=== PATIENT | female | born 1985 | race African-American/Black ===

== ENCOUNTER 2017-12-14 | Emergency (ER) | payer SELFPAY ==
--- NOTE | 2017-12-14 16:11 | ER ---
Nurse's Notes [facility] Name: Martha Keller Age: 32 yrs Sex: Female : 1985 Arrival Date: 12/14/2017 Time: 14:40 Bed 11 Private MD: Diagnosis: Dental Pain Presentation: 12/14 14:52 Presenting complaint: Patient states: tooth ache, started i week ago, accompanied by tl3 headache "feels like someone is scooping teeth out"saw dentist yesterday and placed on clindamycin, has had 3 doses. Transition of care: patient was not received from another setting of care. Onset of symptoms. 14:52 Method Of Arrival: Ambulatory tl3 14:52 Acuity: CHYNA 4 tl3 15:52 Care prior to arrival: None. tw2 Triage Assessment: 14:58 General: Appears uncomfortable, obese, Behavior is calm, cooperative, anxious. Pain: tl3 Complains of pain in headache Pain currently is 10 out of 10 on a pain scale. 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 tw2 Historical: - Allergies: 14:57 No Known Allergies; tl3 - Home Meds: 14:57 clindamycin HCl 300 mg Oral cap 2 times per day [Active]; ibuprofen 800 mg Oral tab tl3 [Active]; - PMHx: 14:57 Anxiety; tl3 - Immunization history:: Adult Immunizations up to date. - Social history:: Smoking status: Patient uses tobacco products, 1 pack last two to three days. Screenin:52 Abuse screen: Denies threats or abuse. Nutritional screening: No deficits noted. tw2 Tuberculosis screening: No symptoms or risk factors identified. Fall Risk None identified. Assessment: 15:50 General: Appears in no apparent distress. obese, Behavior is calm, cooperative, tw2 appropriate for age. Pain: Complains of pain in left buccal mucosa and right buccal mucosa. Neuro: Level of Consciousness is awake, alert, obeys commands, Oriented to person, place, time, situation. Cardiovascular: Denies chest pain, shortness of breath, Capillary refill < 3 seconds Patient's skin is warm and dry. Respiratory: Airway is patent Respiratory effort is even, unlabored, Respiratory pattern is regular, symmetrical. GI: No signs and/or symptoms were reported involving the gastrointestinal system. : No signs and/or symptoms were reported regarding the genitourinary system. EENT: Reports pain "i need to have 6 teeth pulled and they started me on an antibiotic at the clinic in [place] but I had to miss work today it is really hurting me". 16:26 Reassessment: Patient appears in no apparent distress at this time. No changes from tw2 previously documented assessment. Patient and/or family updated on plan of care and expected duration. Pain level reassessed. Patient is alert, oriented x 3, equal unlabored respirations, skin warm/dry/pink. Vital Signs: 14:58 BP 143 / 84; Pulse 103; Resp 18; Temp 98; Pulse Ox 100% ; Height 5 ft. 4 in. (162.56 tl3 cm); 16:20 BP 132 / 81; Pulse 81; Resp 17; Pulse Ox 100% on R/A; tw2 ED Course: 14:40 Patient arrived in ED. rg4 14:56 Triage completed. tl3 15:47 Jorge Luis Delgado PA is PHCP. cp 15:47 Maria E Adam MD is Attending Physician. cp 15:50 Gabbie Caceres, RN is Primary Nurse. tw2 15:51 Arm band placed on. tw2 15:51 Bed in low position. Call light in reach. Pulse ox on. NIBP on. tw2 15:52 No provider procedures requiring assistance completed. tw2 16:08 Troy Nagy DDS is Referral Physician. cp 16:26 Patient did not have IV access during this emergency room visit. tw2 Administered Medications: No medications were administered Outcome: 16:10 Discharge ordered by MD. cp 16:26 Discharged to home ambulatory. tw2 16:26 Condition: stable 16:26 Discharge instructions given to patient, Instructed on discharge instructions, follow up and referral plans. no drinking with medication, no driving heavy equipment, medication usage, Demonstrated understanding of instructions, follow-up care, medications, Prescriptions given X 2. 16:27 Patient left the ED. tw2 Signatures: Jorge Luis Delgado PA PA cp Wise, Tara, RN RN tw2 Inés Oconnor rg4 Le Avelar RN RN tl3
--- NOTE | 2017-12-14 16:11 | EDPHYS ---
Physician Documentation [facility] Name: Martha Keller Age: 32 yrs Sex: Female : 1985 Arrival Date: 12/14/2017 Time: 14:40 Bed 11 Private MD: ED Physician Maria E Adam HPI: 12/14 16:04 This 32 yrs old Black Female presents to ER via Ambulatory with complaints of Toothache.cp 16:04 The patient presents with pain. The problem is located in the right upper jaw and left cp lower jaw. Onset: The symptoms/episode began/occurred gradually. Duration: The symptoms are continuous. 16:05 Associated signs and symptoms: Pertinent positives: headache, Pertinent negatives: cp anorexia, dysphagia, fever, inability to eat, vomiting. 16:05 Patient reports she was seen by dentist yesterday and prescribed clindamycin. Patient cp reports taking 3 doses and being referred to maxillary facial surgeon. 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 tw2 Historical: - Allergies: 14:57 No Known Allergies; tl3 - Home Meds: 14:57 clindamycin HCl 300 mg Oral cap 2 times per day [Active]; ibuprofen 800 mg Oral tab tl3 [Active]; - PMHx: 14:57 Anxiety; tl3 - Immunization history:: Adult Immunizations up to date. - Social history:: Smoking status: Patient uses tobacco products, 1 pack last two to three days. ROS: 16:05 Constitutional: Negative for body aches, chills, fever, poor PO intake. cp 16:05 Eyes: Negative for injury, pain, redness, and discharge. cp 16:05 ENT: Positive for dental pain, Negative for drainage from ear(s), ear pain, sore throat, difficulty swallowing, difficulty handling secretions, hoarseness. 16:05 Neck: Negative for pain with movement, pain at rest, stiffness. 16:05 Respiratory: Negative for cough, shortness of breath, wheezing. 16:05 Neuro: Positive for headache, Negative for weakness. 16:05 All other systems are negative. Exam: 16:07 Constitutional: The patient appears in no acute distress, alert, awake, non-toxic, well cp developed, well nourished. 16:07 Head/Face: Normocephalic, atraumatic. cp 16:07 Eyes: Periorbital structures: appear normal, Pupils: equal, round, and reactive to light and accomodation, Extraocular movements: intact throughout, Conjunctiva: normal, no exudate, no injection, Sclera: no appreciated abnormality, Lids and lashes: appear normal, bilaterally. 16:07 ENT: External ear(s): are unremarkable, Ear canal(s): are normal, clear, TM's: dullness, bilaterally, Nose: is normal, Mouth: Lips: moist, Oral mucosa: moist, Gums: mild swelling noted diffusely both upper and lower jaws, Tongue: is normal, abscess, is not appreciated, Posterior pharynx: Airway: no evidence of obstruction, patent, Tonsils: are normal in appearance, Uvula: midline, swelling, is not appreciated, erythema, is not appreciated, exudate, is not appreciated, Dental exam: abscess, is not appreciated, dental caries, that is severe, diffusely, fractured teeth are noted, diffusely, missing teeth, diffusely, pain, that is mild, specifically in the right upper jaw and left lower jaw, Voice: is normal. 16:07 Neck: ROM/movement: is normal, is supple, without pain, no range of motions limitations, no meningismus, no nuchal rigidity, Lymph nodes: no appreciated lymphadenopathy. 16:07 Chest/axilla: Inspection: normal, Palpation: is normal, no crepitus, no tenderness. 16:07 Cardiovascular: Rate: normal, Rhythm: regular. 16:07 Respiratory: the patient does not display signs of respiratory distress, Respirations: normal, no use of accessory muscles, no retractions, no splinting, no tachypnea, labored breathing, is not present, Breath sounds: are clear throughout, no decreased breath sounds, no stridor, no wheezing. 16:07 Abdomen/GI: Exam negative for acute changes, Inspection: abdomen appears normal. 16:07 Skin: cellulitis, is not appreciated, no rash present. 16:07 Neuro: Orientation: to person, place \T\ time. Mentation: is normal, Cerebellar function: is grossly normal, Motor: moves all fours, strength is normal, Sensation: no obvious gross deficits. Vital Signs: 14:58 BP 143 / 84; Pulse 103; Resp 18; Temp 98; Pulse Ox 100% ; Height 5 ft. 4 in. (162.56 tl3 cm); 16:20 BP 132 / 81; Pulse 81; Resp 17; Pulse Ox 100% on R/A; tw2 MDM: 15:48 Patient medically screened. cp 16:00 Differential diagnosis: dental caries, dental abscess, pericoronitis, gingivostomatitis.cp 16:09 Data reviewed: vital signs, nurses notes, and as a result, I will discharge patient. cp 16:09 Counseling: I had a detailed discussion with the patient and/or guardian regarding: the cp historical points, exam findings, and any diagnostic results supporting the discharge/admit diagnosis, the need for outpatient follow up, for definitive care, maxillary facial surgeon. Administered Medications: No medications were administered Disposition: 12/15 07:11 Co-signature as Attending Physician, Maria E Adam MD. ma2 Disposition: 18 16:10 Discharged to Home. Impression: Dental Pain. - Condition is Stable. - Discharge Instructions: Dental Pain. - Prescriptions for Peridex 0.12 % Mucous Membrane mouthwash - place 15 milliliter by MUCOUS MEMBRANE route 2 times per day after brushing teeth, swish in mouth for 30 seconds then spit out; 1 bottle. Naprosyn 500 mg Oral Tablet - take 1 tablet by ORAL route 2 times per day take with food; 20 tablet. - Medication Reconciliation Form, Thank You Letter, Antibiotic Education, Prescription Opioid Use, Work release form form. - Follow up: Troy Nagy DDS; When: call office next week for appointment; Reason: Recheck today's complaints. - Problem is an ongoing problem. - Symptoms are unchanged. Signatures: Jorge Luis Delgado PA PA Gabbie Caceres, RN RN tw2 Maria E Adam MD MD ma2 Le Avelar, RN RN tl3
== END 2017-12-14 16:27 | disposition home or self-care (01) ==
CPT/HCPCS: 99283

== ENCOUNTER 2018-09-27 06:00 | Emergency (ER) | payer SELFPAY ==
--- OUTSIDE RECORDS SUMMARY | 2018-09-27 06:02 | XMS REPORT ---
:1985 [facility] [address] [place] [address] [place] [id number] Care Team Providers Name Role Phone Unavailable Unavailable Unavailable Problems This patient has no known problems. Allergies, Adverse Reactions, Alerts This patient has no known allergies or adverse reactions. Medications This patient has no known medications.
[2018-09-27] MEDS ORDERED: ALBUTEROL 2.5 MG/3 ML NEB SOL ONE (06:39)
--- NOTE | 2018-09-27 07:38 | EDPHYS ---
Physician Documentation [facility] Name: Martha Keller Age: 33 yrs Sex: Female : 1985 Arrival Date: 09/27/2018 Time: 06:01 Bed 5 Private MD: ED Physician Deven Padgett HPI: 09/27 06:57 This 33 yrs old Black Female presents to ER via Ambulatory with complaints of Breathing snw Difficulty. 06:57 The patient has shortness of breath at rest. Onset: The symptoms/episode began/occurred snw suddenly, 2 day(s) ago, and became persistent. Duration: The symptoms are continuous, and are unchanged since they started. Associated signs and symptoms: Pertinent positives: non-productive cough, Pertinent negatives: chest pain, fever, nausea. Severity of symptoms: At their worst the symptoms were moderate. The patient has not experienced similar symptoms in the past. It is unknown whether or not the patient has recently seen a physician. 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 - Social history:: Smoking status: Patient uses tobacco products, smokes one-half pack cigarettes per day. - Ebola Screening: : Patient negative for fever greater than or equal to 101.5 degrees Fahrenheit, and additional compatible Ebola Virus Disease symptoms. ROS: 06:57 Constitutional: Negative for fever, chills, and weight loss, Eyes: Negative for injury, snw pain, redness, and discharge. 06:57 Neck: Negative for injury, pain, and swelling, Cardiovascular: Negative for chest pain, palpitations, and edema, Abdomen/GI: Negative for abdominal pain, nausea, vomiting, diarrhea, and constipation, Back: Negative for injury and pain, : Negative for injury, bleeding, discharge, and swelling, MS/Extremity: Negative for injury and deformity, Skin: Negative for injury, rash, and discoloration, Neuro: Negative for headache, weakness, numbness, tingling, and seizure, Psych: Negative for depression, anxiety, suicide ideation, homicidal ideation, and hallucinations. 06:57 ENT: Positive for sinus congestion. 06:57 Respiratory: Positive for cough, shortness of breath, at rest. wheezing. Exam: 06:34 Respiratory: the patient does not display signs of respiratory distress, Respirations: snw normal, Breath sounds: wheezing: that is mild, is heard diffusely. 06:59 Head/Face: Normocephalic, atraumatic. Eyes: Pupils equal round and reactive to light, snw extra-ocular motions intact. Lids and lashes normal. Conjunctiva and sclera are non-icteric and not injected. Cornea within normal limits. Periorbital areas with no swelling, redness, or edema. ENT: Nares patent. No nasal discharge, no septal abnormalities noted. Tympanic membranes are normal and external auditory canals are clear. Oropharynx with no redness, swelling, or masses, exudates, or evidence of obstruction, uvula midline. Mucous membranes moist. Neck: Trachea midline, no thyromegaly or masses palpated, and no cervical lymphadenopathy. Supple, full range of motion without nuchal rigidity, or vertebral point tenderness. No Meningismus. Chest/axilla: Normal chest wall appearance and motion. Nontender with no deformity. No lesions are appreciated. Cardiovascular: Regular rate and rhythm with a normal S1 and S2. No gallops, murmurs, or rubs. Normal PMI, no JVD. No pulse deficits. Abdomen/GI: Soft, non-tender, with normal bowel sounds. No distension or tympany. No guarding or rebound. No evidence of tenderness throughout. Back: No spinal tenderness. No costovertebral tenderness. Full range of motion. MS/ Extremity: Pulses equal, no cyanosis. Neurovascular intact. Full, normal range of motion. Neuro: Awake and alert, GCS 15, oriented to person, place, time, and situation. Cranial nerves II-XII grossly intact. Motor strength 5/5 in all extremities. Sensory grossly intact. Cerebellar exam normal. Normal gait. 06:59 Constitutional: The patient appears awake, obese, hirsutism 06:59 Skin: Appearance: normal except for affected area. 06:59 Neuro: very slow to answer any questions. Vital Signs: 06:13 BP 137 / 71; Pulse 80; Resp 18 S; Temp 98.9(O); Pulse Ox 99% on R/A; Weight 83.91 kg jd3 (R); Height 5 ft. 5 in. (165.10 cm) (R); Pain 0/10; 07:30 BP 122 / 74; Pulse 71; Resp 18; Pulse Ox 99% ; sv 06:13 Body Mass Index 30.79 (83.91 kg, 165.10 cm) jd3 MDM: 06:10 Patient medically screened. snw 07:38 Immunization status:. Data reviewed: vital signs, nurses notes. Data interpreted: Pulse snw oximetry: on room air is 99 %. Interpretation: acceptable. 09/27 06:23 Order name: Chest Pa And Lat (2 Views) XRAY snw Administered Medications: 06:33 Drug: Albuterol 2.5 mg Route: Inhalation; jd3 07:02 Follow up: Response: No adverse reaction jd3 07:56 Drug: predniSONE 60 mg Route: PO; sv 07:57 Follow up: Response: Medication administered at discharge. sv 07:56 Drug: ZyrTEC - Cetirizine 10 mg Route: PO; sv 07:57 Follow up: Response: Medication administered at discharge. sv 07:56 Drug: Pepcid 20 mg Route: PO; sv 07:57 Follow up: Response: Medication administered at discharge. sv 07:56 Drug: Zithromax 500 mg Route: PO; sv 07:56 Follow up: Response: Medication administered at discharge. sv Disposition: 18 07:37 Discharged to Home. Impression: Unspecified asthma with (acute) exacerbation. - Condition is Stable. - Discharge Instructions: Acute Bronchitis, Adult, Asthma, Adult, How to Use an Inhaler, Form - Asthma Action Plan, Adult. - Prescriptions for Zyrtec 10 mg Oral Tablet - take 1 tablet by ORAL route once daily As needed; 20 tablet. Prednisone 20 mg Oral Tablet - take 2 tablet by ORAL route once daily for 5 days; 10 tablet. Albuterol Sulfate 90 mcg/actuation - inhale 1-2 puff by INHALATION route every 4-6 hours; 1 Inhaler. Zithromax 500 mg Oral Tablet - take 1 tablet by ORAL route once daily for 5 days; 5 tablet. - Medication Reconciliation Form, Thank You Letter, Antibiotic Education, Prescription Opioid Use form. - Follow up: Private Physician; When: 1 - 2 days; Reason: Recheck today's complaints, Continuance of care, Re-evaluation by your physician. Follow up: Emergency Department; When: As needed; Reason: Trouble breathing, Worsening of condition. Addendum: 10/03/2018 06:55 Co-signature as Attending Physician, Deven Padgett MD I agree with the assessment and t w4 plan of care. Signatures: Dispatcher [employer] Mabel Mayers RN RN sv Therrien, Shelly, LIGHTING FIXTURES DECORATOR-C LIGHTING FIXTURES DECORATOR-Csnw Derrell Loving RN RN jd3 Wadley, Terrence, MD MD tw4 Corrections: (The following items were deleted from the chart) 09/27 07:59 07:37 09/27/2018 07:37 Discharged to Home. Impression: Unspecified asthma with (acute) sv exacerbation. Condition is Stable. Forms are Medication Reconciliation Form, Thank You Letter, Antibiotic Education, Prescription Opioid Use. Follow up: Private Physician; When: 1 - 2 days; Reason: Recheck today's complaints, Continuance of care, Re-evaluation by your physician. Follow up: Emergency Department; When: As needed; Reason: Trouble breathing, Worsening of condition. snw
--- NOTE | 2018-09-27 07:38 | ER ---
Nurse's Notes [facility] Name: Martha Keller Age: 33 yrs Sex: Female : 1985 Arrival Date: 09/27/2018 Time: 06:01 Bed 5 Private MD: Diagnosis: Unspecified asthma with (acute) exacerbation Presentation: 09/27 06:11 Presenting complaint: Patient states: "I have been having breathing difficulty since jd3 last night. I had asthma when I was a kid. I am not having any pain.". Transition of care: patient was not received from another setting of care. Onset of symptoms was September 26, 2018. Risk Assessment: Do you want to hurt yourself or someone else? Patient reports no desire to harm self or others. Initial Sepsis Screen: Does the patient meet any 2 criteria? No. Patient's initial sepsis screen is negative. Does the patient have a suspected source of infection? No. Patient's initial sepsis screen is negative. Care prior to arrival: None. 06:11 Method Of Arrival: Ambulatory j 06:11 Acuity: CHYNA 3 jd3 Triage Assessment: 06:17 Respiratory: Onset: The symptoms/episode began/occurred yesterday, the patient has mild jd3 shortness of breath. 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 - Social history:: Smoking status: Patient uses tobacco products, smokes one-half pack cigarettes per day. - Ebola Screening: : Patient negative for fever greater than or equal to 101.5 degrees Fahrenheit, and additional compatible Ebola Virus Disease symptoms. Screenin:16 Abuse screen: Denies threats or abuse. Nutritional screening: No deficits noted. jd3 Tuberculosis screening: No symptoms or risk factors identified. Fall Risk Ambulatory Aid- None/Bed Rest/Nurse Assist (0 pts). Gait- Normal/Bed Rest/Wheelchair (0 pts) Mental Status- Oriented to own ability (0 pts). Total Del Rosario Fall Scale indicates No Risk (0-24 pts). Assessment: 06:14 General: Appears in no apparent distress. uncomfortable, Behavior is calm, cooperative, jd3 appropriate for age. Pain: Denies pain. Neuro: Level of Consciousness is awake, alert, obeys commands, Oriented to person, place, time, situation. Cardiovascular: Denies chest pain, Capillary refill < 3 seconds Patient's skin is warm and dry. Respiratory: Reports shortness of breath Airway is patent Respiratory effort is even, unlabored, Respiratory pattern is regular, symmetrical, Breath sounds with rhonchi. GI: No signs and/or symptoms were reported involving the gastrointestinal system. : No signs and/or symptoms were reported regarding the genitourinary system. EENT: No signs and/or symptoms were reported regarding the EENT system. Derm: Skin is intact, Skin is dry, Skin is normal, Skin temperature is warm. Musculoskeletal: Circulation, motion, and sensation intact. Range of motion: intact in all extremities. 07:57 Reassessment: Patient appears in no apparent distress at this time. Patient and/or sv family updated on plan of care and expected duration. Pain level reassessed. Patient is alert, oriented x 3, equal unlabored respirations, skin warm/dry/pink. Vital Signs: 06:13 BP 137 / 71; Pulse 80; Resp 18 S; Temp 98.9(O); Pulse Ox 99% on R/A; Weight 83.91 kg jd3 (R); Height 5 ft. 5 in. (165.10 cm) (R); Pain 0/10; 07:30 BP 122 / 74; Pulse 71; Resp 18; Pulse Ox 99% ; sv 06:13 Body Mass Index 30.79 (83.91 kg, 165.10 cm) j ED Course: 06:01 Patient arrived in ED. am2 06:04 Derrell Loving, ALEJANDRO is Primary Nurse. jd3 06:09 Lesley Gandara FNP-C is PHCP. snw 06:10 Deven Padgett MD is Attending Physician. snw 06:12 Triage completed. jd3 06:14 Arm band placed on. jd3 06:17 Patient has correct armband on for positive identification. Bed in low position. Call j light in reach. Side rails up X 1. Adult w/ patient. 07:32 Patient moved to radiology via wheelchair. kw 07:32 Chest Pa And Lat (2 Views) XRAY In Process Unspecified. EDMS 07:32 X-ray completed. Patient tolerated procedure well. kw 07:32 Patient moved back from radiology. kw 07:57 No provider procedures requiring assistance completed. Patient did not have IV access sv during this emergency room visit. Administered Medications: 06:33 Drug: Albuterol 2.5 mg Route: Inhalation; jd3 07:02 Follow up: Response: No adverse reaction jd3 07:56 Drug: predniSONE 60 mg Route: PO; sv 07:57 Follow up: Response: Medication administered at discharge. sv 07:56 Drug: ZyrTEC - Cetirizine 10 mg Route: PO; sv 07:57 Follow up: Response: Medication administered at discharge. sv 07:56 Drug: Pepcid 20 mg Route: PO; sv 07:57 Follow up: Response: Medication administered at discharge. sv 07:56 Drug: Zithromax 500 mg Route: PO; sv 07:56 Follow up: Response: Medication administered at discharge. sv Outcome: 07:37 Discharge ordered by MD. snw 07:58 Discharged to home ambulatory. sv 07:58 Condition: stable 07:58 Discharge instructions given to patient, Instructed on discharge instructions, follow up and referral plans. medication usage, Demonstrated understanding of instructions, follow-up care, medications, Prescriptions given X 4. 07:59 Patient left the ED. sv Signatures: Dispatcher [employer] Mabel Mayers RN RN sv Therrien, Shelly, MACHINE OPERATOR HOP WORKER-C MACHINE OPERATOR HOP WORKER-Csnw Rebeca Alegria Amanda am2 Davies, Jonathon, RN RN jd3
[2018-09-27] MEDS ORDERED: FAMOTIDINE 20 MG TAB ONE (08:00)
[2018-09-27] MEDS ORDERED: predniSONE 20 MG TAB ONE (08:00)
[2018-09-27] MEDS ORDERED: AZITHROMYCIN 250 MG TAB ONE (08:00)
[2018-09-27] MEDS ORDERED: CETIRIZINE HCL 5 MG TABLET ONE (08:00)
[2018-09-27 08:19] VITALS: TEMP 98.9; O2SAT 99
[2018-09-27 08:21] VITALS: BP 122/74
--- NOTE | 2018-09-27 09:01 | RAD REPORT ---
EXAM DESCRIPTION: RAD - Chest Pa And Lat (2 Views) - 09/27/2018 7:34 am CLINICAL HISTORY: SOB Chest pain. COMPARISON: CHEST PA AND LAT 2 VIEW dated 04/23/2015; CHEST PA AND LAT 2 VIEW dated 10/10/2012 FINDINGS: The lungs are clear. The heart is normal in size. No displaced fractures. IMPRESSION: No acute or concerning finding suspected.
== END 2018-09-27 07:59 | disposition home or self-care (01) ==
LOC: ER 06:00
DX: J45.901 Unspecified asthma with (acute) exacerbation (principal); F17.210 Nicotine dependence, cigarettes, uncomplicated
CPT/HCPCS: 71046; 99284; J7512

== ENCOUNTER 2019-09-20 17:16 | Emergency (ER) | payer OTHER ==
--- OUTSIDE RECORDS SUMMARY | 2019-09-20 17:17 | XMS REPORT ---
:1985 [facility] Address [address] [place] [address] [address]. [address] [place] [id number] Care Team Providers Name Role Phone Unavailable Unavailable Unavailable Problems This patient has no known problems. Allergies, Adverse Reactions, Alerts This patient has no known allergies or adverse reactions. Medications This patient has no known medications.
--- NOTE | 2019-09-20 20:00 | ER ---
Nurse's Notes [facility] Name: Martha Kleler Age: 34 yrs Sex: Female : 1985 Arrival Date: 09/20/2019 Time: 17:20 Bed 7 Private MD: Diagnosis: Shortness of breath Presentation: 09/20 17:25 Presenting complaint: Patient states: Shortness of breath for the past 2 weeks, reports aj1 shortness of breath is worse when she lays down at night. Patient reports that she is currently 7 months . States that she was seen by her OB a week ago, but they didn't do any tests. Denies any vaginal bleeding, abdominal pain, back pain. Denies cough, congestion, fever. Transition of care: patient was not received from another setting of care. Onset of symptoms was September 20, 2019. Risk Assessment: Do you want to hurt yourself or someone else? Patient reports no desire to harm self or others. Initial Sepsis Screen: Does the patient meet any 2 criteria? No. Patient's initial sepsis screen is negative. Does the patient have a suspected source of infection? No. Patient's initial sepsis screen is negative. Care prior to arrival: None. 17:25 Method Of Arrival: Ambulatory aj1 17:25 Acuity: CHYNA 3 aj1 Triage Assessment: 17:29 General: Appears in no apparent distress. comfortable, Behavior is calm, cooperative, aj1 appropriate for age. Pain: Denies pain. Neuro: Level of Consciousness is awake, alert, obeys commands, Oriented to person, place, time, situation. Cardiovascular: Patient's skin is warm and dry. Respiratory: Reports shortness of breath Airway is patent Respiratory effort is even, unlabored, Respiratory pattern is regular, symmetrical, Onset: The symptoms/episode began/occurred 2 week ago, the patient has mild shortness of breath. 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 - Social history:: Smoking status: Patient/guardian denies using tobacco. - Ebola Screening: : Patient denies travel to an Ebola-affected area in the 21 days before illness onset. Screenin:15 Abuse screen: Denies threats or abuse. Nutritional screening: No deficits noted. jd3 Tuberculosis screening: No symptoms or risk factors identified. Fall Risk Ambulatory Aid- None/Bed Rest/Nurse Assist (0 pts). Gait- Normal/Bed Rest/Wheelchair (0 pts) Mental Status- Oriented to own ability (0 pts). Total Del Rosario Fall Scale indicates No Risk (0-24 pts). Assessment: 19:12 General: Appears in no apparent distress. comfortable, Behavior is calm, cooperative, jd3 appropriate for age. Pain: Denies pain. Neuro: Level of Consciousness is awake, alert, obeys commands, Oriented to person, place, time, situation. Cardiovascular: Denies chest pain, Capillary refill < 3 seconds Patient's skin is warm and dry. Respiratory: Reports feeling short of breath prior to arrival. Airway is patent Respiratory effort is even, unlabored, Respiratory pattern is regular, symmetrical, Breath sounds are clear bilaterally. the patient reports symptoms have resolved Denies cough. GI: No signs and/or symptoms were reported involving the gastrointestinal system. : No signs and/or symptoms were reported regarding the genitourinary system. EENT: No signs and/or symptoms were reported regarding the EENT system. Derm: Skin is intact, Skin is dry, Skin is normal, Skin temperature is warm. Musculoskeletal: Circulation, motion, and sensation intact. Range of motion: intact in all extremities. 20:17 Reassessment: Patient appears in no apparent distress at this time. Patient is alert, aa1 oriented x 3, equal unlabored respirations, skin warm/dry/pink. Discussed d/c \T\ f/u instructions with pt; denies questions or concerns at this time. Ambulatory to lobby with steady gait Patient states feeling better. Vital Signs: 17:29 BP 150 / 78; Pulse 107; Resp 20; Temp 98.1; Pulse Ox 99% on R/A; Height 5 ft. 5 in. aj1 (165.10 cm); Pain 0/10; 19:37 BP 128 / 69; Pulse 87; Resp 18 S; Temp 98.5(O); Pulse Ox 100% on R/A; jd3 20:17 BP 120 / 65; Pulse 89; Resp 18; Pulse Ox 99% on R/A; aa1 Vitals: 19:37 Heart Tones 154 HR. jd3 ED Course: 17:20 Patient arrived in ED. mr 17:28 Triage completed. aj1 17:29 Arm band placed on Patient placed in waiting room, Patient notified of wait time. aj1 19:07 Kofi Childress PA is PHCP. jr8 19:07 Jorge Luis Alex MD is Attending Physician. jr8 19:11 Derrell Loving, RN is Primary Nurse. jd3 19:15 Patient has correct armband on for positive identification. Bed in low position. Call j light in reach. Side rails up X 1. Adult w/ patient. 20:17 No provider procedures requiring assistance completed. Patient did not have IV access aa1 during this emergency room visit. Administered Medications: No medications were administered Outcome: 20:00 Discharge ordered by . jr8 20:17 Discharged to home ambulatory. aa1 20:17 Condition: good 20:17 Discharge instructions given to patient, Instructed on discharge instructions, follow up and referral plans. Demonstrated understanding of instructions, follow-up care. 20:19 Patient left the ED. aa1 Signatures: Shaneka Scott RN RN aj1 Dahlia Hall RN RN aa1 GrissomElyse mr Kofi Childress PA PA jrDerrell Roberts, RN RN j
--- NOTE | 2019-09-20 20:01 | EDPHYS ---
Physician Documentation [facility] Name: Martha Keller Age: 34 yrs Sex: Female : 1985 Arrival Date: 09/20/2019 Time: 17:20 Bed 7 Private MD: ED Physician Jorge Luis Alex HPI: 09/20 19:39 This 34 yrs old Black Female presents to ER via Ambulatory with complaints of Breathing jr8 Difficulty. 19:39 The patient has shortness of breath at rest. Onset: The symptoms/episode began/occurred jr8 gradually, 2 week(s) ago. Duration: The symptoms are intermittent. The patient's shortness of breath has no apparent modifying factors. Associated signs and symptoms: The patient has no apparent associated signs or symptoms. Severity of symptoms: At their worst the symptoms were mild in the emergency department the symptoms are unchanged. The patient has not experienced similar symptoms in the past. The patient has not recently seen a physician. Patient stated that she is about 7 months . Has been more anxious lately. Intermittent shortness of breath. Denies any other symptoms . 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 - Social history:: Smoking status: Patient/guardian denies using tobacco. - Ebola Screening: : Patient denies travel to an Ebola-affected area in the 21 days before illness onset. ROS: 19:39 Eyes: Negative for injury, pain, redness, and discharge, ENT: Negative for injury, jr8 pain, and discharge, Neck: Negative for injury, pain, and swelling, Cardiovascular: Negative for chest pain, palpitations, and edema, Abdomen/GI: Negative for abdominal pain, nausea, vomiting, diarrhea, and constipation, Back: Negative for injury and pain, MS/Extremity: Negative for injury and deformity, Skin: Negative for injury, rash, and discoloration, Neuro: Negative for headache, weakness, numbness, tingling, and seizure. 19:39 Respiratory: Positive for shortness of breath. Exam: 19:39 Eyes: Pupils equal round and reactive to light, extra-ocular motions intact. Lids and jr8 lashes normal. Conjunctiva and sclera are non-icteric and not injected. Cornea within normal limits. Periorbital areas with no swelling, redness, or edema. ENT: Nares patent. No nasal discharge, no septal abnormalities noted. Tympanic membranes are normal and external auditory canals are clear. Oropharynx with no redness, swelling, or masses, exudates, or evidence of obstruction, uvula midline. Mucous membranes moist. Neck: Trachea midline, no thyromegaly or masses palpated, and no cervical lymphadenopathy. Supple, full range of motion without nuchal rigidity, or vertebral point tenderness. No Meningismus. Cardiovascular: Regular rate and rhythm with a normal S1 and S2. No gallops, murmurs, or rubs. Normal PMI, no JVD. No pulse deficits. Respiratory: Lungs have equal breath sounds bilaterally, clear to auscultation and percussion. No rales, rhonchi or wheezes noted. No increased work of breathing, no retractions or nasal flaring. Back: No spinal tenderness. No costovertebral tenderness. Full range of motion. Skin: Warm, dry with normal turgor. Normal color with no rashes, no lesions, and no evidence of cellulitis. MS/ Extremity: Pulses equal, no cyanosis. Neurovascular intact. Full, normal range of motion. Neuro: Awake and alert, GCS 15, oriented to person, place, time, and situation. Cranial nerves II-XII grossly intact. Motor strength 5/5 in all extremities. Sensory grossly intact. Cerebellar exam normal. Normal gait. 19:39 Abdomen/GI: Inspection: gravid appearance, is noted, Bowel sounds: active, Palpation: abdomen is soft and non-tender, in all quadrants, Indicators: McBurney's point is not tender, Marino's sign is negative, Rovsing's sign is negative, Liver: tenderness, is not appreciated. Vital Signs: 17:29 BP 150 / 78; Pulse 107; Resp 20; Temp 98.1; Pulse Ox 99% on R/A; Height 5 ft. 5 in. aj1 (165.10 cm); Pain 0/10; 19:37 BP 128 / 69; Pulse 87; Resp 18 S; Temp 98.5(O); Pulse Ox 100% on R/A; jd3 20:17 BP 120 / 65; Pulse 89; Resp 18; Pulse Ox 99% on R/A; aa1 MDM: 19:08 Patient medically screened. jr8 19:57 Data reviewed: vital signs, nurses notes, and as a result, I will discharge patient. jr8 Data interpreted: Pulse oximetry: on room air is 100 %. Interpretation: normal. Counseling: I had a detailed discussion with the patient and/or guardian regarding: the historical points, exam findings, and any diagnostic results supporting the discharge/admit diagnosis, the need for outpatient follow up, an OB/Gyne specialist, to return to the emergency department if symptoms worsen or persist or if there are any questions or concerns that arise at home. ED course: FHT normal. VS stable. No acute findings on physical exam. Explained to patient that it may be slight anxiety mixed with gravid abdomen anatomically causing decreased lung volume space causing shortness of breath. Would f/u with OB. Patient currently asymptomatic. Will f/u and knows to come back if worse . 09/20 19:32 Order name: FHT's; Complete Time: 19:39 jr8 Administered Medications: No medications were administered Disposition: 09/21 07:53 Co-signature as Attending Physician, Jorge Luis Alex MD I agree with the assessment and [facility] plan of care. Disposition: 09/20/19 20:00 Discharged to Home. Impression: Shortness of breath. - Condition is Stable. - Discharge Instructions: Shortness of Breath. - Medication Reconciliation Form, Thank You Letter, Antibiotic Education, Prescription Opioid Use, Work release form form. - Follow up: Private Physician; When: 1 - 2 days; Reason: Recheck today's complaints, Continuance of care, Re-evaluation by your physician. - Problem is new. - Symptoms have improved. Signatures: Shaneka Scott RN RN aj1 Dahlia Hall RN RN [email or web address] Jorge Luis Alex MD MD cha Roszak, Josh, PA PA jr8 Corrections: (The following items were deleted from the chart) 09/20 20:19 20:00 09/20/2019 20:00 Discharged to Home. Impression: Shortness of breath. Condition aa1 is Stable. Forms are Work release form, Medication Reconciliation Form, Thank You Letter, Antibiotic Education, Prescription Opioid Use. Follow up: Private Physician; When: 1 - 2 days; Reason: Recheck today's complaints, Continuance of care, Re-evaluation by your physician. Problem is new. Symptoms have improved. jr8
[2019-09-20 20:59] VITALS: TEMP 98.5
[2019-09-20 21:00] VITALS: BP 120/65; O2SAT 99
== END 2019-09-20 20:19 | disposition home or self-care (01) ==
LOC: ER 17:16
DX: R06.02 Shortness of breath (principal)
CPT/HCPCS: 99283

== ENCOUNTER 2019-10-22 14:29 | Emergency (ER) | payer OTHER ==
--- OUTSIDE RECORDS SUMMARY | 2019-10-22 14:32 | XMS REPORT ---
:1985 [facility] Address [address] [place] [address] Dr. Phillips [address] [place] [id number] Care Team Providers Name Role Phone Unavailable Unavailable Unavailable Problems This patient has no known problems. Allergies, Adverse Reactions, Alerts This patient has no known allergies or adverse reactions. Medications This patient has no known medications.
[2019-10-22 16:45] LABS: Urine Blood NEGATIVE (NEG); Urine Glucose 2+ (NEG); Urine Protein TRACE (NEG); Urine Specific Gravity >1.030 (1.005-1.030); Urine pH 5.5 (5.0-7.0)
[2019-10-22 17:08] LABS: Absolute Lymphocytes (CBC) 1.9 K/uL (0.7-4.9); Basophils % 0.4 % (0-1.3); Lymphocytes % 19.9 % (15.3-44.8); MPV 10.3 fL (7.6-11.3); RBC Red Blood Cell Count 4.76 M/uL (3.86-4.86)
[2019-10-22 17:21] LABS: Urine Bacteria >50 /HPF (<20); Urine Culture Reflex Order NOT NEEDED; Urine Mucus 1+ /HPF (NONE SEEN); Urine RBC <5 /HPF (NONE SEEN)
[2019-10-22 17:24] LABS: BUN Blood Urea Nitrogen 6 mg/dL (7-18); Bicarbonate 24 mmol/L (21-32); Glucose Level 124 mg/dL (74-106); Potassium 3.8 mmol/L (3.5-5.1); Sodium Level 138 mmol/L (136-145)
--- NOTE | 2019-10-22 17:44 | RAD REPORT ---
EXAM DESCRIPTION: RAD - Chest Single View - 10/22/2019 5:17 pm CLINICAL HISTORY: SOB COMPARISON: Chest Pa And Lat (2 Views) dated 09/27/2018None. TECHNIQUE: AP portable chest image was obtained 10/22/2019 5:17 pm . FINDINGS: Lungs are clear. Heart and vasculature are normal. No measurable pleural effusion and no p neumothorax. No acute bony abnormality seen. No acute aortic findings suspected. IMPRESSION: No acute cardiopulmonary process.
--- NOTE | 2019-10-22 18:07 | EDPHYS ---
Physician Documentation [facility] Name: Martha Keller Age: 34 yrs Sex: Female : 1985 Arrival Date: 10/22/2019 Time: 14:35 Bed 30 Private MD: ED Physician Nixon Arita HPI: 10/22 16:36 This 34 yrs old Black Female presents to ER via Ambulatory with complaints of Breathing la1 Difficulty, 35 wks . 16:36 The patient has shortness of breath while sleeping, supine position or right lateral. la1 Onset: The symptoms/episode began/occurred 4 day(s) ago. Duration: The symptoms are intermittent. The patient's shortness of breath is aggravated by supine position, is alleviated by sitting up, standing. Associated signs and symptoms: Pertinent negatives: chest pain, non-productive cough, diaphoresis, dizziness, fever, hemoptysis, loss of consciousness, nausea, numbness in extremities, visual changes, vomiting. Severity of symptoms: At their worst the symptoms were moderate in the emergency department the symptoms have resolved. The patient has not experienced similar symptoms in the past. pt reports that when she is laying down she feels short of breath but when she sits up or walks then it is relieved. Pt is , term with previous child although he had "flat head" due to not having enough room. Pt denies SOB currently, denies chest pain, denies cough. . 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 - Social history:: Smoking status: unknown. ROS: 16:39 Constitutional: Negative for fever, chills, and weight loss, Eyes: Negative for injury, la1 pain, redness, and discharge, ENT: Negative for injury, pain, and discharge, Neck: Negative for injury, pain, and swelling, Cardiovascular: Negative for chest pain, palpitations, and edema. 16:39 Abdomen/GI: Negative for abdominal pain, nausea, vomiting, diarrhea, and constipation, Back: Negative for injury and pain, : Negative for injury, bleeding, discharge, and swelling, MS/Extremity: Negative for injury and deformity, Neuro: Negative for headache, weakness, numbness, tingling, and seizure, Endocrine: Negative for neck swelling, polydipsia, polyuria, polyphagia, and marked weight changes, Hematologic/Lymphatic: Negative for swollen nodes, abnormal bleeding, and unusual bruising. 16:39 Respiratory: Positive for SOB when supine. Exam: 16:40 Constitutional: This is a well developed, well nourished patient who is awake, alert, la1 and in no acute distress. Head/Face: Normocephalic, atraumatic. Neck: Trachea midline and no cervical lymphadenopathy. Supple, full range of motion without nuchal rigidity, or vertebral point tenderness. No Meningismus. Chest/axilla: Normal chest wall appearance and motion. Nontender with no deformity. No lesions are appreciated. Cardiovascular: Regular rate and rhythm with a normal S1 and S2. No gallops, murmurs, or rubs. Normal PMI, no JVD. No pulse deficits. Respiratory: Lungs have equal breath sounds bilaterally, clear to auscultation . 16:40 MS/ Extremity: Pulses equal, no cyanosis. Neurovascular intact. Full, normal range of motion. No swelling, tenderness in lower extremities 16:40 Abdomen/GI: Inspection: gravid appearance, is noted, Bowel sounds: normal, Palpation: abdomen is soft and non-tender. 16:40 : Gravid exam: Fundal height: consistent with gestational age, pt denies abd or pelvic pain, denies discharge or bleeding. Vital Signs: 15:03 BP 116 / 64; Pulse 109; Resp 19 S; Temp 97.8; Pulse Ox 98% on R/A; Pain 0/10; iw 17:46 BP 129 / 94; Pulse 94; Resp 18; Pulse Ox 100% ; mg2 MDM: 15:14 Patient medically screened. la1 18:04 Data reviewed: vital signs, nurses notes, lab test result(s), EKG, radiologic studies, la1 I have discussed the patient's presentation/case with the attending Emergency Department Physician; and as a result, I will discharge patient. Data interpreted: Pulse oximetry: on room air is 100 %. Interpretation: normal. Test interpretation: by ED physician or midlevel provider: ECG, plain radiologic studies. Counseling: I had a detailed discussion with the patient and/or guardian regarding: the historical points, exam findings, and any diagnostic results supporting the discharge/admit diagnosis, lab results, radiology results, the need for outpatient follow up, an OB/Gyne specialist. ED course: Pt not feeling SOB at this time, states symptoms resolved when sitting or standing. FHT WNL, no UTI identified. ED course: has apt with OB in the morning. 10/22 16:05 Order name: CBC with Diff; Complete Time: 17:36 10/22 16:05 Order name: BMP; Complete Time: 17:36 10/22 16:05 Order name: Chest Single View XRAY; Complete Time: 17:56 10/22 16:12 Order name: Urine Microscopic Only; Complete Time: 17:36 la10/22 16:30 Order name: Urine Dipstick--Ancillary (enter results); Complete Time: 17:36 bd 10/22 16:30 Order name: Urine --Ancillary (enter results); Complete Time: 17:36 bd 10/22 16:05 Order name: IV; Complete Time: 16:33 la10/22 16:05 Order name: EKG - Nurse/Tech; Complete Time: 16:33 la10/22 16:05 Order name: EKG; Complete Time: 16:06 la10/22 16:12 Order name: Urine Dipstick-Ancillary (obtain specimen); Complete Time: 16:33 10/22 16:39 Order name: Heart Tones; Complete Time: 17:45 la1 Administered Medications: No medications were administered Disposition: 10/23 08:10 Co-signature as Attending Physician, Nixon Arita MD. rn Disposition: 10/22/19 18:06 Discharged to Home. Impression: Shortness of breath - positional. - Condition is Stable. - Discharge Instructions: Shortness of Breath, Shortness of Breath, Xepi-yp-News. - Medication Reconciliation Form, Thank You Letter form. - Follow up: Private Physician; When: 1 - 2 days; Reason: Recheck today's complaints, Re-evaluation by your physician. - Problem is new. - Symptoms have improved. Signatures: Dispatcher [employer] Kendra Obregon, RN RN Nixon Ch MD MD rn Attema, Lee, AS400 ANALYST-C AS400 ANALYST-Cla1 Billy Hannon, RN RN mg2 Corrections: (The following items were deleted from the chart) 10/22 18:28 18:06 10/22/2019 18:06 Discharged to Home. Impression: Shortness of breath - mg2 positional. Condition is Stable. Forms are Medication Reconciliation Form, Thank You Letter, Antibiotic Education, Prescription Opioid Use. Follow up: Private Physician; When: 1 - 2 days; Reason: Recheck today's complaints, Re-evaluation by your physician. Problem is new. Symptoms have improved. la1
--- NOTE | 2019-10-22 18:07 | ER ---
Nurse's Notes [facility] Name: Martha Keller Age: 34 yrs Sex: Female : 1985 Arrival Date: 10/22/2019 Time: 14:35 Bed 30 Private MD: Diagnosis: Shortness of breath-positional Presentation: 10/22 15:00 Presenting complaint: Patient states: hasn't been feeling good X3-4 days, last night iw felt really faint, is gasping for air at night, moved her due date up a week, eyes hurt, after so long of breathing bad she starts feeling pain in her chest, pt denies fever , +cough. Transition of care: patient was not received from another setting of care. Onset of symptoms was October 19, 2019. Risk Assessment: Do you want to hurt yourself or someone else? Patient reports no desire to harm self or others. Initial Sepsis Screen: Does the patient meet any 2 criteria? No. Patient's initial sepsis screen is negative. Does the patient have a suspected source of infection? No. Patient's initial sepsis screen is negative. Care prior to arrival: None. 15:00 Method Of Arrival: Ambulatory iw 15:00 Acuity: CHYNA 3 iw Triage Assessment: 15:40 General: Appears in no apparent distress. comfortable, Behavior is calm, cooperative. mg2 Respiratory: the patient has mild shortness of breath. RELIGIOUS ASSISTANT: 15:03 LMP 03/2019 iw Historical: - Allergies: 15:03 No Known Allergies; iw - Home Meds: 15:40 Vitamin Oral [Active]; mg2 - PMHx: 15:03 Anxiety; Asthma; iw - PSHx: 15:03 ; iw - Ebola Screening: : Patient negative for fever greater than or equal to 101.5 degrees Fahrenheit, and additional compatible Ebola Virus Disease symptoms Patient denies exposure to infectious person Patient denies travel to an Ebola-affected area in the 21 days before illness onset No symptoms or risks identified at this time. - Social history:: Smoking status: unknown. Screenin:26 Abuse screen: Denies threats or abuse. Denies injuries from another. Nutritional mg2 screening: No deficits noted. Tuberculosis screening: No symptoms or risk factors identified. Fall Risk None identified. Assessment: 15:38 General: Appears in no apparent distress. comfortable, Behavior is calm, cooperative. mg2 Pain: Complains of pain in pelvic area Pain does not radiate. Pain currently is 2 out of 10 on a pain scale. Quality of pain is described as burning, aching, Pain began gradually, Is intermittent. Neuro: Level of Consciousness is awake, alert, obeys commands, Oriented to person, place, time, situation. Neuro: Reports almost fainting attack last night. Cardiovascular: Capillary refill < 3 seconds. Respiratory: Reports shortness of breath Airway is patent Respiratory effort is even, unlabored, Respiratory pattern is regular, symmetrical, Breath sounds are clear bilaterally. in left posterior upper lobe, right posterior upper lobe, left posterior lower lobe, right posterior middle lobe and right posterior lower lobe. GI: No signs and/or symptoms were reported involving the gastrointestinal system. : No signs and/or symptoms were reported regarding the genitourinary system. EENT: No signs and/or symptoms were reported regarding the EENT system. Derm: Skin is intact, is healthy with good turgor, Skin is pink, warm \T\ dry. normal. Musculoskeletal: Circulation, motion, and sensation intact. Capillary refill < 3 seconds. 17:00 Cardiovascular: Rhythm is regular. mg2 17:46 Reassessment: Patient appears in no apparent distress at this time. Patient and/or mg2 family updated on plan of care and expected duration. Pain level reassessed. Patient is alert, oriented x 3, equal unlabored respirations, skin warm/dry/pink. Vital Signs: 15:03 BP 116 / 64; Pulse 109; Resp 19 S; Temp 97.8; Pulse Ox 98% on R/A; Pain 0/10; iw 17:46 BP 129 / 94; Pulse 94; Resp 18; Pulse Ox 100% ; mg2 Vitals: 17:46 Heart Tones 140. mg2 ED Course: 14:35 Patient arrived in ED. mr 15:02 Triage completed. iw 15:03 Arm band placed on. iw 15:14 Rahul Bird FNP-C [facility]. la1 15:14 Nixon Arita MD is Attending Physician. la1 15:16 Billy Hannon RN is Primary Nurse. mg2 15:40 Patient has correct armband on for positive identification. mg2 16:33 No provider procedures requiring assistance completed. Inserted saline lock: 20 gauge mg2 in right antecubital area, using aseptic technique. Blood collected. 17:18 Chest Single View XRAY In Process Unspecified. EDMS 18:27 IV discontinued, intact, bleeding controlled, No redness/swelling at site. Pressure mg2 dressing applied. Administered Medications: No medications were administered Outcome: 18:06 Discharge ordered by MD. wright 18:27 Discharged to home ambulatory. mg2 18:27 Condition: stable 18:27 Discharge instructions given to patient, Instructed on discharge instructions, follow up and referral plans. Demonstrated understanding of instructions, follow-up care. 18:28 Patient left the ED. mg2 Signatures: Dispatcher [employer] EDCO Elyse Grissom Irene, RN RN iw Rahul Bird, MORTGAGE ANALYST-C MORTGAGE ANALYST-Cla1 Billy Hannon, ALEJANDRO RN mg2
[2019-10-23 01:02] VITALS: TEMP 97.8
[2019-10-23 01:03] VITALS: BP 129/94; O2SAT 100
--- NOTE | 2019-10-23 13:41 | EKG ---
Test Date: 2019-10-22 Test Time: 16:29:59 Building Equipment Inspector: СЕРГЕЙ MEASUREMENT RESULTS: Intervals: Rate: 91 [place]: 158 QRSD: 86 QT: 362 QTc: 445 [place]: P: 65 [place]: 158 QRS: 60 T: 47 INTERPRETIVE STATEMENTS: Normal sinus rhythm Normal ECG Compared to ECG 06/26/2013 11:19:18 Sinus arrhythmia no longer present Electronically Signed On 10-23-19 13:38:12 INSPECTOR HAIRSPRING TRUING by Nathaniel Serrano
== END 2019-10-22 18:28 | disposition home or self-care (01) ==
LOC: ER 14:29
DX: O26.893 Other specified pregnancy related conditions, third trimester (principal); Z3A.35 35 weeks gestation of pregnancy
CPT/HCPCS: 36415; 71045; 80048; 81003; 81015; 81025; 85025; 93005; 99284

== ENCOUNTER 2019-11-12 23:25 | Emergency (ER) | payer OTHER ==
--- OUTSIDE RECORDS SUMMARY | 2019-11-12 23:27 | XMS REPORT ---
:1985 [facility] Address [address] [place] [address] [place] [address] Care Team Providers Name Role Phone Unavailable Unavailable Unavailable Problems This patient has no known problems. Allergies, Adverse Reactions, Alerts This patient has no known allergies or adverse reactions. Medications This patient has no known medications.
--- OUTSIDE RECORDS SUMMARY | 2019-11-12 23:29 | XMS REPORT | Summary of Care ---
:1985 Author Organization [facility] - Health Address [address] [place] [id number] Care Team Providers Name Role Phone Karlee Naik Primary Care Provider Reason for Visit Reason Comments Care Encounter Details Date Type Department Care Team Description 11/07/2019 Routine [facility] High-risk in third trimester (Primary Dx); Visit MENDEL Grossman Thrombocytopenia during ; [address] Previous delivery affecting , antepartum; [place], [place] S Obesity affecting in third trimester; [id number] [place]sh[place] A Multiparity; [phone] [place], [place] Group B streptococcal carriage complicating [address] Allergies Active Allergy Reactions Severity Noted Date Comments Cefazolin Hives High 06/27/2017 Sulfa (Sulfonamide Antibiotics) Hives 04/09/2012 documented as of this encounter (statuses as of 11/07/2019) Medications Medication Sig Dispensed Refills Start Date End Date Status PNV 67-iron Take 1 capsule by 30 capsule 11 07/28/2019 Active ps-folate no.1-dha mouth daily. (VITAFOL ULTRA) 29 mg iron- 1 mg-200 mg CapIndications: High-risk in second trimester nystatin 100,000 Apply to area(s) 2 15 g 0 10/16/2019 Active unit/gram (two) times daily. ointmentIndications: Vaginal itching PROAIR HFA 90 Inhale 2 Puffs 8.5 g 1 10/16/2019 Active mcg/actuation every 6 (six) hours inhalerIndications: as needed for History of asthma Wheezing or Shortness of Breath. documented as of this encounter (statuses as of 11/07/2019) Active Problems Problem Noted Date Abnormal glucose in , antepartum 10/30/2019 Glucosuria 10/30/2019 Group B streptococcal carriage complicating 10/27/2019 Elevated blood pressure affecting in third trimester, antepartum Pain of round ligament during 09/26/2019 Acute left-sided low back pain with left-sided sciatica 06/23/2019 Carpal tunnel syndrome during 06/23/2019 Thrombocytopenia during 06/09/2019 Overview: Plt 131 at 12w High-risk in third trimester 06/06/2019 Multiparity 06/06/2019 Obesity affecting in third trimester 06/06/2019 Previous delivery affecting , antepartum 06/06/2019 Adult BMI 40.0-44.9 kg/sq m 06/06/2019 complicated by tobacco use in third trimester 06/06/2019 Overview: Reports cessation at 28w History of bipolar disorder 06/06/2019 History of asthma 06/26/2017 Anxiety 06/26/2017 Hirsutism 08/25/2014 Estimated Date of Delivery Comments Yes 11/20/2019 Based on Ultrasound documented as of this encounter (statuses as of 11/07/2019) Resolved Problems Problem Noted Date Resolved Date Well woman exam 01/23/2019 06/06/2019 Contraceptive management 01/23/2019 06/06/2019 Research study patient 06/27/2017 01/23/2019 39 weeks gestation of 06/25/2017 07/19/2017 Group beta Strep positive 06/25/2017 07/19/2017 Morbid obesity with body mass index of 40.0-49.9 06/25/2017 01/23/2019 Tobacco use in , second trimester 04/26/2017 04/26/2017 Tobacco use in , third trimester 04/26/2017 01/23/2019 Obesity (BMI 30-39.9) 04/09/2017 06/06/2019 PCOS (polycystic ovarian syndrome) 08/25/2014 06/26/2017 General counseling and advice for contraceptive management 08/25/20142016 Overview: ICD10 Diagnosis Term Dot Net Architect Utility Elevated blood pressure reading without diagnosis of 08/25/2014 06/26/2017 hypertension Asthma 08/25/2014 06/26/2017 Overview: ICD10 Diagnosis Term Dot Net Architect Utility Pain pelvic 08/25/2014 06/26/2017 Acanthosis 08/25/2014 06/26/2017 History of abnormal Pap smear 08/25/2014 08/22/2016 History of depression 08/25/2014 06/26/2017 History of anxiety 08/25/2014 09/26/2019 History of seizures 08/25/2014 06/26/2017 Tobacco use disorder 01/11/2014 08/22/2016 Absence of menstruation 04/02/2013 08/25/2014 Obesity 04/02/2013 06/26/2017 Overview: ICD10 Diagnosis Term Dot Net Architect Utility Psychosis 01/03/2008 06/26/2017 Overview: ICD10 Diagnosis Term Dot Net Architect Utility documented as of this encounter (statuses as of 11/07/2019) Immunizations Name Administration Dates Next Due Influenza Virus Vaccine Quad .5 mL IM 6+ MO 07/28/2019 MMR 06/29/2017 TDAP (ADACEL) VACCINE 09/09/2019 Td 07/31/2016 Tdap 06/07/2017 documented as of this encounter Social History Tobacco Use Types Packs/Day Years Used Date Current Some Day Smoker Cigarettes 0.1 Started: 04/09/2002 Smokeless Tobacco: Never Used Alcohol Use Drinks/Week oz/Week Comments No Estimated Date of Delivery Comments Yes 11/20/2019 Based on Ultrasound Sex Assigned at Date Recorded Not on file Job Start Date Occupation Industry Not on file Not on file Not on file Travel History Travel Start Travel End No recent travel history available. documented as of this encounter Last Filed Vital Signs Vital Sign Reading Time Taken Comments Blood Pressure 130/72 11/07/2019 1:11 PM ERGONOMIST Pulse 89 11/07/2019 1:11 PM ERGONOMIST Temperature 36.8 C (98.2 F) 11/07/2019 1:11 PM ERGONOMIST Respiratory Rate 16 11/07/2019 1:11 PM ERGONOMIST Oxygen Saturation - - Inhaled Oxygen Concentration - - Weight 121.7 kg (268 lb 6 oz) 11/07/2019 1:11 PM ERGONOMIST Height 162.6 cm (5' 4") 11/07/2019 1:11 PM ERGONOMIST Body Mass Index 46.07 11/07/2019 1:11 PM ERGONOMIST documented in this encounter Progress Notes Karlee Naik, HOSE COUPLING JOINER - 11/07/2019 1:00 PM CST Chief complaint: Chief Complaint Patient presents with Care HPI Sarah Cee is a 34 year old female is a @ 38w1d here for visit. Patient's last menstrual period was 04/14/2019 (exact date). Estimated Date of Delivery: 11/20/19 Today she denies any complaints or concerns. She is taking PNV. She reports good FM. She denies any ctx/cramping, VB, LOF, GARZON , visual disturbance, vaginal discharge or dysuria. She denies any foreign travel. She also denies any physical, sexual or emotional abuse. Histories OB History Para Term AB Living 2 1 1 0 0 1 SAB TAB Ectopic Multiple Live Births 0 0 0 0 1 # Outcome Date GA Lbr [place]/2nd Weight Sex Delivery Anes PTL Lv 2 Current 1 Term 06/27/17 39w3d 7 lb 5.1 oz (3.32 kg) M SEC EPI [place] Comments: Maternal Age: 30; :1; Parity:1 Mother's Blood Type:B pos Baby's Blood Type:not applicable Maternal Serological Test:normal Maternal Group B Strep Screening:positive; Adequate Treatment:yes Complications:yes - smoking during pregn Past Medical History: Diagnosis Date Anxiety 2009 was on meds, stoped 04/06/2017 Asthma as a child Bipolar disorder 2009 Depression 2007 Maternal tobacco use in first trimester 06/06/2019 PCOS (polycystic ovarian syndrome) 2011 Thrombocytopenia during 06/09/2019 Family History Problem Relation Age of Onset Coronary Heart Disease Father Hypertension Father Diabetes Paternal Grandmother Arthritis Paternal Grandmother Asthma Mother Other - see comments Mother copd, cirrhosis Psychiatry Mother Cancer Mother Depression Sister Psychiatry Sister bipolar Diabetes Paternal Aunt defects NoFHx Breast Cancer NoFHx Colon Cancer NoFHx Ovarian Cancer NoFHx Uterine Cancer NoFHx Genetic NoFHx Heart NoFHx High cholesterol NoFHx Mental retardation NoFHx Neurological NoFHx Osteoporosis NoFHx Family Status Relation Name Status Fa Alive PGMo Alive Mo Alive Throat Cancer Sis (Not Specified) PAunt (Not Specified) NoFHx (Not Specified) Past Surgical History: Procedure Laterality Date SECTION N/A 06/27/2017 Surgeon: Bryan Gallardo MD; Location: Labor and Delivery [facility] [place] Social History Socioeconomic History Marital status: Single Spouse name: Not on file Number of children: Not on file Years of education: Not on file Highest education level: Not on file Occupational History Not on file Social Needs Financial resource strain: Not on file Food insecurity: Worry: Not on file Inability: Not on file Transportation needs: Medical: Not on file Non-medical: Not on file Tobacco Use Smoking status: Current Some Day Smoker Packs/day: 0.10 Types: Cigarettes Start date: 04/09/2002 Smokeless tobacco: Never Used Substance and Sexual Activity Alcohol use: No Drug use: No Sexual activity: Yes Partners: Male control/protection: None Comment: Last intercourse: 06/02/2019 Lifestyle Physical activity: Days per week: Not on file Minutes per session: Not on file Stress: Not on file Relationships Social connections: Talks on phone: Not on file Gets together: Not on file Attends evangelical service: Not on file Active member of club or organization: Not on file Attends meetings of clubs or organizations: Not on file Relationship status: Not on file Intimate partner violence: Fear of current or ex partner: Not on file Emotionally abused: Not on file Physically abused: Not on file Forced sexual activity: Not on file Other Topics Concern Not on file Social History Narrative Denies domestic violence or abuse Latter Day: religious Patient feels safe at home. Patient living with dad, but states she will seek a jail Social History Substance and Sexual Activity Sexual Activity Yes Partners: Male control/protection: None Comment: Last intercourse: 06/02/2019 Labs No new labs, I have reviewed the patient's labs. and Routine Visit on 10/30/2019 Component Date Value POCT U PROT 10/30/2019 trace POCT U GLU 10/30/2019 3+ POCT GLU 10/30/2019 193* Routine Visit on 10/23/2019 Component Date Value WBC 10/23/2019 8.51 RBC 10/23/2019 4.65 HGB 10/23/2019 12.0 HCT 10/23/2019 38.5 MCV 10/23/2019 82.8 MCH 10/23/2019 25.8* MCHC 10/23/2019 31.2* RDW-SD 10/23/2019 39.4 RDW-CV 10/23/2019 13.2 PLT 10/23/2019 114* MPV 10/23/2019 12.5 NRBC/100 WBC 10/23/2019 0.0 NRBC x10^3 10/23/2019 <0.01 GRAN MAT (NEUT) % 10/23/2019 71.0 IMM GRAN % 10/23/2019 0.80 LYMPH % 10/23/2019 16.8 MONO % 10/23/2019 9.4 EOS % 10/23/2019 1.8 BASO % 10/23/2019 0.2 GRAN MAT x10^3(ANC) 10/23/2019 6.04 IMM GRAN x10^3 10/23/2019 0.07* LYMPH x10^3 10/23/2019 1.43 MONO x10^3 10/23/2019 0.80 EOS x10^3 10/23/2019 0.15 BASO x10^3 10/23/2019 <0.03 C. trachomatis Nucleic A* 10/23/2019 Negative N. gonorrhoeae Nucleic A* 10/23/2019 Negative Group B Streptococcus by* 10/23/2019 Positive* POCT PH U 10/23/2019 . POCT U LEUK EST 10/23/2019 . POCT U NIT 10/23/2019 . POCT U PROT 10/23/2019 Trace POCT U GLU 10/23/2019 2+ POCT U KETONE 10/23/2019 . POCT U BLD 10/23/2019 . Routine Visit on 10/16/2019 Component Date Value POCT PH U 10/16/2019 . POCT U LEUK EST 10/16/2019 . POCT U NIT 10/16/2019 . POCT U PROT 10/16/2019 trace POCT U GLU 10/16/2019 2+ POCT U KETONE 10/16/2019 . POCT U BLD 10/16/2019 . PLT 10/16/2019 105* AST(SGOT) 10/16/2019 19 ALTv 10/16/2019 14 LDH 10/16/2019 336 T. PROT U 10/16/2019 6 CREAT U 10/16/2019 158.9 Protein/Creatinine Ratio* 10/16/2019 0.0 Radiology No new radiology. Allergies Sarah is allergic to ancef [cefazolin] and sulfa (sulfonamide antibiotics). Medications Sarah has a current medication list which includes the following prescription( s): nystatin, proairhfa, and pnv 67-iron ps-folate no.1-dha. Review of Systems Constitutional: Negative for appetite change, fatigue and fever. Eyes: Negative for visual disturbance. Respiratory: Negative. Cardiovascular: Negative for palpitations and leg swelling. Gastrointestinal: Negative for abdominal pain, constipation, diarrhea, nausea and vomiting. Genitourinary: Negative. Negative for dysuria, vaginal bleeding, vaginal discharge and pelvic pain. Musculoskeletal: Negative. Skin: Negative for rash. Neurological: Negative for dizziness, light-headedness and headaches. Psychiatric/Behavioral: Negative. BP 130/72 (BP Location: Right arm, Patient Position: Sitting, BP CUFF SIZE: Adult Large) | Pulse 89 | Temp 36.8 C (98.2 F) (Oral) | Resp 16 | Ht 5' 4 " (1.626 m) | Wt 268 lb 6 oz (121.7 kg) | LMP 04/14/2019 (Exact Date) | BMI 46.07 kg/m Pregravid BMI: 40.7 Physical Exam Vitals reviewed. Constitutional: She is oriented to person, place, and time. She appears well- developed and well-nourished. See flowsheet Cardiovascular: No peripheral edema present. Pulmonary/Chest: Normal inspiratory effort. Abdominal: Abdomen is soft. Neuro/Psychiatric: She has a normal mood and affect. She is oriented to person, place, and time. Skin: Skin normal. Assessment/Plan 1. High-risk in third trimester 38w1d Labor precautions, FKC and PIH warnings reviewed. - POCT URINALYSIS W/O SPECIFIC GRAVITY 2. Thrombocytopenia during Results for SARAH CEE ( ) as of 11/07/2019 13:37 Ref. Range 09/06/2017 14:39 06/06/2019 14:36 08/15/2019 15:29 10/16/2019 13:30 10/23 13:29 PLT x10^3 Latest Ref Range: 166 - 358 10*3/L 170 131 (L) 141 (L) 105 (L) 114 ( L) No bleeding episodes Will repeat on L&D next week prior to c/s 3. Previous delivery affecting , antepartum ERCS scheduled for 11/14/19 Instructions reviewed 4. Obesity affecting in third trimester The patient is asked to make an attempt to improve diet and exercise patterns to aid in medical management of this problem. 5. Multiparity Plans depo PP 6. Group B streptococcal carriage complicating Intrapartum antibiotic prophylaxis Return to clinic in 4 weeks for PP visit. Reviewed patient instructions and provided printed copy. at 38w1d This visit did not involve counseling and coordination that comprised more than 50% of the visit time. documented in this encounter Plan of Treatment Date Type Specialty Care Team Description 11/14/2019 Hospital Encounter Obstetrics 11/14/2019 Surgery Surgery Faculty, Ob SECTION [address] [place] [id number] Health Maintenance Due Date Last Done Comments PAP SMEAR 08/09/2020 08/09/2017, 08/18/2014, 09/07/2011, Additional history exists DTaP,Tdap,and Td Vaccines (3 - 09/09/2029 09/09/2019, 06/07/2017, Td) 07/31/2016 INFLUENZA VACCINE Completed 07/28/2019 PNEUMOCOCCAL 0-64 YEARS COMBINED Discontinued SERIES documented as of this encounter Procedures Procedure Name Priority Date/Time Associated Comments Diagnosis POCT URINALYSIS W/O Routine 11/07/2019 1:35 PM High-risk Results for this SPECIFIC GRAVITY ERGONOMIST in third trimester procedure are in the results section. documented in this encounter Results POCT URINALYSIS W/O SPECIFIC GRAVITY (11/07/2019 1:35 PM ERGONOMIST) POCT PH U . 5 - 8 mg/dl POCT U LEUK EST . Negative - Negative POCT U NIT . Negative - Negative POCT U PROT trace Negative - Negative POCT U GLU 3+ Negative - Negative POCT U KETONE . Negative - Negative POCT U BLD . Negative - Negative Specimen Urine - URINE, CLEAN CATCH documented in this encounter Visit Diagnoses Diagnosis High-risk in third trimester - Primary Thrombocytopenia during Previous delivery affecting , antepartum Previous delivery, antepartum condition or complication Obesity affecting in third trimester Multiparity Group B streptococcal carriage complicating documented in this encounter Insurance Payer Benefit Plan / Subscriber ID Effective Phone Address Type Group Dates [employer] xxxxxxxxx 2019-Pres [address] [place] [id number] [place] [address] documented as of this encounter Advance Directives Name Relationship Healthcare Agent Relationship Communication Mike Olivera Other Primary healthcare agent
--- OUTSIDE RECORDS SUMMARY | 2019-11-12 23:29 | XMS REPORT | Summary of Care ---
:1985 Author Organization [facility] - [facility] Address [address] [place] [address] Care Team Providers Name Role Phone Karlee Naik STORE HOST Primary Care Provider Reason for Visit Reason Comments Assessment Encounter Details Date Type Department Care Team Description 11/12/2019 Telephone [facility]- IdamayKarlee Lambert, [facility] Assessment [address] [place] [address] [facility] [phone] [place] [address] Allergies Active Allergy Reactions Severity Noted Date Comments Cefazolin Hives High 06/27/2017 Sulfa (Sulfonamide Antibiotics) Hives 04/09/2012 documented as of this encounter (statuses as of 11/12/2019) Medications Medication Sig Dispensed Refills Start Date [...] as of this encounter (statuses as of 11/12/2019) Active Problems Problem Noted Date Abnormal glucose [...] as of this encounter (statuses as of 11/12/2019) Resolved Problems Problem Noted Date Resolved Date [...] contraceptive management 08/25/20142016 Overview: ICD10 Diagnosis Term Pest Control Worker Utility Elevated blood pressure reading without diagnosis of 08/25/2014 06/26/2017 hypertension Asthma 08/25/2014 06/26/2017 Overview: ICD10 Diagnosis Term Pest Control Worker Utility Pain pelvic 08/25/2014 06/26/2017 Acanthosis 08/25/2014 06/26/2017 History of abnormal Pap smear 08/25/2014 08/22/2016 History of depression 08/25/2014 06/26/2017 History of anxiety 08/25/2014 09/26/2019 History of seizures 08/25/2014 06/26/2017 Tobacco use disorder 01/11/2014 08/22/2016 Absence of menstruation 04/02/2013 08/25/2014 Obesity 04/02/2013 06/26/2017 Overview: ICD10 Diagnosis Term Pest Control Worker Utility Psychosis 01/03/2008 06/26/2017 Overview: ICD10 Diagnosis Term Pest Control Worker Utility documented as of this encounter (statuses as of 11/12/2019) Immunizations Name Administration Dates Next Due Influenza [...] of this encounter Last Filed Vital Signs Not on filedocumented in this encounter Plan of Treatment Date Type Specialty Care Team Description 11/14/2019 Hospital Encounter Obstetrics 11/14/2019 Surgery Surgery Faculty, Ob [address] [place] [address] Health Maintenance Due Date Last Done Comments PAP SMEAR 08/09/2020 08/09/2017, 08/18/2014, 09/07/2011, Additional history exists DTaP,Tdap,and Td Vaccines (3 - 09/09/2029 09/09/2019, 06/07/2017, Td) 07/31/2016 INFLUENZA VACCINE Completed 07/28/2019 PNEUMOCOCCAL 0-64 YEARS COMBINED Discontinued SERIES documented as of this encounter Results Not on filedocumented in this encounter Insurance Payer Benefit Plan / Subscriber ID Effective Phone Address Type Group Dates [employer] xxxxxxxxx 2019- [address] [place] [id number] [place] [address] documented as of this encounter Advance Directives Name Relationship Healthcare Agent Relationship Communication Mike Olivera Other Primary healthcare agent
[2019-11-13] MEDS ORDERED: LIDOCAINE 1% W/EPI 1:100,000 MDV 20 ML VIAL ONE (00:07)
[2019-11-13] MEDS ORDERED: ACETAMINOPHEN 500 MG TAB ONE (00:07)
--- NOTE | 2019-11-13 00:36 | ER ---
Nurse's Notes [facility] Name: Martha Keller Age: 34 yrs Sex: Female : 1985 Arrival Date: 11/12/2019 Time: 23:26 Bed 19 Private MD: Diagnosis: Dental Abscess Presentation: 11/12 23:35 Presenting complaint: Patient states: R upper dental abscess since yesterday. States aa1 she is currently 9 mos and was seen by her OB and was told to f/u with a dentist but has not been able to do so yet. Transition of care: patient was not received from another setting of care. Onset of symptoms was October 11, 2019. Risk Assessment: Do you want to hurt yourself or someone else? Patient reports no desire to harm self or others. Initial Sepsis Screen: Does the patient meet any 2 criteria? HR > 90 bpm. Does the patient have a suspected source of infection? Yes: Skin breakdown/wound. Care prior to arrival: None. 23:35 Method Of Arrival: Ambulatory aa1 23:35 Acuity: CHYNA 4 aa1 Triage Assessment: 23:37 General: Appears in no apparent distress. comfortable, Behavior is calm, cooperative, aa1 appropriate for age. Pain: Complains of pain in mouth. 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 - Coronavirus screen:: The patient has NOT traveled to [place] in the past 14 days. Proceed with normal triage process as indicated. - Social history:: Smoking status: Patient denies any tobacco usage or history of. - Ebola Screening: : No symptoms or risks identified at this time. Screenin:43 Abuse screen: Denies threats or abuse. Denies injuries from another. Nutritional wh screening: No deficits noted. Tuberculosis screening: No symptoms or risk factors identified. Fall Risk None identified. Assessment: 23:44 General: Appears in no apparent distress. Behavior is calm, cooperative, appropriate wh for age. Pain: Complains of pain in dental pain. Neuro: Level of Consciousness is awake, alert, obeys commands, Oriented to person, place, time, situation, Appropriate for age. Cardiovascular: Capillary refill < 3 seconds. Respiratory: Airway is patent Respiratory effort is even, unlabored, Respiratory pattern is regular, symmetrical. GI: Abdomen is round non-distended. : No signs and/or symptoms were reported regarding the genitourinary system. EENT: EENT: Poor dentition noted. Derm: Skin is intact, is healthy with good turgor, Skin is pink, warm \T\ dry. normal. Musculoskeletal: Circulation, motion, and sensation intact. Vital Signs: 23:37 BP 153 / 82; Pulse 90; Resp 18; Temp 97.4; Pulse Ox 100% on R/A; Weight 117.93 kg (R); aa1 Height 5 ft. 4 in. (162.56 cm); Pain 07/10; 11/13 00:46 BP 95 / 64; Pulse 82; Resp 18; Pulse Ox 98% on R/A; wh 11/12 23:37 Body Mass Index 44.63 (117.93 kg, 162.56 cm) aa1 ED Course: 11/12 23:26 Patient arrived in ED. ds1 23:31 Jorge Luis Delgado PA is PHCP. cp 23:31 Nixon Arita MD is Attending Physician. cp 23:32 Patient placed in an exam room, on a stretcher. aa1 23:33 Gwendolyn Arnett is Primary Nurse. wh 23:37 Triage completed. aa1 23:43 Arm band placed on right wrist. wh 23:44 Patient has correct armband on for positive identification. Bed in low position. Call light in reach. Side rails up X 1. Pulse ox on. NIBP on. 11/13 00:34 Troy Nagy DDS is Referral Physician. cp 00:44 No provider procedures requiring assistance completed. Patient did not have IV access wh during this emergency room visit. Administered Medications: 00:07 Drug: Clindamycin 300 mg Route: PO; wh 00:47 Follow up: Response: No adverse reaction wh 00:24 Not Given (Provider changed order): Tylenol 1000 mg PO once wh 00:24 Drug: Lidocaine-Epinephrine -1%: (1:100,000) 5 ml {Note: Administered by Provider.} wh Volume: 20 ml; Route: Infiltration; 00:24 Drug: Tylenol 500 mg Route: PO; 00:47 Follow up: Response: No adverse reaction Outcome: 00:35 Discharge ordered by . jess 00:46 Discharged to home ambulatory. 00:46 Condition: stable 00:46 Discharge instructions given to patient, Instructed on discharge instructions, follow up and referral plans. medication usage, POC Demonstrated understanding of instructions, follow-up care, medications, POC Prescriptions given X 1. 00:47 Patient left the ED. Signatures: Dahlia Hall RN RN aa1 Elvia Castaneda ds1 Jorge Luis Delgado PA PA cp [place], Winsy
--- NOTE | 2019-11-13 00:36 | EDPHYS ---
Physician Documentation [facility] Name: Martha Keller Age: 34 yrs Sex: Female : 1985 Arrival Date: 11/12/2019 Time: 23:26 Bed 19 Private MD: ED Physician Nixon Arita HPI: 11/12 23:55 This 34 yrs old Black Female presents to ER via Ambulatory with complaints of Dental cp Abscess. 23:55 The patient presents with pain. cp 23:55 The problem is located in the right upper jaw. Onset: The symptoms/episode cp began/occurred today. Duration: The symptoms are continuous, and are steadily getting worse. Associated signs and symptoms: Pertinent negatives: dysphagia, fever, inability to eat. Severity of symptoms: in the emergency department the symptoms are unchanged, despite home interventions. 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 - Coronavirus screen:: The patient has NOT traveled to [place] in the past 14 days. Proceed with normal triage process as indicated. - Social history:: Smoking status: Patient denies any tobacco usage or history of. - Ebola Screening: : No symptoms or risks identified at this time. ROS: 11/13 00:00 Constitutional: Negative for body aches, chills, fever. cp 00:00 Eyes: Negative for injury, pain, redness, and discharge. cp 00:00 ENT: Positive for dental pain, Negative for drainage from ear(s), ear pain, sore throat, difficulty swallowing, difficulty handling secretions. 00:00 Respiratory: Negative for cough. 00:00 Abdomen/GI: Negative for abdominal pain, nausea, vomiting, and diarrhea. 00:00 Skin: Negative for rash. 00:00 Neuro: Negative for altered mental status, headache. 00:00 All other systems are negative. Exam: 00:15 Constitutional: The patient appears in no acute distress, alert, awake, non-toxic, well cp developed, well nourished. 00:15 Head/Face: Normocephalic, atraumatic. cp 00:15 Eyes: Periorbital structures: appear normal, Conjunctiva: normal, no exudate, no injection, Lids and lashes: appear normal, bilaterally. 00:15 ENT: External ear(s): are unremarkable, Ear canal(s): are normal, clear, TM's: bulging, is not appreciated, bilaterally, dullness, bilaterally, erythema, is not appreciated, bilaterally, Nose: is normal, Mouth: Lips: moist, Oral mucosa: pink and intact, moist, Gums: noted to have an abscess, reddened, swollen, on the right upper outer gumline, Tongue: is normal, Posterior pharynx: Airway: no evidence of obstruction, patent, Tonsils: are normal in appearance, Dental exam: dental caries, that is moderate, diffusely, missing teeth, diffusely, pain, that is moderate, specifically in the upper right first molar (#3), Voice: is normal. 00:15 Neck: ROM/movement: Meningeal signs: are not present, nuchal rigidity, is not appreciated, Lymph nodes: no appreciated lymphadenopathy. 00:15 Chest/axilla: Inspection: normal. 00:15 Cardiovascular: Rate: normal. 00:15 Respiratory: the patient does not display signs of respiratory distress, Respirations: normal. 00:15 Abdomen/GI: Inspection: gravid appearance, is noted. Vital Signs: 11/12 23:37 BP 153 / 82; Pulse 90; Resp 18; Temp 97.4; Pulse Ox 100% on R/A; Weight 117.93 kg (R); aa1 Height 5 ft. 4 in. (162.56 cm); Pain 10/10; 11/13 00:46 BP 95 / 64; Pulse 82; Resp 18; Pulse Ox 98% on R/A; wh 11/12 23:37 Body Mass Index 44.63 (117.93 kg, 162.56 cm) aa1 Procedures: 00:35 I \T\ D: Incision and drainage was performed for an abscess of the right upper outer cp gumline Anesthetized with 3 ml's 1% Lidocaine w/ Epi. Drained small amount purulent fluid. the patient tolerated the procedure well, used 18 gauge needle attached to 10 cc syringe and abscess aspirated. MDM: 11/12 23:34 Patient medically screened. cp 11/13 00:00 Differential diagnosis: dental caries, dental abscess, pericoronitis, gingivostomatitis. 00:35 Data reviewed: vital signs, nurses notes, and as a result, I will discharge patient. 00:35 Counseling: I had a detailed discussion with the patient and/or guardian regarding: the cp historical points, exam findings, and any diagnostic results supporting the discharge/admit diagnosis, the need for outpatient follow up, for definitive care, maxillary/facial surgeon, to return to the emergency department if symptoms worsen or persist or if there are any questions or concerns that arise at home. Response to treatment: the patient's symptoms have markedly improved after treatment, and as a result, I will discharge patient. 11/12 23:57 Order name: FHT's; Complete Time: 00:07 Administered Medications: 00:07 Drug: Clindamycin 300 mg Route: PO; 00:47 Follow up: Response: No adverse reaction 00:24 Not Given (Provider changed order): Tylenol 1000 mg PO once 00:24 Drug: Lidocaine-Epinephrine -1%: (1:100,000) 5 ml {Note: Administered by Provider.} Volume: 20 ml; Route: Infiltration; 00:24 Drug: Tylenol 500 mg Route: PO; 00:47 Follow up: Response: No adverse reaction Disposition: 03:13 Co-signature as Attending Physician, Nixon Arita MD. rn Disposition: 11/13/19 00:35 Discharged to Home. Impression: Dental Abscess. - Condition is Stable. - Discharge Instructions: Dental Abscess. - Prescriptions for Clindamycin HCl 300 mg Oral Capsule - take 1 capsule by ORAL route every 6 hours for 10 days; 40 capsule. - Medication Reconciliation Form, Thank You Letter, Antibiotic Education, Prescription Opioid Use form. - Follow up: Troy Nagy DDS; When: 7 - 10 days; Reason: Recheck today's complaints. - Problem is new. - Symptoms have improved. Signatures: Dahlia Hall RN RN aa1 Nixon Arita MD MD rn Page, Corey, PA PA Gwendolyn Arnett Corrections: (The following items were deleted from the chart) 00:47 00:35 11/13/2019 00:35 Discharged to Home. Impression: Dental Abscess. Condition is Stable. Forms are Medication Reconciliation Form, Thank You Letter, Antibiotic Education, Prescription Opioid Use. Follow up: Troy Nagy; When: 7 - 10 days; Reason: Recheck today's complaints. Problem is new. Symptoms have improved. cp
[2019-11-14 04:48] VITALS: TEMP 97.4
[2019-11-14 04:50] VITALS: BP 95/64; O2SAT 98
== END 2019-11-13 00:47 | disposition home or self-care (01) ==
LOC: ER 23:25
PROC: 0C95XZZ Drainage of Upper Gingiva, External Approach (ICD-10-PCS; principal; 2019-11-13)
DX: O26.891 Other specified pregnancy related conditions, first trimester (principal); K04.7 Periapical abscess without sinus
CPT/HCPCS: 99283

== ENCOUNTER 2020-12-10 02:47 | Emergency (ER) | payer OTHER, SELFPAY ==
--- OUTSIDE RECORDS SUMMARY | 2020-12-10 02:49 | XMS REPORT | Continuity of Care Document ---
:1985 Author Organization [facility] t Address [address] [place] [address] Care Team Providers Name Role Phone Suzan ALLEN Attending Clinician Unavailable Wilma MENENDEZP, B Attending Clinician Doctor Unassigned, Name Attending Clinician Unavailable Gumaro COUNTER CLERK, N Attending Clinician Problems This patient has no known problems. Allergies, Adverse Reactions, Alerts This patient has no known allergies or adverse reactions. Medications This patient has no known medications. Procedures This patient has no known procedures. Encounters Start End Encounter Admission Attending Care Care Encounter Source Date/Time Date/Time Type Type Clinicians Facility Department ID 2020-10-24 2020-10-24 Letter Ashley Mares [id number] 00:00:00 00:00:00 (Out) LOGAN [id number] [facility] [id number] 2020-10-17 2020-10-17 Emergency ABELINO Dillon [id number] 20:54:00 22:46:00 Van Cho [id number] [place] [id number] [place] [id number] 2020-10-17 2020-10-17 Orders Doctor SHELDON [id number] 00:00:00 00:00:00 Only UnassLOGAN cerda [id number] [place] [id number] 2019-12-25 2019-12-25 Telephone Gumaro [facility] [id number] 00:00:00 00:00:00 Karlee Armendariz FINISH MENDER [id number] [facility] [id number] MATERNAL [id number] & CHILD 107 [facility] 2019-12-24 2019-12-24 Office [facility] [id number] 15:19:55 16:31:14 Visit Karlee Armendariz FINISH MENDER [id number] [facility] [id number] MATERNAL [id number] & CHILD 107 [facility] 2019-12-24 2019-12-24 Orders Doctor SHELDON [id number] 00:00:00 00:00:00 Only Unassigned, LOGAN [id number] [place] [facility] [id number] [id number] Results This patient has no known results.
--- NOTE | 2020-12-10 03:55 | EDPHYS ---
Physician Documentation [facility] Name: Martha Keller Age: 35 yrs Sex: Female : 1985 Arrival Date: 12/10/2020 Time: 02:49 Bed 4 Private MD: ED Physician Maria E Adam HPI: 12/10 03:50 This 35 yrs old Black Female presents to ER via Ambulatory with complaints of Clogged ma2 Ears. 03:50 Onset: The symptoms/episode began/occurred gradually, 2 month(s) ago. Associated signs ma2 and symptoms: Pertinent negatives: lightheadedness, rhinorrhea, shortness of breath, sore throat, tinnitus. Severity of symptoms: At their worst the symptoms were mild in the emergency department the symptoms are unchanged. The patient has not experienced similar symptoms in the past. 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 - Social history:: Smoking status: Patient reports the use of cigarette tobacco products, smokes one-half pack cigarettes per day, Patient/guardian denies using alcohol, street drugs. - Family history:: not pertinent. ROS: 03:50 Constitutional: Negative for fever, chills, and weight loss. ma2 03:50 All other systems are negative. Exam: 03:50 Constitutional: This is a well developed, well nourished patient who is awake, alert, ma2 and in no acute distress. Head/Face: Normocephalic, atraumatic. Eyes: Pupils equal round and reactive to light, extra-ocular motions intact. Lids and lashes normal. Conjunctiva and sclera are non-icteric and not injected. Cornea within normal limits. Periorbital areas with no swelling, redness, or edema. ENT: Nares patent. No nasal discharge, no septal abnormalities noted. Tympanic membranes are normal and external auditory canals are clear. Oropharynx with no redness, swelling, or masses, exudates, or evidence of obstruction, uvula midline. Mucous membranes moist. Neck: Trachea midline, no thyromegaly or masses palpated, and no cervical lymphadenopathy. Supple, full range of motion without nuchal rigidity, or vertebral point tenderness. No Meningismus. Vital Signs: 03:07 BP 139 / 101; Pulse 83; Resp 18; Temp 98.5(O); Pulse Ox 100% on R/A; Weight 81.65 kg; em Height 5 ft. 4 in. (162.56 cm); Pain 0/10; 04:01 BP 141 / 78; Pulse 80; Resp 16; Pulse Ox 98% ; rr5 03:07 Body Mass Index 30.90 (81.65 kg, 162.56 cm) em MDM: 03:50 Differential diagnosis: otitis media, serotympanum, external and middle ear exam are ma2 wnl, i explained need to see ent for inner ear exam. patient insist on antibiotics. Data reviewed: vital signs, nurses notes. Counseling: I had a detailed discussion with the patient and/or guardian regarding: the historical points, exam findings, and any diagnostic results supporting the discharge/admit diagnosis, the presence of at least one elevated blood pressure reading (>120/80) during this emergency department visit, the need for outpatient follow up. Response to treatment: the patient's symptoms have markedly improved after treatment. 03:50 Response to treatment: There is no appreciated change of the patient's symptoms at this ma2 time. 03:54 Patient medically screened. ma2 Administered Medications: No medications were administered Disposition: 12/10/20 03:54 Discharged to Home. Impression: Tinnitus, unspecified ear - bilateral. - Condition is Stable. - Discharge Instructions: Tinnitus. - Prescriptions for Augmentin 875- 125 mg Oral Tablet - take 1 tablet by ORAL route every 12 hours for 10 days; 20 tablet. - Medication Reconciliation Form, Thank You Letter, Antibiotic Education, Prescription Opioid Use form. - Follow up: Mabel Sorto MD; When: Tomorrow; Reason: Continuance of care. Signatures: Darin Barrera, RN RN em Maria E Adam MD MD ma2 Yury Rodriguez RN RN rr5 Corrections: (The following items were deleted from the chart) 04:14 03:54 12/10/2020 03:54 Discharged to Home. Impression: Tinnitus, unspecified ear - rr5 bilateral. Condition is Stable. Prescriptions for Augmentin 875-125 mg Oral Tablet - take 1 tablet by ORAL route every 12 hours for 10 days; 20 tablet. and Forms are Medication Reconciliation Form, Thank You Letter, Antibiotic Education, Prescription Opioid Use. Follow up: Mabel Sorto; When: Tomorrow; Reason: Continuance of care. ma2
--- NOTE | 2020-12-10 03:55 | ER ---
Nurse's Notes [facility] Name: Martha Keller Age: 35 yrs Sex: Female : 1985 Arrival Date: 12/10/2020 Time: 02:49 Bed 4 Private MD: Diagnosis: Tinnitus, unspecified ear-bilateral Presentation: 12/10 03:07 Chief complaint: Patient states: feels like something is in both ears for 1 month, em denies fever or pain, also has been having hard time hearing. Coronavirus screen: Client denies travel out of the [place] in the last 14 days. Ebola Screen: Patient negative for fever greater than or equal to 101.5 degrees Fahrenheit, and additional compatible Ebola Virus Disease symptoms Patient denies exposure to infectious person. Patient denies travel to an Ebola-affected area in the 21 days before illness onset. No symptoms or risks identified at this time. Initial Sepsis Screen: Does the patient meet any 2 criteria? No. Patient's initial sepsis screen is negative. Does the patient have a suspected source of infection? No. Patient's initial sepsis screen is negative. Risk Assessment: Do you want to hurt yourself or someone else? Patient reports no desire to harm self or others. Onset of symptoms was December 10, 2020. 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 - Social history:: Smoking status: Patient reports the use of cigarette tobacco products, smokes one-half pack cigarettes per day, Patient/guardian denies using alcohol, street drugs. - Family history:: not pertinent. Screenin:18 Abuse screen: Denies threats or abuse. Nutritional screening: No deficits noted. em Tuberculosis screening: No symptoms or risk factors identified. Fall Risk None identified. Assessment: 03:30 General: Appears in no apparent distress. comfortable, Behavior is calm, cooperative, rr5 appropriate for age. Pain: Denies pain. Neuro: Level of Consciousness is awake, alert, obeys commands, Oriented to person, place, time. Cardiovascular: Capillary refill < 3 seconds Patient's skin is warm and dry. Respiratory: Airway is patent Respiratory effort is even, unlabored, Respiratory pattern is regular, symmetrical. GI: No signs and/or symptoms were reported involving the gastrointestinal system. : No signs and/or symptoms were reported regarding the genitourinary system. EENT: Reports clogged ears. Derm: Skin is intact, is healthy with good turgor, Skin temperature is warm. Musculoskeletal: Capillary refill < 3 seconds. 04:08 Reassessment: Patient appears in no apparent distress at this time. Patient is alert, rr5 oriented x 3, equal unlabored respirations, skin warm/dry/pink. discharge instruction given and explained without complaints made. Vital Signs: 03:07 BP 139 / 101; Pulse 83; Resp 18; Temp 98.5(O); Pulse Ox 100% on R/A; Weight 81.65 kg; em Height 5 ft. 4 in. (162.56 cm); Pain 0/10; 04:01 BP 141 / 78; Pulse 80; Resp 16; Pulse Ox 98% ; rr5 03:07 Body Mass Index 30.90 (81.65 kg, 162.56 cm) em ED Course: 02:49 Patient arrived in ED. ag3 03:03 Maria E Adam MD is Attending Physician. ma2 03:08 Triage completed. em 03:09 Arm band placed on. em 03:18 Yury Rodriguez RN is Primary Nurse. rr5 03:19 Patient has correct armband on for positive identification. Bed in low position. Call em light in reach. Side rails up X2. 03:53 Mabel Sorto MD is Referral Physician. ma2 04:01 No provider procedures requiring assistance completed. Patient did not have IV access rr5 during this emergency room visit. Administered Medications: No medications were administered Outcome: 03:54 Discharge ordered by . ma2 04:09 Discharged to home ambulatory. rr5 04:09 Condition: stable 04:09 Discharge instructions given to patient, Instructed on discharge instructions, follow up and referral plans. medication usage, Demonstrated understanding of instructions, follow-up care, medications, Prescriptions given X 1. 04:14 Patient left the ED. rr5 Signatures: Darin Barrera RN RN Maria E Adam MD MD ma2 Amaris German ag3 Yury Rodriguez, RN RN rr5
[2020-12-10 04:24] VITALS: BP 141/78; TEMP 98.5; O2SAT 98
== END 2020-12-10 04:14 | disposition home or self-care (01) ==
LOC: ER 02:47
DX: H93.13 Tinnitus, bilateral (principal); J45.909 Unspecified asthma, uncomplicated; F41.9 Anxiety disorder, unspecified; F17.210 Nicotine dependence, cigarettes, uncomplicated
CPT/HCPCS: 99282

== ENCOUNTER 2021-02-09 02:31 | Emergency (ER) | payer OTHER ==
--- OUTSIDE RECORDS SUMMARY | 2021-02-09 02:34 | XMS REPORT | Continuity of Care Document ---
:1985 Author Organization [facility] t Address [address] [place] [address] Care Team Providers Name Role Phone Sunday Caban DO Attending Clinician Suzan ALLEN Attending Clinician Unavailable Wilma OGLESBY B Attending Clinician Doctor Unassigned, Name Attending Clinician Unavailable Gumaro OGLESBY, N Attending Clinician Problems This patient has no known problems. Allergies, Adverse Reactions, Alerts This patient has no known allergies or adverse reactions. Medications This patient has no known medications. Procedures This patient has no known procedures. Encounters Start End Encounter Admission Attending Care Care Encounter Source Date/Time Date/Time Type Type Clinicians Facility Department ID 2020-12-21 2020-12-21 Patient Arsh SCBEAK [id number] 00:00:00 00:00:00 Outreach [facility] [id number] [facility] [id number] [place] [id number] 2020-10-24 2020-10-24 Letter Ashley Mares [id number] 00:00:00 00:00:00 (Out) LOGAN [id number] [facility] [id number] 2020-10-17 2020-10-17 Emergency Wilma SCBEKA [id number] 20:54:00 22:46:00 [place] [id number] [place] [id number] [place] [id number] 2020-10-17 2020-10-17 Orders Doctor PITO [id number] 00:00:00 00:00:00 Only Unassigned, LOGAN [id number] [place] [facility] [id number] 2019-12-25 2019-12-25 Telephone [facility] [id number] 00:00:00 00:00:00 Karlee Armendariz PUTAWAY DRIVER [id number] [facility] [id number] MATERNAL [id number] & CHILD 107 [facility] 2019-12-24 2019-12-24 Office [facility] [id number] 15:19:55 16:31:14 Visit Karlee Armendariz PUTAWAY DRIVER [id number] [facility] [id number] MATERNAL [id number] & CHILD 107 [facility] 2019-12-24 2019-12-24 Orders Doctor PITO [id number] 00:00:00 00:00:00 Only Unassigned, LOGAN [id number] [facility] [id number] [id number] Results This patient has no known results.
[2021-02-09 02:53] LABS: Urine Blood 3+ (Negative); Urine Glucose Negative (Negative); Urine Protein Trace (Negative); Urine Specific Gravity 1.025 (1.005-1.030)
[2021-02-09] MEDS ORDERED: KETOROLAC 30 MG/ML INJ ONE (03:13)
[2021-02-09 04:07] LABS: Urine Bacteria <20 /HPF (<20); Urine RBC NONE SEEN /HPF (NONE SEEN)
[2021-02-09 04:08] LABS: Urine Specific Gravity/Preg 1.025 (1.005-1.030)
--- NOTE | 2021-02-09 04:59 | EDPHYS ---
Physician Documentation [facility] Name: Martha Keller Age: 35 yrs Sex: Female : 1985 Arrival Date: 02/09/2021 Time: 02:32 Bed 6 Private MD: ED Physician Devne Padgett HPI: 02/09 05:21 This 35 yrs old Black Female presents to ER via Ambulatory with complaints of Leg Pain. tw4 05:21 The patient presents with pain. The complaints affect the left hamstring, posterior tw4 aspect of left knee and left calf. Context: The problem was sustained at home. Onset: The symptoms/episode began/occurred 3 week(s) ago. Modifying factors: The symptoms are alleviated by nothing. the symptoms are aggravated by nothing. Severity of symptoms: At their worst the symptoms were moderate, in the emergency department the symptoms are unchanged. The patient has not experienced similar symptoms in the past. 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 - Social history:: Smoking status: Patient reports the use of cigarette tobacco products, 7 sticks /day. ROS: 05:21 Constitutional: Negative for fever, chills, and weight loss, Eyes: Negative for injury, tw4 pain, redness, and discharge, Cardiovascular: Negative for chest pain, palpitations, and edema, Respiratory: Negative for shortness of breath, cough, wheezing, and pleuritic chest pain, Abdomen/GI: Negative for abdominal pain, nausea, vomiting, diarrhea, and constipation, Back: Negative for injury and pain, Skin: Negative for injury, rash, and discoloration, Neuro: Negative for headache, weakness, numbness, tingling, and seizure. 05:21 MS/extremity: Positive for pain. Exam: 05:21 Constitutional: This is a well developed, well nourished patient who is awake, alert, tw4 and in no acute distress. Head/Face: Normocephalic, atraumatic. Chest/axilla: Normal chest wall appearance and motion. Nontender with no deformity. No lesions are appreciated. Cardiovascular: Regular rate and rhythm with a normal S1 and S2. No gallops, murmurs, or rubs. Normal PMI, no JVD. No pulse deficits. Respiratory: Lungs have equal breath sounds bilaterally, clear to auscultation and percussion. No rales, rhonchi or wheezes noted. No increased work of breathing, no retractions or nasal flaring. Abdomen/GI: Soft, non-tender, with normal bowel sounds. No distension or tympany. No guarding or rebound. No evidence of tenderness throughout. Back: No spinal tenderness. No costovertebral tenderness. Full range of motion. Neuro: Awake and alert, GCS 15, oriented to person, place, time, and situation. Cranial nerves II-XII grossly intact. Motor strength 5/5 in all extremities. Sensory grossly intact. Cerebellar exam normal. Normal gait. 05:21 Musculoskeletal/extremity: Extremities: noted in the left leg: ROM: Vital Signs: 02:30 BP 134 / 86; Pulse 86; Resp 19; Temp 97.3; Pulse Ox 99% ; Weight 99.79 kg; Height 5 ft. rr5 4 in. (162.56 cm); Pain 0/10; 03:30 BP 131 / 89; Pulse 86; Resp 17; Pulse Ox 99% ; rr5 04:40 BP 126 / 80; Pulse 80; Resp 17; Pulse Ox 98% ; rr5 02:30 Body Mass Index 37.76 (99.79 kg, 162.56 cm) rr5 MDM: 02:48 Patient medically screened. tw4 05:25 Differential diagnosis: dislocation, open fracture. Data reviewed: vital signs, nurses tw4 notes. Data interpreted: Pulse oximetry: Interpretation: normal. Counseling: I had a detailed discussion with the patient and/or guardian regarding: the historical points, exam findings, and any diagnostic results supporting the discharge/admit diagnosis. Special discussion: I discussed with the patient/guardian in detail that at this point there is no indication for admission to the hospital. It is understood, however, that if the symptoms persist or worsen the patient needs to return immediately for re-evaluation. 02/09 02:53 Order name: Urine Dipstick-Ancillary; Complete Time: 04:56 EDMS 02/09 04:56 Interpretation: Normal except: UPROT Trace; UBLD 3+. tw4 02/09 02:53 Order name: Urine --Ancillary (enter results); Complete Time: 04:56 tt3 02/09 02:42 Order name: Extremity Venous Uni Ltd US tw4 02/09 02:59 Order name: Urine Microscopic Only rr5 02/09 02:59 Order name: Urine Microscopic Only; Complete Time: 04:56 EDMS 02/09 04:56 Interpretation: Normal except: SQEPI 5-10. tw4 02/09 02:44 Order name: Urine Dipstick-Ancillary (obtain specimen); Complete Time: 02:59 tw4 02/09 02:44 Order name: Urine Test (obtain specimen); Complete Time: 03:00 tw4 Administered Medications: 02:59 Drug: TORadol (ketorolac) 60 mg Route: IM; Site: left gluteus; rr5 Disposition: 02/09/21 04:58 Discharged to Home. Impression: Pain in left leg. - Condition is Stable. - Discharge Instructions: Musculoskeletal Pain, Pain Without a Known Cause. - Prescriptions for Ibuprofen 800 mg Oral Tablet - take 1 tablet by ORAL route every 12 hours As needed take with food; 20 tablet. orphenadrine citrate 100 mg Oral Tablet Sustained Release - take 1 tablet by ORAL route 2 times per day As needed; 20 tablet. - Medication Reconciliation Form, Thank You Letter, Antibiotic Education, Prescription Opioid Use, Work release form form. - Follow up: Private Physician; When: Upon discharge from the Emergency Department; Reason: Recheck today's complaints, Continuance of care, Re-evaluation by your physician. - Problem is new. - Symptoms have improved. Signatures: Dispatcher [employer] Loreto oBwens RN RN Deven Yee MD MD tw4 Yury Rodriguez RN RN rr5 Corrections: (The following items were deleted from the chart) 02:41 02:35 Social history: Smoking status: unknown christo rr5 05:05 04:58 02/09/2021 04:58 Discharged to Home. Impression: Pain in left leg. Condition is ea Stable. Forms are Medication Reconciliation Form, Thank You Letter, Antibiotic Education, Prescription Opioid Use. Follow up: Private Physician; When: Upon discharge from the Emergency Department; Reason: Recheck today's complaints, Continuance of care, Re-evaluation by your physician. Problem is new. Symptoms have improved. tw4
--- NOTE | 2021-02-09 04:59 | ER ---
Nurse's Notes [facility] Name: Martha Keller Age: 35 yrs Sex: Female : 1985 Arrival Date: 02/09/2021 Time: 02:32 Bed 6 Private MD: Diagnosis: Pain in left leg Presentation: 02/09 02:30 Chief complaint: Patient states: I am having shortness of breath left leg pain on and rr5 off for 2-3 weeks now. 02:30 Coronavirus screen: Client denies travel out of the [place] in the last 14 days. At this rr5 time, the client does not indicate any symptoms associated with coronavirus-19. Initial Sepsis Screen: Does the patient meet any 2 criteria? No. Patient's initial sepsis screen is negative. Does the patient have a suspected source of infection? No. Patient's initial sepsis screen is negative. Risk Assessment: Do you want to hurt yourself or someone else? Patient reports no desire to harm self or others. Onset of symptoms was February 09, 2021. 02:30 Method Of Arrival: Ambulatory rr5 02:30 Acuity: CHYNA 3 rr5 02:34 Ebola Screen: No symptoms or risks identified at this time. ea ELEVATED GUARD: 02:40 LMP 02/09/2021 rr5 Historical: - Allergies: 02:35 sulfamethoxazole; ea 02:35 trimethoprim; ea - Home Meds: 02:35 Vitamin Oral [Active]; ea 02:35 Metformin Oral [Active]; rr5 - PMHx: 02:35 Anxiety; Asthma; ea 02:35 Diabetes - NIDDM; rr5 - PSHx: 02:35 ; ea - Immunization history:: Adult Immunizations unknown. - Social history:: Smoking status: Patient reports the use of cigarette tobacco products, 7 sticks /day. Screenin:34 Abuse screen: Denies threats or abuse. Nutritional screening: No deficits noted. ea Tuberculosis screening: No symptoms or risk factors identified. Fall Risk None identified. Assessment: 02:41 General: Appears in no apparent distress. comfortable, Behavior is calm, cooperative, rr5 appropriate for age. Pain: Complains of pain in left leg Pain currently is 0 out of 10 on a pain scale. Quality of pain is described as aching, Pain began gradually, Is intermittent. Neuro: Level of Consciousness is awake, alert, obeys commands, Oriented to person, place, time. Cardiovascular: Capillary refill < 3 seconds Patient's skin is warm and dry. Respiratory: Reports shortness of breath Airway is patent Respiratory effort is even, unlabored, Respiratory pattern is regular, symmetrical. GI: No signs and/or symptoms were reported involving the gastrointestinal system. : No signs and/or symptoms were reported regarding the genitourinary system. EENT: No signs and/or symptoms were reported regarding the EENT system. Derm: Skin is intact, is healthy with good turgor, Skin temperature is warm. Musculoskeletal: Capillary refill < 3 seconds, Reports pain in left leg. 02:44 Reassessment: patient reported she is bleeding on and off for a month now ED Provider rr5 aware. 03:30 Reassessment: Patient appears in no apparent distress at this time. Patient is alert, rr5 oriented x 3, equal unlabored respirations, skin warm/dry/pink. awaiting for ultrasound procedure. 04:40 Reassessment: Patient appears in no apparent distress at this time. Patient is alert, rr5 oriented x 3, equal unlabored respirations, skin warm/dry/pink. came back from ultrasound. 05:00 Reassessment: Patient and/or family updated on plan of care and expected duration. Pain ea level reassessed. Patient is alert, oriented x 3, equal unlabored respirations, skin warm/dry/pink. Discharge instruction given to patient verbalized the understanding of instruction. Pt left ED ambulatory tolerating well. Vital Signs: 02:30 BP 134 / 86; Pulse 86; Resp 19; Temp 97.3; Pulse Ox 99% ; Weight 99.79 kg; Height 5 ft. rr5 4 in. (162.56 cm); Pain 0/10; 03:30 BP 131 / 89; Pulse 86; Resp 17; Pulse Ox 99% ; rr5 04:40 BP 126 / 80; Pulse 80; Resp 17; Pulse Ox 98% ; rr5 02:30 Body Mass Index 37.76 (99.79 kg, 162.56 cm) rr5 ED Course: 02:32 Patient arrived in ED. am4 02:34 Loreto Luna, RN is Primary Nurse. ea 02:34 Patient has correct armband on for positive identification. Bed in low position. Call ea light in reach. Side rails up X 1. 02:36 Arm band placed on right wrist. Patient placed in an exam room, on a stretcher, on ea pulse oximetry. 02:40 Triage completed. rr5 02:42 Deven Padgett MD is Attending Physician. tw4 04:43 Extremity Venous Uni Ltd US In Process Unspecified. EDMS 04:52 No provider procedures requiring assistance completed. Patient did not have IV access rr5 during this emergency room visit. Administered Medications: 02:59 Drug: TORadol (ketorolac) 60 mg Route: IM; Site: left gluteus; rr5 Outcome: 04:58 Discharge ordered by . tw4 05:01 Discharged to home ambulatory, with family. ea 05:01 Condition: stable 05:01 Discharge instructions given to patient, Instructed on discharge instructions, follow up and referral plans. medication usage, Demonstrated understanding of instructions, follow-up care, medications, Prescriptions given X 1. 05:05 Patient left the ED. ea Signatures: Dispatcher [employer] EDLoreto Whitaker RN RN Deven Yee MD MD tw4 Yury Rodriguez RN RN rr5 Idalia Moss 4 Corrections: (The following items were deleted from the chart) 02:41 02:35 Social history: Smoking status: unknown christo rr5
[2021-02-09 05:16] VITALS: BP 126/80; O2SAT 98
--- NOTE | 2021-02-09 08:37 | RAD REPORT ---
EXAM DESCRIPTION: US - Extremity Venous Uni Ltd - 02/09/2021 4:44 am CLINICAL HISTORY: PAIN Leg swelling and edema. COMPARISON: EXT VENOUS UNI LTD dated 06/13/2013 FINDINGS: Left lower extremity venous system was interrogated with Doppler technique. Normal flow, c ompressibility and augmentation was noted. There is no DVT present. IMPRESSION: No evidence of left lower extremity deep venous thrombosis.
== END 2021-02-09 05:05 | disposition home or self-care (01) ==
LOC: ER 02:31
DX: M79.605 Pain in left leg (principal); E11.9 Type 2 diabetes mellitus without complications; F17.210 Nicotine dependence, cigarettes, uncomplicated; Z88.2 Allergy status to sulfonamides; Z88.8 Allergy status to other drugs, medicaments and biological substances
CPT/HCPCS: 81003; 81015; 81025; 93971; 96372; 99284

== ENCOUNTER 2021-05-07 07:39 | Emergency (ER) | payer OTHER ==
--- OUTSIDE RECORDS SUMMARY | 2021-05-07 07:41 | XMS REPORT | Continuity of Care Document ---
:1985 Author Organization [facility] t Address [address] [place] [address] Care Team Providers Name Role Phone Sunday [...] Facility Department ID 2020-12-21 2020-12-21 Patient Arsh PRBEKA [id number] 00:00:00 00:00:00 Outreach [facility] [id number] [facility] [id number] [place] [id number] [id number] 2020-10-24 2020-10-24 Letter Ashley Mares [id number] 00:00:00 00:00:00 (Out) [facility] [id number] [facility] [id number] 2020-10-17 2020-10-17 Emergency Wilma PRBEKA [id number] 20:54:00 22:46:00 Van Cho [id number] [place] [id number] [place] [id number] 2020-10-17 2020-10-17 Orders Doctor PITO [id number] 00:00:00 00:00:00 Only Unassigned, LOGAN [id number] [place] [facility] [id number] 2019-12-25 2019-12-25 Telephone [facility] [id number] 00:00:00 00:00:00 Karlee Armendariz [employer] [id number] [facility] [id number] [facility] [id number] & CHILD [facility] 2019-12-24 2019-12-24 Office [facility] [id number] 15:19:55 16:31:14 Visit Karlee Armendariz [employer]IVER [id number] [facility] [id number] MATERNAL [phone] & CHILD [facility] 2019-12-24 2019-12-24 Orders Doctor PITO [id number] 00:00:00 00:00:00 Only Unassigned, LOGAN [id number] [place] [facility] [id number] Results This patient has no known results.
--- NOTE | 2021-05-07 08:08 | EDPHYS ---
Physician Documentation [facility] Name: Martha Keller Age: 36 yrs Sex: Female : 1985 Arrival Date: 05/07/2021 Time: 07:39 Bed Waiting Private MD: None, None ED Physician Jorge Luis Alex HPI: 05/07 10:09 This 36 yrs old Black Female presents to ER via Ambulatory with complaints of Leg Pain. kb 10:09 The patient presents with pain, that is acute, tenderness. The complaints affect the kb left gluteus mark and left lower back. Context: The problem was sustained at an unknown site, resulted from an unknown cause, the patient can fully bear weight, the patient is able to ambulate, without difficulty. Onset: The symptoms/episode began/occurred 1 month(s) ago. Modifying factors: The symptoms are alleviated by nothing. the symptoms are aggravated by nothing. Associated signs and symptoms: The patient has no apparent associated signs or symptoms. Treatment prior to arrival includes: over the counter medications, NSAIDS. Severity of symptoms: At their worst the symptoms were moderate, in the emergency department the symptoms are unchanged. The patient has not experienced similar symptoms in the past. The patient has been recently seen at the [facility] Emergency Department, last month, for similar complaints X-rays were performed, was given a prescription for pain medications. Pt reports pain to middle of left buttock that radiates down back of left leg. 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 - Social history:: Smoking status: unknown. ROS: 09:53 Constitutional: Negative for fever, chills, and weight loss. kb 09:53 Back: Positive for pain at rest, radiated pain, of the left low back. 09:53 All other systems are negative. Exam: 09:53 Constitutional: This is a well developed, well nourished patient who is awake, alert, kb and in no acute distress. Head/Face: Normocephalic, atraumatic. ENT: Moist Mucous membranes Respiratory: Respirations even and unlabored. No increased work of breathing, no retractions or nasal flaring. Skin: Warm, dry with normal turgor. Normal color. MS/ Extremity: Pulses equal, no cyanosis. Neurovascular intact. Full, normal range of motion. Neuro: Awake and alert, GCS 15, oriented to person, place, time, and situation. Moves all extremities. Normal gait. Psych: Awake, alert, with orientation to person, place and time. Behavior, mood, and affect are within normal limits. 09:53 Back: pain, that is moderate, of the left low back and left gluteus mark, ROM is normal, normal spinal alignment noted. Vital Signs: 08:00 BP 144 / 91; Pulse 64; Resp 16; Temp 97.4; Pulse Ox 99% on R/A; iw MDM: 08:07 Patient medically screened. kb 08:09 Data reviewed: vital signs, nurses notes. Data interpreted: Pulse oximetry: on room air kb is 99 %. Interpretation: normal. Counseling: I had a detailed discussion with the patient and/or guardian regarding: the historical points, exam findings, and any diagnostic results supporting the discharge/admit diagnosis, the need for outpatient follow up, a family practitioner, to return to the emergency department if symptoms worsen or persist or if there are any questions or concerns that arise at home. Administered Medications: 08:10 Drug: predniSONE 40 mg Route: PO; iw 11:02 Follow up: Response: No adverse reaction iw Disposition: 18:05 Co-signature as Attending Physician, Jorge Luis Alex MD I agree with the assessment and sam plan of care. Disposition Summary: 05/07/21 08:07 Discharge Ordered Location: Home kb Condition: Stable kb Diagnosis - Sciatica, left side kb Followup: kb - With: Emergency Department - When: As needed - Reason: Worsening of condition Followup: kb - With: Private Physician - When: 2 - 3 days - Reason: Recheck today's complaints, Continuance of care, Re-evaluation by your physician Discharge Instructions: - Discharge Summary Sheet kb - Sciatica, [id number] kb Forms: - Medication Reconciliation Form kb - Thank You Letter kb - Antibiotic Education kb - Prescription Opioid Use kb Prescriptions: - Prednisone 20 mg Oral Tablet - take 1 tablet by ORAL route once daily for 5 days; 5 tablet; Refills: 0, kb Product Selection Permitted - Cyclobenzaprine 10 mg Oral Tablet - take 1 tablet by ORAL route every 8 hours As needed; 21 tablet; Refills: 0, kb Product Selection Permitted Signatures: Cleopatra Aguirre, MICHELLEC DISABILITY SPECIALIST-Jorge Luis Ballard MD MD cha Williams, Irene, RN RN iw
--- NOTE | 2021-05-07 08:08 | ER ---
Nurse's Notes [facility] Name: Martha Keller Age: 36 yrs Sex: Female : 1985 Arrival Date: 05/07/2021 Time: 07:39 Bed Waiting Private MD: None, None Diagnosis: Sciatica, left side Presentation: 05/07 08:00 Chief complaint: Patient states: is having pain from left lower back down leg , had iw xrays about a month ago and it never went away , can't turn on side. Coronavirus screen: At this time, the client does not indicate any symptoms associated with coronavirus-19. Ebola Screen: Patient negative for fever greater than or equal to 101.5 degrees Fahrenheit, and additional compatible Ebola Virus Disease symptoms Patient denies exposure to infectious person. Patient denies travel to an Ebola-affected area in the 21 days before illness onset. No symptoms or risks identified at this time. Initial Sepsis Screen: Does the patient meet any 2 criteria? No. Patient's initial sepsis screen is negative. Does the patient have a suspected source of infection? No. Patient's initial sepsis screen is negative. Risk Assessment: Do you want to hurt yourself or someone else? Patient reports no desire to harm self or others. Onset of symptoms was March 2021. 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 - Social history:: Smoking status: unknown. Screenin:06 Abuse screen: Denies threats or abuse. Denies injuries from another. Nutritional iw screening: No deficits noted. Tuberculosis screening: No symptoms or risk factors identified. Fall Risk None identified. Assessment: 08:05 General: Appears in no apparent distress. Behavior is calm, cooperative. Pain: iw Complains of pain in left lower back and left gluteus mark Pain radiates to left leg. Neuro: Level of Consciousness is awake, alert, obeys commands, Oriented to person, place, time, situation, Moves all extremities. Cardiovascular: Patient's skin is warm and dry. Respiratory: Respiratory effort is even, unlabored, Respiratory pattern is regular, symmetrical. GI: No signs and/or symptoms were reported involving the gastrointestinal system. Derm: Skin is intact, is healthy with good turgor. Musculoskeletal: Range of motion: intact in all extremities. Vital Signs: 08:00 BP 144 / 91; Pulse 64; Resp 16; Temp 97.4; Pulse Ox 99% on R/A; iw ED Course: 07:39 Patient arrived in ED. ds1 07:39 None, None is Private Physician. ds1 08:02 Triage completed. iw 08:04 Arm band placed on. iw 08:06 No provider procedures requiring assistance completed. Patient did not have IV access iw during this emergency room visit. 08:07 Cleopatra Aguirre FNP-C is PHCP. kb 08:07 Jorge Luis Alex MD is Attending Physician. kb 08:07 Kendra Naik, ALEJANDRO is Primary Nurse. iw 08:15 Patient has correct armband on for positive identification. iw Administered Medications: 08:10 Drug: predniSONE 40 mg Route: PO; iw 11:02 Follow up: Response: No adverse reaction iw Outcome: 08:07 Discharge ordered by . kb 08:13 Discharged to home ambulatory. iw 08:13 Condition: good 08:13 Discharge instructions given to patient, Instructed on discharge instructions, follow up and referral plans. medication usage, Demonstrated understanding of instructions, follow-up care, medications, Prescriptions given X 2. 08:13 Patient left the ED. iw Signatures: Cleopatra Aguirre FNP-C FIRE ALARM DISPATCHER-Ckb Elvia Castaneda ds1 Kendra Naik, RN RN iw Corrections: (The following items were deleted from the chart) 08:05 08:00 Pulse 64bpm; Resp 16bpm; Pulse Ox 99% RA; Temp 97.4F; iw iw 08:07 08:00 Acuity: CHYNA 3 iw iw
[2021-05-07 08:19] VITALS: BP 144/91; TEMP 97.4; O2SAT 99
[2021-05-07] MEDS ORDERED: predniSONE 20 MG TAB ONE (08:31)
== END 2021-05-07 08:13 | disposition home or self-care (01) ==
LOC: ER 07:39
DX: M54.32 Sciatica, left side (principal); Z88.2 Allergy status to sulfonamides; Z88.8 Allergy status to other drugs, medicaments and biological substances
CPT/HCPCS: 99283; J7512

== ENCOUNTER 2022-04-04 17:06 | Emergency (ER) | payer OTHER ==
--- NOTE | 2022-04-04 17:49 | RAD REPORT ---
EXAM DESCRIPTION: RAD - Chest Pa And Lat (2 Views) - 04/04/2022 5:41 pm CLINICAL HISTORY: COUGH Chest pain. COMPARISON: Chest Single View dated 10/22/2019; Chest Pa And Lat (2 Views) dated 09/27/2018; CHEST PA AND LAT 2 VIEW dated 04/23/2015; CHEST PA AND LAT 2 VIEW dated 10/10/2012 FINDINGS: The lungs are clear. The heart is normal in size. No displaced fractures. IMPRESSION: No acute or concerning finding suspected.
--- NOTE | 2022-04-04 17:49 | RAD REPORT ---
EXAM DESCRIPTION: RAD - Humerus Left - 04/04/2022 5:41 pm CLINICAL HISTORY: PAIN COMPARISON: Chest Pa And Lat (2 Views) dated 04/04/2022 FINDINGS: No bone or joint abnormality detected.
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
[2022-04-04 21:52] VITALS: TEMP 98; O2SAT 100
[2022-04-04 21:54] VITALS: BP 157/88
== END 2022-04-04 21:07 | disposition home or self-care (01) ==
LOC: ER 17:06
DX: M79.602 Pain in left arm (principal); R05.9 Cough, unspecified; E11.9 Type 2 diabetes mellitus without complications; Z20.822 Contact with and (suspected) exposure to COVID-19; Z88.2 Allergy status to sulfonamides
CPT/HCPCS: 87804 ×2; 71046; 73060; U0003

== ENCOUNTER 2022-11-26 19:20 | Emergency (ER) | payer OTHER ==
--- OUTSIDE RECORDS SUMMARY | 2022-11-26 19:27 | XMS REPORT | Continuity of Care Document ---
:1985 Author Organization [facility] t Address [address] [place] [address] Support Name Relationship Address Phone Mike Solomon Other unknown Aura Palafox Mother [address] [place] [address] AURA PALAFOX [address] [place] [address] PATIENT, NO ONE ELSE PER Unavailable Unavailable Unavail able SOLOMONMIKE Significant [address] [place] [address] Link Solomon, Mike Significant Other [address] [phone] [place] [address] L Aura Palafox Mother [address] [place] [address] one else per patient, No Unavailable Unavailable Unavail able Care Team Providers Name Role Phone KARLEE BOSCH Primary Care Physician Unavailable MEHRDAD Attending Clinician Unavailable ANNETTE MUNOZ Attending Clinician Unavailable Annette Shannon Attending Clinician Doctor Unassigned, [place] Attending Clinician Unavailable CINDY HERRING Attending Clinician Unavailable Cindy Herring DO Attending Clinician Cintia Licea MD Attending Clinician CINTIA LICEA Attending Clinician Unavailable Scotty Caban DO Attending Clinician Ashley Mares RN Attending Clinician Unavailable Van Vargas Attending Clinician KARLEE BOSCH Attending Clinician Unavailable Karlee Young Attending Clinician Carey DISH CARRIER, Roshunda R Attending Clinician MERRITT CAREY Attending Clinician Unavailable Visit, [employer] [facility] Attending Clinician Unavailable Mary Hood MD, Gracia Attending Clinician [phone] MEHRDAD Admitting Clinician Unavailable CINTIA LICEA Admitting Clinician Unavailable Mary Hood MD, Gracia Admitting Clinician [phone] Payers Payer Name Policy Type Policy Number Effective Date Expiration Date Rafita ragsdael [facility] [place] [id number] 2019 00:00:00 [facility] [id number] 2020 00:00:00 Problems Condition Condition Condition Status Onset Resolution Last Treating Co mments Source Name Details Category Date Date Treatment Clinician Date Abnormal Abnormal Disease Active 2020- Unive rs glucose in glucose in 1-30 it y [place] , , [place] ante[place] antepartum 00 Me dical Branch Glucosuria Glucosuria Disease Active 2020-0 U nivers 1-30 ity of 00:00: [place] 00 Medical Branch Group B Group B Disease Active 2020-0 Univers streptococ streptococ 1-27 it y of lis lis 00:00: [place] carriage carriage 00 Medica l complicati complicati Br anch ng ng Elevated Elevated Disease Active 2020- Unive rs blood blood 1-16 ity of pressure pressure 00:00: [place] affecting affecting 00 Medi lis Bran ch in third in third trimester, trimester, antepartum antepartum Pain of Pain of Disease Active 2018-10 Univers round round 2-27 ity of ligament ligament 00:00: [place] during during 00 Medical Bran ch Acute Acute Disease Active 2019- Univers left-sided left-sided 06-23 it y of low back low back 00:00: [place] pain with pain with 00 Medi lis left-sided left-sided Br anch sciatica sciatica Carpal Carpal Disease Active 2019- Univers tunnel tunnel 06-23 ity of syndrome syndrome 00:00: [place] during during 00 Medical Bran ch Thrombocyt Thrombocyt Disease Active 2019- Overview : Univers openia openia 06-09 Plt 131 ity of during during 00:00: at 12w [place] 00 Medi lis Branch High-risk High-risk Disease Active 2019- Uni vers 06-06 ity of in third in third 00:00: [place] trimester trimester 00 [facility] Multiparit Multiparit Disease Active 2018- U nivers y y 06-06 ity of 00:00: [place] [facility] Obesity Obesity Disease Active Univers affecting affecting 06-06 [place] in third in third 00 Medica l trimester trimester Bran ch S/P S/P Disease Active Univers 06-06 ity of section section 00:00: [place] [facility] Adult BMI Adult BMI Disease Active Uni vers 40.0-44.9 40.0-44.9 06-06 ity of kg/sq m kg/sq m 00:00: [place] [facility] Disease Active Overview: Univers complicate complicate 06-06 Reports i ty of d by d by 00:00: cessation [place] tobacco tobacco 00 at 28w Medical use in use in Branch third third trimester trimester History of History of Disease Active U nivers bipolar bipolar 06-06 ity of disorder disorder 00:00: [place] [facility] Well woman Well woman Disease Active U nivers exam exam 4-25 ity of 00:00: [address] Contracept Contracept Disease Active 2018- U nivers redd redd 4-25 ity of management management [place] [facility] History of History of Disease Active U nivers asthma asthma 06-26 ity of 00:00: [place] [facility] Anxiety Anxiety Disease Active Univers 9 ity of 00:00: [place] [facility] 39 weeks 39 weeks Disease Active Unive rs gestation gestation 06-25 ity of of of 00:00: [place] 00 [facility] Obesity Obesity Disease Active Univers (BMI (BMI 7-10 ity of 30-39.9) 30-39.9) 00:00: [place] [facility] Hirsutism Hirsutism Disease Active 2013-10 Uni vers 1-25 ity of 00:00: [place] [facility] History of History of Disease Active 2013-10 U nivers anxiety anxiety 1-25 ity of 00:00: [place] [facility] Allergies, Adverse Reactions, Alerts Allergy Allergy Status Severity Reaction(s) Onset Inactive Treating Comm ents Source Name Type Date Date Clinician Cefazoli Propensi Active Hives Univer s n ty to 9-27 ity of adverse 00:00: [place] reaction 00 Medical s Branch CEFAZOLI DRUG Active High Hives Univers N INGREDI 9-27 ity of 00:00: [place] 00 Medical Branch Sulfa Propensi Active Hives Univers (Sulfona ty to 7-10 ity of mide adverse 00:00: [place] Antibiot reaction 00 Medica l ics) s to Branch drug SULFA Drug Active Hives Univers (SULFONA Class 7-10 ity of MIDE 00:00: [place] ANTIBIOT 00 Medical ICS) Branch Social History Social Habit Start Date Stop Date Quantity Comments Source ASSERTION 2019-02-27 University of 00:00:00 [facility] History of tobacco 2002-04-09 Cigarette Smoker University of use 00:00:00 [facility] Exposure to Not sure [facility] SARS-CoV-2 (event) [facility] Alcohol intake 2021-10-25 2021-10-25 Current University 00:00:00 00:00:00 non-drinker of [facility] alcohol Branch (finding) Tobacco use and 2017-08-09 2017-08-09 Never used Universit y of exposure 00:00:00 00:00:00 [facility] Cigarettes smoked 2017-08-09 2017-08-09 Univers ity of current (pack per 00:00:00 00:00:00 [place] ) - Reported Branch Sex [birth year] At [birth year] Universit y of 00:00:00 00:00:00 [facility] Smoking Status Start Date Stop Date Source Current some day smoker 2017-08-09 00:00:00 [facility] Medications Ordered Filled Start Stop Current Ordering Indication Dosage Frequency Signature Comments Components Source Medication Medication Date Date Medication? Clinician (SIG) Name Name ondansetron 2021- No 4mg 4 mg, [facility] ers (ZOFRAN-ODT 10-26 Oral, ity of ) 02:00: 01:08 ONCE, 1 [place] disintegrat 00 :00 dose, On [facility] ing tablet [facility] Branch 4 mg 10/25/21 at 2000, Routine dicyclomine Yes [id number] 10mg Take 1 Univers 10 mg 1-25 capsule by ity of capsule 00:00: mouth 4 [place] 00 (four) Medical times Branch daily. ondansetron Yes [id number] 4mg Take 1 Univers 4 mg 1-25 tablet by ity of disintegrat 00:00: mouth [place] ing tablet 00 every 8 Medica l (eight) Branch hours as needed for Nausea and Vomiting (N/V). dexamethaso 2020-10 10mg 10 mg, Uni vers ne - 11-04 Oral, ity of (DECADRON 14:30: 13:34 ONCE, 1 [place] PHOSPHATE) 00 :00 dose, On Medic al injection Marcela Branch 10 mg 08/04/21 at 0930, Routine chlorphenir 2020-10 Yes [id number] 4mg Take 1 Univers amine 4 mg 1-04 tablet by ity of tablet 00:00: mouth [place] 00 every 6 Medical (six) Branch hours as needed for Allergies or Runny nose. ondansetron 2020-10 Yes [id number] 4mg Take 1 Univers 4 mg 1-04 tablet by ity of disintegrat 00:00: mouth [place] ing tablet 00 every 8 Medica l (eight) Branch hours as needed for Nausea and Vomiting (N/V). naproxen 2020-10 Yes [id number] 550mg Take 1 Un silvia sodium 1-04 tablet by ity of (ANAPROX 00:00: mouth 2 [place] DS) 550 mg 00 (two) Medical tablet times Branch daily with meals. chlorphenir 2020-10 Yes [id number] 4mg Take 1 Univers amine 4 mg 1-04 tablet by ity of tablet 00:00: mouth [place] 00 every 6 Medical (six) Branch hours as needed for Allergies or Runny nose. ondansetron 2020-10 Yes [id number] 4mg Take 1 Univers 4 mg 1-04 tablet by ity of disintegrat 00:00: mouth [place] ing tablet 00 every 8 Medica l (eight) Branch hours as needed for Nausea and Vomiting (N/V). naproxen 2020-10 Yes [id number] 550mg Take 1 Un silvia sodium 1-04 tablet by ity of (ANAPROX 00:00: mouth 2 [place] DS) 550 mg 00 (two) Medical tablet times Branch daily with meals. chlorphenir 2020-10 Yes [id number] 4mg Take 1 Univers amine 4 mg 1-04 tablet by ity of tablet 00:00: mouth [place] 00 every 6 Medical (six) Branch hours as needed for Allergies or Runny nose. ondansetron 2020-10 Yes [id number] 4mg Take 1 Univers 4 mg 1-04 tablet by ity of disintegrat 00:00: mouth [place] ing tablet 00 every 8 Medica l (eight) Branch hours as needed for Nausea and Vomiting (N/V). naproxen 2020-10 Yes [id number] 550mg Take 1 Un silvia sodium 1-04 tablet by ity of (ANAPROX 00:00: mouth 2 [place] DS) 550 mg 00 (two) Medical tablet times Branch daily with meals. ibuprofen 2020-10 Yes [id number] 600mg Take 1 U nivers 600 mg 0-26 tablet by ity of tablet 00:00: mouth [place] 00 every 6 Medical (six) Branch hours as needed for Pain (scale 4-6). methocarbam 2020-10 Yes [id number] 500mg Take 1 Univers oL 500 mg 0-26 tablet by ity o f tablet 00:00: mouth 4 [place] 00 (four) Medical times Branch daily. ibuprofen 2020-10 Yes [id number] 600mg Take 1 U nivers 600 mg 0-26 tablet by ity of tablet 00:00: mouth [place] 00 every 6 Medical (six) Branch hours as needed for Pain (scale 4-6). methocarbam 2020-10 Yes [id number] 500mg Take 1 Univers oL 500 mg 0-26 tablet by ity o f tablet 00:00: mouth 4 [place] 00 (four) Medical times Branch daily. ibuprofen 2020-10 Yes [id number] 600mg Take 1 U nivers 600 mg 0-26 tablet by ity of tablet 00:00: mouth [place] 00 every 6 Medical (six) Branch hours as needed for Pain (scale 4-6). methocarbam 2020-10 Yes [id number] 500mg Take 1 Univers oL 500 mg 0-26 tablet by ity o f tablet 00:00: mouth 4 [place] 00 (four) Medical times Branch daily. ibuprofen 2020-10 Yes [id number] 600mg Take 1 U nivers 600 mg 0-26 tablet by ity of tablet 00:00: mouth [place] 00 every 6 Medical (six) Branch hours as needed for Pain (scale 4-6). methocarbam 2020-10 Yes [id number] 500mg Take 1 Univers oL 500 mg 0-26 tablet by ity o f tablet 00:00: mouth 4 [place] 00 (four) Medical times Branch daily. ibuprofen 2020- No 800mg 800 mg, Uni vers (IBU) -18 -18 Oral, ity of tablet 800 05:00: 03:57 ONCE, 1 Jorge L as mg 00 :00 dose, [place] [facility] 10/17/20 at Branch 2300, RUBEN guaiFENesin Yes [id number] 100mg Take 5 mL Univers 100 mg/5 mL 1-17 by mouth ity of solution 00:00: every 4 [place] 00 (four) Medical hours as Branch needed for Cough. albuterol Yes [id number] 2{puff} Inhale 2 Univers 90 1-17 Puffs ity of mcg/actuati 00:00: every 4 [place] L as on inhaler 00 (four) Medical hours as Branch needed for Wheezing or Shortness of Breath. guaiFENesin Yes [id number] 100mg Take 5 mL Univers 100 mg/5 mL 1-17 by mouth ity of solution 00:00: every 4 [place] 00 (four) Medical hours as Branch needed for Cough. albuterol Yes [id number] 2{puff} Inhale 2 Univers 90 1-17 Puffs ity of mcg/actuati 00:00: every 4 [place] L as on inhaler 00 (four) Medical hours as Branch needed for Wheezing or Shortness of Breath. guaiFENesin Yes [id number] 100mg Take 5 mL Univers 100 mg/5 mL 1-17 by mouth ity of solution 00:00: every 4 [place] 00 (four) Medical hours as Branch needed for Cough. albuterol Yes [id number] 2{puff} Inhale 2 Univers 90 1-17 Puffs ity of mcg/actuati 00:00: every 4 [place] L as on inhaler 00 (four) Medical hours as Branch needed for Wheezing or Shortness of Breath. guaiFENesin Yes [id number] 100mg Take 5 mL Univers 100 mg/5 mL 1-17 by mouth ity of solution 00:00: every 4 [place] 00 (four) Medical hours as Branch needed for Cough. albuterol Yes [id number] 2{puff} Inhale 2 Univers 90 1-17 Puffs ity of mcg/actuati 00:00: every 4 [place] L as on inhaler 00 (four) Medical hours as Branch needed for Wheezing or Shortness of Breath. guaiFENesin Yes [id number] 100mg Take 5 mL Univers 100 mg/5 mL 1-17 by mouth ity of solution 00:00: every 4 [place] [address] (four) Medical hours as Branch needed for Cough. albuterol Yes [id number] 2{puff} Inhale 2 Univers 90 1-17 Puffs ity of mcg/actuati 00:00: every 4 [place] L as on inhaler 00 (four) Medical hours as Branch needed for Wheezing or Shortness of Breath. guaiFENesin Yes [id number] 100mg Take 5 mL Univers 100 mg/5 mL 1-17 by mouth ity of solution 00:00: every 4 [place] [address] (four) Medical hours as Branch needed for Cough. albuterol Yes [id number] 2{puff} Inhale 2 Univers 90 1-17 Puffs ity of mcg/actuati 00:00: every 4 [place] L as on inhaler 00 (four) Medical hours as Branch needed for Wheezing or Shortness of Breath. guaiFENesin Yes [id number] 100mg Take 5 mL Univers 100 mg/5 mL 1-17 by mouth ity of solution 00:00: every 4 [place] [address] (four) Medical hours as Branch needed for Cough. albuterol Yes [id number] 2{puff} Inhale 2 Univers 90 1-17 Puffs ity of mcg/actuati 00:00: every 4 [place] L as on inhaler 00 (four) Medical hours as Branch needed for Wheezing or Shortness of Breath. etonogestre 2019- No 68mg Unive rs l 12-23- ity of (NEXPLANON) 22:30: 21:20 [place] implant 68 00 :00 Medical mg Branch etonogestre 2019- No 68mg 68 mg, Uni vers l 12-23 Subdermal, ity of (NEXPLANON) 22:30: 21:20 ONCE NOW, [place] implant 68 00 :00 1 dose, Medica l mg Wed [place] 12/24/19 at 1730, Routine
Use approved by: DENTAL TECHNICIAN INSTRUCTOR etonogestre 2019- No 68mg Unive rs l 12-23 ity of (NEXPLANON) 22:30: 21:20 [place] implant 68 00 :00 Medical mg Branch etonogestre 2019- No 68mg 68 mg, Uni vers l 12-23 Subdermal, ity of (NEXPLANON) 22:30: 21:20 ONCE NOW, [place] implant 68 00 :00 1 dose, Medica l mg [facility] 12/24/19 at 1730, Routine
Use approved by: DENTAL TECHNICIAN INSTRUCTOR medroxyPROG Yes 150mg 150 mg, Un silvia ESTERone 2-16 Intramuscu ity o f (DEPO-PROVE 13:18: [facility], [place] RA) 16 ONCE-SEE Medical injection INSTRUCTIO Bran ch 150 mg NS, 1 dose, Starting 11/16/19 at 0718, Until Discontinu ed, Routine human Yes .5mL 0.5 mL, Univers papillomav 2-15 Intramuscu ity of vac,9-shannon(P 12:46: [facility], [facility]) 33 ONCE-PRIOR Medical (GARDASIL-9 TO Branch ) syringe DISCHARGE, 0.5 mL 1 dose, Starting 11/15/19 at 0646, Until Discontinu ed, Routine, Give vaccine prior to discharge 2019- Yes [id number] 1{tbl} Take 1 Univers vitamin 2-15 tablet by ity of w/FA tablet 00:00: mouth [place] 00 daily. Medical Branch docusate Yes [id number] 240mg Take 1 U nivers calcium 240 2-15 capsule by it y of mg capsule 00:00: mouth [place] 00 daily as Medical needed for Branch Constipati on. ferrous 2019- Yes [id number] 325mg Take 1 Un silvia sulfate 325 2-15 tablet by ity of mg (65 mg 00:00: mouth 2 [place] iron) 00 (two) Medical tablet times Branch daily. ibuprofen 2019- Yes [id number] 600mg Take 1 Univers 600 mg 2-15 tablet by ity of tablet 00:00: mouth [place] 00 every 6 Medical (six) Branch hours as needed (Pain). Take with food or milk. HYDROcodone 2020-0 Yes [id number] 1{tbl} Take 1 Univers -acetaminop 2-15 tablet by ity of hen 5-325 00:00: mouth [place] mg tablet 00 every 6 Medical (six) Branch hours as needed for Pain (scale 7-10) for up to 20 doses. Do not exceed 3 grams of acetaminop hen in 24 hours. 2020-0 Yes [id number] 1{tbl} Take 1 Univers vitamin 2-15 tablet by ity of w/FA tablet 00:00: mouth [place] 00 daily. Medical Branch docusate 2020-0 Yes [id number] 240mg Take 1 U nivers calcium 240 2-15 capsule by it y of mg capsule 00:00: mouth once [place] 00 daily as Medical needed for Branch Constipati on. ferrous 2020-0 Yes [id number] 325mg Take 1 Un silvia sulfate 325 2-15 tablet by ity of mg (65 mg 00:00: mouth 2 [place] iron) 00 (two) Medical tablet times Branch daily. ibuprofen 2020-0 Yes [id number] 600mg Take 1 Univers 600 mg 2-15 tablet by ity of tablet 00:00: mouth [place] 00 every 6 Medical (six) Branch hours as needed (Pain). Take with food or milk. HYDROcodone 2020-0 Yes [id number] 1{tbl} Take 1 Univers -acetaminop 2-15 tablet by ity of hen 5-325 00:00: mouth [place] mg tablet 00 every 6 Medical (six) Branch hours as needed for Pain (scale 7-10) for up to 20 doses. Do not exceed 3 grams of acetaminop hen in 24 hours. 2020-0 Yes [id number] 1{tbl} Take 1 Univers vitamin 2-15 tablet by ity of w/FA tablet 00:00: mouth [place] 00 daily. Medical Branch docusate 2020-0 Yes [id number] 240mg Take 1 U nivers calcium 240 2-15 capsule by it y of mg capsule 00:00: mouth once [place] 00 daily as Medical needed for Branch Constipati on. ferrous 2020-0 Yes [id number] 325mg Take 1 Un silvia sulfate 325 2-15 tablet by ity of mg (65 mg 00:00: mouth 2 [place] iron) 00 (two) Medical tablet times Branch daily. ibuprofen 2020-0 Yes [id number] 600mg Take 1 Univers 600 mg 2-15 tablet by ity of tablet 00:00: mouth [place] 00 every 6 Medical (six) Branch hours as needed (Pain). Take with food or milk. HYDROcodone 2020-0 Yes [id number] 1{tbl} Take 1 Univers -acetaminop 2-15 tablet by ity of hen 5-325 00:00: mouth [place] mg tablet 00 every 6 Medical (six) Branch hours as needed for Pain (scale 7-10) for up to 20 doses. Do not exceed 3 grams of acetaminop hen in 24 hours. 2020-0 Yes [id number] 1{tbl} Take 1 Univers vitamin 2-15 tablet by ity of w/FA tablet 00:00: mouth [place] 00 daily. Medical Branch docusate 2020-0 Yes [id number] 240mg Take 1 U nivers calcium 240 2-15 capsule by it y of mg capsule 00:00: mouth once [place] 00 daily as Medical needed for Branch Constipati on. ferrous 2020-0 Yes [id number] 325mg Take 1 Un silvia sulfate 325 2-15 tablet by ity of mg (65 mg 00:00: mouth 2 [place] iron) 00 (two) Medical tablet times Branch daily. ibuprofen 2020-0 Yes [id number] 600mg Take 1 Univers 600 mg 2-15 tablet by ity of tablet 00:00: mouth [place] 00 every 6 Medical (six) Branch hours as needed (Pain). Take with food or milk. HYDROcodone 2020-0 Yes [id number] 1{tbl} Take 1 Univers -acetaminop 2-15 tablet by ity of hen 5-325 00:00: mouth [place] mg tablet 00 every 6 Medical (six) Branch hours as needed for Pain (scale 7-10) for up to 20 doses. Do not exceed 3 grams of acetaminop hen in 24 hours. 2020-0 Yes [id number] 1{tbl} Take 1 Univers vitamin 2-15 tablet by ity of w/FA tablet 00:00: mouth [place] 00 daily. Medical Branch docusate 2020-0 Yes [id number] 240mg Take 1 U nivers calcium 240 2-15 capsule by it y of mg capsule 00:00: mouth once [place] 00 daily as Medical needed for Branch Constipati on. ferrous 2020-0 Yes [id number] 325mg Take 1 Un silvia sulfate 325 2-15 tablet by ity of mg (65 mg 00:00: mouth 2 [place] iron) 00 (two) Medical tablet times Branch daily. ibuprofen 2020-0 Yes [id number] 600mg Take 1 Univers 600 mg 2-15 tablet by ity of tablet 00:00: mouth [place] 00 every 6 Medical (six) Branch hours as needed (Pain). Take with food or milk. HYDROcodone 2020-0 Yes [id number] 1{tbl} Take 1 Univers -acetaminop 2-15 tablet by ity of hen 5-325 00:00: mouth [place] mg tablet 00 every 6 Medical (six) Branch hours as needed for Pain (scale 7-10) for up to 20 doses. Do not exceed 3 grams of acetaminop hen in 24 hours. 2020-0 Yes [id number] 1{tbl} Take 1 Univers vitamin 2-15 tablet by ity of w/FA tablet 00:00: mouth [place] 00 daily. Medical Branch docusate 2020-0 Yes [id number] 240mg Take 1 U nivers calcium 240 2-15 capsule by it y of mg capsule 00:00: mouth once [place] 00 daily as Medical needed for Branch Constipati on. ferrous 2020-0 Yes [id number] 325mg Take 1 Un silvia sulfate 325 2-15 tablet by ity of mg (65 mg 00:00: mouth 2 [place] iron) 00 (two) Medical tablet times Branch daily. ibuprofen 2020-0 Yes [id number] 600mg Take 1 Univers 600 mg 2-15 tablet by ity of tablet 00:00: mouth [place] 00 every 6 Medical (six) Branch hours as needed (Pain). Take with food or milk. HYDROcodone 2020-0 Yes [id number] 1{tbl} Take 1 Univers -acetaminop 2-15 tablet by ity of hen 5-325 00:00: mouth [place] mg tablet 00 every 6 Medical (six) Branch hours as needed for Pain (scale 7-10) for up to 20 doses. Do not exceed 3 grams of acetaminop hen in 24 hours. 2020-0 Yes [id number] 1{tbl} Take 1 Univers vitamin 2-15 tablet by ity of w/FA tablet 00:00: mouth [place] 00 daily. Medical Branch ferrous 2020-0 Yes [id number] 325mg Take 1 Un silvia sulfate 325 2-15 tablet by ity of mg (65 mg 00:00: mouth 2 [place] iron) 00 (two) Medical tablet times Branch daily. 2020-0 Yes [id number] 1{tbl} Take 1 Univers vitamin 2-15 tablet by ity of w/FA tablet 00:00: mouth [place] 00 daily. Medical Branch ferrous 2020-0 Yes [id number] 325mg Take 1 Un silvia sulfate 325 2-15 tablet by ity of mg (65 mg 00:00: mouth 2 [place] iron) 00 (two) Medical tablet times Branch daily. 2020-0 Yes [id number] 1{tbl} Take 1 Univers vitamin 2-15 tablet by ity of w/FA tablet 00:00: mouth [place] 00 daily. Medical Branch ferrous 2020-0 Yes [id number] 325mg Take 1 Un silvia sulfate 325 2-15 tablet by ity of mg (65 mg 00:00: mouth 2 [place] iron) 00 (two) Medical tablet times Branch daily. 2020-0 Yes [id number] 1{tbl} Take 1 Univers vitamin 2-15 tablet by ity of w/FA tablet 00:00: mouth [place] 00 daily. Medical Branch ferrous 2020-0 Yes [id number] 325mg Take 1 Un silvia sulfate 325 2-15 tablet by ity of mg (65 mg 00:00: mouth 2 [place] iron) 00 (two) Medical tablet times Branch daily. 2020-0 Yes [id number] 1{tbl} Take 1 Univers vitamin 2-15 tablet by ity of w/FA tablet 00:00: mouth [place] 00 daily. Medical Branch ferrous 2020-0 Yes [id number] 325mg Take 1 Un silvia sulfate 325 2-15 tablet by ity of mg (65 mg 00:00: mouth 2 [place] iron) 00 (two) Medical tablet times Branch daily. 2020-0 Yes [id number] 1{tbl} Take 1 Univers vitamin 2-15 tablet by ity of w/FA tablet 00:00: mouth [place] 00 daily. Medical Branch ferrous 2020-0 Yes [id number] 325mg Take 1 Un silvia sulfate 325 2-15 tablet by ity of mg (65 mg 00:00: mouth 2 [place] iron) 00 (two) Medical tablet times Branch daily. 2020-0 Yes [id number] 1{tbl} Take 1 Univers vitamin 2-15 tablet by ity of w/FA tablet 00:00: mouth [place] 00 daily. Medical Branch ferrous 2020-0 Yes [id number] 325mg Take 1 Un silvia sulfate 325 2-15 tablet by ity of mg (65 mg 00:00: mouth 2 [place] iron) 00 (two) Medical tablet times Branch daily. 2020-0 Yes [id number] 1{tbl} Take 1 Univers vitamin 2-15 tablet by ity of w/FA tablet 00:00: mouth [place] 00 daily. Medical Branch ferrous 2020-0 Yes [id number] 325mg Take 1 Un silvia sulfate 325 2-15 tablet by ity of mg (65 mg 00:00: mouth 2 [place] iron) 00 (two) Medical tablet times Branch daily. 2020-0 Yes [id number] 1{tbl} Take 1 Univers vitamin 2-15 tablet by ity of w/FA tablet 00:00: mouth [place] 00 daily. Medical Branch ferrous 2020-0 Yes [id number] 325mg Take 1 Un silvia sulfate 325 2-15 tablet by ity of mg (65 mg 00:00: mouth 2 [place] iron) 00 (two) Medical tablet times Branch daily. 2020-0 Yes [id number] 1{tbl} Take 1 Univers vitamin 2-15 tablet by ity of w/FA tablet 00:00: mouth [place] 00 daily. Medical Branch ferrous 2020-0 Yes [id number] 325mg Take 1 Un silvia sulfate 325 2-15 tablet by ity of mg (65 mg 00:00: mouth 2 [place] iron) 00 (two) Medical tablet times Branch daily. 2020-0 Yes [id number] 1{tbl} Take 1 Univers vitamin 2-15 tablet by ity of w/FA tablet 00:00: mouth [place] 00 daily. Medical Branch ferrous 2020-0 Yes [id number] 325mg Take 1 Un silvia sulfate 325 2-15 tablet by ity of mg (65 mg 00:00: mouth 2 [place] iron) 00 (two) Medical tablet times Branch daily. 2020-0 Yes [id number] 1{tbl} Take 1 Univers vitamin 2-15 tablet by ity of w/FA tablet 00:00: mouth [place] 00 daily. Medical Branch ferrous 2019-0 Yes [id number] 325mg Take 1 Un silvia sulfate 325 2-15 tablet by ity of mg (65 mg 00:00: mouth 2 [place] iron) 00 (two) Medical tablet times Branch daily. docusate 2019- No [id number] 240mg Take 1 [facility] calcium 240 2-15 03-25 capsule by i ty of mg capsule 00:00: 00:00 mouth once [place] 00 :00 daily as Medical needed for Branch Constipati on. ibuprofen 2019- No [id number] 600mg Take 1 [facility] 600 mg 2-15 03-25 tablet by ity of tablet 00:00: 00:00 mouth [place] 00 :00 every 6 Medical (six) Branch hours as needed (Pain). Take with food or milk. HYDROcodone 2019- No [id number] 1{tbl} Take 1 [facility] -acetaminop 2-15 03-25 tablet by it y of hen 5-325 00:00: 00:00 mouth [place] mg tablet 00 :00 every 6 Medical (six) Branch hours as needed for Pain (scale 7-10) for up to 20 doses. Do not exceed 3 grams of acetaminop hen in 24 hours. docusate 2019- No [id number] 240mg Take 1 [facility] calcium 240 2-15 03-25 capsule by i ty of mg capsule 00:00: 00:00 mouth once [place] 00 :00 daily as Medical needed for Branch Constipati on. ibuprofen 2019- No [id number] 600mg Take 1 [facility] 600 mg 2-15 03-25 tablet by ity of tablet 00:00: 00:00 mouth [place] 00 :00 every 6 Medical (six) Branch hours as needed (Pain). Take with food or milk. HYDROcodone 2019- No [id number] 1{tbl} Take 1 [facility] -acetaminop 2-15 03-25 tablet by it y of hen 5-325 00:00: 00:00 mouth [place] mg tablet 00 :00 every 6 Medical (six) Branch hours as needed for Pain (scale 7-10) for up to 20 doses. Do not exceed 3 grams of acetaminop hen in 24 hours. lactated 2020- No 1000mL at 125 Univ ers ringers IV 2-14 02-14 mL/hr, ity of infusion 18:00: 22:52 1,000 mL, Jogre L as 1,000 mL 00 :00 IV Medical Infusion, Branch ONCE, 1 dose, 11/14/19 at 1200, Routine rho(D) 2020-0 Yes 300ug 300 mcg, Univer s immune 2-14 Intramuscu ity of globulin 17:57: lar, ONCE, Jorge L as (RHOGAM) 40 For 1 Medical syringe 300 dose, Branch mcg Conditiona l, Routine ondansetron 2020-0 Yes 4mg 4 mg, Slow Univers (ZOFRAN 2-14 IV Push, ity of (PF)) 17:57: Q8HPRN, [place] injection 4 35 Starting Medi lis mg Fri Branch 11/14/19 at 1157, Until Discontinu ed, Routine, Nausea and Vomiting (N/V) simethicone 2020-0 Yes 160mg 160 mg, Un silvia (GAS RELIEF 2-14 Oral, ity of (SIMETHICON 17:57: PC+HSPRN, [place] E)) 35 Starting Medical chewable Fri Branch tablet 160 11/14/19 at mg 1157, Until Discontinu ed, Routine, Gas HYDROcodone 2020-0 Yes 2{tbl} 2 tablet, Univers -acetaminop 2-14 Oral, ity of hen (NORCO 17:57: Q6HPRN, [place] 5) 5-325 mg 34 Starting Medi lis tablet 2 Fri Branch tablet 11/14/19 at 1157, Until Discontinu ed, Routine, Pain (scale 7-10), If uncontroll ed by Ibuprofen HYDROcodone 2020-0 Yes 1{tbl} 1 tablet, Univers -acetaminop 2-14 Oral, ity of hen (NORCO 17:57: Q6HPRN, [place] 5) 5-325 mg 34 Starting Medi lis tablet 1 Fri Branch tablet 11/14/19 at 1157, Until Discontinu ed, Routine, Pain (scale 4-6), If uncontroll ed by Ibuprofen ibuprofen 2020-0 Yes 600mg 600 mg, Univ ers (IBU) 2-14 Oral, ity of tablet 600 17:57: Q6HPRN, [place] mg 34 Starting Medical Fri Branch 11/14/19 at 1157, Until Discontinu ed, Routine, Pain (scale 1-3) diphenhydrA 2020-0 Yes 25mg 25 mg, IV U nivers MINE-0.9 % 2-14 Piggyback, ity of sod.chlr 17:57: Administer Jorge L as (BENADRYL) 34 over 30 Medica l 25 mg/50 mL Minutes, Bran ch piggyback Q6HPRN, 1 25 mg dose, Starting 11/14/19 at 1157, Until Discontinu ed, Routine, Itching diphenhydrA 2020-0 Yes 25mg 25 mg, Univ ers MINE 2-14 Oral, ity of (BENADRYL) 17:57: Q6HPRN, [place] tablet 25 34 Starting Medica l mg Fri Branch 11/14/19 at 1157, Until Discontinu ed, Routine, Sleep, Itching bisacodyL 2020-0 Yes 10mg 10 mg, Univer s (DULCOLAX) 2-14 Rectal, ity of suppository 17:57: QDAILYPRN, [place] 10 mg 34 Starting Medical Fri Branch 11/14/19 at 1157, Until Discontinu ed, Routine, Constipati on docusate 2020-0 Yes 240mg 240 mg, Unive rs calcium 2-14 Oral, ity of (SURFAK) 17:57: QDAILYPRN, Jorge L as capsule 240 34 Starting Medi lis mg Fri Branch 11/14/19 at 1157, Until Discontinu ed, Routine, Constipati on magnesium 2020-0 Yes 30mL 30 mL, Univer s hydroxide 2-14 Oral, ity of (MILK OF 17:57: QDAILYPRN, Jorge L as MAGNESIA) 34 Starting Medica l 400 mg/5 mL Fri Branch suspension 11/14/19 at 30 mL 1157, Until Discontinu ed, Routine, Constipati on nalbuphine 2020-0 Yes 5mg 5 mg, Univer s (NUBAIN) 2-14 Intravenou ity o f injection 5 16:10: s, PRN, 1 [place] mg 05 dose, Medical Starting Branch 11/14/19 at 1010, Until Discontinu ed, Routine, Itching, PACU ketorolac 2020-0 2020- No 30mg 30 mg, Unive rs (TORADOL) 2-14 02-14 Slow IV ity of injection 16:10: 16:46 Push, PRN, [place] 30 mg 05 :00 1 dose, Medical Starting Branch Sun11/14/19 at 1010, Until Sun11/14/19 at 1046, Routine, Pain (scale 7-10), PACU
Fa culty member approving Restricted medication : DAYSI ALBERTO LR 1000 mL 2019- No at 125 Univ ers + oxytocin 11-14-14 mL/hr, IV ity of 20 units IV 14:15: 17:57 Infusion, [place] Solution 00 :41 CONTINUOUS Medic al , Starting Branch Sun11/14/19 at 0815, Until Sun11/14/19 at 1157, RUBNE acetaminoph 2019- No 650mg 650 mg, U nivers en 11-14 Oral, ity of (TYLENOL) 12:15: 13:43 ONCE, 1 [place] tablet 650 00 :00 dose, Fri Medi lis mg 11/14/19 at Branch 0615, Routine lactated 2019-2019- No 1000mL at 125 Univ ers ringers IV 11-14-14 mL/hr, ity of infusion 12:15: 17:57 1,000 mL, Jorge L as 1,000 mL 00 :41 IV Medical Infusion, Branch CONTINUOUS , Starting Sun11/14/19 at 0615, Until Sun11/14/19 at 1157, Routine lactated 2019-2019- No 500mL at 999 Unive rs ringers IV 11-14-14 mL/hr, 500 it y of infusion 12:15: 13:43 mL, IV [place] 500 mL 00 :00 Infusion, Medical ONCE, 1 Branch dose, Sun11/14/19 at 0615, Routine gentamicin 2019- No 5mg/kg 400 mg Un silvia 40 mg/mL 11-14 (rounded ity of 400 mg in 12:10: 16:59 from 407.5 [place] NaCl 0.9% 06 :00 mg = 5 Medical (NS) 250 mL mg/kg Branch IV infusion ?81.5 kg Adjusted weight), IV Infusion, O.R. HOLDING ONCE, 1 dose, Starting Sun11/14/19 at 0610, Until Discontinu ed, 250 mL
Reas on for Anti-Infec tive: Surgical Prophylaxi s
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
Duration of therapy: within 24 hours of surgery clindamycin 2019- 2020- No 900mg 900 mg, IV Univers in 5 % 11-14 Piggyback, ity of dextrose 12:10: 14:14 O.R. [place] (CLEOCIN) 06 :00 HOLDING Medical 900 mg/50 ONCE, 1 Branch mL dose, Piggyback Starting 900 mg 11/14/19 at 0610, Until Discontinu ed, 50 mL
Facu lty member approving Restricted medication : MARY ECHAVARRIA
Alivia huynh for Anti-Infec tive: Surgical Prophylaxi s
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
Duration of therapy: within 24 hours of surgery
Restricte d use approved by: DENTAL TECHNICIAN INSTRUCTOR FACULTY sodium 2019-0 2020- No 30mL 30 mL, Univers citrate-cit 11-14 Oral, ity of kyle acid 12:10: 13:44 PRE-PROCED [place] (BICITRA) 06 :00 URE ONCE, Medic al 500-334 1 dose, Branch mg/5 mL Starting solution 30 Fri mL 11/14/19 at 0610, Until 11/16/19 at 2359, Routine, Surgery/Pr ocedure nystatin 2019-0 Yes [id number] Apply to [facility] Indeed 100,000 1-16 area(s) 2 ity of unit/gram 00:00: (two) [place] ointment 00 times Medical daily. Branch PROAIR HFA 2019-0 Yes [id number] 2{puff} Inhale 2 [facility] 90 1-16 Puffs ity of mcg/actuati 00:00: every 6 Jorge L as on inhaler 00 (six) Medical hours as Branch needed for Wheezing or Shortness of Breath. nystatin 2020-0 Yes [id number] Apply to U nivers 100,000 1-16 area(s) 2 ity of unit/gram 00:00: (two) [place] ointment 00 times Medical daily. Branch PROAIR HFA 2020-0 Yes [id number] 2{puff} Inhale 2 [facility] 90 1-16 Puffs ity of mcg/actuati 00:00: every 6 Jorge L as on inhaler 00 (six) Medical hours as Branch needed for Wheezing or Shortness of Breath. nystatin 2019-0 Yes [id number] Apply to U nivers 100,000 1-16 area(s) 2 ity of unit/gram 00:00: (two) [place] ointment 00 times Medical daily. Branch PROAIR HFA 2020-0 Yes [id number] 2{puff} Inhale 2 [facility] 90 1-16 Puffs ity of mcg/actuati 00:00: every 6 Jorge L as on inhaler 00 (six) Medical hours as Branch needed for Wheezing or Shortness of Breath. nystatin 2020-0 Yes [id number] Apply to U nivers 100,000 1-16 area(s) 2 ity of unit/gram 00:00: (two) [place] ointment 00 times Medical daily. Branch PROAIR HFA 2020-0 Yes [id number] 2{puff} Inhale 2 [facility] 90 1-16 Puffs ity of mcg/actuati 00:00: every 6 Jorge L as on inhaler 00 (six) Medical hours as Branch needed for Wheezing or Shortness of Breath. nystatin 2020-0 Yes [id number] Apply to U nivers 100,000 1-16 area(s) 2 ity of unit/gram 00:00: (two) [place] ointment 00 times Medical daily. Branch PROAIR HFA 2020-0 Yes [id number] 2{puff} Inhale 2 [facility] 90 1-16 Puffs ity of mcg/actuati 00:00: every 6 Jorge L as on inhaler 00 (six) Medical hours as Branch needed for Wheezing or Shortness of Breath. nystatin 2020-0 Yes [id number] Apply to U nivers 100,000 1-16 area(s) 2 ity of unit/gram 00:00: (two) [place] ointment 00 times Medical daily. Branch PROAIR HFA 2020-0 Yes [id number] 2{puff} Inhale 2 [facility] 90 1-16 Puffs ity of mcg/actuati 00:00: every 6 Jorge L as on inhaler 00 (six) Medical hours as Branch needed for Wheezing or Shortness of Breath. nystatin 2020-0 Yes [id number] Apply to U nivers 100,000 1-16 area(s) 2 ity of unit/gram 00:00: (two) [place] ointment 00 times Medical daily. Branch PROAIR HFA 2020-0 Yes [id number] 2{puff} Inhale 2 [facility] 90 1-16 Puffs ity of mcg/actuati 00:00: every 6 Jorge L as on inhaler 00 (six) Medical hours as Branch needed for Wheezing or Shortness of Breath. nystatin 2020-0 Yes [id number] Apply to U nivers 100,000 1-16 area(s) 2 ity of unit/gram 00:00: (two) [place] ointment 00 times Medical daily. Branch PROAIR HFA 2020-0 Yes [id number] 2{puff} Inhale 2 [facility] 90 1-16 Puffs ity of mcg/actuati 00:00: every 6 Jorge L as on inhaler 00 (six) Medical hours as Branch needed for Wheezing or Shortness of Breath. nystatin 2020-0 Yes [id number] Apply to U nivers 100,000 1-16 area(s) 2 ity of unit/gram 00:00: (two) [place] ointment 00 times Medical daily. Branch PROAIR HFA 2020-0 Yes [id number] 2{puff} Inhale 2 [facility] 90 1-16 Puffs ity of mcg/actuati 00:00: every 6 Jorge L as on inhaler 00 (six) Medical hours as Branch needed for Wheezing or Shortness of Breath. nystatin 2020-0 Yes [id number] Apply to U nivers 100,000 1-16 area(s) 2 ity of unit/gram 00:00: (two) [place] ointment 00 times Medical daily. Branch PROAIR HFA 2020-0 Yes [id number] 2{puff} Inhale 2 [facility] 90 1-16 Puffs ity of mcg/actuati 00:00: every 6 Jorge L as on inhaler 00 (six) Medical hours as Branch needed for Wheezing or Shortness of Breath. nystatin 2020-0 Yes [id number] Apply to U nivers 100,000 1-16 area(s) 2 ity of unit/gram 00:00: (two) [place] ointment 00 times Medical daily. Branch PROAIR HFA 2020-0 Yes [id number] 2{puff} Inhale 2 [facility] 90 1-16 Puffs ity of mcg/actuati 00:00: every 6 Jorge L as on inhaler 00 (six) Medical hours as Branch needed for Wheezing or Shortness of Breath. nystatin 2020-0 Yes [id number] Apply to U nivers 100,000 1-16 area(s) 2 ity of unit/gram 00:00: (two) [place] ointment 00 times Medical daily. Branch PROAIR HFA Yes [id number] 2{puff} Inhale 2 Univers 90 1-16 Puffs ity of mcg/actuati 00:00: every 6 Jorge L as on inhaler 00 (six) Medical hours as Branch needed for Wheezing or Shortness of Breath. nystatin 2020-0 Yes [id number] Apply to U nivers 100,000 1-16 area(s) 2 ity of unit/gram 00:00: (two) [place] ointment 00 times Medical daily. Branch PROAIR HFA Yes [id number] 2{puff} Inhale 2 Univers 90 1-16 Puffs ity of mcg/actuati 00:00: every 6 Jorge L as on inhaler 00 (six) Medical hours as Branch needed for Wheezing or Shortness of Breath. PROAIR HFA Yes [id number] 2{puff} Inhale 2 [facility] 90 1-16 Puffs ity of mcg/actuati 00:00: every 6 Jorge L as on inhaler 00 (six) Medical hours as Branch needed for Wheezing or Shortness of Breath. PROAIR HFA Yes [id number] 2{puff} Inhale 2 [facility] 90 1-16 Puffs ity of mcg/actuati 00:00: every 6 Jorge L as on inhaler 00 (six) Medical hours as Branch needed for Wheezing or Shortness of Breath. PROAIR HFA Yes [id number] 2{puff} Inhale 2 [facility] 90 1-16 Puffs ity of mcg/actuati 00:00: every 6 Jorge L as on inhaler 00 (six) Medical hours as Branch needed for Wheezing or Shortness of Breath. PROAIR HFA Yes [id number] 2{puff} Inhale 2 [facility] 90 1-16 Puffs ity of mcg/actuati 00:00: every 6 Jorge L as on inhaler 00 (six) Medical hours as Branch needed for Wheezing or Shortness of Breath. PROAIR HFA Yes [id number] 2{puff} Inhale 2 [facility] 90 1-16 Puffs ity of mcg/actuati 00:00: every 6 Jorge L as on inhaler 00 (six) Medical hours as Branch needed for Wheezing or Shortness of Breath. PROAIR HFA Yes [id number] 2{puff} Inhale 2 [facility] 90 1-16 Puffs ity of mcg/actuati 00:00: every 6 [place] L as on inhaler 00 (six) Medical hours as Branch needed for Wheezing or Shortness of Breath. PROAIR HFA Yes [id number] 2{puff} Inhale 2 [facility] 90 1-16 Puffs ity of mcg/actuati 00:00: every 6 Jorge L as on inhaler 00 (six) Medical hours as Branch needed for Wheezing or Shortness of Breath. PROAIR HFA Yes [id number] 2{puff} Inhale 2 [facility] 90 1-16 Puffs ity of mcg/actuati 00:00: every 6 Jorge L as on inhaler 00 (six) Medical hours as Branch needed for Wheezing or Shortness of Breath. PROAIR HFA Yes [id number] 2{puff} Inhale 2 [facility] 90 1-16 Puffs ity of mcg/actuati 00:00: every 6 Jorge L as on inhaler 00 (six) Medical hours as Branch needed for Wheezing or Shortness of Breath. PROAIR HFA Yes [id number] 2{puff} Inhale 2 [facility] 90 1-16 Puffs ity of mcg/actuati 00:00: every 6 Jorge L as on inhaler 00 (six) Medical hours as Branch needed for Wheezing or Shortness of Breath. PROAIR HFA Yes [id number] 2{puff} Inhale 2 [facility] 90 1-16 Puffs ity of mcg/actuati 00:00: every 6 Jorge L as on inhaler 00 (six) Medical hours as Branch needed for Wheezing or Shortness of Breath. PROAIR HFA Yes [id number] 2{puff} Inhale 2 [facility] 90 1-16 Puffs ity of mcg/actuati 00:00: every 6 Jorge L as on inhaler 00 (six) Medical hours as Branch needed for Wheezing or Shortness of Breath. nystatin 2019-0 2020- No [id number] Apply to Univers 100,000 1-16 03-25 area(s) 2 ity of unit/gram 00:00: 00:00 (two) [place] ointment 00 :00 times Medical daily. Branch nystatin 2020- No [id number] Apply to [facility] 100,000 1-16 03-25 area(s) 2 ity of unit/gram 00:00: 00:00 (two) [place] ointment 00 :00 times Medical daily. Branch ALBUTEROL 2020- No [id number] INHALE 2 Univers 90 10-06-16 PUFFS BY ity of mcg/actuati 00:00: 00:00 MOUTH [place] on inhaler 00 :00 EVERY 6 Medica l HOURS Branch NEEDED FOR WHEEZING FOR SHORTNESS OF BREATH ALBUTEROL 2020- No [id number] INHALE 2 [facility] 90 10-06-16 PUFFS BY ity of mcg/actuati 00:00: 00:00 MOUTH [place] on inhaler 00 :00 EVERY 6 Medica l HOURS Branch NEEDED FOR WHEEZING FOR SHORTNESS OF BREATH fluconazole Yes TAKE 1 Univ ers 150 mg 1-02 TABLET BY ity of tablet 00:00: MOUTH NOW [place] 00 A ONE Medical TIME DOSE Branch fluconazole Yes TAKE 1 Univ ers 150 mg 1-02 TABLET BY ity of tablet 00:00: MOUTH NOW [place] 00 A ONE Medical TIME DOSE Branch fluconazole 0 2020- No TAKE 1 Uni vers 150 mg 1-02 - TABLET BY ity of tablet 00:00: 00:00 MOUTH NOW [place] 00 :00 A ONE Medical TIME DOSE Branch nystatin-tr 2020- No [id number] Apply to [facility] iainolone 10-02 area(s) 2 it y of cream 00:00: 00:00 (two) [place] 00 :00 times Medical daily. Branch nystatin-tr 2020- No [id number] Apply to [facility] iamcinolone 10-02 area(s) 2 it y of cream 00:00: 00:00 (two) [place] 00 :00 times Medical daily. Branch PNV 67-iron 2018-10 Yes [id number] 1{capsu Take 1 Univers ps-folate 0-28 le} capsule by ity of no.1-dha 00:00: mouth [place] (VITAFOL 00 daily. Medical ULTRA) 29 Branch mg iron- 1 mg-200 mg Cap PNV 67-iron 2018-10 Yes [id number] 1{capsu Take 1 [facility] ps-folate 0-28 le} capsule by ity of no.1-dha 00:00: mouth [place] (VITAFOL 00 daily. Medical ULTRA) 29 Branch mg iron- 1 mg-200 mg Cap PNV 67-iron 2018-10 Yes [id number] 1{capsu Take 1 [facility] ps-folate 0-28 le} capsule by ity of no.1-dha 00:00: mouth [place] (VITAFOL 00 daily. Medical ULTRA) 29 Branch mg iron- 1 mg-200 mg Cap PNV 67-iron 2018-10 Yes [id number] 1{capsu Take 1 [facility] ps-folate 0-28 le} capsule by ity of no.1-dha 00:00: mouth [place] (VITAFOL 00 daily. Medical ULTRA) 29 Branch mg iron- 1 mg-200 mg Cap PNV 67-iron 2018-10 Yes [id number] 1{capsu Take 1 [facility] ps-folate 0-28 le} capsule by ity of no.1-dha 00:00: mouth [place] (VITAFOL 00 daily. Medical ULTRA) 29 Branch mg iron- 1 mg-200 mg Cap PNV 67-iron 2018-10 Yes [id number] 1{capsu Take 1 [facility] ps-folate 0-28 le} capsule by ity of no.1-dha 00:00: mouth [place] (VITAFOL 00 daily. Medical ULTRA) 29 Branch mg iron- 1 mg-200 mg Cap PNV 67-iron 2018-10 Yes [id number] 1{capsu Take 1 [facility] ps-folate 0-28 le} capsule by ity of no.1-dha 00:00: mouth [place] (VITAFOL 00 daily. Medical ULTRA) 29 Branch mg iron- 1 mg-200 mg Cap PNV 67-iron 2018-10 Yes [id number] 1{capsu Take 1 [facility] ps-folate 0-28 le} capsule by ity of no.1-dha 00:00: mouth [place] (VITAFOL 00 daily. Medical ULTRA) 29 Branch mg iron- 1 mg-200 mg Cap PNV 67-iron 2018-10 2020- No [id number] 1{capsu Take 1 Univers ps-folate 0-28 02-15 le} capsule by ity of no.1-dha 00:00: 00:00 mouth [place] (VITAFOL 00 :00 daily. Medical ULTRA) 29 Branch mg [facility]- 1 mg-[facility] Take 1 Un silvia ne 0.35 mg 2-02 tablet by ity of tablet 00:00: mouth [place] 00 [facility]. [facility] 1{tbl} Take 1 U nivers ne 0.35 mg 2-11 09- tablet by ity of tablet 00:00: 00:00 mouth [place] 00 :00 daily. [facility] 1{tbl} Take 1 U nivers ne 0.35 mg 2-11 09- tablet by ity of tablet 00:00: 00:00 mouth [place] 00 :00 daily. [facility] No 1{tbl} Take 1 U nivers ne 0.35 mg 2-11 09- tablet by ity of tablet 00:00: 00:00 mouth [place] 00 :00 daily. Medical Branch Yes 1{tbl} Take 1 Unive rs vitamin 9-29 tablet by ity of w/FA tablet 00:00: mouth [place] 00 daily. Medical Branch ferrous Yes 325mg Take 1 [facility] sulfate 325 9-29 tablet by ity of mg (65 mg 00:00: mouth 2 [place] iron) 00 (two) Medical tablet times Branch daily. ibuprofen Yes 600mg Take 1 Unive rs 600 mg 9-29 tablet by ity of tablet 00:00: mouth [place] 00 every 6 Medical (six) Branch hours as needed for Pain (scale 1-3) or Pain (scale 4-6) (Pain). Take with food or milk. HYDROcodone Yes 1{tbl} Take 1-2 Univers -acetaminop 9-29 tablets by it y of hen 5-325 00:00: mouth [place] mg tablet 00 every 6 Medical (six) Branch hours as needed for Pain (scale 4-6) (Pain scale above 4). 2017- Yes 1{tbl} Take 1 Unive rs vitamin 9-29 tablet by ity of w/FA tablet 00:00: mouth [place] 00 daily. Medical Branch 2017-0 Yes 1{tbl} Take 1 Unive rs vitamin 9-29 tablet by ity of w/FA tablet 00:00: mouth [place] 00 daily. Medical Branch Yes 1{tbl} Take 1 Unive rs vitamin 06-29 tablet by ity of w/FA tablet 00:00: mouth [place] 00 daily. Medical Branch ferrous 2019- No 325mg Take 1 Univer s sulfate 325 06-29 tablet by it y of mg (65 mg 00:00: 00:00 mouth 2 [place] iron) 00 :00 (two) Medical tablet times Branch daily. ibuprofen 2018- No 600mg Take 1 Univ ers 600 mg 06-29 tablet by ity of tablet 00:00: 00:00 mouth [place] 00 :00 every 6 Medical (six) Branch hours as needed for Pain (scale 1-3) or Pain (scale 4-6) (Pain). Take with food or milk. HYDROcodone 2019- No 1{tbl} Take 1-2 Univers -acetaminop 06-29 tablets by i ty of hen 5-325 00:00: 00:00 mouth [place] mg tablet 00 :00 every 6 Medical (six) Branch hours as needed for Pain (scale 4-6) (Pain scale above 4). ferrous 2019- No 325mg Take 1 Univer s sulfate 325 06-29 tablet by it y of mg (65 mg 00:00: 00:00 mouth 2 [place] iron) 00 :00 (two) Medical tablet times Branch daily. ibuprofen 2018- No 600mg Take 1 Univ ers 600 mg 06-29 tablet by ity of tablet 00:00: 00:00 mouth [place] 00 :00 every 6 Medical (six) Branch hours as needed for Pain (scale 1-3) or Pain (scale 4-6) (Pain). Take with food or milk. HYDROcodone 2019- No 1{tbl} Take 1-2 Univers -acetaminop 06-29 tablets by i ty of hen 5-325 00:00: 00:00 mouth [place] mg tablet 00 :00 every 6 Medical (six) Branch hours as needed for Pain (scale 4-6) (Pain scale above 4). ferrous 2016- 2019- No 325mg Take 1 Univer s sulfate 325 06-29 tablet by it y of mg (65 mg 00:00: 00:00 mouth 2 [place] iron) 00 :00 (two) Medical tablet times Branch daily. ibuprofen 2019- No 600mg Take 1 Univ ers 600 mg 06-29 tablet by ity of tablet 00:00: 00:00 mouth [place] 00 :00 every 6 Medical (six) Branch hours as needed for Pain (scale 1-3) or Pain (scale 4-6) (Pain). Take with food or milk. HYDROcodone 2019- No 1{tbl} Take 1-2 Univers -acetaminop 06-29 tablets by i ty of hen 5-325 00:00: 00:00 mouth [place] mg tablet 00 :00 every 6 Medical (six) Branch hours as needed for Pain (scale 4-6) (Pain scale above 4). Immunizations Ordered Filled Immunization Date Status Comments [facility] e Immunization Name Name TDAP (ADACEL) 2019-09-09 Completed University of VACCINE 00:00:00 [facility] TDAP (ADACEL) 2019-09-09 Completed University of VACCINE 00:00:00 [facility] TDAP (ADACEL) 2019-09-09 Completed University of VACCINE 00:00:00 [facility] TDAP (ADACEL) 2019-09-09 Completed University of VACCINE 00:00:00 [facility] TDAP (ADACEL) 2019-09-09 Completed University of VACCINE 00:00:00 [facility] TDAP (ADACEL) 2019-09-09 Completed University of VACCINE 00:00:00 [facility] TDAP (ADACEL) 2019-09-09 Completed University of VACCINE 00:00:00 [facility] TDAP (ADACEL) 2019-09-09 Completed University of VACCINE 00:00:00 [facility] Branch TDAP (ADACEL) 2019-09-09 Completed University of VACCINE 00:00:00 [facility] TDAP (ADACEL) 2019-09-09 Completed University of VACCINE 00:00:00 [facility] Branch TDAP (ADACEL) 2019-09-09 Completed University of VACCINE 00:00:00 [facility] Branch TDAP (ADACEL) 2019-09-09 Completed University of VACCINE 00:00:00 [facility] TDAP (ADACEL) 2019-09-09 Completed University of VACCINE 00:00:00 [facility] Branch TDAP (ADACEL) 2019-09-09 Completed University of VACCINE 00:00:00 [facility] TDAP (ADACEL) 2019-09-09 Completed University of VACCINE 00:00:00 [facility] Branch TDAP (ADACEL) 2019-09-09 Completed University of VACCINE 00:00:00 [facility] Branch TDAP (ADACEL) 2019-09-09 Completed University of VACCINE 00:00:00 [facility] Branch TDAP (ADACEL) 2019-09-09 Completed University of VACCINE 00:00:00 [facility] Branch TDAP (ADACEL) 2019-09-09 Completed University of VACCINE 00:00:00 [facility] Branch TDAP (ADACEL) 2019-09-09 Completed University of VACCINE 00:00:00 [facility] Branch TDAP (ADACEL) 2019-09-09 Completed University of VACCINE 00:00:00 [facility] Branch TDAP (ADACEL) 2019-09-09 Completed University of VACCINE 00:00:00 [facility] TDAP (ADACEL) 2019-09-09 Completed University of VACCINE 00:00:00 [facility] TDAP (ADACEL) 2019-09-09 Completed University of VACCINE 00:00:00 [facility] TDAP (ADACEL) 2019-09-09 Completed University of VACCINE 00:00:00 [facility] Influenza Virus 2019-07-28 Completed Universit y of Vaccine [place] .5 mL 00:00:00 [place] [facility] IM 6+ MO Branch Influenza Virus 2019-07-28 Completed Universit y of Vaccine [place] .5 mL 00:00:00 [place] [facility] IM 6+ MO Branch Influenza Virus 2019-07-28 Completed Universit y of Vaccine [place] .5 mL 00:00:00 [place] Medical IM 6+ MO Branch Influenza Virus 2019-07-28 Completed [facility] .5 mL 00:00:00 [facility] Influenza Virus 2019-07-28 Completed [facility] .5 mL 00:00:00 [facility] Influenza Virus 2019-07-28 Completed [facility] .5 mL 00:00:00 [facility] Influenza Virus 2019-07-28 Completed [facility] .5 mL 00:00:00 [facility] Influenza Virus 2019-07-28 Completed [facility] .5 mL 00:00:00 [facility] Influenza Virus 2019-07-28 Completed [facility] .5 mL 00:00:00 [facility] Influenza Virus 2019-07-28 Completed [facility] .5 mL 00:00:00 [facility] Influenza Virus 2019-07-28 Completed [facility] .5 mL 00:00:00 [facility] Influenza Virus 2019-07-28 Completed [facility] .5 mL 00:00:00 [facility] Influenza Virus 2019-07-28 Completed [facility] .5 mL 00:00:00 [facility] Influenza Virus 2019-07-28 Completed [facility] .5 mL 00:00:00 [facility] Influenza Virus 2019-07-28 Completed [facility] .5 mL 00:00:00 [facility] Influenza Virus 2019-07-28 Completed [facility] .5 mL 00:00:00 [facility] Influenza Virus 2019-07-28 Completed [facility] .5 mL 00:00:00 [facility] Influenza Virus 2019-07-28 Completed [facility] .5 mL 00:00:00 [facility] Influenza Virus 2019-07-28 Completed [facility] .5 mL 00:00:00 [facility] Influenza Virus 2019-07-28 Completed [facility] .5 mL 00:00:00 [facility] Influenza Virus 2019-07-28 Completed [facility] .5 mL 00:00:00 [facility] Influenza Virus 2019-07-28 Completed [facility] .5 mL 00:00:00 [facility] Influenza Virus 2019-07-28 Completed [facility] .5 mL 00:00:00 [facility] Influenza Virus 2019-07-28 Completed [facility] .5 mL 00:00:00 [facility] Influenza Virus 2019-07-28 Completed [facility] .5 mL 00:00:00 [facility] Influenza Virus 2019-07-28 Completed [facility] .5 mL 00:00:00 [facility] 6+ MO Branch [facility] 2017-06-29 Completed [facility] 00:00:00 [facility] 2017-06-29 Completed [facility] 00:00:00 [facility] 2017-06-29 Completed [facility] 00[facility]00:00 [facility] 2017-06-29 Completed [facility] 00:00:00 [facility] 2017-06-29 Completed [facility] of 00:00:00 [facility] 2017-06-29 Completed [facility] of 00[facility]00:00 [facility] 2017-06-29 Completed [facility] of 00[facility]00:00 [facility] 2017-06-29 Completed [facility] of 00:00:00 [facility] 2017-06-29 Completed [facility] of 00[facility]00:00 [facility] 2017-06-29 Completed [facility] of 00:00:00 [facility] 2017-06-29 Completed [facility] of 00[facility]00:00 [facility] 2017-06-29 Completed [facility] of 00:00:00 [facility] 2017-06-29 Completed [facility] of 00:00:00 [facility] 2017-06-29 Completed [facility] of 00:00:00 [facility] 2017-06-29 Completed [facility] of 00:00:00 [facility] 2017-06-29 Completed [facility] of 00:00:00 [facility] 2017-06-29 Completed [facility] of 00:00:00 [facility] 2017-06-29 Completed [facility] of 00:00:00 [facility] 2017-06-29 Completed [facility] of 00:00:00 [facility] 2017-06-29 Completed [facility] of 00:00:00 [facility] 2017-06-29 Completed [facility] of 00:00:00 [facility] 2017-06-29 Completed [facility] of 00:00:00 [facility] 2017-06-29 Completed [facility] of 00:00:00 [facility] 2017-06-29 Completed [facility] of 00:00:00 [facility] 2017-06-29 Completed [facility] of 00:00:00 [facility] 2017-06-29 Completed [facility] of 00:00:00 [facility] 2017-06-29 Completed [facility] of 00:00:00 [facility] 2017-06-29 Completed [facility] of 00:00:00 [facility] 2017-06-29 Completed [facility] of 00:00:00 [facility] MMR 2017-06-29 Completed [facility] 00:00:00 [facility] Tdap 2017-06-07 Completed [facility] of 00:00:00 [facility] Tdap 2017-06-07 Completed [facility] of 00:00:00 [facility] Tdap 2017-06-07 Completed [facility] of 00:00:00 [facility] Tdap 2017-06-07 Completed [facility] of 00:00:00 [facility] Tdap 2017-06-07 Completed [facility] of 00:00:00 [facility] Tdap 2017-06-07 Completed [facility] of 00:00:00 [facility] Tdap 2017-06-07 Completed [facility] 00:00:00 [facility] Tdap 2017-06-07 Completed [facility] 00:00:00 [facility] Tdap 2017-06-07 Completed [facility] of 00:00:00 [facility] Tdap 2017-06-07 Completed [facility] of 00:00:00 [facility] Tdap 2017-06-07 Completed [facility] of 00:00:00 [facility] Tdap 2017-06-07 Completed [facility] of 00:00:00 [facility] Tdap 2017-06-07 Completed [facility] 00:00:00 [facility] Tdap 2017-06-07 Completed [facility] 00:00:00 [facility] Tdap 2017-06-07 Completed [facility] of 00:00:00 [facility] Tdap 2017-06-07 Completed [facility] of 00:00:00 [facility] Tdap 2017-06-07 Completed [facility] of 00:00:00 [facility] Tdap 2017-06-07 Completed [facility] of 00:00:00 [facility] Tdap 2017-06-07 Completed [facility] of 00:00:00 [facility] TDAP 2017-06-07 Completed [facility] 00:00:00 [facility] TDAP 2017-06-07 Completed [facility] 00:00:00 [facility] Tdap 2017-06-07 Completed [facility] 00:00:00 [facility] TDAP 2017-06-07 Completed [facility] 00:00:00 [facility] TDAP 2017-06-07 Completed [facility] of 00:00:00 [facility] TDAP 2017-06-07 Completed [facility] of 00:00:00 [facility] TDAP 2017-06-07 Completed [facility] of 00:00:00 [facility] TDAP 2017-06-07 Completed [facility] 00:00:00 [facility] TDAP 2017-06-07 Completed [facility] 00:00:00 [facility] Tdap 2017-06-07 Completed [facility] 00:00:00 [facility] Tdap 2017-06-07 Completed [facility] 00:00:00 [facility] Td 2016-07-31 Completed [facility] of 00:00:00 [facility] Td 2016-07-31 Completed [facility] 00:00:00 [facility] Td 2016-07-31 Completed [facility] 00:00:00 [facility] Td 2016-07-31 Completed [facility] 00:00:00 [facility] Td 2016-07-31 Completed [facility] 00:00:00 [facility] Td 2016-07-31 Completed [facility] 00:00:00 [facility] Td 2016-07-31 Completed [facility] 00:00:00 [facility] Td 2016-07-31 Completed [facility] 00:00:00 [facility] Td 2016-07-31 Completed [facility] 00:00:00 [facility] Td 2016-07-31 Completed [facility] 00:00:00 [facility] Td 2016-07-31 Completed [facility] 00:00:00 [facility] Td 2016-07-31 Completed [facility] 00:00:00 [facility] Td 2016-07-31 Completed [facility] 00:00:00 [facility] Td 2016-07-31 Completed [facility] 00:00:00 [facility] Td 2016-07-31 Completed [facility] 00:00:00 [facility] Td 2016-07-31 Completed [facility] 00:00:00 [facility] Td 2016-07-31 Completed [facility] 00:00:00 [facility] Td 2016-07-31 Completed [facility] 00:00:00 [facility] Td 2016-07-31 Completed [facility] 00:00:00 [facility] Td 2016-07-31 Completed [facility] 00:00:00 [facility] Td 2016-07-31 Completed [facility] 00:00:00 [facility] Td 2016-07-31 Completed [facility] 00:00:00 [facility] Td 2016-07-31 Completed [facility] 00:00:00 [facility] Td 2016-07-31 Completed [facility] of 00:00:00 [facility] Td 2016-07-31 Completed [facility] 00:00:00 [facility] Td 2016-07-31 Completed [facility] 00:00:00 [facility] Td 2016-07-31 Completed [facility] of 00:00:00 [facility] Td 2016-07-31 Completed [facility] of 00:00:00 [facility] Td 2016-07-31 Completed [facility] 00:00:00 [facility] Td 2016-07-31 Completed [facility] of 00:00:00 [facility] Vital Signs Vital Name Observation Time Observation Value Comments Source Systolic blood 2021-10-26 00:50:00 135 mm[Hg] Univer sity of pressure [facility] Diastolic blood 2021-10-26 00:50:00 89 mm[Hg] Unive rsity of pressure [facility] Heart rate 2021-10-26 00:50:00 99 /min [facility] ty of [facility] Body temperature 2021-10-26 00:50:00 37.[address] [facility] Respiratory rate 2021-10-26 00:50:00 17 /min Univ ersity of [facility] Body height 2021-10-26 00:50:00 165.[address] [facility] Body weight 2021-10-26 00:50:[address] [facility] BMI 2021-10-26 00:50:00 33.28 kg/m2 [facility] ty of [facility] Oxygen saturation in 2021-10-26 00:50:00 100 /min [facility] Arterial blood by [facility] Pulse oximetry Branch Systolic blood 2021-08-04 13:29:00 153 mm[Hg] Univer sity of pressure [facility] Diastolic blood 2021-08-04 13:29:00 87 mm[Hg] Unive rsity of pressure [facility] Heart rate 2021-08-04 13:29:00 75 /min [facility] ty of [facility] Body temperature 2021-08-04 13:29:00 37.[address] [facility] Respiratory rate 2021-08-04 13:29:00 17 /min Univ ersity of [facility] Body height 2021-08-04 13:29:00 162[address] [facility] Body weight 2021-08-04 13:29:[address] [facility] BMI 2021-08-04 13:29:00 34.33 kg/m2 [facility] Oxygen saturation in 2021-08-04 13:29:00 100 /min University of Arterial blood by [place] [facility] Pulse oximetry [facility] Systolic blood 2021-07-26 15:00:00 132 mm[Hg] Univer sity of pressure [facility] Diastolic blood 2021-07-26 15:00:00 85 mm[Hg] Unive rsity of pressure [facility] Heart rate 2021-07-26 15:00:00 55 /min [facility] Respiratory rate 2021-07-26 15:00:00 17 /min Univ ersity of [facility] Oxygen saturation in 2021-07-26 15:00:00 99 /min [facility] of Arterial blood by [place] [facility] P[facility] Body temperature 2021-07-26 14:47:31 36.5 Meghna [facility] Body height 2021-07-26 14:45:00 162.6 cm [facility] Body weight 2021-07-26 14:45:00 90.719 kg [facility] BMI 2021-07-26 14:45:00 34.33 kg/m2 [facility] Body temperature 2020-10-18 04:43:25 37.44 Meghna [facility] Systolic blood 2020-10-18 04:42:32 144 mm[Hg] Univer sity of pressure [facility] Diastolic blood 2020-10-18 04:42:32 87 mm[Hg] Unive rsity of pressure [facility] Heart rate 2020-10-18 04:42:32 80 /min [facility] Respiratory rate 2020-10-18 04:42:32 18 /min Univ ersity of [facility] Oxygen saturation in 2020-10-18 04:42:32 99 /min [facility] of Arterial blood by [place] [facility] Pulse oximetry [facility] Body height 2020-10-18 03:04:00 162.6 cm [facility] Body weight 2020-10-18 03:04:00 99.791 kg [facility] BMI 2020-10-18 03:04:00 37.76 kg/m2 [facility] Body temperature 2020-10-18 04:43:25 37.[address] [facility] Systolic blood 2020-10-18 04:42:32 144 mm[Hg] Univer sity of pressure [facility] Diastolic blood 2020-10-18 04:42:32 87 mm[Hg] Unive rsity of pressure [facility] Heart rate 2020-10-18 04:42:32 80 /min [facility] of [facility] Respiratory rate 2020-10-18 04:42:32 18 /min Univ ersity of [facility] Oxygen saturation in 2020-10-18 04:42:32 99 /min University of Arterial blood by [facility] Pulse oximetry Branch Body height 2020-10-18 03:04:[address] [facility] Body weight 2020-10-18 03:04:[address] [facility] BMI 2020-10-18 03:04:00 37.76 kg/m2 [facility] ty of [facility] Systolic blood 2019-12-24 20:39:00 129 mm[Hg] Univer sity of pressure [facility] Diastolic blood 2019-12-24 20:39:00 90 mm[Hg] Unive rsity of pressure [facility] Heart rate 2019-12-24 20:36:00 76 /min [facility] ty of [facility] Body temperature 2019-12-24 20:36:00 36.[address] [facility] Respiratory rate 2019-12-24 20:36:00 16 /min Univ ersity of [facility] Body height 2019-12-24 20:36:00 162.6 cm [facility] Body weight 2019-12-24 20:36:00 109.374 kg [facility] BMI 2019-12-24 20:36:00 41.39 kg/m2 Universi ty of [facility] Systolic blood 2019-12-24 20:39:00 129 mm[Hg] Univer sity of pressure [facility] Diastolic blood 2019-12-24 20:39:00 90 mm[Hg] Unive rsity of pressure [facility] Heart rate 2019-12-24 20:36:00 76 /min [facility] ty of [facility] Body temperature 2019-12-24 20:36:00 36.56 Meghna [facility] Respiratory rate 2019-12-24 20:36:00 16 /min Univ ersity of [facility] Body height 2019-12-24 20:36:00 162.6 cm [facility] Body weight 2019-12-24 20:36:00 109.374 kg [facility] BMI 2019-12-24 20:36:00 41.39 kg/m2 [facility] Systolic blood 2019-12-05 16:39:00 120 mm[Hg] Univer sity of pressure [facility] Diastolic blood 2019-12-05 16:39:00 78 mm[Hg] Unive rsity of pressure [facility] Heart rate 2019-12-05 16:39:00 83 /min [facility] Body temperature 2019-12-05 16:39:00 36.11 Meghna [facility] Respiratory rate 2019-12-05 16:39:00 18 /min Univ ersity of [facility] Body height 2019-12-05 16:39:00 162.6 cm [facility] Body weight 2019-12-05 16:39:00 106.822 kg [facility] BMI 2019-12-05 16:39:00 40.42 kg/m2 [facility] Systolic blood 2019-11-21 16:39:00 126 mm[Hg] Univer sity of pressure [facility] Diastolic blood 2019-11-21 16:39:00 77 mm[Hg] Unive rsity of pressure [facility] Heart rate 2019-11-21 16:38:00 71 /min [facility] Body temperature 2019-11-21 16:38:00 36.78 Meghna Univ [facility]ity of [facility] Respiratory rate 2019-11-21 16:38:00 16 /min Univ ersity of [facility] Body height 2019-11-21 16:38:00 162.6 cm [facility] Body weight 2019-11-21 16:38:00 113.031 kg [facility] BMI 2019-11-21 16:38:00 42.77 kg/m2 [facility] Systolic blood 2019-11-16 14:00:00 134 mm[Hg] Univer sity of pressure [facility] Diastolic blood 2019-11-16 14:00:00 88 mm[Hg] Unive rsity of pressure [facility] Heart rate 2019-11-16 14:00:00 78 /min [facility]i ty of [facility] Body temperature 2019-11-16 14:00:00 36.[address] [facility] Respiratory rate 2019-11-16 14:00:00 18 /min Univ ersity of [facility] Oxygen saturation in 2019-11-16 14:00:00 99 /min University of Arterial blood by [facility] Pulse oximetry Branch Body height 2019-11-14 12:25:[address] [facility] Body weight 2019-11-14 12:25:[address] [facility] BMI 2019-11-14 12:25:00 44.51 kg/m2 [facility] ty of [facility] Systolic blood 2019-11-07 19:11:00 130 mm[Hg] Univer sity of pressure [facility] Diastolic blood 2019-11-07 19:11:00 72 mm[Hg] Unive rsity of pressure [facility] Heart rate 2019-11-07 19:11:00 89 /min [facility] Body temperature 2019-11-07 19:11:00 36.[address] [facility] Respiratory rate 2019-11-07 19:11:00 16 /min Univ ersity of [facility] Body height 2019-11-07 19:11:00 162.6 cm [facility] Body weight 2019-11-07 19:11:00 121.734 kg [facility] BMI 2019-11-07 19:11:00 46.07 kg/m2 [facility]i ty of [facility] Systolic blood 2019-10-30 19:24:00 127 mm[Hg] Univer sity of pressure [facility] Diastolic blood 2019-10-30 19:24:00 77 mm[Hg] Unive rsity of pressure [facility] Heart rate 2019-10-30 19:24:00 97 /min [facility]i ty of [facility] Body temperature 2019-10-30 19:24:00 37.[address] [facility] Respiratory rate 2019-10-30 19:24:00 16 /min Univ ersity of [facility] Body height 2019-10-30 19:24:00 162.6 cm [facility] Body weight 2019-10-30 19:24:00 117.198 kg [facility] BMI 2019-10-30 19:24:00 44.35 kg/m2 [facility] Systolic blood 2019-10-23 19:24:00 126 mm[Hg] Univer sity of pressure [facility] Diastolic blood 2019-10-23 19:24:00 80 mm[Hg] Unive rsity of pressure [facility] Heart rate 2019-10-23 19:24:00 103 /min [facility] Body temperature 2019-10-23 19:24:00 37.22 Meghna [facility] Respiratory rate 2019-10-23 19:24:00 16 /min Univ ersity of [facility] Body height 2019-10-23 19:24:00 165.1 cm [facility] Body weight 2019-10-23 19:24:00 115.015 kg [facility] BMI 2019-10-23 19:24:00 42.20 kg/m2 [facility] Systolic blood 2019-10-16 19:06:00 137 mm[Hg] Univer sity of pressure [facility] Diastolic blood 2019-10-16 19:06:00 74 mm[Hg] Unive rsity of pressure [facility] Heart rate 2019-10-16 19:05:00 100 /min [facility] Body temperature 2019-10-16 19:05:00 37.17 Meghna [facility] Respiratory rate 2019-10-16 19:05:00 16 /min [facility] Body height 2019-10-16 19:05:00 165.1 cm [facility] Body weight 2019-10-16 19:05:00 115.412 kg [facility] BMI 2019-10-16 19:05:00 42.34 kg/m2 [facility] Systolic blood 2019-06-06 18:47:00 114 mm[Hg] Univer sity of pressure [facility] Diastolic blood 2019-06-06 18:47:00 71 mm[Hg] Unive rsity of pressure [facility] Heart rate 2019-06-06 18:47:00 81 /min [facility] Body temperature 2019-06-06 18:47:00 36.39 Meghna [facility] Respiratory rate 2019-06-06 18:47:00 16 /min [facility] Body height 2019-06-06 18:47:00 162.6 cm [facility] Body weight 2019-06-06 18:47:00 107.644 kg [facility] BMI 2019-06-06 18:47:00 40.73 kg/m2 [facility] Procedures Procedure Date / Time Performing Clinician Source Performed POCT TEST 2021-10-26 02:09:00 Annette Munoz [facility] URINALYSIS 2021-10-26 01:51:00 Annette Munoz [facility] CONSENT/REFUSAL FOR 2021-10-26 00:19:47 Doctor Unassigned, No Un [facility] DIAGNOSIS AND TREATMENT Name [facility] RAPID STREP SCREEN FOR 2021-08-04 13:35:00 Cindy Herring [facility] RAPID INFLUENZA A/B 2021-08-04 13:35:00 Cindy Herring [facility] COVID-19 (ID NOW RAPID 2021-08-04 13:35:00 Cindy Herring [facility] TESTING) [facility] CONSENT/REFUSAL FOR 2021-08-04 13:23:30 Doctor Unassigned, No Un [facility] DIAGNOSIS AND TREATMENT Name [facility] XR CHEST 1 VW 2021-07-26 15:28:55 Vinayak Cintia [facility] MAGNESIUM 2021-07-26 15:10:00 Vinayak [facility] BASIC METABOLIC PANEL 2021-07-26 15:10:00 Cintia Licea [facility] (NA, K, CL, CO2, GLUCOSE, Medica l Branch BUN, CREATININE, CA) CBC WITH DIFF 2021-07-26 15:10:00 Dannemora [facility] RAPID STREP SCREEN FOR 2020-10-18 03:41:00 Vna Dillon [facility] A [facility] ADC,CLC OR LCC ONLY - 2020-10-18 03:41:00 Van Dillon [facility] INFLUENZA A & B DIRECT Medical [facility] ANTIGEN NOTICE OF PRIVACY 2020-10-18 02:52:24 Doctor Unassigned, No [facility] PRACTICES [facility] CONSENT/REFUSAL FOR 2020-10-18 02:52:04 [facility]igned[facility] POCT TEST 2019-12-24 20:57:00 Karlee Bosch [facility] CONSENT FOR CONTRACEPTION 2019-12-24 05:01:00 Doctor Unassigned, No [facility] CBC WITH DIFFERENTIAL 2019-11-15 10:29:00 Miryam [facility] VENOUS CORD GAS 2019-11-14 14:57:00 [facility] 2019-11-14 12:45:00 [facility] IMMUNE GLOBULIN 2019-11-14 12:45:00 Miryam [facility] CBC WITH DIFFERENTIAL 2019-11-14 12:42:00 [facility] 2019-11-14 12:42:00 Asim Rodriguez [facility] ANTIGEN [facility] GALV ONLY - SYPHILIS 2019-11-14 12:42:00 [facility] [facility] ADMISSION 2019-11-14 06:01:00 Doctor Unassigned, No [facility] POCT URINALYSIS W/O 2019-11-07 19:35:00 Karlee Bosch [facility] SPECIFIC GRAVITY [facility] POCT GLUCOSE (AUTOMATED) 2019-10-30 19:41:00 Karlee Bosch [facility] POCT URINALYSIS GLUCOSE & 2019-10-30 19:32:00 Merritt Carey [facility] PROTEIN [facility] POCT URINALYSIS W/O 2019-10-23 22:17:00 Karlee Bosch [facility] POCT URINALYSIS W/O 2019-10-16 19:14:00 Karlee Bosch [facility] AUTHORIZATION FOR RELEASE 2019-08-15 06:01:00 Doctor Unassprashant, No [facility] POCT TEST 2019-06-06 18:49:00 Karlee Bosch [facility] POCT URINALYSIS W/O 2019-06-06 18:48:00 Karlee Bosch [facility] NO SHOW OR MISSED 2019-06-06 17:31:05 Doctor Unassigned, No [facility] APPOINTMENT POLICY Name [facility] ACKNOWLEDGEMENT Encounters Start End Encounter Admission Attending Care Care Encounter Source Date/Time Date/Time Type Type Clinicians Facility Department ID 2021-07-30 Emergency [facility] [id number] Univers 17:48:41 [facility] 2022-04-14 2022-04-14 Outpatient CECILEK_CAIN MACK GIRON [address] 01:46:00 01:46:00 _ANN 0715 [facility] 2021-10-25 2021-10-25 Emergency X [facility] ERT [id number] Univers 18:51:00 20:49:00 ANNETTE hurd [facility] 2021-10-25 2021-10-25 Emergency [facility] 1.2.054.323 [id number] Univers 18:51:00 20:49:00 Annette BERUMEN 350.1.13.10 i Richard 4.2.7.2.686 [facility] [phone] [facility] [address] 2021-10-25 2021-10-25 Orders Doctor SHELDON 1.2.840.114 [id number] Univers 00:00:00 00:00:00 Only UnassLOGAN cerda 350.1.13.10 ity of [place] [facility] 4.2.7.2.686 Jorge L as [id number] [facility] [address] 2021-08-04 2021-08-04 Emergency X SINGER [facility] ERT [id number] Univers 08:30:00 09:51:00 CINDY hurd [facility] 2021-08-04 2021-08-04 Emergency [facility] 1.2.517.001 [id number] Univers 08:30:00 09:51:00 Cindy BERUMEN 350.1.13.10 i [place] [id number] [address] 2021-07-26 2021-07-26 Emergency [facility] 1.2.742.614 [id number] Univers 09:41:00 10:58:00 Cintia Berumen 350.1.13.10 i ty of [place] 4.2.7.2.686 [facility] [id number] [address] 2021-07-26 2021-07-26 Emergency [facility] [id number] Univers 09:41:00 10:58:00 CINTIA hurd [facility] 2020-12-21 2020-12-21 [facility] 1.2.840.114 [id number] Univers 00:00:00 00:00:00 Outreach Scotty PRIMARY 350.1.13.[address] [facility] [place]2.7.2.[place] [id number] [place] dical [address] [place] [address] 2020-12-21 2020-12-21 [facility] 1.2.840.114 [id number] 00:00:00 00:00:00 Outreach Scotty PRIMARY 350.1.13.10 Sunday CARE 4.2.7.2.686 PAVILLION [id number] 388 2020-10-24 2020-10-24 Letter Ashley Mares 1.2.840.114 [id number] Univers 00:00:00 00:00:00 (Out) LOGAN 350.1.13.10 it y of HOSPITAL 4.2.7.2.686 Jorge L as [id number] [facility] [address] 2020-10-24 2020-10-24 Letter Ashley Mares 1.2.840.114 [id number] 00:00:00 00:00:00 (Out) LOGAN 350.1.13.10 [facility] 42.7.2.686 [id number] 019 2020-10-17 2020-10-17 [facility] 1.2.840.114 [id number] [facility] 20:54:00 22:46:00 Vanvelvet Berumen 350.1.13.10 i ty of [place] 4.2.7.2.686 [place] [facility] [id number] [facility] [address] 2020-10-17 2020-10-17 [facility] 1.2.840.114 [id number] 20:54:00 22:46:00 Van [place] 350.1.13.10 [place] 42.7.2.686 [place] [id number] [facility] 2020-10-17 2020-10-17 Orders Doctor SHELDON 1.2.840.114 [id number] Univers 00:00:00 00:00:00 Only Unassigned, LOGAN 350.1.13.10 ity of [place] [facility] 4.2.7.2.686 Jorge L as [id number] [facility] [address] 2020-10-17 2020-10-17 Orders Doctor SHELDON 1.2.840.114 [id number] 00:00:00 00:00:00 Only Unassigned, LOGAN 350.1.13.10 [place] [facility] 4.2.7.2.686 [id number] 009 2019-12-26 2019-12-26 Outpatient R DANITZA [facility] [id number] Univers 15:00:00 15:00:[address] [facility] 2019-12-25 2019-12-25 Telephone Danitza [facility] 1.2.840.114 [id number] Univers 00:00:00 00:00:00 Karlee Huynh DENTAL TECHNICIAN INSTRUCTOR 350.1.13.[address] [facility] 4.2.7.2.686 Jorge L as MATERNAL [id number] [facility] ical & CHILD [address] [place] [address] 2019-12-25 2019-12-25 Telephone [facility] 1.2.840.114 [id number] 00:00:00 00:00:00 Karlee Huynh DENTAL TECHNICIAN INSTRUCTOR 350.1.13.10 REGIONAL 4.2.7.2.686 MATERNAL [phone] & CHILD [address] [place] [address] 2019-12-24 2019-12-24 Office [facility] 1.2.732.112 [id number] Univers 15:19:55 16:31:14 Visit Karlee Kala DENTAL TECHNICIAN INSTRUCTOR 350.1.13.10 it y of REGIONAL 4.2.7.2.686 Jorge L as MATERNAL [phone] Med ical & CHILD [address] [place] [address] 2019-12-24 2019-12-24 Office [facility] 1.2.561.436 [id number] 6813 15:19:55 16:31:14 Visit Karlee Huynh DENTAL TECHNICIAN INSTRUCTOR 350.1.13.10 REGIONAL 4.2.7.2.686 MATERNAL [id number] & CHILD [address] [place] [address] 2019-12-24 2019-12-24 Outpatient R [facility] [id number] Univers 15:15:00 16:31:14 KARLEE hurd [facility] 2019-12-24 2019-12-24 Orders Doctor SHELDON 1.2.840.114 [id number] 00:00:00 00:00:00 Only Unassigned, LOGAN 350.1.13.10 [place] [facility] 4.2.7.2.686 [id number] [facility] 2019-12-24 2019-12-24 Orders Doctor PITO 1.2.840.114 [id number] Univers 00:00:00 00:00:00 Only Unassigned, LOGAN 350.1.13.10 ity of [place] [facility] 4.2.7.2.686 Jorge L as [id number] [address] 2019-12-23 2019-12-23 Telephone [facility] 1.2.840.114 [id number] Univers 00:00:00 00:00:00 Karlee Huynh DENTAL TECHNICIAN INSTRUCTOR 350.1.13.10 it y of REGIONAL 4.2.7.2.686 Jorge L as MATERNAL [id number] Med ical & CHILD [address] [place] [address] 2019-12-05 2019-12-05 Routine Carey [facility] 1.2.840.114 [id number] Univers 10:29:31 12:49:13 Roseboniemerlynhenry R DENTAL TECHNICIAN INSTRUCTOR 350.1.13.[address] [facility] 4.2.7.2.686 Jorge L as MATERNAL [id number] [facility] ical & CHILD [address] [place] [address] 2019-12-05 2019-12-05 [facility] [id number] Univers 10:15:00 10:15:00 ROSEBONIENDA ity o f [facility] 2019-11-21 2019-11-21 [facility] 1.2 .840.114 [id number] Univers 10:30:58 10:55:05 Visit Karlee Bosch DENTAL TECHNICIAN INSTRUCTOR 350.1.13.[address] [facility] 4.2.7.2.686 Jorge L as MATERNAL [id number] [facility] & [address] 2019-11-21 2019-11-21 Outpatient R DANITZA [facility] [id number] Univers 10:30:00 10:55:05 KARLEE hurd [facility] 2019-11-14 2019-11-16 Hospital Mary SHELDON 1.2.840.114 [id number] Univers 06:02:00 14:34:00 Encounter Jessika FORD 350.1.13.10 ity of s, [facility] 4.2.7.2.686 Jorge L as [id number] [facility] [address] 2019-11-14 2019-11-14 Orders Doctor PITO 1.2.840.114 [id number] Univers 00:00:00 00:00:00 Only Unassigned, LOGAN 350.1.13.10 ity of [place] [facility] 4.2.7.2.686 Jorge L as [id number] [facility] [address] 2019-11-13 2019-11-13 [facility] 1.2.840.114 [id number] Univers 00:00:00 00:00:00 Karlee Huynh DENTAL TECHNICIAN INSTRUCTOR 350.1.13.10 it y of REGIONAL 4.2.7.2.686 Jorge L as MATERNAL [id number] Med ical & CHILD 107 [facility] 2019-11-12 2019-11-12 [facility] 1.2.840.114 [id number] Univers 00:00:00 00:00:00 Karlee N DENTAL TECHNICIAN INSTRUCTOR 350.1.13.10 it y of REGIONAL 4.2.7.2.686 Jorge L as MATERNAL [id number] Med ical & CHILD 107 [facility] 2019-11-07 2019-11-07 Routine [facility] 1.2.244.034 [id number] Univers 12:55:13 13:36:51 Karlee N DENTAL TECHNICIAN INSTRUCTOR 350.1.13.10 i ty of Visit REGIONAL 4.2.7.2.686 Jorge L as MATERNAL [id number] Med ical & CHILD 107 [facility] 2019-10-30 2019-10-30 Routine [facility] 1.2.236.172 [id number] Univers 13:00:05 13:55:26 Karlee N DENTAL TECHNICIAN INSTRUCTOR 350.1.13.10 i ty of Visit REGIONAL 4.2.7.2.686 Jorge L as MATERNAL [id number] Med ical & CHILD [address] [place] [address] 2019-10-23 2019-10-23 Routine [facility] 1.2.456.229 [id number] Univers 12:47:33 13:45:08 Karlee N DENTAL TECHNICIAN INSTRUCTOR 350.1.13.10 i ty of Visit REGIONAL 4.2.7.2.686 Jorge L as MATERNAL [id number] Med ical & CHILD 107 [facility] 2019-10-16 2019-10-16 Routine [facility] 1.2.912.263 [id number] Univers 12:45:43 14:53:47 Karlee N DENTAL TECHNICIAN INSTRUCTOR 350.1.13.10 i ty of Visit REGIONAL 4.2.7.2.686 Jorge L as MATERNAL [phone] Med ical & CHILD 107 [facility] 2019-08-15 2019-08-15 Orders Doctor SHELDON 1.2.840.114 [id number] Univers 00:00:00 00:00:00 Only Unassigned, LOGAN 350.1.13.10 ity of [place] [facility] 4.2.7.2.686 Jorge L as [phone] [address] 2019-06-06 2019-06-06 ABELINO Salazar 1.2.071.291 [id number] Univers 13:12:48 15:01:38 Karlee Kala DENTAL TECHNICIAN INSTRUCTOR 350.1.13.10 i ty of Visit [facility] 4.2.7.2.686 Jorge L as MATERNAL [id number] Med ical & CHILD [address] [place] [address] 2019-06-06 2019-06-06 Orders Doctor PITO 1.2.840.114 [id number] Univers 00:00:00 00:00:00 Only UnassignedLOGAN 350.1.13.10 ity of [place] [facility] 4.2.7.2.686 Jorge L as [id number] [address] Results Test Description Test Time Test Comments Results Result Comments Source POCT TEST 2021-10-26 02:09:00 Test Item Value Reference Range Interpretation Comme nts POCT PREG (test code = 1605) negative On board controls acceptable with C Line (test code = 3574) present POCT PREG LOT # (test code = 3575) [id number] POCT PREG TEST DATE (test code = 3576) 11/28/2022 Lab Interpretation (test code = 54363-8) [facility] 15:31:11 Test Item Value Reference Range Interpretation Comments MAGNESIUM (test code = 6360968519) 2.0 mg/dL 1.7-2.4 Lab Interpretation (test code = Normal 18918-0) [facility] (NA, K, CL, CO2, GLUCOSE, BUN, CREATININE, CA)2021-07-26 15:30:56 Test Item Value Reference Range Interpretation Comments NA (test code = 136 mmol/L 135-145 4975183741) K (test code = 3.8 mmol/L 3.5-5.0 2932348620) CL (test code = 108 mmol/L 98-108 6514165089) CO2 TOTAL (test code 26 mmol/L 23-31 = 7757015956) AGAP (test code = 2-16 9561187564) BUN (test code = 12 mg/dL 7-23 5418498434) GLUCOSE (test code = 89 mg/dL 70-110 0226610944) CREATININE (test code 0.96 mg/dL 0.50-1.04 = 6181557905) CALCIUM (test code = 8.8 mg/dL 8.6-10.6 8826999906) eGFR (test code = mL/min/1.73m2 6551336182) MAIRA (test code = MAIRA) Association of Glomerular Filtration Rate (GFR) and Staging of Kidney Disease* + + +- +| GFR (mL/min/1.73 m2) ?| With Kidney Damage ?| ?Without Kidney Damage+ ------+ ----+ ------+| ?>90 ?| ?Stage one ?| ? Normal ?+ -+ + -+| ?60-89 ?| ?Stage two ?| ? Decreased GFR ? + + +- +| ?30-59 ?| ?Stage three ?| ? Stage three ? + + +- +| ?15-29 ?| ?Stage four ? | ? Stage four ?+ -+ + -+| ?<15 (or dialysis) ? ?| ?Stage five ? | ? Stage five ?+ -+ + -+ *Each stage assumes the associated GFR level has been in effect for at least three months. ?Stages 1 to 5, with or without kidney disease, indicate chronic kidney disease. Notes: Determination of stages one and two (with eGFR >59mL/min/1.73 m2) requires estimation of kidney damage for at least three months as defined by structural or functional abnormalities of the kidney, manifested by either:Pathological abnormalities or Markers of kidney damage (including abnormalities in the composition of the blood or urine or abnormalities in imaging tests). [facility] WITH [id number] 15:27:15 Test Item Value Reference Range Interpretation Comments WBC (test code = See_Comment [Automated message] 6690-2) The system [employer] generated this result transmitted ref erence range: 4.30 - 1 1.10 10*3/?L. The re ference range was not u sed to interpret this result as normal/abnor mal. RBC (test code = See_Comment [Automated message] 789-8) The system [employer] generated this result transmitted ref erence range: 3.93 - 5 .25 10*6/?L. The re ference range was not u sed to interpret this result as normal/abnor mal. HGB (test code = 13.4 g/dL 11.6-15.0 718-7) HCT (test code = 41.6 % 35.7-45.2 4544-3) MCV (test code = 83.2 fL 80.6-95.5 787-2) MCH (test code = 26.8 pg 25.9-32.8 785-6) MCHC (test code = 32.2 g/dL 31.6-35.1 786-4) RDW-SD (test code 40.4 fL 39.0-49.9 = 49109-5) RDW-CV (test code 13.2 % 12.0-15.5 = 788-0) PLT (test code = See_Comment [Automated message] 777-3) The system [employer] generated this result transmitted ref erence range: 166 - 35 8 10*3/?L. The re ference range was not u sed to interpret this result as normal/abnor mal. MPV (test code = 12.0 fL 9.5-12.9 25403-1) NRBC/100 WBC (test See_Comment [Automat ed message] code = 2681230378) The syste m which generated this result transmitted ref erence range: 0.0 - 10 .0 /100 WBCs. The refer ence range was not u sed to interpret this result as normal/abnor mal. NRBC x10^3 (test <0.01 See_Comment [Automated message] code = 9684382161) The syste m which generated this result transmitted ref erence range: 10*3/?L. The reference range was not used to interpr et this result as normal/abnormal . GRAN MAT (NEUT) % 52.6 % (test code = 770-8) IMM GRAN % (test 0.30 % code = 4691624429) LYMPH % (test code 34.7 % = 736-9) MONO % (test code 8.0 % = 5905-5) EOS % (test code = 3.9 % 713-8) BASO % (test code 0.5 % = 706-2) GRAN MAT 3.87 10*3/uL 1.88-7.09 x10^3(ANC) (test code = 8484259655) IMM GRAN x10^3 <0.03 0.00-0.06 (test code = 4494416477) LYMPH x10^3 (test 2.56 10*3/uL 1.32-3.29 code = 731-0) MONO x10^3 (test 0.59 10*3/uL 0.33-0.92 code = 742-7) EOS x10^3 (test 0.29 10*3/uL 0.03-0.39 code = 711-2) BASO x10^3 (test 0.04 10*3/uL 0.01-0.07 code = 704-7) [facility] - INFLUENZA A & B DIRECT [id number] 04:27:00 Test Item Value Reference Range Interpretation Comments Influenza A (test code = 25423-1) Negative Negative Influenza B (test code = 53379-8) Negative Negative Lab Interpretation (test code = Normal 85362-1) [facility] STREP SCREEN FOR GROUP [id number] 04:16:00 Test Item Value Reference Range Interpretation Comments Streptococcus pyogenes (group A) Negative Negative antigen (test code = 35155-3) Lab Interpretation (test code = Normal 74655-7) [facility] [id number] 21:01:00 Test Item Value Reference Range Interpretation Comments POCT PREG (test code = 1605) Negative On board controls acceptable with C Yes Line (test code = 3574) POCT PREG LOT # (test code = 3575) POCT PREG TEST DATE (test code = 3576) [facility] [id number] 21:01:00 Test Item Value Reference Range Interpretation Comments POCT PREG (test code = 1605) Negative On board controls acceptable with C Yes Line (test code = 3574) POCT PREG LOT # (test code = 3575) POCT PREG TEST DATE (test code = 3576) [facility] WITH [id number] 11:36:00 Test Item Value Reference Range Interpretation Comments WBC (test code = See_Comment [Automated 6690-2) message] The sy stem which generated this result transmitted reference range : 4.30 - 11.10 10*3/?L. The reference range was not used to interpret this result as normal/abnormal . RBC (test code = See_Comment L [Automated 789-8) message] The sy stem which generated this result transmitted reference range : 3.93 - 5.25 10*6/?L. The reference range was not used to interpret this result as normal/abnormal . HGB (test code = 10.0 g/dL 11.6-15 L 718-7) HCT (test code = 32.0 % 35.7-45.2 L 4544-3) MCV (test code = 82.1 fL 80.6-95.5 787-2) MCH (test code = 25.6 pg 25.9-32.8 L 785-6) MCHC (test code = 31.3 g/dL 31.6-35.1 L 786-4) RDW-SD (test code = 40.4 fL 39-49.9 37511-3) RDW-CV (test code = 13.6 % 12-15.5 788-0) PLT (test code = See_Comment L [Automated 777-3) message] The sy stem which generated this result transmitted reference range : 166 - 358 10*3/ ?L. The reference r lynne was not used to interpret this result as normal/abnormal . MPV (test code = 12.6 fL 9.5-12.9 14697-5) IPF % (test code = 16.6 % 1.3-7.7 H Platelet count 7456859671) measured by fluorescence method. NRBC/100 WBC (test See_Comment [Automat ed code = 9229440713) message] The system which generated this result transmitted reference range : 0.0 - 10.0 /100 WBCs. The refer ence range was not u sed to interpret th is result as normal/abnormal . NRBC x10^3 (test code <0.01 See_Comment [Auto mated = 8805245139) message] The s ystem which generated this result transmitted reference range : 10*3/?L. The reference range was not used to interpret this result as normal/abnormal . GRAN MAT (NEUT) % 67.0 % (test code = 770-8) IMM GRAN % (test code 0.80 % = 9245741406) LYMPH % (test code = 17.7 % 736-9) MONO % (test code = 12.5 % 5905-5) EOS % (test code = 1.8 % 713-8) BASO % (test code = 0.2 % 706-2) GRAN MAT x10^3(ANC) 6.23 10*3/uL 1.88-7.09 (test code = 3983351510) IMM GRAN x10^3 (test 0.07 10*3/uL 0-0.06 H code = 0406564570) LYMPH x10^3 (test code 1.64 10*3/uL 1.32-3.29 = 731-0) MONO x10^3 (test code 1.16 10*3/uL 0.33-0.92 H = 742-7) EOS x10^3 (test code = 0.17 10*3/uL 0.03-0.39 711-2) BASO x10^3 (test code <0.03 0.01-0.07 = 704-7) Lab Interpretation Abnormal (test code = 73629-4) [facility]) IMMUNE [id number] 18:05:47 Test Item Value Reference Range Interpretation Comments RHIG CANDIDATE? No- see comment Patient i s not a (test code = candidate for R hIg- 5055) Patient is Rh Positive.Perfor med at [facility] Laboratory Services - [facility] Blood [place] [id number] Free: [phone] A No. [id number] [facility] Center[facility] Cord [id number] 15:07:00 Test Item Value Reference Range Interpretation Comments VENOUS BASE EXCESS, mEq/L CORD (test code = 9035650197) VENOUS PH, CORD (test 7.25-7.45 code = 4034568020) VENOUS PC02, CORD See_Comment [Automate d message] The (test code = system which ge nerated 6987302407) this result tra nsmitted reference range : 27 - 49 mmHg. The refer ence range was not used to interpret this result as normal/abnormal . VENOUS PO2, CORD (test See_Comment [Aut omated message] The code = 8396688408) system [facility] generated this result tra nsmitted reference range : 17 - 41 mmHg. The refer ence range was not used to interpret this result as normal/abnormal . VENOUS BICARBONATE, See_Comment [Automa meenakshi message] The CORD (test code = system [facility] ch generated 0683367836) this result tra nsmitted reference range : 12 - 29 mEq/L. The refe rence range was not used to interpret this result as normal/abnormal . [facility] Cord [id number] 15:04:00 Test Item Value Reference Range Interpretation Comments BASE EXCESS, CORD (test mEq/L code = 7926741288) AC PH, CORD (BEAKER) 7.18-7.38 (test code = 4098206608) PC02, CORD (test code = See_Comment [Au tomated message] 4717139716) The system [facility] generated this result transmitted ref erence range: 32 - 66 mmHg. The reference r lynne was not used to interpret this result as normal/abnor mal. PO2, CORD (test code = See_Comment [Aut omated message] 8243159739) The system [facility] generated this result transmitted ref erence range: 10 - 30 mmHg. The reference r lynne was not used to interpret this result as normal/abnor mal. BICARBONATE, CORD (test See_Comment H [Au tomated message] code = 2389043381) The syste m which generated this result transmitted ref erence range: 17 - 27 mEq/L. The reference r lynne was not used to interpret this result as normal/abnor mal. Lab Interpretation (test Abnormal code = 90690-8) [facility] ONLY - SYPHILIS [id number] 14:51:00 Test Item Value Reference Range Interpretation Comments Syphilis IgG/IgM (test Non-reactive Non-reactive code = 09340-6) MAIRA (test code = MAIRA) Non-reactive - No serologic evidence of T. pallidum infection. Cannot exclude incubating or early syphilis. Submit a second specimen in 2-4 weeks if syphilis is clinically suspected. Equivocal - Further testing to follow. Reactive - Further testing to follow. Lab Interpretation (test Normal code = 79570-2) [facility] CenterHepatitis B Surface [id number] 14:02:00 Test Item Value Reference Range Interpretation Comments HBsAg Semi-Quantitative (test code = Negative Negative 5195-3) [facility] and Screen - ONCE [id number] 13:25:33 Test Item Value Reference Range Interpretation Comments ABO & RH (test code B POSITIVE Performe d at [facility] = 20) Laboratory Serv [facility] Blood Bank3 [address] [facility] s [address]Pizw Free: [phone] A No. [id number] IAT (test code = Negative Performed a t [facility] 1185) Laboratory Serv [facility] Blood Bank3 [facility] s [address]Ysse Free: [phone] A No. [id number] [facility] Center[facility] WITH [id number] 12:56:00 Test Item Value Reference Range Interpretation Comments WBC (test code = See_Comment [Automated 3090-2) message] The sy stem which generated this result transmitted reference range : 4.30 - 11.10 10*3/?L. The reference range was not used to interpret this result as normal/abnormal . RBC (test code = See_Comment [Automated 709-8) message] The sy stem which generated this result transmitted reference range : 3.93 - 5.25 10*6/?L. The reference range was not used to interpret this result as normal/abnormal . HGB (test code = 12.6 g/dL 11.6-15 718-7) HCT (test code = 39.0 % 35.7-45.2 4544-3) MCV (test code = 81.6 fL 80.6-95.5 787-2) MCH (test code = 26.4 pg 25.9-32.8 785-6) MCHC (test code = 32.3 g/dL 31.6-35.1 786-4) RDW-SD (test code = 39.9 fL 39-49.9 74443-1) RDW-CV (test code = 13.5 % 12-15.5 788-0) PLT (test code = See_Comment L [Automated 777-3) message] The sy stem which generated this result transmitted reference range : 166 - 358 10*3/ ?L. The reference r lynne was not used to interpret this result as normal/abnormal . MPV (test code = 12.8 fL 9.5-12.9 58648-6) NRBC/100 WBC (test See_Comment [Automat ed code = [id number]) message] The system which generated this result transmitted reference range : 0.0 - 10.0 /100 WBCs. The refer ence range was not u sed to interpret th is result as normal/abnormal . NRBC x10^3 (test code <0.01 See_Comment [Auto mated = [id number]) message] The s ystem which generated this result transmitted reference range : 10*3/?L. The reference range was not used to interpret this result as normal/abnormal . GRAN MAT (NEUT) % 64.3 % (test code = 770-8) IMM GRAN % (test code 0.60 % = 3827410694) LYMPH % (test code = 24.5 % 736-9) MONO % (test code = 8.5 % 5905-5) EOS % (test code = 1.9 % 713-8) BASO % (test code = 0.2 % 706-2) GRAN MAT x10^3(ANC) 5.94 10*3/uL 1.88-7.09 (test code = 6481918866) IMM GRAN x10^3 (test 0.06 10*3/uL 0-0.06 code = 4661204734) LYMPH x10^3 (test code 2.27 10*3/uL 1.32-3.29 = 731-0) MONO x10^3 (test code 0.79 10*3/uL 0.33-0.92 = 742-7) EOS x10^3 (test code = 0.18 10*3/uL 0.03-0.39 711-2) BASO x10^3 (test code <0.03 0.01-0.07 = 704-7) Lab Interpretation Abnormal (test code = 83887-5) [facility] URINALYSIS W/O SPECIFIC [id number] 19:35:00 Test Item Value Reference Range Interpretation Comments POCT PH U (test code = 3254) . 5-8 POCT U LEUK EST (test code = 3263) . Negative - Negative POCT U NIT (test code = 3262) . Negative - Negative POCT U PROT (test code = 3259) trace Negative - Negative POCT U GLU (test code = 3256) 3+ Negative - Negative POCT U KETONE (test code = 3258) . Negative - Negative POCT U BLD (test code = 3257) . Negative - Negative [facility] GLUCOSE (AUTOMATED)2019-10-30 19:46:00 Test Item Value Reference Range Interpretation Comments POCT GLU (test code = 4980720446) 193 mg/dL 70-110 H Lab Interpretation (test code = Abnormal 49885-2) [facility] URINALYSIS GLUCOSE & PROTEIN 2019-10-30 19:32:00 Test Item Value Reference Range Interpretation Comments POCT U PROT (test code = 3259) trace Negative - Negative POCT U GLU (test code = 3256) 3+ Negative - Negative Lab Interpretation (test code = Abnormal 61608-2) [facility] URINALYSIS W/O SPECIFIC [id number] 22:17:00 Test Item Value Reference Range Interpretation Comments POCT PH U (test code = 3254) . 5-8 POCT U LEUK EST (test code = 3263) . Negative - Negative POCT U NIT (test code = 3262) . Negative - Negative POCT U PROT (test code = 3259) Trace Negative - Negative POCT U GLU (test code = 3256) 2+ Negative - Negative POCT U KETONE (test code = 3258) . Negative - Negative POCT U BLD (test code = 3257) . Negative - Negative [facility] URINALYSIS W/O SPECIFIC [id number] 19:15:00 Test Item Value Reference Range Interpretation Comments POCT PH U (test code = 3254) . 5-8 POCT U LEUK EST (test code = 3263) . Negative - Negative POCT U NIT (test code = 3262) . Negative - Negative POCT U PROT (test code = 3259) trace Negative - Negative POCT U GLU (test code = 3256) 2+ Negative - Negative POCT U KETONE (test code = 3258) . Negative - Negative POCT U BLD (test code = 3257) . Negative - Negative [facility] URINALYSIS W/O SPECIFIC [id number] 19:15:00 Test Item Value Reference Range Interpretation Comments POCT PH U (test code = 3254) . 5-8 POCT U LEUK EST (test code = 3263) . Negative - Negative POCT U NIT (test code = 3262) . Negative - Negative POCT U PROT (test code = 3259) trace Negative - Negative POCT U GLU (test code = 3256) 2+ Negative - Negative POCT U KETONE (test code = 3258) . Negative - Negative POCT U BLD (test code = 3257) . Negative - Negative [facility] [id number] 18:49:00 Test Item Value Reference Range Interpretation Comments POCT PREG (test code = 1605) Positive On board controls acceptable with C Yes Line (test code = 3574) POCT PREG LOT # (test code = 3575) POCT PREG TEST DATE (test code = 3576) [facility] [id number] 18:49:00 Test Item Value Reference Range Interpretation Comments POCT PREG (test code = 1605) Positive On board controls acceptable with C Yes Line (test code = 3574) POCT PREG LOT # (test code = 3575) POCT PREG TEST DATE (test code = 3576) [facility] [id number] 18:49:00 Test Item Value Reference Range Interpretation Comments POCT PREG (test code = 1605) Positive On board controls acceptable with C Yes Line (test code = 3574) POCT PREG LOT # (test code = 3575) POCT PREG TEST DATE (test code = 3576) [facility] URINALYSIS W/O SPECIFIC [id number] 18:48:00 Test Item Value Reference Range Interpretation Comments POCT PH U (test code = 3254) 5 mg/dl 5-8 POCT U LEUK EST (test code = neg Negative - Negative 3263) POCT U NIT (test code = 3262) neg Negative - Negative POCT U PROT (test code = 3259) trace Negative - Negative POCT U GLU (test code = 3256) neg Negative - Negative POCT U KETONE (test code = 3258) neg Negative - Negative POCT U BLD (test code = 3257) neg Negative - Negative Lab Interpretation (test code = Abnormal 08472-5) [facility] [id number] 18:48:00 Test Item Value Reference Range Interpretation Comments POCT PH U (test code = 3254) 5 mg/dl 5-8 POCT U LEUK EST (test code = neg Negative - Negative 3263) POCT U NIT (test code = 3262) neg Negative - Negative POCT U PROT (test code = 3259) trace Negative - Negative POCT U GLU (test code = 3256) neg Negative - Negative POCT U KETONE (test code = 3258) neg Negative - Negative POCT U BLD (test code = 3257) neg Negative - Negative Lab Interpretation (test code = Abnormal 73125-5) [facility] [id number] 18:48:00 Test Item Value Reference Range Interpretation Comments POCT PH U (test code = 3254) 5 mg/dl 5-8 POCT U LEUK EST (test code = neg Negative - Negative 3263) POCT U NIT (test code = 3262) neg Negative - Negative POCT U PROT (test code = 3259) trace Negative - Negative POCT U GLU (test code = 3256) neg Negative - Negative POCT U KETONE (test code = 3258) neg Negative - Negative POCT U BLD (test code = 3257) neg Negative - Negative Lab Interpretation (test code = Abnormal 46759-3) [facility]"
--- NOTE | 2022-11-26 20:07 | RAD REPORT ---
EXAM DESCRIPTION: CT - Head Brain Wo Cont - 11/26/2022 8:01 pm CLINICAL HISTORY: HEADACHE COMPARISON: No comparisons TECHNIQUE: Noncontrast head CT images ad were obtained without IV contrast. Multiplanar reformats we re generated and reviewed. All CT scans are performed using dose optimization technique as appropriate and may include automated exposure control or mA/KV adjustment according to patient size. FINDINGS: No intracranial hemorrhage, mass, or edema. Midline structures are unremarkable. Normal ventricular caliber for age. Diaz-white matter differentiation is preserved, without evidence of acute infarct. No abnormal extra- axial fluid collections. Mastoid air cells are well aerated. Scattered up to moderate mucosal thickening throughout the parana santy sinuses, with some aerated secretions, and an air-fluid level in the left maxillary sinus. No acute bony findings. IMPRESSION: No evidence of an acute intracranial process. Scatter inflammatory paranasal sinus mucosal thickening with air-fluid level in the left maxillary si nus. Please correlate clinically for evidence of sinusitis. The findings were communicated to Jorge Luis Page on 11/26/2022 at 19:59 hours.
--- NOTE | 2022-11-26 21:09 | RAD REPORT ---
EXAM DESCRIPTION: RADChest Single View11/26/2022 8:50 pm CLINICAL HISTORY: headache COMPARISON: Chest Pa And Lat (2 Views) dated 04/04/2022; Chest Single View dated 10/22/2019; Chest Pa A nd Lat (2 Views) dated 09/27/2018; CHEST PA AND LAT 2 VIEW dated 04/23/2015 TECHNIQUE: Portable AP view of the chest. FINDINGS: The lungs are clear. No pneumothorax or effusion. The cardiomediastinal contours are unrem arkable. IMPRESSION: No acute cardiopulmonary process.
[2022-11-26 21:16] LABS: Absolute Lymphocytes (CBC) 2.3 K/uL (0.7-4.9); Hematocrit 39.8 % (36.0-45.0); Lymphocytes % 34.2 % (15.3-44.8); MPV 9.3 fL (7.6-11.3); RBC Red Blood Cell Count 4.97 M/uL (3.86-4.86)
[2022-11-26 21:28] LABS: Protime INR 1.08
[2022-11-26] MEDS ORDERED: ACETAMINOPHEN 500 MG TAB ONE (21:32)
[2022-11-26 21:37] LABS: Magnesium 2.2 mg/dL (1.6-2.4); Potassium 3.4 mmol/L (3.5-5.1); Troponin High Sensitivity 12.6 pg/mL (<58.9)
[2022-11-26] MEDS ORDERED: lisinopriL 10 MG TAB ONE (22:02)
[2022-11-26] MEDS ORDERED: POTASSIUM 25 MEQ EFFERV TAB ONE (22:02)
[2022-11-26 22:08] LABS: Urine Blood Negative (Negative); Urine Glucose Negative (Negative); Urine Protein Negative (Negative); Urine Specific Gravity 1.025 (1.005-1.030)
[2022-11-26 22:24] LABS: Barbiturates NEGATIVE (NEGATIVE); Benzodiazepines NEGATIVE (NEGATIVE); METHAMPHETAM NEGATIVE (NEGATIVE); Methadone NEGATIVE (NEGATIVE); Opiates NEGATIVE (NEGATIVE); Phencyclidine NEGATIVE (NEGATIVE); THC Cannibis NEGATIVE (NEGATIVE)
[2022-11-26 22:30] LABS: SARS-CoV-2 Antigen Rapid Res Negative (Negative)
[2022-11-26 22:32] LABS: Urine Specific Gravity/Preg 1.025 (1.005-1.030)
--- NOTE | 2022-11-26 23:20 | ER ---
Nurse's Notes [facility] Name: Martha Keller Age: 37 yrs Sex: Female : 1985 Arrival Date: 11/26/2022 Time: 19:22 Bed 4 Private MD: Diagnosis: Headache;Hypertensive urgency Presentation: 11/26 19:32 Chief complaint: Patient states: C/o H/A off and on since , states right arm ll3 sensation is diminished and states this started upon arrival. Coronavirus screen: Vaccine status: Patient reports receiving the 2nd dose of the covid vaccine. headache. Ebola Screen: No symptoms or risks identified at this time. Initial Sepsis Screen: Does the patient meet any 2 criteria? No. Patient's initial sepsis screen is negative. Does the patient have a suspected source of infection? No. Patient's initial sepsis screen is negative. Risk Assessment: Do you want to hurt yourself or someone else? Patient reports no desire to harm self or others. Onset of symptoms was November 23, 2022. Care prior to arrival: None. 19:32 Method Of Arrival: Ambulatory ll3 19:32 Acuity: CHYNA 3 ll3 Historical: - Allergies: 19:36 sulfamethoxazole; ll3 19:36 TRIMETHOPRIM; ll3 - Home Meds: 19:36 anxiety and depression pills [Active]; ll3 - PMHx: 19:36 Anxiety; Asthma; ll3 - PSHx: 19:36 section; ll3 - Immunization history:: Client reports receiving the 2nd dose of the Covid vaccine. - Social history:: Smoking status: Patient reports the use of cigarette tobacco products, smokes one-half pack cigarettes per day. Screenin:40 [facility] ED Fall Risk Assessment (Adult) History of falling in the last 3 months, jb4 including since admission No falls in past 3 months (0 pts) Confusion or Disorientation No (0 pts) Score/Fall Risk Level 0 - 2 = Low Risk Oriented to surroundings, Maintained a safe environment. Abuse screen: Denies threats or abuse. Nutritional screening: No deficits noted. Tuberculosis screening: No symptoms or risk factors identified. Assessment: 19:45 General: Appears in no apparent distress. uncomfortable, Behavior is. Pain: Complains jb4 of pain in back of head Pain does not radiate. Pain currently is 5 out of 10 on a pain scale. Neuro: Level of Consciousness is awake, alert, obeys commands, Oriented to person, place, time, situation. Cardiovascular: Patient's skin is warm and dry. Respiratory: Airway is patent Respiratory effort is even, unlabored, Respiratory pattern is regular, symmetrical. GI: No signs and/or symptoms were reported involving the gastrointestinal system. : No signs and/or symptoms were reported regarding the genitourinary system. EENT: No signs and/or symptoms were reported regarding the EENT system. Derm: Skin is intact, Skin is dry, Skin is normal, Skin temperature is warm. Musculoskeletal: Circulation, motion, and sensation intact. Range of motion: intact in all extremities. 21:00 Reassessment: Patient appears in no apparent distress at this time. Patient and/or jb4 family updated on plan of care and expected duration. Pain level reassessed. Patient is alert, oriented x 3, equal unlabored respirations, skin warm/dry/pink. 22:00 Reassessment: Patient appears in no apparent distress at this time. Patient and/or jb4 family updated on plan of care and expected duration. Pain level reassessed. Patient is alert, oriented x 3, equal unlabored respirations, skin warm/dry/pink. 23:00 Reassessment: Patient appears in no apparent distress at this time. Patient and/or jb4 family updated on plan of care and expected duration. Pain level reassessed. Patient is alert, oriented x 3, equal unlabored respirations, skin warm/dry/pink. Patient states feeling better. Vital Signs: 19:32 BP 186 / 114; Pulse 69; Resp 17; Temp 98.2(O); Pulse Ox 100% on R/A; Weight 99.79 kg ll3 (R); Height 5 ft. 4 in. (162.56 cm) (R); Pain 5/10; 21:01 BP 147 / 86; Pulse 57; Resp 14; Pulse Ox 100% on R/A; jb4 22:00 BP 143 / 88; Pulse 57; Resp 16; Pulse Ox 98% on R/A; jb4 23:00 BP 152 / 106; Pulse 58; Resp 16; Pulse Ox 97% on R/A; jb4 23:03 BP 141 / 78; aa9 19:32 Body Mass Index 37.76 (99.79 kg, 162.56 cm) ll3 ED Course: 19:22 Patient arrived in ED. ag3 19:36 Triage completed. ll3 19:36 Arm band placed on. ll3 19:37 Jorge Luis Delgado PA is PHCP. cp 19:37 Ivana Tolentino MD is Attending Physician. cp 19:40 Patient has correct armband on for positive identification. Bed in low position. Call jb4 light in reach. Side rails up X 1. Client placed on continuous cardiac and pulse oximetry monitoring. NIBP monitoring applied. 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 20:52 XRAY Chest (1 view) In Process Unspecified. EDMS 21:01 Link Hills, RN is Primary Nurse. jb4 21:01 Basic Metabolic Panel Sent. jb4 21:01 CBC with Diff Sent. jb4 21:01 Magnesium Sent. jb4 21:01 PT-INR Sent. jb4 21:01 Troponin HS Sent. jb4 22:00 Initial lab(s) drawn, by va, sent to lab. Inserted saline lock: 20 gauge in right jb4 antecubital area, using aseptic technique. Blood collected. 23:33 No provider procedures requiring assistance completed. IV discontinued, intact, jb4 bleeding controlled, No redness/swelling at site. Pressure dressing applied. Administered Medications: 19:59 CANCELLED (Physician Discretion): Lisinopril 20 mg PO once cp 21:00 Not Given (Physician Discretion): cloNIDine 0.1 mg PO once jb4 21:32 Drug: Tylenol 1000 mg Route: PO; jb4 22:04 Drug: Potassium Effervescent Tablet 50 mEq Route: PO; aa9 23:03 Follow up: Response: No adverse reaction aa9 22:04 Drug: Lisinopril 10 mg Route: PO; aa9 23:03 Follow up: BP 141 / 78; Response: No adverse reaction aa9 Outcome: 23:19 Discharge ordered by . cp 23:34 Discharged to home ambulatory. jb4 23:34 Condition: stable 23:34 Discharge instructions given to patient, Instructed on discharge instructions, follow up and referral plans. medication usage, Demonstrated understanding of instructions, follow-up care, medications, Prescriptions given X 1. 23:35 Patient left the ED. jb4 Signatures: Dispatcher [employer] EDTX Jorge Luis Delgado PA PA cp Link Hills, ALEJANDRO RN jb4 Amaris German Lynsea, RN RN ll3 Caprice Cotton RN RN aa9 Corrections: (The following items were deleted from the chart) :37 19:36 Home Meds: None; [place] [id number] 19:37 19:36 PMHx: Diabetes - NIDDM; [facility] 19:52 19:32 Chief complaint: Patient states: C/o H/A off and on since [place] [id number]
--- NOTE | 2022-11-26 23:20 | EDPHYS ---
Physician Documentation [facility] Name: Martha Keller Age: 37 yrs Sex: Female : 1985 Arrival Date: 11/26/2022 Time: 19:22 Bed 4 Private MD: ED Physician Ivana Tolentino HPI: 11/26 19:50 This 37 yrs old Black Female presents to ER via Ambulatory with complaints of Headache. cp 19:50 The patient complains of pain to the left occipital area. The patient describes the cp headache as aching. Onset: The symptoms/episode began/occurred 3 day(s) ago. Associated signs and symptoms: Pertinent negatives: altered mental status, dizziness, fever, neck stiffness, paresthesias, vomiting, weakness, chest pain, abdominal pain. Severity of symptoms: in the emergency department the pain is unchanged, despite home interventions. Historical: - Allergies: 19:36 sulfamethoxazole; ll3 19:36 TRIMETHOPRIM; ll3 - Home Meds: 19:36 anxiety and depression pills [Active]; ll3 - PMHx: 19:36 Anxiety; Asthma; ll3 - PSHx: 19:36 section; ll3 - Immunization history:: Client reports receiving the 2nd dose of the Covid vaccine. - Social history:: Smoking status: Patient reports the use of cigarette tobacco products, smokes one-half pack cigarettes per day. ROS: 20:00 Constitutional: Negative for body aches, chills, fever, poor PO intake. cp 20:00 Eyes: Negative for injury, pain, redness, and discharge. cp 20:00 Neck: Negative for pain with movement, pain at rest, stiffness. 20:00 Cardiovascular: Negative for chest pain, edema, palpitations. 20:00 Respiratory: Negative for cough, shortness of breath, wheezing. 20:00 Abdomen/GI: Negative for vomiting, diarrhea, constipation. 20:00 Back: Negative for pain at rest, pain with movement. 20:00 : Negative for urinary symptoms. 20:00 Neuro: Positive for headache, tingling, Negative for altered mental status, dizziness, numbness, weakness. 20:00 All other systems are negative. Exam: 20:05 Constitutional: The patient appears in no acute distress, alert, awake, cp non-diaphoretic, non-toxic, well developed, well nourished, anxious. 20:05 Head/Face: Normocephalic, atraumatic. cp 20:05 Eyes: Periorbital structures: appear normal, Pupils: equal, round, and reactive to light and accomodation, Extraocular movements: intact throughout, Conjunctiva: normal, no exudate, no injection, Sclera: no appreciated abnormality, Lids and lashes: appear normal, bilaterally. 20:05 ENT: External ear(s): are unremarkable, Ear canal(s): are normal, clear, TM's: dullness, bilaterally, Nose: is normal, Mouth: Lips: moist, Oral mucosa: pink and intact, moist, Posterior pharynx: is normal, airway is patent, no erythema, no exudate. 20:05 Neck: ROM/movement: is normal, is supple, without pain, no range of motions limitations, no meningismus, Lymph nodes: no appreciated lymphadenopathy. 20:05 Chest/axilla: Inspection: normal, Palpation: is normal, no crepitus, no tenderness. 20:05 Cardiovascular: Rate: normal, Rhythm: regular, Edema: is not appreciated, JVD: is not appreciated. 20:05 Respiratory: the patient does not display signs of respiratory distress, Respirations: normal, no use of accessory muscles, no retractions, labored breathing, is not present, Breath sounds: are clear throughout, no decreased breath sounds, no stridor, no wheezing. 20:05 Abdomen/GI: Inspection: abdomen appears normal, Palpation: abdomen is soft and non-tender, in all quadrants. 20:05 Back: pain, is absent, ROM is normal. 20:05 Neuro: Orientation: to person, place \T\ time. Mentation: is normal, Cerebellar function: is grossly normal, Motor: moves all fours, strength is normal, Sensation: no obvious gross deficits. 20:38 ECG was reviewed by the Attending Physician. cp Vital Signs: 19:32 BP 186 / 114; Pulse 69; Resp 17; Temp 98.2(O); Pulse Ox 100% on R/A; Weight 99.79 kg ll3 (R); Height 5 ft. 4 in. (162.56 cm) (R); Pain 5/10; 21:01 BP 147 / 86; Pulse 57; Resp 14; Pulse Ox 100% on R/A; jb4 22:00 BP 143 / 88; Pulse 57; Resp 16; Pulse Ox 98% on R/A; jb4 23:00 BP 152 / 106; Pulse 58; Resp 16; Pulse Ox 97% on R/A; jb4 23:03 BP 141 / 78; aa9 19:32 Body Mass Index 37.76 (99.79 kg, 162.56 cm) ll3 MDM: 19:42 Patient medically screened. 23:18 Data reviewed: vital signs, nurses notes, lab test result(s), EKG, radiologic studies, cp CT scan, plain films. 23:18 Differential diagnosis: hyponatremia, intracerebral hemorrhage, malignant HTN, HTN cp emergency. Consideration of Admission/Observation Escalation of care including admission/observation considered. I considered the following discharge prescriptions or medication management in the emergency department Medications were administered in the Emergency Department. See MAR. Counseling: I had a detailed discussion with the patient and/or guardian regarding: the historical points, exam findings, and any diagnostic results supporting the discharge/admit diagnosis, the presence of at least one elevated blood pressure reading (>120/80) during this emergency department visit, lab results, radiology results, the need for outpatient follow up, for definitive care, a family practitioner, to return to the emergency department if symptoms worsen or persist or if there are any questions or concerns that arise at home, smoking cessation. Response to treatment: the patient's symptoms have markedly improved after treatment, and as a result, I will discharge patient. 11/26 19:43 Order name: Basic Metabolic Panel; Complete Time: 21:49 cp 11/26 21:49 Interpretation: Normal except: K 3.4; GLUC 115; GFR 89. cp 11/26 19:43 Order name: CBC with Diff; Complete Time: 21:49 cp 11/26 23:05 Interpretation: Normal except: RBC 4.97; MCH 26.4. cp 11/26 19:43 Order name: Magnesium; Complete Time: 21:49 cp 11/26 19:43 Order name: PT-INR; Complete Time: 21:49 cp 11/26 19:43 Order name: Troponin HS; Complete Time: 21:49 cp 11/26 19:43 Order name: UDS 11/26 23:05 Interpretation: Reviewed. 11/26 19:43 Order name: XRAY Chest (1 view); Complete Time: 21:49 cp 11/26 19:43 Order name: CT Head Brain wo Cont cp 11/26 20:07 Order name: CT; Complete Time: 20:40 EDMS 11/26 20:40 Interpretation: Report reviewed. cp 11/26 22:09 Order name: Urine Dipstick-Ancillary; Complete Time: 23:05 EDMS 11/26 23:05 Interpretation: Reviewed. cp 11/26 22:29 Order name: Urine --Ancillary (enter results) rv1 11/26 22:30 Order name: SARS-COV-2 Antigen Rapid; Complete Time: 23:05 EDMS 11/26 22:31 Order name: Urine --Ancillary; Complete Time: 23:05 EDMS 11/26 19:43 Order name: EKG; Complete Time: 19:52 cp 11/26 19:43 Order name: Cardiac monitoring; Complete Time: 21:01 cp 11/26 19:43 Order name: EKG - Nurse/Tech; Complete Time: 21:01 cp 11/26 19:43 Order name: IV Saline Lock; Complete Time: 21:01 cp 11/26 19:43 Order name: Labs collected and sent; Complete Time: 21:01 cp 11/26 19:43 Order name: O2 Per Protocol; Complete Time: 21:01 cp 11/26 19:43 Order name: O2 Sat Monitoring; Complete Time: 21:01 cp 11/26 19:43 Order name: Urine Test (obtain specimen); Complete Time: 22:04 cp 11/26 19:43 Order name: Urine Dipstick-Ancillary (obtain specimen); Complete Time: 22:04 cp EC:38 Rate is 67 beats/min. Rhythm is regular. WI interval is normal. QRS interval is normal. cp QT interval is normal. T waves are Inverted in lead III. Interpreted by me. Reviewed by me. Administered Medications: 19:59 CANCELLED (Physician Discretion): Lisinopril 20 mg PO once cp 21:00 Not Given (Physician Discretion): cloNIDine 0.1 mg PO once jb4 21:32 Drug: Tylenol 1000 mg Route: PO; jb4 22:04 Drug: Potassium Effervescent Tablet 50 mEq Route: PO; aa9 23:03 Follow up: Response: No adverse reaction aa9 22:04 Drug: Lisinopril 10 mg Route: PO; aa9 23:03 Follow up: BP 141 / 78; Response: No adverse reaction aa9 Disposition Summary: 11/26/22 23:19 Discharge Ordered Location: Home cp Problem: new cp Symptoms: have improved cp Condition: Stable cp Diagnosis - Headache cp - Hypertensive urgency cp Followup: cp - With: Private Physician - When: 2 - 3 days - Reason: Recheck today's complaints Discharge Instructions: - Discharge Summary Sheet cp - General Headache Without Cause cp - Hypertension, Adult cp - Form - Blood Pressure Record Sheet cp Forms: - Medication Reconciliation Form cp - Thank You Letter cp - Antibiotic Education cp - Prescription Opioid Use cp Prescriptions: - Lisinopril 10 mg Oral Tablet - take 1 tablet by ORAL route once daily; 30 tablet; Refills: 0, Product cp Selection Permitted Signatures: Dispatcher [employer] EDMS Jorge Luis Delgado PA PA cp Link Hills, RN RN jb4 Camden Gonzalez RN RN ll3 Caprice Cotton RN RN aa9 Corrections: (The following items were deleted from the chart) 19:37 19:36 Home Meds: None; ll3 ll3 19:37 19:36 PMHx: Diabetes - NIDDM; ll3 ll3 19:59 19:58 Lisinopril 20 mg PO once ordered. cp cp
[2022-11-27 00:20] VITALS: TEMP 98.2
[2022-11-27 00:28] VITALS: O2SAT 97
[2022-11-27 00:29] VITALS: BP 141/78
[2022-11-27 12:27] LABS: Cocaine POSITIVE (NEGATIVE)
--- NOTE | 2022-11-27 18:39 | EKG ---
Test Date: 2022-11-26 Test Time: 20:34:28 Animated Cartoons Painter: RILEY MEASUREMENT RESULTS: Intervals: Rate: 67 GA: 164 QRSD: 86 QT: 408 QTc: 431 [place]: P: 61 GA: 164 QRS: 53 T: -18 INTERPRETIVE STATEMENTS: Normal sinus rhythm with sinus arrhythmia Abnormal QRS-T angle, consider primary T wave abnormality Abnormal ECG Compared to ECG 10/22/2019 16:29:59 T-wave abnormality now present Electronically Signed On 11-27-22 18:38:22 INSURANCE LOSS CONTROL SURVEYOR by Enrique Rangel
== END 2022-11-26 23:35 | disposition home or self-care (01) ==
LOC: ER 19:20
DX: R51.9 Headache, unspecified (principal); I16.0 Hypertensive urgency; F17.210 Nicotine dependence, cigarettes, uncomplicated; Z20.822 Contact with and (suspected) exposure to COVID-19; Z88.2 Allergy status to sulfonamides; Z88.8 Allergy status to other drugs, medicaments and biological substances
CPT/HCPCS: 36415; 70450; 71045; 80048; 80307; 81003; 81025; 83735; 84484; 85025; 85610; 87811; 93005; 99284

== ENCOUNTER 2024-05-06 00:55 | Emergency (ER) | payer OTHER ==
--- OUTSIDE RECORDS SUMMARY | 2024-05-06 01:02 | XMS REPORT | Continuity of Care Document ---
Author Name Unknown Address [address] [facility] [address] [place] [address] [facility] Address [address] [facility] [address] [place] [address] Care Team Providers Care Store Host Name Role Phone [facility] Primary Care Physician [phone] DONAL MUNROE Attending Clinician Unavailable DONAL MUNROE Attending Clinician Unavailable ESDRAS CHAUDHRY Attending Clinician Unavailable Esdras Sommer Attending Clinician [phone] Unknown, Attending Attending Clinician Unavailab NESHA Jeter Attending Clinician Unavail able JOAQUIM VALERIO Attending Clinician Unavailab JOAQUIM Lombardi Attending Clinician Unavailab Derrell Wesley Attending Clinician Unavailable Derrell Emanuel Attending Clinician [phone] HERACLIO LLANES Attending Clinician Unavailable Heraclio Llanes MD Attending Clinician [phone] IRAIDA ROB Attending Clinician Unavailable Darron WHALEN, Iraida Attending Clinician +[phone] PRIYA MORTON Attending Clinician Unavailable Praveen AUT[employer] CLUTCH REBUILDER, Priya Attending Clinician [phone] MELIA HERRERA Attending Clinician Unavailable Doctor Unassigned, [place] Attending Clinician U navailable Only, Ang Db Test Attending Clinician UnavailWICHO Carson Attending Clinician Unavailable Ebrahim AUTO CLUTCH REBUILDER, Wicho Attending Clinician + [phone] Visit, [facility] Nurse Attending Clinician Unava ilable Akinsipe WHCNP, Nesha C Attending Clinician + DAYRON MCGRAW Attending Clinician Unavaila teo CRONIN Attending Clinician Unavailable ANNETTE MUNOZ Attending Clinician Unavailable Annette Shannon Attending Clinician +- [phone] NARAYAN DURAN Attending Clinician Unavailable Narayan Duran DO Attending Clinician [phone] Cintia Licea MD Attending Clinician +[phone] CINTIA ILCEA Attending Clinician Unavailable Scotty Caban DO Attending Clinician [phone] Suzan ALLEN, Ashley Attending Clinician Unavailable Van Vargas Attending Clinician +- [phone] SPIKE BOSCH Attending Clinician UnavailPetra MENENDEZP, Spike Armendariz Attending Clinician [phone] Merritt Curry Attending Clinician + [phone] MERRITT CAREY Attending Clinician UnavailSamia Mckeon MD Attending Clinician + HERACLIO LLANES Admitting Clinician Unavailable PRIYA MORTON Admitting Clinician Unavailable MEHRDAD Admitting Clinician Unavailable CINTIA LICEA Admitting Clinician Unavailable Mary Hood MD, Samia Admitting Clinician + Payers Payer Name Policy Type Policy Number Effective Date Expirati on Date Source [facility] [id number] 00:00:00 [employer] W/ JONATAN HAQUE [id number] 2023 00:00:00 [facility] TRIXIE [id number] 2020 00:00:00 Problems Condition Name Condition Details Condition Category Status Onset Date Resolution Date Last Treatment Date Treating Clinician Comments Source Nexplanon removal Nexplanon removal Disease Active 5- 00:00: 00 [facility] Other general counseling and advice for contracept redd management Other general counseling and advice for contracept redd management Disease Active 01-24 00:00: 00 [facility] Hypertensi on Hypertensi on Disease Active 10-01 00:00: 00 Overview: Formattin g of this note might be different from the original. on meds [facility] Adult BMI 40.0-44.9 kg/sq m Adult BMI 40.0-44.9 kg/sq m Disease Active 06-06 00:00: 00 [facility] History of bipolar disorder History of bipolar disorder Disease Active 06-06 00:00: 00 [facility] Obesity (BMI 30-39.9) Obesity (BMI 30-39.9) Disease Active 06-06 00:00: 00 [facility] Well woman exam Well woman exam Disease Active 01-23 00:00: 00 [facility] Contracept redd management Contracept redd management Disease Active 01-23 00:00: 00 [facility] History of asthma History of asthma Disease Active 06-26 00:00: 00 [facility] Anxiety Anxiety Disease Active 06-26 00:00: 00 [facility] Hirsutism Hirsutism Disease Active 2013-10 00:00: 00 [facility] Abnormal glucose in , antepartum Abnormal glucose in , antepartum Disease Resolve d 10-30 00:00: 00 2019-12-24 00:00:00 2019-12-24 15:24:40 [facility] Glucosuria Glucosuria Disease Resolve d 10-30 00:00: 2019-12-24 00:00:00 2019-12-24 15:24:47 [facility] Group B streptococ lis carriage complicati ng Group B streptococ lis carriage complicati ng Disease Resolve d 2019- 1-27 00:00: 00 2019-12-24 00:00:00 2019-12-24 15:24:47 [facility] Elevated blood pressure affecting in third trimester, antepartum Elevated blood pressure affecting in third trimester, antepartum Disease Resolve d 2019- 1-16 00:00: 00 2019-12-24 00:00:00 2019-12-24 15:24:46 [facility] Pain of round ligament during Pain of round ligament during Disease Resolve d 2018- 2- 00:00: 00 2019-12-24 00:00:00 2019-12-24 15:24:38 [facility] Acute left-sided low back pain with left-sided sciatica Acute left-sided low back pain with left-sided sciatica Disease Resolve d 2018- 9- 00:00: 00 2019-12-24 00:00:00 2019-12-24 15:24:41 [facility] Carpal tunnel syndrome during Carpal tunnel syndrome during Disease Resolve d 2018-0 9-23 00:00: 00 2019-12-24 00:00:00 2019-12-24 15:24:44 [facility] Thrombocyt openia during Thrombocyt openia during Disease Resolve d 2018-0 9-09 00:00: 00 2019-12-24 00:00:00 2019-12-24 15:24:59 Overview: Plt 131 at 12w [facility] High-risk in third trimester High-risk in third trimester Disease Resolve d 2018-0 9-06 00:00: 00 2019-12-24 00:00:00 2019-12-24 15:24:48 [facility] Multiparit y Multiparit y Disease Resolve d 2019-0 9-06 00:00: 00 2019-12-24 00:00:00 2019-12-24 15:24:51 [facility] Obesity affecting in third trimester Obesity affecting in third trimester Disease Resolve d 06-06 00:00: 00 2019-12-24 00:00:00 2019-12-24 15:24:53 [facility] S/P section S/P section Disease Resolve d 06-06 00:00: 2019-12-24 00:00:00 2019-12-24 15:24:57 [facility] complicate d by tobacco use in third trimester complicate d by tobacco use in third trimester Disease Resolve d 06-06 00:00: 2019-12-24 00:00:00 2019-12-24 15:24:55 Overview: Reports cessation at 28w [facility] 39 weeks gestation of 39 weeks gestation of Disease Resolve d 06-25 00:00: 2019-12-24 00:00:00 2019-12-24 15:24:39 [facility] History of anxiety History of anxiety Disease Resolve d 2013-10 00:00: 2019-09-26 00:00:00 2019-09-26 15:35:48 [facility] Contracept redd management Contracept redd management Disease Resolve d 01-23 00:00: 00 2019-06-06 00:00:00 2019-06-06 13:55:52 [facility] Obesity (BMI 30-39.9) Obesity (BMI 30-39.9) Disease Resolve d 04-09 00:00: 00 2019-06-06 00:00:00 2019-06-06 13:55:56 [facility] Research study patient Research study patient Disease Resolve d 06-27 00:00: 00 2019-01-23 00:00:00 2019-01-23 16:17:54 [facility] Morbid obesity with body mass index of 40.0-49.9 Morbid obesity with body mass index of 40.0-49.9 Disease Resolve d 06-25 00:00: 2019-01-23 00:00:00 2019-01-23 16:17:43 [facility] Tobacco use in , third trimester Tobacco use in , third trimester Disease Resolve d 04-26 00:00: 00 2019-01-23 00:00:00 2019-01-23 16:17:39 [facility] Group beta Strep positive Group beta Strep positive Disease Resolve d 06-25 00:00: 00 2017-07-19 00:00:00 2017-07-19 11:36:20 [facility] PCOS (polycysti c ovarian syndrome) PCOS (polycysti c ovarian syndrome) Disease Resolve d 2013-10 00:00: 00 2017-06-26 00:00:00 2017-06-26 07:53:48 [facility] General counseling and advice for contracept redd management General counseling and advice for contracept redd management Disease Resolve d 2013-10 00:00: 00 2017-06-26 00:00:00 2022-04-16 00:33:20 [facility] Elevated blood pressure reading without diagnosis of hypertensi on Elevated blood pressure reading without diagnosis of hypertensi on Disease Resolve d 2013-10 00:00: 00 2017-06-26 00:00:00 2017-06-26 07:54:01 [facility] Asthma Asthma Disease Resolve d 2013-10 00:00: 00 2017-06-26 00:00:00 2022-04-16 00:33:20 [facility] Pain pelvic Pain pelvic Disease Resolve d 2013-10 00:00: 00 2017-06-26 00:00:00 2017-06-26 07:53:32 [facility] Acanthosis Acanthosis Disease Resolve d 2013-10 00:00: 00 2017-06-26 00:00:00 2017-06-26 07:53:33 [facility] History of seizures History of seizures Disease Resolve d 2013-10 00:00: 00 2017-06-26 00:00:00 2017-06-26 10:46:21 [facility] History of depression History of depression Disease Resolve d 2013-10 00:00: 00 2017-06-26 00:00:00 2017-06-26 07:53:36 [facility] Obesity Obesity Disease Resolve d 04-02 00:00: 00 2017-06-26 00:00:00 2022-04-16 00:25:19 [facility] Psychosis Psychosis Disease Resolve d 4-04 00:00: 00 2017-06-26 00:00:00 2022-04-16 00:13:01 [facility] Tobacco use disorder Tobacco use disorder Disease Resolve d 4-13 00:00: 00 2016-08-22 00:00:00 2016-08-22 13:54:06 [facility] Absence of menstruati on Absence of menstruati on Disease Resolve d 04-02 00:00: 00 2014-08-25 00:00:00 2014-08-25 15:03:35 [facility] Allergies, Adverse Reactions, Alerts Allergy Name Allergy Type Status Severity Reaction(s) Onset Date Inactive Date Treating Clinician Comments Source Cefazoli n Propensi ty to adverse reaction s Active Hives 06-27 00:00: 00 [facility] CEFAZOLI N DRUG INGREDI Active High Hives 06-27 00:00: 00 [facility] Bactrim Propensi ty to adverse reaction to drug Active 2014-10 015 00:00: 00 [facility] Sulfa (Sulfona mide Antibiot ics) Propensi ty to adverse reaction s to drug Active Hives 04-09 00:00: 00 [facility] SULFA (SULFONA MIDE ANTIBIOT ICS) Drug Class Active Hives 04-09 00:00: 00 [facility] Sulfa (Sulfona mide Antibiot ics) Propensi ty to adverse reaction s to drug Active Hives 04-09 00:00: 00 [facility] Social History Social Habit Start Date Stop Date Quantity Comments Source ASSERTION 2019-02-27 00:00:00 [facility] History of tobacco use 2002-04-09 00:00:00 Cigarette Smoker [facility] Cigarette pack-years 2024 00:00:00 2024 00:00:00 [facility] Alcoholic beverage intake 2024 00:00:00 2024 00:00:00 Current non-drinker of alcohol (finding) [facility] Tobacco use and exposure 2024 00:00:00 2024 00:00:00 Smokeless tobacco non-user [facility] Cigarettes smoked current (pack per day) - Reported 2024 00:00:00 2024 00:00:00 [facility] Alcohol intake 2024-01-25 00:00:00 2024-01-25 00:00:00 Current non-drinker of alcohol (finding) [facility] Exposure to SARS-CoV-2 (event) 2023-01-28 00:00:00 2023-02-07 13:43:00 Not sure [facility] History of Social function 2023-01-24 00:00:00 2023-01-24 00:00:00 [facility] Sex assigned at 1985 00:00:00 1985 00:00:00 [facility] Smoking Status Start Date Stop Date Source Occasional tobacco smoker 2024 00:00:00 [facility] Medications Ordered Medication Name Filled Medication Name Start Date Stop Date Current Medication? Ordering Clinician Indication Dosage Frequency Signature (SIG) Comments Components Source clarithromy michelle (BIAXIN) tablet 500 mg 03-24 00:30: 00 03-24 00:29 :00 No 500mg 500 mg, Oral, ONCE NOW, 1 dose, On 03/23/24 at 1930, RUBEN, Reason for Anti-Infec tive: Documented Infection, Documented Infection Site: HEENT, Duration of Therapy: Once (ED) [facility] ketorolac (TORADOL) injection 60 mg 03-24 00:30: 00 03-24 00:20 :00 No 60mg 60 mg, Intramuscu lar, ONCE NOW, 1 dose, On 03/23/24 at 1930, Routine [facility] dexamethaso ne sod phos PF injection 10 mg 03-23 23:45: 00 03-24 00:20 :00 No 10mg 10 mg, Intramuscu lar, ONCE, 1 dose, On 03/23/24 at 1845, 1 mL [facility] clarithromy michelle 500 mg tablet 03-23 00:00: 00 Yes [id number] 500mg Take 1 tablet by mouth every 12 (twelve) hours. [facility] ketorolac 10 mg tablet 03-23 00:00: 00 Yes [id number] 10mg Take 1 tablet by mouth every 6 (six) hours as needed for Pain (scale 4-6) or Pain (scale 7-10). [facility] Dextrometho rphan-Guaif enesin (MUCINEX DM) 60-1,200 mg Tb12 03-23 00:00: 00 Yes [id number] 1{tbl} Take 1 tablet by mouth every 12 (twelve) hours as needed for Cough. [facility] oxcarbazepi ne (TRILEPTAL ORAL) 03-21 12:52: 22 Yes Take by mouth. [facility] spironolact one 50 mg tablet 03-21 00:00: 00 06-20 04:59 :00 Yes [id number] 50mg Take 1 tablet by mouth in the morning and 1 tablet in the evening. Do all this for 90 days. [facility] ciprofloxac in-dexameth asone 0.3-0.1 % otic drops 03-21 00:00: 00 03-29 04:59 :00 Yes [id number] 4[drp] Place 4 Drops in left ear in the morning and 4 Drops in the evening. Do all this for 7 days. [facility] mirtazapine 7.5 mg tablet 02-03 00:00: 00 Yes 1mg [facility] lisinopril 20 mg tablet 02-03 00:00: 00 Yes 1mg [facility] meloxicam 15 mg tablet 02-03 00:00: 00 Yes 1mg [facility] oxcarbazepi ne 600 mg tablet 02-03 00:00: 00 Yes 1mg [facility] hydroxyzine HCl 25 mg tablet 02-03 00:00: 00 Yes 1mg [facility] cetirizine 10 mg capsule 02-03 00:00: 00 Yes 1mg [facility] NaCl 0.9% (NS) bolus infusion 1,000 mL 01-24 20:15: 00 01-24 21:20 :00 No 1000mL at 999 mL/hr, 1,000 mL, IV Infusion, ONCE, 1 dose, On Sun01/25/24 at 1515, [facility] ondansetron (ZOFRAN (PF)) injection 4 mg 01-24 19:45: 00 01-24 20:01 :00 No 4mg 4 mg, Slow IV Push, ONCE, 1 dose, On Sun01/25/24 at 1445, [facility] lisinopriL (PRINIVIL,Z ESTRIL) tablet 20 mg 11-28 00:30: 00 11-27 23:45 :00 No 20mg 20 mg, Oral, ONCE, 1 dose, On Sun11/27/23 at 1830, [facility] MIRTAZAPINE 7.5MG 11-28 00:00: 00 Yes [facility] OXCARBAZEPI N 600MG 11-28 00:00: 00 Yes [facility] ibuprofen (IBU) tablet 800 mg 11-27 23:45: 00 11-27 23:45 :00 No 800mg 800 mg, Oral, ONCE, 1 dose, On Sun11/27/23 at 1745, [facility] METHOCARBAM 500MG 11-27 00:00: 00 Yes [facility] TAKE 1 TABLET BY MOUTH EVERYDAY AT BEDTIME 11-27 00:00: 00 Yes [facility] IBUPROFEN 800MG 11-27 00:00: 00 Yes [facility] ibuprofen 800 mg tablet 11-27 00:00: 00 Yes [id number] 800mg Take 1 tablet by mouth every 8 (eight) hours as needed for Pain (scale 4-6). [facility] lisinopriL 20 mg tablet 11-27 00:00: 00 Yes [id number] 20mg Take 1 tablet by mouth at bedtime. [facility] methocarbam oL 500 mg tablet 11-27 00:00: 00 03-21 00:00 :00 No [id number] 500mg Take 1 tablet by mouth 4 (four) times daily. [facility] MIRTAZAPINE 7.5MG 2022-10 00:00: 00 Yes 75 [facility] OXCARBAZEPI N 600MG 2022-10 00:00: 00 Yes 600 [facility] TAKE 1 TABLET BY MOUTH TWICE DAILY NEEDED 2022-10 00:00: 00 Yes 25 [facility] TAKE 1 CAPSULE BY MOUTH ONCE DAILY 2022-10 00:00: 00 Yes [facility] KCL (KLOR-CON M20) tablet 40 mEq 2022-10 08:30: 00 08-08 07:28 :00 No 40meq 40 mEq, Oral, ONCE, 1 dose, On Sun08/08/23 at 0230, Routine [facility] AZELASTINE NSL 0.1% [facility] 2022-10 00:00: 00 Yes [facility] METHYLPRED 4MG DPAK 2022-10 00:00: 00 Yes [facility] FLUTICASONE 50MCG RX SPR 2022-10 00:00: 00 Yes [facility] azelastine 137 mcg (0.1 %) nasal spray 2022-10 00:00: 00 Yes [id number] 1{spray } Use 1 [place] in each nostril in the morning and 1 [place] in the evening. Use in each nostril as directed [facility] fluticasone propionate 50 mcg/actuati on nasal spray 2022-10 00:00: 00 Yes [id number] 1{spray } Use 1 [place] in each nostril in the morning. [facility] methylPREDN ISolone (MEDROL, BLAZE,) 4 mg tablets 2022-10 0 00:00: 00 03-21 00:00 :00 No [id number] Take by mouth SEE-INSTRU CTIONS. follow package directions [facility] TAKE 1 TABLET BY MOUTH IN THE MORNING AND 1 IN THE EVENING 2022-10 00:00: 00 Yes [facility] ibuprofen (IBU) tablet 600 mg 2022-10 05:15: 00 07-25 05:03 :00 No 600mg 600 mg, Oral, ONCE, 1 dose, On Sun07/25/23 at 0015, RUBEN [facility] ALBUTEROL PA HFA 200 INH 2022-10 00:00: 00 Yes [facility] BENZONATATE 100MG 2022-10 00:00: 00 Yes [id number] [facility] TAKE 1 CAPSULE BY MOUTH THREE TIMES DAILY NEEDED FOR COUGH 2022-10 00:00: 00 Yes [facility] albuterol 90 mcg/actuati on inhaler 2022-10 00:00: 00 Yes [id number] 2{puff} Inhale 2 Puffs every 4 (four) hours as needed for Wheezing or Shortness of Breath. [facility] benzonatate 100 mg capsule 2022-10 00:00: 00 03-21 00:00 :00 No [id number] 100mg Take 1 capsule by mouth 3 (three) times daily as needed for Cough. [facility] amoxicillin 875 mg tablet 2022-10 00:00: 00 03-21 00:00 :00 No [id number] 875mg Take 1 tablet by mouth in the morning and 1 tablet in the evening. [facility] diphenhydrA MINE (BENADRYL) injection 25 mg 2022-10 0 13:45: 00 07-03 14:52 :00 No 25mg 25 mg, Slow IV Push, ONCE, 1 dose, On Sun07/03/23 at 0845, STAT [facility] dexamethaso ne (DECADRON PHOSPHATE) injection 4 mg 2022-10 13:45: 00 07-03 14:51 :00 No 4mg 4 mg, Slow IV Push, ONCE, 1 dose, On Sun07/03/23 at 08, [facility] metoclopram lio HCl (REGLAN) injection 10 mg 2022-10 13:45: 00 07-03 14:53 :00 No 10mg 10 mg, Slow IV Push, ONCE, 1 dose, On Sun07/03/23 at 08, [facility] TAKE 1 TABLET BY MOUTH ONCE DAILY NEEDED FOR PAIN 2022-10 00:00: 00 Yes [facility] meloxicam (MOBIC) 15 mg tablet 2022-10 00:00: 00 Yes [id number] 15mg Take 1 tablet by mouth once daily as needed for Pain for up to 15 doses. [facility] PROMETHAZIN E HYDROCHLORI DE/DEXTROME THORPHAN HYDROBROMID E 6.25-15 MG/5ML SYRP 05-29 00:00: 00 Yes [facility] promethazin e-dextromet horphan 6.25-15 mg/5 mL syrup 05-29 00:00: 00 06-09 04:59 :00 No [id number] 5mL Take 5 mL by mouth 4 (four) times daily for 10 days. [facility] OXCARBAZEPI N 600MG - 00:00: 00 Yes [facility] MIRTAZAPINE 15MG 04-10 00:00: 00 Yes [facility] FLUOXETIN(P ) 40MG - 00:00: 00 Yes [id number] [facility] HYDROXYZ HCL 25MG - 00:00: 00 Yes [id number] [facility] TAKE 1 TABLET BY MOUTH TWICE DAILY NEEDED - 00:00: 00 Yes [facility] OXCARBAZEPI N 600MG 0 6-14 00:00: 00 Yes [id number] [facility] IBUPROFEN 800MG 5-24 00:00: 00 Yes 800 [facility] LISINOPRIL 10MG 02-17 00:00: 00 Yes [id number] [facility] TAKE 1 TABLET DAILY. 02-16 00:00: 00 02-04 00:00 :00 No 10 [facility] medroxyPROG ESTERone (DEPO-PROVE RA) syringe 150 mg 02-07 20:30: 00 01-08 20:29 :00 No [id number] 150mg [facility] IBUPROFEN 800 MG TABS 02-07 00:00: 00 Yes [facility] lisinopriL (PRINIVIL,Z ESTRIL) tablet 5 mg 01-19 16:45: 00 01-20 04:44 :00 No 5mg 5 mg, Oral, ONCE, 1 dose, On Sun01/19/23 at 1145, Routine [facility] acetaminoph en (TYLENOL) tablet 650 mg 01-12 02:30: 00 01-12 02:45 :00 No 650mg 650 mg, Oral, ONCE, 1 dose, On Marcela 01/11/23 at 2130, RUBEN [facility] ibuprofen (IBU) tablet 600 mg 01-12 02:30: 00 01-12 02:45 :00 No 600mg 600 mg, Oral, ONCE, 1 dose, On Marcela 01/11/23 at 2130, RUBEN [facility] amoxicillin -clavulanat e (AUGMENTIN) 875-125 mg per tablet 1 tablet 01-12 02:27: 00 01-12 02:45 :00 No 1{tbl} 1 tablet, Oral, ONCE, 1 dose, On Marcela 01/11/23 at 2130, RUBEN
Re ason for Anti-Infec tive: Documented Infection< br>Documen meenakshi Infection Site: HEENT
D uration of Therapy: Other (see Comments) [facility] FLUTICASONE PROPIONATE 50 MCG/ACT SUSP 01-11 00:00: 00 Yes [facility] AMOXICILLIN /CLAVULANAT E POTASSIUM 875-125 MG TABS 01-11 00:00: 00 Yes [facility] CETIRIZINE HYDROCHLORI DE 10 MG TABS 01-11 00:00: 00 Yes [facility] Cetirizine 10 mg capsule 01-11 00:00: 00 Yes [id number] 10mg Take 1 capsule by mouth in the morning. [facility] fluticasone propionate 50 mcg/actuati on nasal spray 01-11 00:00: 00 07-29 00:00 :00 No [id number] 1{spray } Use 1 [place] in each nostril in the morning. [facility] amoxicillin -clavulanat e 875-125 mg per tablet 01-11 00:00: 00 01-22 04:59 :00 No [id number] 1{tbl} Take 1 tablet by mouth in the morning and 1 tablet in the evening. Do all this for 10 days. [facility] TAKE 1 TABLET BY MOUTH ONCE DAILY 11-27 00:00: 00 Yes [facility] lisinopriL 10 mg tablet 11-27 00:00: 00 Yes 10mg Take 1 tablet by mouth in the morning. [facility] FLUOXETINE HYDROCHLORI DE 40 MG 11-22 00:00: 00 Yes [facility] OXCARBAZEPI NE 600 MG TABS 11-22 00:00: 00 Yes [facility] TAKE 1 TABLET BY MOUTH TWICE DAILY NEEDED 11-22 00:00: 00 Yes [facility] OXCARBAZEPI NE 600 MG TABS 2021-10 00:00: 00 Yes [facility] FLUOXETINE HCL 20 MG 2021-10 00:00: 00 Yes [facility] TAKE 1 TABLET BY MOUTH TWICE DAILY NEEDED 2021-10 00:00: 00 Yes [facility] AMOXICILLIN 500 MG 20 00:00: 00 Yes [facility] IBUPROFEN 800 MG TABS 03-13 00:00: 00 Yes [facility] AMOXICILLIN 500 MG 2022-0 6-13 00:00: 00 Yes [facility] LITHIUM CARBONATE 300 MG 02-01 00:00: 00 Yes [facility] TAKE 1 TABLET BY MOUTH TWICE DAILY NEEDED 02-01 00:00: 00 Yes [facility] ondansetron (ZOFRAN-ODT ) disintegrat ing tablet 4 mg 10-26 02:00: 00 10-26 01:08 :00 No 4mg 4 mg, Oral, ONCE, 1 dose, On Sun10/25/21 at 2000, Routine [facility] dicyclomine 10 mg capsule 10-25 00:00: 00 Yes [id number] 10mg Take 1 capsule by mouth 4 (four) times daily. [facility] ondansetron 4 mg disintegrat ing tablet 10-25 00:00: 00 03-21 00:00 :00 No [id number] 4mg Take 1 tablet by mouth every 8 (eight) hours as needed for Nausea and Vomiting (N/V). [facility] dexamethaso ne (DECADRON PHOSPHATE) injection 10 mg 2020-10 14:30: 00 08-04 13:34 :00 No 10mg 10 mg, Oral, ONCE, 1 dose, On Sun08/04/21 at 0930, Routine [facility] chlorphenir amine 4 mg tablet 2020-10 00:00: 00 Yes [id number] 4mg Take 1 tablet by mouth every 6 (six) hours as needed for Allergies or Runny nose. [facility] ondansetron 4 mg disintegrat ing tablet 2020-10 00:00: 00 03-21 00:00 :00 No [id number] 4mg Take 1 tablet by mouth every 8 (eight) hours as needed for Nausea and Vomiting (N/V). [facility] naproxen sodium (ANAPROX DS) 550 mg tablet 2020-10 00:00: 00 01-24 00:00 :00 No [id number] 550mg Take 1 tablet by mouth 2 (two) times daily with meals. [facility] methocarbam oL 500 mg tablet 2020-10 00:00: 00 03-21 00:00 :00 No [id number] 500mg Take 1 tablet by mouth 4 (four) times daily. [facility] ibuprofen 600 mg tablet 2020-10 00:00: 00 01-24 00:00 :00 No [id number] 600mg Take 1 tablet by mouth every 6 (six) hours as needed for Pain (scale 4-6). [facility] metformin ER 500 mg 24 hr tablet,exte nded release (gastric) 4-14 00:00: 00 Yes 1mg [facility] ibuprofen (IBU) tablet 800 mg 10-18 05:00: 00 10-18 03:57 :00 No 800mg 800 mg, Oral, ONCE, 1 dose, 10/17/20 at 2300, RUBEN [facility] guaiFENesin 100 mg/5 mL solution 10-17 00:00: 00 Yes [id number] 100mg Take 5 mL by mouth every 4 (four) hours as needed for Cough. [facility] albuterol 90 mcg/actuati on inhaler 10-17 00:00: 00 Yes [id number] 2{puff} Inhale 2 Puffs every 4 (four) hours as needed for Wheezing or Shortness of Breath. [facility] etonogestre l (NEXPLANON) implant 68 mg 12-23 22:30: 00 12-23 21:20 :00 No 68mg [facility] medroxyPROG ESTERone (DEPO-PROVE RA) injection 150 mg 2-16 13:18: 16 Yes 150mg 150 mg, Intramuscu lar, ONCE-SEE INSTRUCTIO NS, 1 dose, Starting 11/16/19 at 0718, Until Discontinu ed, Routine [facility] human papillomav vac,9-shannon(P F) (GARDASIL-9 ) syringe 0.5 mL 2-15 12:46: 33 Yes .5mL 0.5 mL, Intramuscu lar, ONCE-PRIOR TO DISCHARGE, 1 dose, Starting 11/15/19 at 0646, Until Discontinu ed, Routine, Give vaccine prior to discharge [facility] vitamin w/FA tablet 11-15 00:00: 00 Yes [id number] 1{tbl} Take 1 tablet by mouth daily. [facility] ferrous sulfate 325 mg (65 mg iron) tablet 11-15 00:00: 00 Yes [id number] 325mg Take 1 tablet by mouth 2 (two) times daily. [facility] vitamin w/FA tablet 11-15 00:00: 00 03-21 00:00 :00 No [id number] 1{tbl} Take 1 tablet by mouth daily. [facility] docusate calcium 240 mg capsule 11-15 00:00: 00 12-23 00:00 :00 No [id number] 240mg Take 1 capsule by mouth once daily as needed for Constipati on. [facility] ibuprofen 600 mg tablet 11-15 00:00: 00 12-23 00:00 :00 No [id number] 600mg Take 1 tablet by mouth every 6 (six) hours as needed (Pain). Take with food or milk. [facility] HYDROcodone -acetaminop hen 5-325 mg tablet 11-15 00:00: 00 12-23 00:00 :00 No [id number] 1{tbl} Take 1 tablet by mouth every 6 (six) hours as needed for Pain (scale 7-10) for up to 20 doses. Do not exceed 3 grams of acetaminop hen in 24 hours. [facility] lactated ringers IV infusion 1,000 mL 11-14 18:00: 00 11-14 22:52 :00 No 1000mL at 125 mL/hr, 1,000 mL, IV Infusion, ONCE, 1 dose, 11/14/19 at 1200, Routine [facility] rho(D) immune globulin (RHOGAM) syringe 300 mcg 11-14 17:57: 40 Yes 300ug 300 mcg, Intramuscu lar, ONCE, For 1 dose, Conditiona l, Routine [facility] ondansetron (ZOFRAN (PF)) injection 4 mg 11-14 17:57: 35 Yes 4mg 4 mg, Slow IV Push, Q8HPRN, Starting Sun11/14/19 at 1157, Until Discontinu ed, Routine, Nausea and Vomiting (N/V) [facility] simethicone (GAS RELIEF (SIMETHICON E)) chewable tablet 160 mg 11-14 17:57: 35 Yes 160mg 160 mg, Oral, PC+HSPRN, Starting Sun11/14/19 at 1157, Until Discontinu ed, Routine, Gas [facility] HYDROcodone -acetaminop hen (NORCO 5) 5-325 mg tablet 2 tablet 11-14 17:57: 34 Yes 2{tbl} 2 tablet, Oral, Q6HPRN, Starting Sun11/14/19 at 1157, Until Discontinu ed, Routine, Pain (scale 7-10), If uncontroll ed by Ibuprofen [facility] HYDROcodone -acetaminop hen (NORCO 5) 5-325 mg tablet 1 tablet 11-14 17:57: 34 Yes 1{tbl} 1 tablet, Oral, Q6HPRN, Starting Sun11/14/19 at 1157, Until Discontinu ed, Routine, Pain (scale 4-6), If uncontroll ed by Ibuprofen [facility] ibuprofen (IBU) tablet 600 mg 11-14 17:57: 34 Yes 600mg 600 mg, Oral, Q6HPRN, Starting Sun11/14/19 at 1157, Until Discontinu ed, Routine, Pain (scale 1-3) [facility] diphenhydrA MINE-0.9 % sod.chlr (BENADRYL) 25 mg/50 mL piggyback 25 mg 11-14 17:57: 34 Yes 25mg 25 mg, IV Piggyback, Administer over 30 Minutes, Q6HPRN, 1 dose, Starting Sun11/14/19 at 1157, Until Discontinu ed, Routine, Itching [facility] diphenhydrA MINE (BENADRYL) tablet 25 mg 11-14 17:57: 34 Yes 25mg 25 mg, Oral, Q6HPRN, Starting Sun11/14/19 at 1157, Until Discontinu ed, Routine, Sleep, Itching [facility] bisacodyL (DULCOLAX) suppository 10 mg 11-14 17:57: 34 Yes 10mg 10 mg, Rectal, QDAILYPRN, Starting Sun11/14/19 at 1157, Until Discontinu ed, Routine, Constipati on [facility] docusate calcium (SURFAK) capsule 240 mg 11-14 17:57: 34 Yes 240mg 240 mg, Oral, QDAILYPRN, Starting Sun11/14/19 at 1157, Until Discontinu ed, Routine, Constipati on [facility] magnesium hydroxide (MILK OF MAGNESIA) 400 mg/5 mL suspension 30 mL 11-14 17:57: 34 Yes 30mL 30 mL, Oral, QDAILYPRN, Starting Sun11/14/19 at 1157, Until Discontinu ed, Routine, Constipati on [facility] nalbuphine (NUBAIN) injection 5 mg 11-14 16:10: 05 Yes 5mg 5 mg, Intravenou s, PRN, 1 dose, Starting Sun11/14/19 at 1010, Until Discontinu ed, Routine, Itching, PACU [facility] ketorolac (TORADOL) injection 30 mg 11-14 16:10: 05 11-14 16:46 :00 No 30mg 30 mg, Slow IV Push, PRN, 1 dose, Starting Sun11/14/19 at 1010, Until Sun11/14/19 at 1046, Routine, Pain (scale 7-10), PACU
Fa culty member approving Restricted medication : DAYSI ALBERTO [facility] LR 1000 mL + oxytocin 20 units IV Solution 11-14 14:15: 00 11-14 17:57 :41 No at 125 mL/hr, IV Infusion, CONTINUOUS , Starting Sun11/14/19 at 0815, Until Sun11/14/19 at 1157, RUBEN [facility] acetaminoph en (TYLENOL) tablet 650 mg 11-14 12:15: 11-14 13:43 :00 No 650mg 650 mg, Oral, ONCE, 1 dose, Sun11/14/19 at 0615, Routine [facility] lactated ringers IV infusion 1,000 mL 11-14 12:15: 11-14 17:57 :41 No 1000mL at 125 mL/hr, 1,000 mL, IV Infusion, CONTINUOUS , Starting Sun11/14/19 at 0615, Until Sun11/14/19 at 1157, Routine [facility] lactated ringers IV infusion 500 mL 11-14 12:15: 00 11-14 13:43 :00 No 500mL at 999 mL/hr, 500 mL, IV Infusion, ONCE, 1 dose, Sun11/14/19 at 0615, Routine [facility] gentamicin 40 mg/mL 400 mg in NaCl 0.9% (NS) 250 mL IV infusion 11-14 12:10: 11-14 16:59 :00 No 5mg/kg 400 mg (rounded from 407.5 mg = 5 mg/kg ?81.5 kg Adjusted weight), IV Infusion, O.R. HOLDING ONCE, 1 dose, Starting Sun11/14/19 at 0610, Until Discontinu ed, 250 mL
Reas on for Anti-Infec tive: Surgical Prophylaxi s
Surgi lis Prophylaxi s: TRACK RIDER
Duration of therapy: within 24 hours of surgery [facility] clindamycin in 5 % dextrose (CLEOCIN) 900 mg/50 mL Piggyback 900 mg 11-14 12:10: 11-14 14:14 :00 No 900mg 900 mg, IV Piggyback, O.R. HOLDING ONCE, 1 dose, Starting Sun11/14/19 at 0610, Until Discontinu ed, 50 mL
Facu lty member approving Restricted medication : BRYAN GALLARDO
Alivia n for Anti-Infec tive: Surgical Prophylaxi s
Surgi lis Prophylaxi s: TRACK RIDER
Duration of therapy: within 24 hours of surgery
Restricte d use approved by: [facility]ACK [facility]IDER [employer] [facility] sodium citrate-cit kyle acid (BICITRA) 500-334 mg/5 mL solution 30 mL 11-14 12:10: 06 11-14 13:44 :00 No 30mL 30 mL, Oral, PRE-PROCED URE ONCE, 1 dose, Starting Sun11/14/19 at 0610, Until 11/16/19 at 2359, Routine, Surgery/Pr ocedure [facility] PROAIR HFA 90 mcg/actuati on inhaler 10-16 00:00: 00 Yes [id number] 2{puff} Inhale 2 Puffs every 6 (six) hours as needed for Wheezing or Shortness of Breath. [facility] nystatin 100,000 unit/gram ointment 10-16 00:00: 00 12-23 00:00 :00 No [id number] Apply to area(s) 2 (two) times daily. [facility] ALBUTEROL 90 mcg/actuati on inhaler 10-06 00:00: 00 10-16 00:00 :00 No [id number] INHALE 2 PUFFS BY MOUTH EVERY 6 HOURS NEEDED FOR WHEEZING FOR SHORTNESS OF BREATH [facility] fluconazole 150 mg tablet 10-02 00:00: 00 10-23 00:00 :00 No TAKE 1 TABLET BY MOUTH NOW A ONE TIME DOSE [facility] nystatin-tr iamcinolone cream 10-02 00:00: 00 10-16 00:00 :00 No [id number] Apply to area(s) 2 (two) times daily. [facility] PNV 67-iron ps-folate no.1-dha (VITAFOL ULTRA) 29 mg iron- 1 mg-200 mg Cap 2018-10 0 00:00: 00 11-15 00:00 :00 No [id number] 1{capsu le} Take 1 capsule by mouth daily. [facility] norethindro ne 0.35 mg tablet 11-02 00:00: 00 06-06 00:00 :00 No 1{tbl} Take 1 tablet by mouth daily. [facility] vitamin w/FA tablet 06-29 00:00: 00 Yes 1{tbl} Take 1 tablet by mouth daily. [facility] ferrous sulfate 325 mg (65 mg iron) tablet 06-29 00:00: 00 06-06 00:00 :00 No 325mg Take 1 tablet by mouth 2 (two) times daily. [facility] ibuprofen 600 mg tablet 06-29 00:00: 00 06-06 00:00 :00 No 600mg Take 1 tablet by mouth every 6 (six) hours as needed for Pain (scale 1-3) or Pain (scale 4-6) (Pain). Take with food or milk. [facility] HYDROcodone -acetaminop hen 5-325 mg tablet 06-29 00:00: 00 06-06 00:00 :00 No 1{tbl} Take 1-2 tablets by mouth every 6 (six) hours as needed for Pain (scale 4-6) (Pain scale above 4). [facility] trazodone 50 mg tablet 04-02 00:00: 00 Yes 1mg [facility] Trileptal 300 mg tablet 04-07 00:00: 00 Yes 1mg [facility] Zoloft 100 mg tablet 2014-10 00:00: 00 Yes 1mg [facility] Trileptal 300 mg tablet 2014-10 00:00: 00 Yes 1mg [facility] Trileptal 300 mg tablet 2014-10 0 00:00: 00 Yes 1mg [facility] Immunizations Ordered Immunization Name Filled Immunization Name Date Status Comments Source Influenza Virus Vaccine Quad IM, Preserv and ABX Free 6 MO-64 YRS 2023-01-24 00:00:00 Completed [facility] Influenza Virus Vaccine Quad IM, Preserv and ABX Free 6 MO-64 YRS 2023-01-24 00:00:00 Completed [facility] Influenza Virus Vaccine Quad IM, Preserv and ABX Free 6 MO-64 YRS 2023-01-24 00:00:00 Completed [facility] Influenza Virus Vaccine Quad IM, Preserv and ABX Free 6 MO-64 YRS 2023-01-24 00:00:00 Completed [facility] Influenza Virus Vaccine Quad IM, Preserv and ABX Free 6 MO-64 YRS 2023-01-24 00:00:00 Completed [facility] Influenza Virus Vaccine Quad IM, Preserv and ABX Free 6 MO-64 YRS (FLUCELVAX) 2023-01-24 00:00:00 Completed [facility] Influenza Virus Vaccine Quad IM, Preserv and ABX Free 6 MO-64 YRS 2023-01-24 00:00:00 Completed [facility] Influenza Virus Vaccine Quad IM, Preserv and ABX Free 6 MO-64 YRS 2023-01-24 00:00:00 Completed [facility] Influenza Virus Vaccine Quad IM, Preserv and ABX Free 6 MO-64 YRS 2023-01-24 00:00:00 Completed [facility] SARS-COV-2 COVID-19 VACCINE - (MODERNA) 2021-01-26 00:00:00 Completed [facility] SARS-COV-2 COVID-19 VACCINE - (MODERNA) 2021-01-26 00:00:00 Completed [facility] SARS-COV-2 COVID-19 VACCINE - (MODERNA) 2021-01-26 00:00:00 Completed [facility] SARS-COV-2 COVID-19 VACCINE - (MODERNA) 2021-01-26 00:00:00 Completed [facility] SARS-COV-2 COVID-19 VACCINE - (MODERNA) 2021-01-26 00:00:00 Completed [facility] SARS-COV-2 COVID-19 VACCINE - (MODERNA) 2021-01-26 00:00:00 Completed [facility] SARS-COV-2 COVID-19 VACCINE - (MODERNA) 2021-01-26 00:00:00 Completed [facility] SARS-COV-2 COVID-19 VACCINE - (MODERNA) 2021-01-26 00:00:00 Completed [facility] SARS-COV-2 COVID-19 VACCINE - (MODERNA) 2021-01-26 00:00:00 Completed [facility] Moderna COVID-19 Vaccine Moderna COVID-19 Vaccine 2021-01-26 00:00:00 Completed [facility] SARS-COV-2 COVID-19 VACCINE - (MODERNA) 2020-12-23 00:00:00 Completed [facility] SARS-COV-2 COVID-19 VACCINE - (MODERNA) 2020-12-23 00:00:00 Completed [facility] SARS-COV-2 COVID-19 VACCINE - (MODERNA) 2020-12-23 00:00:00 Completed [facility] SARS-COV-2 COVID-19 VACCINE - (MODERNA) 2020-12-23 00:00:00 Completed [facility] SARS-COV-2 COVID-19 VACCINE - (MODERNA) 2020-12-23 00:00:00 Completed [facility] SARS-COV-2 COVID-19 VACCINE - (MODERNA) 2020-12-23 00:00:00 Completed [facility] SARS-COV-2 COVID-19 VACCINE - (MODERNA) 2020-12-23 00:00:00 Completed [facility] SARS-COV-2 COVID-19 VACCINE - (MODERNA) 2020-12-23 00:00:00 Completed [facility] SARS-COV-2 COVID-19 VACCINE - (MODERNA) 2020-12-23 00:00:00 Completed [facility] TDAP (ADACEL) VACCINE 2019-09-09 00:00:00 Completed [facility] TDAP (ADACEL) VACCINE 2019-09-09 00:00:00 Completed [facility] TDAP (ADACEL) VACCINE 2019-09-09 00:00:00 Completed [facility] TDAP (ADACEL) VACCINE 2019-09-09 00:00:00 Completed [facility] TDAP (ADACEL) VACCINE 2019-09-09 00:00:00 Completed [facility] TDAP (ADACEL) VACCINE 2019-09-09 00:00:00 Completed [facility] TDAP (ADACEL) VACCINE 2019-09-09 00:00:00 Completed [facility] TDAP (ADACEL) VACCINE 2019-09-09 00:00:00 Completed [facility] TDAP (ADACEL) VACCINE 2019-09-09 00:00:00 Completed [facility] TDAP (ADACEL) VACCINE 2019-09-09 00:00:00 Completed [facility] TDAP (ADACEL) VACCINE 2019-09-09 00:00:00 Completed [facility] TDAP (ADACEL) VACCINE 2019-09-09 00:00:00 Completed [facility] TDAP (ADACEL) VACCINE 2019-09-09 00:00:00 Completed [facility] TDAP (ADACEL) VACCINE 2019-09-09 00:00:00 Completed [facility] TDAP (ADACEL) VACCINE 2019-09-09 00:00:00 Completed [facility] TDAP (ADACEL) VACCINE 2019-09-09 00:00:00 Completed [facility] TDAP (ADACEL) VACCINE 2019-09-09 00:00:00 Completed [facility] TDAP (ADACEL) VACCINE 2019-09-09 00:00:00 Completed [facility] TDAP (ADACEL) VACCINE 2019-09-09 00:00:00 Completed [facility] TDAP (ADACEL) VACCINE 2019-09-09 00:00:00 Completed [facility] TDAP (ADACEL) VACCINE 2019-09-09 00:00:00 Completed [facility] TDAP (ADACEL) VACCINE 2019-09-09 00:00:00 Completed [facility] TDAP (ADACEL) VACCINE 2019-09-09 00:00:00 Completed [facility] TDAP (ADACEL) VACCINE 2019-09-09 00:00:00 Completed [facility] TDAP (ADACEL) VACCINE 2019-09-09 00:00:00 Completed [facility] TDAP (ADACEL) VACCINE 2019-09-09 00:00:00 Completed [facility] TDAP (ADACEL) VACCINE 2019-09-09 00:00:00 Completed [facility] TDAP (ADACEL) VACCINE 2019-09-09 00:00:00 Completed [facility] TDAP (ADACEL) VACCINE 2019-09-09 00:00:00 Completed [facility] TDAP (ADACEL) VACCINE 2019-09-09 00:00:00 Completed [facility] TDAP (ADACEL) VACCINE 2019-09-09 00:00:00 Completed [facility] TDAP (ADACEL) VACCINE 2019-09-09 00:00:00 Completed [facility] TDAP (ADACEL) VACCINE 2019-09-09 00:00:00 Completed [facility] TDAP (ADACEL) VACCINE 2019-09-09 00:00:00 Completed [facility] TDAP (ADACEL) VACCINE 2019-09-09 00:00:00 Completed [facility] TDAP (ADACEL) VACCINE 2019-09-09 00:00:00 Completed [facility] TDAP (ADACEL) VACCINE 2019-09-09 00:00:00 Completed [facility] Influenza Virus Vaccine Quad .5 mL IM 6+ MO 2019-07-28 00:00:00 Completed [facility] Influenza Virus Vaccine Quad .5 mL IM 6+ MO 2019-07-28 00:00:00 Completed [facility] Influenza Virus Vaccine Quad .5 mL IM 6+ MO 2019-07-28 00:00:00 Completed [facility] Influenza Virus Vaccine Quad .5 mL IM 6+ MO 2019-07-28 00:00:00 Completed [facility] Influenza Virus Vaccine Quad .5 mL IM 6+ MO 2019-07-28 00:00:00 Completed [facility] Influenza Virus Vaccine Quad .5 mL IM 6+ MO 2019-07-28 00:00:00 Completed [facility] Influenza Virus Vaccine Quad .5 mL IM 6+ MO (FLUZONE/FLULAVAL/FL UARIX) 2019-07-28 00:00:00 Completed [facility] Influenza Virus Vaccine Quad .5 mL IM 6+ MO 2019-07-28 00:00:00 Completed [facility] Influenza Virus Vaccine Quad .5 mL IM 6+ MO 2019-07-28 00:00:00 Completed [facility] Influenza Virus Vaccine Quad .5 mL IM 6+ MO 2019-07-28 00:00:00 Completed [facility] Influenza Virus Vaccine Quad .5 mL IM 6+ MO 2019-07-28 00:00:00 Completed [facility] Influenza Virus Vaccine Quad .5 mL IM 6+ MO 2019-07-28 00:00:00 Completed [facility] Influenza Virus Vaccine Quad .5 mL IM 6+ MO 2019-07-28 00:00:00 Completed [facility] Influenza Virus Vaccine Quad .5 mL IM 6+ MO 2019-07-28 00:00:00 Completed [facility] Influenza Virus Vaccine Quad .5 mL IM 6+ MO 2019-07-28 00:00:00 Completed [facility] Influenza Virus Vaccine Quad .5 mL IM 6+ MO 2019-07-28 00:00:00 Completed [facility] Influenza Virus Vaccine Quad .5 mL IM 6+ MO 2019-07-28 00:00:00 Completed [facility] Influenza Virus Vaccine Quad .5 mL IM 6+ MO 2019-07-28 00:00:00 Completed [facility] Influenza Virus Vaccine Quad .5 mL IM 6+ MO 2019-07-28 00:00:00 Completed [facility] Influenza Virus Vaccine Quad .5 mL IM 6+ MO 2019-07-28 00:00:00 Completed [facility] Influenza Virus Vaccine Quad .5 mL IM 6+ MO 2019-07-28 00:00:00 Completed [facility] Influenza Virus Vaccine Quad .5 mL IM 6+ MO 2019-07-28 00:00:00 Completed [facility] Influenza Virus Vaccine Quad .5 mL IM 6+ MO 2019-07-28 00:00:00 Completed [facility] Influenza Virus Vaccine Quad .5 mL IM 6+ MO 2019-07-28 00:00:00 Completed [facility] Influenza Virus Vaccine Quad .5 mL IM 6+ MO 2019-07-28 00:00:00 Completed [facility] Influenza Virus Vaccine Quad .5 mL IM 6+ MO 2019-07-28 00:00:00 Completed [facility] Influenza Virus Vaccine Quad .5 mL IM 6+ MO 2019-07-28 00:00:00 Completed [facility] Influenza Virus Vaccine Quad .5 mL IM 6+ MO 2019-07-28 00:00:00 Completed [facility] Influenza Virus Vaccine Quad .5 mL IM 6+ MO 2019-07-28 00:00:00 Completed [facility] Influenza Virus Vaccine Quad .5 mL IM 6+ MO 2019-07-28 00:00:00 Completed [facility] Influenza Virus Vaccine Quad .5 mL IM 6+ MO 2019-07-28 00:00:00 Completed [facility] Influenza Virus Vaccine Quad .5 mL IM 6+ MO 2019-07-28 00:00:00 Completed [facility] Influenza Virus Vaccine Quad .5 mL IM 6+ MO 2019-07-28 00:00:00 Completed [facility] Influenza Virus Vaccine Quad .5 mL IM 6+ MO 2019-07-28 00:00:00 Completed [facility] Influenza Virus Vaccine Quad .5 mL IM 6+ MO 2019-07-28 00:00:00 Completed [facility] Influenza Virus Vaccine Quad .5 mL IM 6+ MO 2019-07-28 00:00:00 Completed [facility] Influenza Virus Vaccine Quad .5 mL IM 6+ MO 2019-07-28 00:00:00 Completed [facility] Influenza Virus Vaccine Quad .5 mL IM 6+ MO 2019-07-28 00:00:00 Completed [facility] MMR 2017-06-29 00:00:00 Completed [facility] MMR 2017-06-29 00:00:00 Completed [facility] MMR 2017-06-29 00:00:00 Completed [facility] MMR 2017-06-29 00:00:00 Completed [facility] MMR 2017-06-29 00:00:00 Completed [facility] MMR 2017-06-29 00:00:00 Completed [facility] MMR 2017-06-29 00:00:00 Completed [facility] MMR 2017-06-29 00:00:00 Completed [facility] MMR 2017-06-29 00:00:00 Completed [facility] MMR 2017-06-29 00:00:00 Completed [facility] MMR 2017-06-29 00:00:00 Completed [facility] MMR 2017-06-29 00:00:00 Completed [facility] MMR 2017-06-29 00:00:00 Completed [facility] MMR 2017-06-29 00:00:00 Completed [facility] MMR 2017-06-29 00:00:00 Completed [facility] MMR 2017-06-29 00:00:00 Completed [facility] MMR 2017-06-29 00:00:00 Completed [facility] MMR 2017-06-29 00:00:00 Completed [facility] MMR 2017-06-29 00:00:00 Completed [facility] MMR 2017-06-29 00:00:00 Completed [facility] MMR 2017-06-29 00:00:00 Completed [facility] MMR 2017-06-29 00:00:00 Completed [facility] MMR 2017-06-29 00:00:00 Completed [facility] MMR 2017-06-29 00:00:00 Completed [facility] MMR 2017-06-29 00:00:00 Completed [facility] MMR 2017-06-29 00:00:00 Completed [facility] MMR 2017-06-29 00:00:00 Completed [facility] MMR 2017-06-29 00:00:00 Completed [facility] MMR 2017-06-29 00:00:00 Completed [facility] MMR 2017-06-29 00:00:00 Completed [facility] MMR 2017-06-29 00:00:00 Completed [facility] MMR 2017-06-29 00:00:00 Completed [facility] MMR 2017-06-29 00:00:00 Completed [facility] MMR 2017-06-29 00:00:00 Completed [facility] MMR 2017-06-29 00:00:00 Completed [facility] MMR 2017-06-29 00:00:00 Completed [facility] MMR 2017-06-29 00:00:00 Completed [facility] MMR 2017-06-29 00:00:00 Completed [facility] MMR 2017-06-29 00:00:00 Completed [facility] MMR 2017-06-29 00:00:00 Completed [facility] MMR 2017-06-29 00:00:00 Completed [facility] MMR 2017-06-29 00:00:00 Completed [facility] TDAP 2017-06-07 00:00:00 Completed [facility] TDAP 2017-06-07 00:00:00 Completed [facility] Tdap 2017-06-07 00:00:00 Completed [facility] TDAP 2017-06-07 00:00:00 Completed [facility] TDAP 2017-06-07 00:00:00 Completed [facility] TDAP 2017-06-07 00:00:00 Completed [facility] TDAP 2017-06-07 00:00:00 Completed [facility] Tdap 2017-06-07 00:00:00 Completed [facility] Tdap 2017-06-07 00:00:00 Completed [facility] Tdap 2017-06-07 00:00:00 Completed [facility] Tdap 2017-06-07 00:00:00 Completed [facility] Tdap 2017-06-07 00:00:00 Completed [facility] Tdap 2017-06-07 00:00:00 Completed [facility] Tdap 2017-06-07 00:00:00 Completed [facility] Tdap 2017-06-07 00:00:00 Completed [facility] Tdap 2017-06-07 00:00:00 Completed [facility] Tdap 2017-06-07 00:00:00 Completed [facility] Tdap 2017-06-07 00:00:00 Completed [facility] Tdap 2017-06-07 00:00:00 Completed [facility] Tdap 2017-06-07 00:00:00 Completed [facility] Tdap 2017-06-07 00:00:00 Completed [facility] Tdap 2017-06-07 00:00:00 Completed [facility] Tdap 2017-06-07 00:00:00 Completed [facility] Tdap 2017-06-07 00:00:00 Completed [facility] [facility] 2017-06-07 00:00:00 Completed [facility] TDAP 2017-06-07 00:00:00 Completed [facility] TDAP 2017-06-07 00:00:00 Completed [facility] Tdap 2017-06-07 00:00:00 Completed [facility] TDAP 2017-06-07 00:00:00 Completed [facility] TDAP 2017-06-07 00:00:00 Completed [facility] TDAP 2017-06-07 00:00:00 Completed [facility] TDAP 2017-06-07 00:00:00 Completed [facility] TDAP 2017-06-07 00:00:00 Completed [facility] TDAP 2017-06-07 00:00:00 Completed [facility] Tdap 2017-06-07 00:00:00 Completed [facility] TDAP 2017-06-07 00:00:00 Completed [facility] TDAP 2017-06-07 00:00:00 Completed [facility] Tdap 2017-06-07 00:00:00 Completed [facility] TDAP 2017-06-07 00:00:00 Completed [facility] TDAP 2017-06-07 00:00:00 Completed [facility] TDAP 2017-06-07 00:00:00 Completed [facility] TDAP 2017-06-07 00:00:00 Completed [facility] HPV 2017-03-31 00:00:00 Completed [facility] HPV 2017-03-31 00:00:00 Completed [facility] HPV 2017-03-31 00:00:00 Completed [facility] HPV 2017-03-31 00:00:00 Completed [facility] HPV 2017-03-31 00:00:00 Completed [facility] HPV 2017-03-31 00:00:00 Completed [facility] HPV 2017-03-31 00:00:00 Completed [facility] HPV 2017-03-31 00:00:00 Completed [facility] HPV 2017-03-31 00:00:00 Completed [facility] HPV 2016-11-29 00:00:00 Completed [facility] HPV 2016-11-29 00:00:00 Completed [facility] HPV 2016-11-29 00:00:00 Completed [facility] HPV 2016-11-29 00:00:00 Completed [facility] HPV 2016-11-29 00:00:00 Completed [facility] HPV 2016-11-29 00:00:00 Completed [facility] HPV 2016-11-29 00:00:00 Completed [facility] HPV 2016-11-29 00:00:00 Completed [facility] HPV 2016-11-29 00:00:00 Completed [facility] HPV 2016-10-01 00:00:00 Completed [facility] HPV 2016-10-01 00:00:00 Completed [facility] HPV 2016-10-01 00:00:00 Completed [facility] HPV 2016-10-01 00:00:00 Completed [facility] HPV 2016-10-01 00:00:00 Completed [facility] HPV 2016-10-01 00:00:00 Completed [facility] HPV 2016-10-01 00:00:00 Completed [facility] HPV 2016-10-01 00:00:00 Completed [facility] HPV 2016-10-01 00:00:00 Completed [facility] TD, NOS 2016-07-31 00:00:00 Completed [facility] TD, NOS 2016-07-31 00:00:00 Completed [facility] Td 2016-07-31 00:00:00 Completed [facility] TD, NOS 2016-07-31 00:00:00 Completed [facility] TD, NOS 2016-07-31 00:00:00 Completed [facility] TD, NOS 2016-07-31 00:00:00 Completed [facility] TD, NOS 2016-07-31 00:00:00 Completed [facility] Td 2016-07-31 00:00:00 Completed [facility] Td 2016-07-31 00:00:00 Completed [facility] Td 2016-07-31 00:00:00 Completed [facility] Td 2016-07-31 00:00:00 Completed [facility] Td 2016-07-31 00:00:00 Completed [facility] Td 2016-07-31 00:00:00 Completed [facility] Td 2016-07-31 00:00:00 Completed [facility] Td 2016-07-31 00:00:00 Completed [facility] Td 2016-07-31 00:00:00 Completed [facility] Td 2016-07-31 00:00:00 Completed [facility] Td 2016-07-31 00:00:00 Completed [facility] Td 2016-07-31 00:00:00 Completed [facility] Td 2016-07-31 00:00:00 Completed [facility] Td 2016-07-31 00:00:00 Completed [facility] Td 2016-07-31 00:00:00 Completed [facility] Td 2016-07-31 00:00:00 Completed [facility] Td 2016-07-31 00:00:00 Completed [facility] Td 2016-07-31 00:00:00 Completed [facility] Td 2016-07-31 00:00:00 Completed [facility] Td 2016-07-31 00:00:00 Completed [facility] Td 2016-07-31 00:00:00 Completed [facility] Td 2016-07-31 00:00:00 Completed [facility] Td 2016-07-31 00:00:00 Completed [facility] Td 2016-07-31 00:00:00 Completed [facility] Td 2016-07-31 00:00:00 Completed [facility] Td 2016-07-31 00:00:00 Completed [facility] Td 2016-07-31 00:00:00 Completed [facility] Td 2016-07-31 00:00:00 Completed [facility] TD, NOS 2016-07-31 00:00:00 Completed [facility] TD, NOS 2016-07-31 00:00:00 Completed [facility] Td 2016-07-31 00:00:00 Completed [facility] TD, NOS 2016-07-31 00:00:00 Completed [facility] TD, NOS 2016-07-31 00:00:00 Completed [facility] TD, NOS 2016-07-31 00:00:00 Completed [facility] TD, NOS 2016-07-31 00:00:00 Completed [facility] Hepatitis A Adult 2012-08-26 00:00:00 Completed [facility] HPV 2012-08-26 00:00:00 Completed [facility] Hepatitis A Adult 2012-08-26 00:00:00 Completed [facility] HPV 2012-08-26 00:00:00 Completed [facility] Hepatitis A Adult 2012-08-26 00:00:00 Completed [facility] HPV 2012-08-26 00:00:00 Completed [facility] Hepatitis A Adult 2012-08-26 00:00:00 Completed [facility] HPV 2012-08-26 00:00:00 Completed [facility] Hepatitis A Adult 2012-08-26 00:00:00 Completed [facility] HPV 2012-08-26 00:00:00 Completed [facility] Hepatitis A Adult 2012-08-26 00:00:00 Completed [facility] HPV 2012-08-26 00:00:00 Completed [facility] Hepatitis A Adult 2012-08-26 00:00:00 Completed [facility] HPV 2012-08-26 00:00:00 Completed [facility] Hepatitis A Adult 2012-08-26 00:00:00 Completed [facility] HPV 2012-08-26 00:00:00 Completed [facility] Hepatitis A Adult 2012-08-26 00:00:00 Completed [facility] HPV 2012-08-26 00:00:00 Completed [facility] Hepatitis A Adult 2011-08-10 00:00:00 Completed [facility] HPV 2011-08-10 00:00:00 Completed [facility] Meningococcal Polysaccharide (groups A, C, Y and W-135) conjugate vaccine (MCV4P) 2011-08-10 00:00:00 Completed [facility] Hepatitis A Adult 2011-08-10 00:00:00 Completed [facility] HPV 2011-08-10 00:00:00 Completed [facility] Meningococcal Polysaccharide (groups A, C, Y and W-135) conjugate vaccine (MCV4P) 2011-08-10 00:00:00 Completed [facility] Hepatitis A Adult 2011-08-10 00:00:00 Completed [facility] HPV 2011-08-10 00:00:00 Completed [facility] Meningococcal Polysaccharide (groups A, C, Y and W-135) conjugate vaccine (MCV4P) 2011-08-10 00:00:00 Completed [facility] Hepatitis A Adult 2011-08-10 00:00:00 Completed [facility] HPV 2011-08-10 00:00:00 Completed [facility] Meningococcal Polysaccharide (groups A, C, Y and W-135) conjugate vaccine (MCV4P) 2011-08-10 00:00:00 Completed [facility] Hepatitis A Adult 2011-08-10 00:00:00 Completed [facility] HPV 2011-08-10 00:00:00 Completed [facility] Meningococcal Polysaccharide (groups A, C, Y and W-135) conjugate vaccine (MCV4P) 2011-08-10 00:00:00 Completed [facility] Hepatitis A Adult 2011-08-10 00:00:00 Completed [facility] HPV 2011-08-10 00:00:00 Completed [facility] Meningococcal Polysaccharide (groups A, C, Y and W-135) conjugate vaccine (MCV4P) 2011-08-10 00:00:00 Completed [facility] Hepatitis A Adult 2011-08-10 00:00:00 Completed [facility] HPV 2011-08-10 00:00:00 Completed [facility] Meningococcal Polysaccharide (groups A, C, Y and W-135) conjugate vaccine (MCV4P) 2011-08-10 00:00:00 Completed [facility] Hepatitis A Adult 2011-08-10 00:00:00 Completed [facility] HPV 2011-08-10 00:00:00 Completed [facility] Meningococcal Polysaccharide (groups A, C, Y and W-135) conjugate vaccine (MCV4P) 2011-08-10 00:00:00 Completed [facility] Hepatitis A Adult 2011-08-10 00:00:00 Completed [facility] HPV 2011-08-10 00:00:00 Completed [facility] Meningococcal Polysaccharide (groups A, C, Y and W-135) conjugate vaccine (MCV4P) 2011-08-10 00:00:00 Completed [facility] MMR 1999-02-02 00:00:00 Completed [facility] Tetanus/Diptheria 1999-02-02 00:00:00 Completed [facility] MMR 1999-02-02 00:00:00 Completed [facility] Tetanus/Diptheria 1999-02-02 00:00:00 Completed [facility] MMR 1999-02-02 00:00:00 Completed [facility] Tetanus/Diptheria 1999-02-02 00:00:00 Completed [facility] MMR 1999-02-02 00:00:00 Completed [facility] Tetanus/Diptheria 1999-02-02 00:00:00 Completed [facility] MMR 1999-02-02 00:00:00 Completed [facility] Tetanus/Diptheria 1999-02-02 00:00:00 Completed [facility] MMR 1999-02-02 00:00:00 Completed [facility] Tetanus/Diptheria 1999-02-02 00:00:00 Completed [facility] MMR 1999-02-02 00:00:00 Completed [facility] Tetanus/Diptheria 1999-02-02 00:00:00 Completed [facility] MMR 1999-02-02 00:00:00 Completed [facility] Tetanus/Diptheria 1999-02-02 00:00:00 Completed [facility] MMR 1999-02-02 00:00:00 Completed [facility] Tetanus/Diptheria 1999-02-02 00:00:00 Completed [facility] TD, NOS Unknown Completed [facility] TDAP Unknown Completed [facility] MMR Unknown Completed [facility] Influenza Virus Vaccine Quad .5 mL IM 6+ MO (FLUZONE/FLULAVAL/FL UARIX) Unknown Completed [facility] TDAP (ADACEL) VACCINE Unknown Completed [facility] Influenza Virus Vaccine Quad IM, Preserv and ABX Free 6 MO-64 YRS (FLUCELVAX) Unknown Completed [facility] HPV Unknown Completed [facility] HPV Unknown Completed [facility] HPV Unknown Completed [facility] SARS-COV-2 COVID-19 VACCINE - (MODERNA) Unknown Completed [facility] SARS-COV-2 COVID-19 VACCINE - (MODERNA) Unknown Completed [facility] Hepatitis A Adult Unknown Completed Un [facility] Hepatitis A Adult Unknown Completed Un [facility] HPV Unknown Completed [facility] HPV Unknown Completed [facility] Meningococcal Polysaccharide (groups A, C, Y and W-135) conjugate vaccine (MCV4P) Unknown Completed [facility] MMR Unknown Completed [facility] Tetanus/Diptheria Unknown [facility], [facility] Completed [facility] TDAP Unknown Completed [facility] MMR Unknown Completed [facility] Influenza Virus Vaccine Quad .5 mL IM 6+ MO (FLUZONE/FLULAVAL/FL UARIX) Unknown Completed [facility] TDAP (ADACEL) VACCINE Unknown Completed [facility] Influenza Virus Vaccine Quad IM, Preserv and ABX Free 6 MO-64 YRS (FLUCELVAX) Unknown Completed [facility] HPV Unknown Completed [facility] HPV Unknown Completed [facility] HPV Unknown Completed [facility] SARS-COV-2 COVID-19 VACCINE - (MODERNA) Unknown Completed [facility] SARS-COV-2 COVID-19 VACCINE - (MODERNA) Unknown Completed [facility]atitis [facility] Adult [facility] Completed [facility] HPV Unknown Completed [facility] Meningococcal Polysaccharide (groups A, C, Y and W-135) conjugate vaccine (MCV4P) Unknown Completed [facility] MMR Unknown Completed [facility] Tetanus/Diptheria Unknown [facility], N[facility] Unknown Completed [facility] TDAP Unknown Completed [facility] MMR Unknown Completed [facility] Influenza Virus Vaccine Quad .5 mL IM 6+ MO (FLUZONE/FLULAVAL/FL UARIX) Unknown Completed [facility] TDAP (ADACEL) VACCINE Unknown Completed [facility] Influenza Virus Vaccine Quad IM, Preserv and ABX Free 6 MO-64 YRS (FLUCELVAX) Unknown Completed [facility] HPV Unknown Completed [facility] HPV Unknown Completed [facility] HPV Unknown Completed [facility] SARS-COV-2 COVID-19 VACCINE - (MODERNA) Unknown Completed [facility] SARS-COV-2 COVID-19 VACCINE - (MODERNA) Unknown Completed [facility] Hepatitis A Adult Unknown [facility] HPV Unknown Completed [facility] Meningococcal Polysaccharide (groups A, C, Y and W-135) conjugate vaccine (MCV4P) Unknown Completed [facility] MMR Unknown Completed [facility] Tetanus/Diptheria Unknown [facility], NOS Unknown Completed [facility] TDAP Unknown Completed [facility] MMR Unknown Completed [facility] Influenza Virus Vaccine Quad .5 mL IM 6+ MO (FLUZONE/FLULAVAL/FL UARIX) Unknown Completed [facility] TDAP (ADACEL) VACCINE Unknown Completed [facility] Influenza Virus Vaccine Quad IM, Preserv and ABX Free 6 MO-64 YRS (FLUCELVAX) Unknown Completed [facility] HPV Unknown Completed [facility] HPV Unknown Completed [facility] HPV Unknown Completed [facility] SARS-COV-2 COVID-19 VACCINE - (MODERNA) Unknown Completed [facility] SARS-COV-2 COVID-19 VACCINE - (MODERNA) Unknown Completed [facility] Hepatitis A Adult Unknown [facility] Completed [facility] HPV Unknown Completed [facility] Meningococcal Polysaccharide (groups A, C, Y and W-135) conjugate vaccine (MCV4P) Unknown Completed [facility] MMR Unknown Completed [facility] Tetanus/Diptheria Unknown [facility], NOS Unknown Completed [facility] TDAP Unknown Completed [facility] MMR Unknown Completed [facility] Influenza Virus Vaccine Quad .5 mL IM 6+ MO (FLUZONE/FLULAVAL/FL UARIX) Unknown Completed [facility] TDAP (ADACEL) VACCINE Unknown Completed [facility] Influenza Virus Vaccine Quad IM, Preserv and ABX Free 6 MO-64 YRS (FLUCELVAX) Unknown Completed [facility] HPV Unknown Completed [facility] HPV Unknown Completed [facility] HPV Unknown Completed [facility] SARS-COV-2 COVID-19 VACCINE - (MODERNA) Unknown Completed [facility] SARS-COV-2 COVID-19 VACCINE - (MODERNA) Unknown Completed [facility] Hepatitis A Adult Unknown [facility] Completed [facility] HPV Unknown Completed [facility] Meningococcal Polysaccharide (groups A, C, Y and W-135) conjugate vaccine (MCV4P) Unknown Completed [facility] MMR Unknown Completed [facility] Tetanus/Diptheria Unknown [facility], NOS Unknown Completed [facility] TDAP Unknown Completed [facility] MMR Unknown Completed [facility] Influenza Virus Vaccine Quad .5 mL IM 6+ MO (FLUZONE/FLULAVAL/FL UARIX) Unknown Completed [facility] TDAP (ADACEL) VACCINE Unknown Completed [facility] Influenza Virus Vaccine Quad IM, Preserv and ABX Free 6 MO-64 YRS (FLUCELVAX) Unknown Completed [facility] HPV Unknown Completed [facility] HPV Unknown Completed [facility] HPV Unknown Completed [facility] SARS-COV-2 COVID-19 VACCINE - (MODERNA) Unknown [facility]19 VACCINE - (MODERNA) Unknown Completed [facility] Hepatitis A Adult Unknown [facility] Unknown Completed [facility] HPV Unknown Completed [facility] HPV Unknown Completed [facility] Meningococcal Polysaccharide (groups A, C, Y and W-135) conjugate vaccine (MCV4P) Unknown Completed [facility] MMR Unknown Completed [facility] Tetanus/Diptheria Unknown Completed Un [facility] TD, NOS Unknown Completed [facility] TDAP Unknown Completed [facility] MMR Unknown Completed [facility] Influenza Virus Vaccine Quad .5 mL IM 6+ MO (FLUZONE/FLULAVAL/FL UARIX) Unknown Completed [facility] TDAP (ADACEL) VACCINE Unknown Completed [facility] Influenza Virus Vaccine Quad IM, Preserv and ABX Free 6 MO-64 YRS (FLUCELVAX) Unknown Completed [facility] HPV Unknown Completed [facility] HPV Unknown Completed [facility] HPV Unknown Completed [facility] SARS-COV-2 COVID-19 VACCINE - (MODERNA) Unknown Completed [facility] SARS-COV-2 COVID-19 VACCINE - (MODERNA[facility] Completed [facility] HPV Unknown Completed [facility] Meningococcal Polysaccharide (groups A, C, Y and W-135) conjugate vaccine (MCV4P) Unknown Completed [facility] MMR Unknown Completed [facility] Tetanus/Diptheria Unknown [facility], NOS [facility] Completed [facility] TDAP Unknown Completed [facility] MMR Unknown Completed [facility] Influenza Virus Vaccine Quad .5 mL IM 6+ MO (FLUZONE/FLULAVAL/FL UARIX) Unknown Completed [facility] TDAP (ADACEL) VACCINE Unknown Completed [facility] Influenza Virus Vaccine Quad IM, Preserv and ABX Free 6 MO-64 YRS (FLUCELVAX) Unknown Completed [facility] HPV Unknown Completed [facility] HPV Unknown Completed [facility] HPV Unknown Completed [facility] SARS-COV-2 COVID-19 VACCINE - (MODERNA) Unknown Completed [facility] SARS-COV-2 COVID-19 VACCINE - (MODERNA) Unknown Completed [facility] Hepatitis A Adult Unknown Completed [facility] Hepatitis A Adult Unknown Completed [facility] HPV Unknown Completed [facility] HPV Unknown Completed [facility] Meningococcal Polysaccharide (groups A, C, Y and W-135) conjugate vaccine (MCV4P) Unknown Completed [facility] MMR Unknown Completed [facility] Tetanus/Diptheria Unknown Completed [facility] TD, NOS Unknown Completed [facility] TDAP Unknown Completed [facility] MMR Unknown Completed [facility] Influenza Virus Vaccine Quad .5 mL IM 6+ MO (FLUZONE/FLULAVAL/FL UARIX) Unknown Completed [facility] TDAP (ADACEL) VACCINE Unknown Completed [facility] Influenza Virus Vaccine Quad IM, Preserv and ABX Free 6 MO-64 YRS (FLUCELVAX) Unknown Completed [facility] HPV Unknown Completed [facility] HPV Unknown Completed [facility] HPV Unknown Completed [facility] SARS-COV-2 COVID-19 VACCINE - (MODERNA) Unknown Completed [facility] SARS-COV-2 COVID-19 VACCINE - (MODERNA) Unknown Completed [facility] Hepatitis A Adult Unknown Completed [facility] Hepatitis A Adult Unknown Completed [facility] HPV Unknown Completed [facility] HPV Unknown Completed [facility] Meningococcal Polysaccharide (groups A, C, Y and W-135) conjugate vaccine (MCV4P) Unknown Completed [facility] MMR Unknown Completed [facility] Tetanus/Diptheria Unknown Completed [facility] TD, NOS Unknown Completed [facility] TDAP Unknown Completed [facility] MMR Unknown Completed [facility] Influenza Virus Vaccine Quad .5 mL IM 6+ MO (FLUZONE/FLULAVAL/FL UARIX) Unknown Completed [facility] TDAP (ADACEL) VACCINE Unknown Completed [facility] Influenza Virus Vaccine Quad IM, Preserv and ABX Free 6 MO-64 YRS (FLUCELVAX) Unknown Completed [facility] HPV Unknown Completed [facility] HPV Unknown Completed [facility] HPV Unknown Completed [facility] SARS-COV-2 COVID-19 VACCINE - (MODERNA) Unknown Completed [facility] SARS-COV-2 COVID-19 VACCINE - (MODERNA) Unknown Completed [facility] Hepatitis A Adult Unknown Completed [facility] Hepatitis A Adult Unknown Completed [facility] HPV Unknown Completed [facility] HPV Unknown Completed [facility] Meningococcal Polysaccharide (groups A, C, Y and W-135) conjugate vaccine (MCV4P) Unknown Completed [facility] MMR Unknown Completed [facility] Tetanus/Diptheria Unknown Completed [facility] Vital Signs Vital Name Observation Time Observation Value Comments S ource Systolic blood pressure 2024-03-24 00:38:00 150 mm[Hg] [facility] Diastolic blood pressure 2024-03-24 00:38:00 97 mm[Hg] [facility] Heart rate 2024-03-24 00:38:00 88 /min [facility] Body temperature 2024-03-24 00:38:00 37 Meghna [facility] Respiratory rate 2024-03-24 00:38:00 16 /min [facility] Oxygen saturation in Arterial blood by Pulse oximetry 2024-03-24 00:38:00 98 /min [facility] Body height 2024-03-23 23:46:00 162.6 cm [facility] Body weight 2024-03-23 23:46:00 98.884 kg [facility] BMI 2024-03-23 23:46:00 37.42 kg/m2 [facility] Systolic blood pressure 2024 17:55:00 141 mm[Hg] [facility] Diastolic blood pressure 2024 17:55:00 85 mm[Hg] [facility] Heart rate 2024 17:52:00 77 /min [facility] Body temperature 2024 17:52:00 36.78 Meghna [facility] Respiratory rate 2024 17:52:00 16 /min [facility] Body weight 2024 17:52:00 98.884 kg [facility] BMI 2024 17:52:00 37.42 kg/m2 [facility] Oxygen saturation in Arterial blood by Pulse oximetry 2024 17:52:00 97 /min [facility] Heart rate 2024-01-25 21:30:00 66 /min [facility] Body temperature 2024-01-25 21:30:00 36.94 Meghna [facility] Oxygen saturation in Arterial blood by Pulse oximetry 2024-01-25 21:30:00 99 /min [facility] Systolic blood pressure 2024-01-25 21:00:00 129 mm[Hg] [facility] Diastolic blood pressure 2024-01-25 21:00:00 66 mm[Hg] [facility] Respiratory rate 2024-01-25 21:00:00 16 /min [facility] Body height 2024-01-25 19:13:00 162.6 cm [facility] Body weight 2024-01-25 19:13:00 90.719 kg [facility] BMI 2024-01-25 19:13:00 34.33 kg/m2 [facility] Systolic blood pressure 2023-11-27 23:07:00 160 mm[Hg] [facility] Diastolic blood pressure 2023-11-27 23:07:00 109 mm[Hg] [facility] Heart rate 2023-11-27 23:07:00 88 /min [facility] Body temperature 2023-11-27 23:07:00 37.39 Meghna [facility] Respiratory rate 2023-11-27 23:07:00 18 /min [facility] Body height 2023-11-27 23:07:00 162.6 cm [facility] Body weight 2023-11-27 23:07:00 79.379 kg [facility] BMI 2023-11-27 23:07:00 30.04 kg/m2 [facility] Oxygen saturation in Arterial blood by Pulse oximetry 2023-11-27 23:07:00 98 /min [facility] Systolic blood pressure 2023-08-08 07:31:00 149 mm[Hg] [facility] Diastolic blood pressure 2023-08-08 07:31:00 95 mm[Hg] [facility] Heart rate 2023-08-08 07:31:00 75 /min [facility] Respiratory rate 2023-08-08 07:31:00 20 /min [facility] Oxygen saturation in Arterial blood by Pulse oximetry 2023-08-08 07:31:00 100 /min [facility] Body temperature 2023-08-08 04:10:00 36.94 Meghna [facility] Body height 2023-08-08 04:10:00 162.6 cm [facility] Body weight 2023-08-08 04:10:00 99.791 kg [facility] BMI 2023-08-08 04:10:00 37.76 kg/m2 [facility] Systolic blood pressure 2023-07-29 16:39:00 113 mm[Hg] [facility] Diastolic blood pressure 2023-07-29 16:39:00 88 mm[Hg] [facility] Heart rate 2023-07-29 16:39:00 99 /min [facility] Body temperature 2023-07-29 16:39:00 36.94 Meghna [facility] Respiratory rate 2023-07-29 16:39:00 16 /min [facility] Body height 2023-07-29 16:39:00 162.6 cm [facility] Body weight 2023-07-29 16:39:00 101.424 kg [facility] BMI 2023-07-29 16:39:00 38.38 kg/m2 [facility] Oxygen saturation in Arterial blood by Pulse oximetry 2023-07-29 16:39:00 97 /min [facility] Systolic blood pressure 2023-07-25 04:46:00 150 mm[Hg] [facility] Diastolic blood pressure 2023-07-25 04:46:00 91 mm[Hg] [facility] Body temperature 2023-07-25 04:46:00 37.5 Meghna [facility] Respiratory rate 2023-07-25 04:46:00 16 /min [facility] Oxygen saturation in Arterial blood by Pulse oximetry 2023-07-25 04:46:00 98 /min [facility] Heart rate 2023-07-25 01:22:00 85 /min [facility] Body height 2023-07-25 01:22:00 162.6 cm [facility] Body weight 2023-07-25 01:22:00 97.523 kg [facility] BMI 2023-07-25 01:22:00 36.90 kg/m2 [facility] Heart rate 2023-07-03 13:44:00 80 /min [facility] Body temperature 2023-07-03 13:44:00 37.39 Meghna [facility] Respiratory rate 2023-07-03 13:44:00 16 /min [facility] Body height 2023-07-03 13:44:00 162.6 cm [facility] Body weight 2023-07-03 13:44:00 99.791 kg [facility] BMI 2023-07-03 13:44:00 37.76 kg/m2 [facility] Oxygen saturation in Arterial blood by Pulse oximetry 2023-07-03 13:44:00 100 /min [facility] Systolic blood pressure 2023-05-29 16:05:00 131 mm[Hg] [facility] Diastolic blood pressure 2023-05-29 16:05:00 70 mm[Hg] [facility] Heart rate 2023-05-29 16:05:00 76 /min [facility] Body temperature 2023-05-29 16:05:00 37.11 Meghna [facility] Respiratory rate 2023-05-29 16:05:00 16 /min [facility] Body height 2023-05-29 16:05:00 167.6 cm [facility] Body weight 2023-05-29 16:05:00 99.99 kg [facility] BMI 2023-05-29 16:05:00 35.58 kg/m2 [facility] Oxygen saturation in Arterial blood by Pulse oximetry 2023-05-29 16:05:00 98 /min [facility] Systolic blood pressure 2023-05-03 15:32:00 137 mm[Hg] [facility] Diastolic blood pressure 2023-05-03 15:32:00 87 mm[Hg] [facility] Heart rate 2023-05-03 15:24:00 65 /min [facility] Body temperature 2023-05-03 15:24:00 35.39 Meghna [facility] Respiratory rate 2023-05-03 15:24:00 18 /min [facility] Body height 2023-05-03 15:24:00 162.6 cm [facility] Body weight 2023-05-03 15:24:00 101.515 kg [facility] BMI 2023-05-03 15:24:00 38.42 kg/m2 [facility] Systolic blood pressure 2023-02-07 18:54:00 140 mm[Hg] [facility] Diastolic blood pressure 2023-02-07 18:54:00 80 mm[Hg] [facility] Heart rate 2023-02-07 18:45:00 76 /min [facility] Body temperature 2023-02-07 18:44:00 36 Meghna [facility] Respiratory rate 2023-02-07 18:44:00 18 /min [facility] Body height 2023-02-07 18:44:00 162.6 cm [facility] Body weight 2023-02-07 18:44:00 102.83 kg [facility] BMI 2023-02-07 18:44:00 38.91 kg/m2 [facility] Systolic blood pressure 2023-01-24 13:44:00 140 mm[Hg] [facility] Diastolic blood pressure 2023-01-24 13:44:00 65 mm[Hg] [facility] Heart rate 2023-01-24 13:39:00 68 /min [facility] Body temperature 2023-01-24 13:37:00 36.28 Meghna [facility] Respiratory rate 2023-01-24 13:37:00 18 /min [facility] Body height 2023-01-24 13:37:00 165.1 cm [facility] Body weight 2023-01-24 13:37:00 102.876 kg [facility] BMI 2023-01-24 13:37:00 37.74 kg/m2 [facility] Systolic blood pressure 2023-01-19 16:00:00 123 mm[Hg] [facility] Diastolic blood pressure 2023-01-19 16:00:00 85 mm[Hg] [facility] Heart rate 2023-01-19 16:00:00 76 /min [facility] Respiratory rate 2023-01-19 16:00:00 19 /min [facility] Oxygen saturation in Arterial blood by Pulse oximetry 2023-01-19 16:00:00 99 /min [facility] Body temperature 2023-01-19 13:31:00 37.28 Meghna [facility] Body weight 2023-01-19 13:31:00 90.719 kg [facility] 2023-01-19 13:31:00 34.33 kg/m2 [facility] Systolic blood pressure 2023-01-12 01:00:00 157 mm[Hg] [facility] Diastolic blood pressure 2023-01-12 01:00:00 99 mm[Hg] [facility] Heart rate 2023-01-12 01:00:00 93 /min [facility] Body temperature 2023-01-12 01:00:00 38.11 Meghna [facility] Respiratory rate 2023-01-12 01:00:00 17 /min [facility] Body height 2023-01-12 01:00:00 162.6 cm [facility] Body weight 2023-01-12 01:00:00 90.719 kg [facility] BMI 2023-01-12 01:00:00 34.33 kg/m2 [facility] Oxygen saturation in Arterial blood by Pulse oximetry 2023-01-12 01:00:00 99 /min [facility] Systolic blood pressure 2021-10-26 00:50:00 135 mm[Hg] [facility] Diastolic blood pressure 2021-10-26 00:50:00 89 mm[Hg] [facility] Heart rate 2021-10-26 00:50:00 99 /min [facility] Body temperature 2021-10-26 00:50:00 37.17 Meghna [facility] Respiratory rate 2021-10-26 00:50:00 17 /min [facility] Body height 2021-10-26 00:50:00 165.1 cm [facility] Body weight 2021-10-26 00:50:00 90.719 kg [facility] BMI 2021-10-26 00:50:00 33.28 kg/m2 [facility] Oxygen saturation in Arterial blood by Pulse oximetry 2021-10-26 00:50:00 100 /min [facility] Systolic blood pressure 2021-08-04 13:29:00 153 mm[Hg] [facility] Diastolic blood pressure 2021-08-04 13:29:00 87 mm[Hg] [facility] Heart rate 2021-08-04 13:29:00 75 /min [facility] Body temperature 2021-08-04 13:29:00 37.22 Meghna [facility] Respiratory rate 2021-08-04 13:29:00 17 /min [facility] Body height 2021-08-04 13:29:00 162.6 cm [facility] Body weight 2021-08-04 13:29:00 90.719 kg [facility] BMI 2021-08-04 13:29:00 34.33 kg/m2 [facility] Oxygen saturation in Arterial blood by Pulse oximetry 2021-08-04 13:29:00 100 /min [facility] Systolic blood pressure 2021-07-26 15:00:00 132 mm[Hg] [facility] Diastolic blood pressure 2021-07-26 15:00:00 85 mm[Hg] [facility] Heart rate 2021-07-26 15:00:00 55 /min [facility] Respiratory rate 2021-07-26 15:00:00 17 /min [facility] Oxygen saturation in Arterial blood by Pulse oximetry 2021-07-26 15:00:00 99 /min [facility] Body temperature 2021-07-26 14:47:31 36.5 Meghna [facility] Body height 2021-07-26 14:45:00 162.6 cm [facility] Body weight 2021-07-26 14:45:00 90.719 kg [facility] BMI 2021-07-26 14:45:00 34.33 kg/m2 [facility] Body temperature 2020-10-18 04:43:25 37.44 Meghna [facility] Systolic blood pressure 2020-10-18 04:42:32 144 mm[Hg] [facility] Diastolic blood pressure 2020-10-18 04:42:32 87 mm[Hg] [facility] Heart rate 2020-10-18 04:42:32 80 /min [facility] Respiratory rate 2020-10-18 04:42:32 18 /min [facility] Oxygen saturation in Arterial blood by Pulse oximetry 2020-10-18 04:42:32 99 /min [facility] Body height 2020-10-18 03:04:00 162.6 cm [facility] Body weight 2020-10-18 03:04:00 99.791 kg [facility] BMI 2020-10-18 03:04:00 37.76 kg/m2 [facility] Body temperature 2020-10-18 04:43:25 37.44 Meghna [facility] Systolic blood pressure 2020-10-18 04:42:32 144 mm[Hg] [facility] Diastolic blood pressure 2020-10-18 04:42:32 87 mm[Hg] [facility] Heart rate 2020-10-18 04:42:32 80 /min [facility] Respiratory rate 2020-10-18 04:42:32 18 /min [facility] Oxygen saturation in Arterial blood by Pulse oximetry 2020-10-18 04:42:32 99 /min [facility] Body height 2020-10-18 03:04:00 162.6 cm [facility] Body weight 2020-10-18 03:04:00 99.791 kg [facility] BMI 2020-10-18 03:04:00 37.76 kg/m2 [facility] Systolic blood pressure 2019-12-24 20:39:00 129 mm[Hg] [facility] Diastolic blood pressure 2019-12-24 20:39:00 90 mm[Hg] [facility] Heart rate 2019-12-24 20:36:00 76 /min [facility] Body temperature 2019-12-24 20:36:00 36.56 Meghna [facility] Respiratory rate 2019-12-24 20:36:00 16 /min [facility] Body height 2019-12-24 20:36:00 162.6 cm [facility] Body weight 2019-12-24 20:36:00 109.374 kg [facility] BMI 2019-12-24 20:36:00 41.39 kg/m2 [facility] Systolic blood pressure 2019-12-24 20:39:00 129 mm[Hg] [facility] Diastolic blood pressure 2019-12-24 20:39:00 90 mm[Hg] [facility] Heart rate 2019-12-24 20:36:00 76 /[facility] 2019-12-24 20:36:00 36.56 Meghna [facility] Respiratory rate 2019-12-24 20:36:00 16 /min [facility] Body height 2019-12-24 20:36:00 162.6 cm [facility] Body weight 2019-12-24 20:36:00 109.374 kg [facility] BMI 2019-12-24 20:36:00 41.39 kg/m2 [facility] Systolic blood pressure 2019-12-05 16:39:00 120 mm[Hg] [facility] Diastolic blood pressure 2019-12-05 16:39:00 78 mm[Hg] [facility] Heart rate 2019-12-05 16:39:00 83 /min [facility] Body temperature 2019-12-05 16:39:00 36.11 Meghna [facility] Respiratory rate 2019-12-05 16:39:00 18 /min [facility] Body height 2019-12-05 16:39:00 162.6 cm [facility] Body weight 2019-12-05 16:39:00 106.822 kg [facility] BMI 2019-12-05 16:39:00 40.42 kg/m2 [facility] Systolic blood pressure 2019-11-21 16:39:00 126 mm[Hg] [facility] Diastolic blood pressure 2019-11-21 16:39:00 77 mm[Hg] [facility] Heart rate 2019-11-21 16:38:00 71 /min [facility] Body temperature 2019-11-21 16:38:00 36.78 Meghna [facility] Respiratory rate 2019-11-21 16:38:00 16 /min [facility] Body height 2019-11-21 16:38:00 162.6 cm [facility] Body weight 2019-11-21 16:38:00 113.031 kg [facility] BMI 2019-11-21 16:38:00 42.77 kg/m2 [facility] Systolic blood pressure 2019-11-16 14:00:00 134 mm[Hg] [facility] Diastolic blood pressure 2019-11-16 14:00:00 88 mm[Hg] [facility] Heart rate 2019-11-16 14:00:00 78 /min [facility] Body temperature 2019-11-16 14:00:00 36.72 Meghna [facility] Respiratory rate 2019-11-16 14:00:00 18 /min [facility] Oxygen saturation in Arterial blood by Pulse oximetry 2019-11-16 14:00:00 99 /min [facility] Body height 2019-11-14 12:25:00 162.6 cm [facility] Body weight 2019-11-14 12:25:00 117.618 kg [facility] BMI 2019-11-14 12:25:00 44.51 kg/m2 [facility] Systolic blood pressure 2019-11-07 19:11:00 130 mm[Hg] [facility] Diastolic blood pressure 2019-11-07 19:11:00 72 mm[Hg] [facility] Heart rate 2019-11-07 19:11:00 89 /min [facility] Body temperature 2019-11-07 19:11:00 36.78 Meghna [facility] Respiratory rate 2019-11-07 19:11:00 16 /min [facility] Body height 2019-11-07 19:11:00 162.6 cm [facility] Body weight 2019-11-07 19:11:00 121.734 kg [facility] BMI 2019-11-07 19:11:00 46.07 kg/m2 [facility] Systolic blood pressure 2019-10-30 19:24:00 127 mm[Hg] [facility] Diastolic blood pressure 2019-10-30 19:24:00 77 mm[Hg] [facility] Heart rate 2019-10-30 19:24:00 97 /min [facility] Body temperature 2019-10-30 19:24:00 37.22 Meghna [facility] Respiratory rate 2019-10-30 19:24:00 16 /min [facility] Body height 2019-10-30 19:24:00 162.6 cm [facility] Body weight 2019-10-30 19:24:00 117.198 kg [facility] BMI 2019-10-30 19:24:00 44.35 kg/m2 [facility] Systolic blood pressure 2019-10-23 19:24:00 126 mm[Hg] [facility] Diastolic blood pressure 2019-10-23 19:24:00 80 mm[Hg] [facility] Heart rate 2019-10-23 19:24:00 103 /min [facility] Body temperature 2019-10-23 19:24:00 37.22 Meghna [facility] Respiratory rate 2019-10-23 19:24:00 16 /min [facility] Body height 2019-10-23 19:24:00 165.1 cm [facility] Body weight 2019-10-23 19:24:00 115.015 kg [facility] BMI 2019-10-23 19:24:00 42.20 kg/m2 [facility] Systolic blood pressure 2019-10-16 19:06:00 137 mm[Hg] [facility] Diastolic blood pressure 2019-10-16 19:06:00 74 mm[Hg] [facility] Heart rate 2019-10-16 19:05:00 100 /min [facility] Body temperature 2019-10-16 19:05:00 37.17 Meghna [facility] Respiratory rate 2019-10-16 19:05:00 16 /min [facility] Body height 2019-10-16 19:05:00 165.1 cm [facility] Body weight 2019-10-16 19:05:00 115.412 kg [facility] BMI 2019-10-16 19:05:00 42.34 kg/m2 [facility] Systolic blood pressure 2019-06-06 18:47:00 114 mm[Hg] [place] [facility] Diastolic blood pressure 2019-06-06 18:47:00 71 mm[Hg] [facility] Heart rate 2019-06-06 18:47:00 81 /min [facility] Body temperature 2019-06-06 18:47:00 36.39 Meghna [facility] Respiratory rate 2019-06-06 18:47:00 16 /min [facility] Body height 2019-06-06 18:47:00 162.6 cm [facility] Body weight 2019-06-06 18:47:00 107.644 kg [facility] BMI 2019-06-06 18:47:00 40.73 kg/m2 [facility] BP Diastolic 2024-02-04 13:39:00 92 mm[Hg] Dilshad phen F Haresh Weight Measured 2024-02-04 13:39:00 225.40 pounds Sawyer Hutson Height Measured 2024-02-04 13:39:00 64.00 inches Sawyer Leija [facility] Body Temperature 2024-02-04 13:39:00 98.30 degrees Sawyer F [facility]resh Heart Rate 2024-02-04 13:39:00 71.00 /min Shaina en F Haresh Respiratory Rate 2024-02-04 13:39:00 16.00 /min Sawyer F [facility]resh BP Systolic 2024-02-04 13:39:00 144 mm[Hg] Step hen F [facility] Body Temperature 2023-02-16 17:07:00 97.80 degrees Sawyer F [facility]resh Heart Rate 2023-02-16 17:07:00 70.00 /min Shaina en F [facility] Respiratory Rate 2023-02-16 17:07:00 16.00 /min Sawyer F [facility]resh BP Systolic 2023-02-16 17:07:00 156 mm[Hg] Step hen F [facility] BP Diastolic 2023-02-16 17:07:00 93 mm[Hg] Dilshad phen F [facility]resh Weight Measured 2023-02-16 17:07:00 226.40 pounds Sawyer F [facility]resh Height Measured 2023-02-16 17:07:00 64.00 inches Sawyer F [facility]resh BP Systolic 2021-08-29 08:35:00 126 mm[Hg] Step hen F [facility] BP Diastolic 2021-08-29 08:35:00 83 mm[Hg] Dilshad phen F [facility]resh Weight Measured 2021-08-29 08:35:00 227.20 pounds Sawyer F [facility]resh Height Measured 2021-08-29 08:35:00 64.00 inches Sawyer F [facility] Body Temperature 2021-08-29 08:35:00 97.80 degrees Sawyer F Haresh Heart Rate 2021-08-29 08:35:00 85.00 /min Shaina en F [facility]resh Respiratory Rate 2021-08-29 08:35:00 16.00 /min Sawyer F [facility]resh BP Systolic 2021-01-12 17:05:00 131 mm[Hg] Step hen F [facility]resh BP Diastolic 2021-01-12 17:05:00 85 mm[Hg] Dilshad phen F Haresh Weight Measured 2021-01-12 17:05:00 239.00 pounds Sawyer F Haresh Height Measured 2021-01-12 17:05:00 64.00 inches Sawyer F Haresh Body Temperature 2021-01-12 17:05:00 Sawyer F Haresh Heart Rate 2021-01-12 17:05:00 73.00 /min Shaina en F Haresh Respiratory Rate 2021-01-12 17:05:00 16.00 /min Sawyer F Haresh BP Systolic 2021-01-12 16:26:00 131 mm[Hg] Step hen F Haresh BP Diastolic 2021-01-12 16:26:00 85 mm[Hg] Dilshad phen F Haresh Weight Measured 2021-01-12 16:26:00 239.00 pounds Sawyer F Haresh Height Measured 2021-01-12 16:26:00 64.00 inches Sawyer F Haresh Body Temperature 2021-01-12 16:26:00 Sawyer F Haresh Heart Rate 2021-01-12 16:26:00 73.00 /min Shaina en F Haresh Respiratory Rate 2021-01-12 16:26:00 16.00 /min Sawyer Hutson BP Systolic 2015-07-15 12:18:00 135 mm[Hg] Step hen F Haresh BP Diastolic 2015-07-15 12:18:00 88 mm[Hg] Dilshad phen F Haresh Weight Measured 2015-07-15 12:18:00 239.80 pounds Sawyer Hutson Height Measured 2015-07-15 12:18:00 64.00 inches Sawyer Hutson Body Temperature 2015-07-15 12:18:00 98.40 degrees Sawyer Hutson Heart Rate 2015-07-15 12:18:00 101.00 /min Step hen Heladio Hutson Respiratory Rate 2015-07-15 12:18:00 Sawyermerari Hutson BP Systolic 2015-07-15 12:11:00 141 mm[Hg] Step hen F Haresh BP Diastolic 2015-07-15 12:11:00 91 mm[Hg] iDlshad phen Heladio Hutson Weight Measured 2015-07-15 12:11:00 239.80 pounds Sawyer Hutson Height Measured 2015-07-15 12:11:00 64.00 inches Sawyer Hutson Body Temperature 2015-07-15 12:11:00 98.40 degrees Sawyer Hutson Heart Rate 2015-07-15 12:11:00 101.00 /min Step hen Heladio Hutson Respiratory Rate 2015-07-15 12:11:00 Sawyer Hutson Procedures Procedure Date / Time Performed Performing Clinician Source 36125 Removal Impacted Cerumen Using Irrigation/lavage, Unilateral 2024-02-04 00:00:00 Sawyer Hutson POCT TEST 2024-01-25 19:53:00 Fatoumata Valerio [facility] LIPASE 2024-01-25 19:51:00 Joaquim Valerio Un [facility] COMP. METABOLIC PANEL (39434) 2024-01-25 19:51:00 Joaquim Valerio [facility] CBC WITH DIFF 2024-01-25 19:51:00 Joaquim Valerio U [facility] URINALYSIS 2024-01-25 19:51:00 Joaquim Valerio Un [facility] CONSENT/REFUSAL FOR DIAGNOSIS AND TREATMENT 2023-11-27 23:03:58 Doctor Unassigned, [place] [facility] BASIC METABOLIC PANEL (NA, K, CL, CO2, GLUCOSE, BUN, CREATININE, CA) 2023-08-08 06:20:00 Heraclio Llanes [facility] CBC WITH DIFF 2023-08-08 06:20:00 Heraclio Llanes [facility] D-DIMER 2023-08-08 06:20:00 Heraclio Llanes [facility] ASSIGNMENT OF BENEFITS 2023-08-08 05:40:46 Docto r Unassigned, [place] [facility] XR CHEST 1 VW 2023-08-08 04:26:53 Heraclio Llanes [facility] POCT TEST 2023-08-08 04:24:00 Heraclio Llanes [facility] CONSENT/REFUSAL FOR DIAGNOSIS AND TREATMENT 2023-08-08 04:02:41 Doctor Unassigned, [place] [facility] POCT SARS-COV-2 ANTIGEN (BINAX NOW) 2023-07-29 16:51:00 Wicho Tellez [facility] ASSIGNMENT OF BENEFITS 2023-07-25 04:39:47 Docto r Unassigned, [place] [facility] XR CHEST 1 VW 2023-07-25 03:21:14 Priya Morton [facility] POCT TEST 2023-07-25 01:54:00 Kenneth Morton [facility] RAPID STREP SCREEN FOR GROUP A 2023-07-25 01:45:00 Priya Morton [facility] RAPID INFLUENZA A/B 2023-07-25 01:45:00 Kenneth Morton [facility] COVID-19 (ID NOW RAPID TESTING) 2023-07-25 01:45:00 Priya Morton [facility] CONSENT/REFUSAL FOR DIAGNOSIS AND TREATMENT 2023-07-25 01:17:40 Doctor Unassigned, [place] [facility] CONSENT/REFUSAL FOR DIAGNOSIS AND TREATMENT 2023-07-03 13:32:15 Doctor Unassigned, [place] [facility] POCT SARS-COV-2 ANTIGEN (BINAX NOW) 2023-05-29 16:25:00 Wicho Tellez [facility] POCT MOLECULAR FLU 2023-05-29 16:14:00 Unknown, Attend ing [facility] POCT TEST 2023-05-03 15:28:00 Issac Carey [facility] DISCLOSURE AND CONSENT, MEDICAL AND SURGICAL PROCEDURES 2023-02-07 05:01:00 Doctor Unassigned, [place] [facility] FLU VACC (), 6 MO-64 YRS, .5ML, IM, QUAD (FLUCELVAX) 2023-01-24 14:17:47 Nesha Carey [facility] EKG-12 LEAD 2023-01-19 16:14:05 Derrell [facility] POCT TEST 2023-01-19 14:28:00 Derrell Kunz [facility] URINE DRUG (IMMUNOASSAY) - COMPREHENSIVE DRUG SCREEN 2023-01-19 14:21:00 Derrell Kunz [facility] URINALYSIS 2023-01-19 14:21:00 Derrell [facility] MAGNESIUM 2023-01-19 14:17:00 Derrell [facility] TROPONIN I 2023-01-19 14:17:00 Derrell [facility] COMP. METABOLIC PANEL ([id number]) 2023-01-19 14:17:00 Derrell Kunz [facility] CBC WITH DIFF 2023-01-19 14:17:00 Derrell Kunz [facility] N-TERMINAL PRO-BNP 2023-01-19 14:17:00 Derrell Kunz [facility] CONSENT/REFUSAL FOR DIAGNOSIS AND TREATMENT 2023-01-19 13:26:02 Doctor Unassigned, [place] [facility] POCT TEST 2023-01-12 01:45:00 Kenneth Morton [facility] RAPID STREP SCREEN FOR GROUP A 2023-01-12 01:38:00 Priya Morton [facility] RAPID INFLUENZA A/B 2023-01-12 01:38:00 Kenneth Morton [facility] COVID-19 (ID NOW RAPID TESTING) 2023-01-12 01:38:00 Priya Morton [facility] NOTICE OF PRIVACY PRACTICES 2023-01-12 01:00:22 Doctor Unassigned, [place] [facility] CONSENT/REFUSAL FOR DIAGNOSIS AND TREATMENT 2023-01-12 00:59:47 Doctor Unassigned, [place] [facility] POCT TEST 2021-10-26 02:09:00 Annette Munoz [facility] URINALYSIS 2021-10-26 01:51:00 [facility] CONSENT/REFUSAL FOR DIAGNOSIS AND TREATMENT 2021-10-26 00:19:47 Doctor Unassigned, [place] [facility] RAPID STREP SCREEN FOR GROUP A 2021-08-04 13:35:00 Narayan Duran [facility] RAPID INFLUENZA A/B 2021-08-04 13:35:00 Faraz Duran [facility] COVID-19 (ID NOW RAPID TESTING) 2021-08-04 13:35:00 Narayan Duran [facility] CONSENT/REFUSAL FOR DIAGNOSIS AND TREATMENT 2021-08-04 13:23:30 Doctor Unassigned, [place] [facility] XR CHEST 1 VW 2021-07-26 15:28:55 Cintia Licea [facility] MAGNESIUM 2021-07-26 15:10:00 Cintia [facility]icea [facility] BASIC METABOLIC PANEL (NA, K, CL, CO2, GLUCOSE, BUN, CREATININE, CA) 2021-07-26 15:10:00 Cintia Licea [facility] CBC WITH DIFF 2021-07-26 15:10:00 Cintia Licea [facility] RAPID STREP SCREEN FOR GROUP A 2020-10-18 03:41:00 Van Dillon [facility] ADC,CLC OR LCC ONLY - INFLUENZA A & B DIRECT ANTIGEN 2020-10-18 03:41:00 Van Dillon [facility] NOTICE OF PRIVACY PRACTICES 2020-10-18 02:52:24 Doctor Unassigned, [place] [facility] CONSENT/REFUSAL FOR DIAGNOSIS AND TREATMENT 2020-10-18 02:52:04 Doctor Unassigned, [place] [facility] POCT TEST 2019-12-24 20:57:00 Chico Bosch [facility] CONSENT FOR CONTRACEPTION 2019-12-24 05:01:00 Do ctor Unassigned, [place] [facility] CBC WITH DIFFERENTIAL 2019-11-15 10:29:00 Tono Gonzalez [facility] VENOUS CORD GAS 2019-11-14 14:57:00 Asim Rodriguez [facility] HB ABO GROUPING 2019-11-14 12:45:00 Asim Rodriguez [facility] RHO (D) IMMUNE GLOBULIN 2019-11-14 12:45:00 Tono Johnson [facility] CBC WITH DIFFERENTIAL 2019-11-14 12:42:00 Asim Mandel [facility] HEPATITIS B SURFACE ANTIGEN 2019-11-14 12:42:00 Asim Rodriguez [facility] GALV ONLY - SYPHILIS IGG/IGM 2019-11-14 12:42:00 [facility] HOSPITAL ADMISSION 2019-11-14 06:01:00 Doctor Un assigned, [place] [facility] POCT URINALYSIS W/O SPECIFIC GRAVITY 2019-11-07 19:35:00 Spike Bosch [facility] POCT GLUCOSE (AUTOMATED) 2019-10-30 19:41:00 Spike Bosch [facility] POCT URINALYSIS GLUCOSE & PROTEIN 2019-10-30 19:32:00 Merritt Carey [facility] POCT URINALYSIS W/O SPECIFIC GRAVITY 2019-10-23 22:17:00 Spike Bosch [facility] POCT URINALYSIS W/O SPECIFIC GRAVITY 2019-10-16 19:14:00 Spike Bosch [facility] AUTHORIZATION FOR RELEASE OF PHI 2019-08-15 06:01:00 Doctor Unassigned, [place] [facility] POCT TEST 2019-06-06 18:49:00 Chico Bosch [facility] POCT URINALYSIS W/O SPECIFIC GRAVITY 2019-06-06 18:48:00 Spike Bosch [facility] NO SHOW OR MISSED APPOINTMENT POLICY ACKNOWLEDGEMENT 2019-06-06 17:31:05 Doctor Unassigned, [place] [facility] Encounters Start Date/Time End Date/Time Encounter Type Admission Type Attending [facility] Care Facility Care Department Encounter ID Source 2021-07-30 17:48:41 Emergency [facility] [id number] [facility] 2024-03-23 18:48:00 2024-03-23 19:47:00 Emergency X DONAL MUNROE ANDRES [facility] E[facility] [id number] [facility] 2024-03-23 18:48:00 2024-03-23 19:47:00 Emergency Donal Munroe [facility] 1.2.840.114 350.1.13.10 4.2.7.2.686 [id number] [facility] 2024 12:40:00 2024 13:30:30 Outpatient R ESDRAS CHAUDHRY [facility] [id number] [facility] 2024 12:40:00 2024 13:30:30 Urgent Care Esdras Chaudhry Unknown, Attending [facility] 1.2.840.114 350.1.13.10 4.2.7.2.686 [id number] [facility] 2024-02-13 13:30:00 2024-02-13 13:30:00 Outpatient R NESHA CAREY [facility] [id number] [facility] 2024-02-04 13:29:00 2024-02-04 13:29:00 Outpatient SFA [facility] [id number] Sawyer Hutson 2024-02-04 00:00:00 2024-02-04 00:00:00 Outpatient Visit [facility] [id number] Sawyer Hutson 2024-01-25 14:14:00 2024-01-25 16:41:00 Emergency X TEODORO , JOAQUIM VALERIO , JOAQUIM [facility] E[facility] [id number] [facility] 2024-01-25 14:14:00 2024-01-25 16:41:00 Emergency Joaquim Valerio [facility] 1.2.840.114 350.1.13.10 4.2.7.2.686 [id number] [facility] 2023-12-11 14:09:06 2023-12-11 14:09:06 Outpatient SFA [facility] [id number] Sawyer Hutson 2023-11-27 17:10:00 2023-11-27 17:49:00 Emergency X Derrell KUNZ [facility] [id number] [facility] 2023-11-27 17:10:00 2023-11-27 17:49:00 Emergency Derrell Kunz [facility] 1.2.840.114 350.1.13.10 4.2.7.2.686 [id number] [facility] 2023-08-07 22:06:00 2023-08-08 01:39:00 Emergency X HERACLIO LLANES [facility] E[facility] [id number] [facility] 2023-08-07 22:06:00 2023-08-08 01:39:00 Emergency Heraclio Llanes [facility] 1.2.840.114 350.1.13.10 4.2.7.2.686 [id number] [facility] 2023-07-29 11:20:00 2023-07-29 12:13:25 Outpatient R IRAIDA ROB [facility] [id number] [facility] 2023-07-29 11:20:00 2023-07-29 11:40:00 Urgent Care Iraida Rob Unknown, Attending [facility] 1..114 350.1.13.10 4.2.7.2.686 [id number] [facility] 2023-07-26 13:30:00 2023-07-26 13:30:00 Outpatient R [facility] [id number] [facility] 2023-07-24 20:30:00 2023-07-25 01:22:00 Emergency X PRAVEEN [facility] ERT [id number] [facility] 2023-07-24 20:30:00 2023-07-25 01:22:00 Emergency Priya Morton [facility] 1..114 350.1.13.10 4.2.7.2.686 [id number] [facility] 2023-07-03 08:47:00 2023-07-03 11:03:00 Emergency X MELIA HERRERA [facility] [id number] [facility] 2023-07-03 08:47:00 2023-07-03 11:03:00 Emergency Nilson, Melia [facility] 1..114 350.1.13.10 4.2.7.2.686 [id number] [facility] 2023-07-03 00:00:00 2023-07-03 00:00:00 Patient Secure Msg Doctor Unassigned, [place] [facility] 1..114 350.1.13.10 4.2.7.2.686 [id number] [facility] 2023-06-19 13:45:00 2023-06-19 13:57:27 Outpatient R ESDRAS CHAUDHRY [facility] [id number] [facility] 2023-06-19 13:45:00 2023-06-19 13:57:27 Laboratory Only Only, Ang Db Test Unknown, Attending [facility] 1.840.114 350.1.13.10 4.2.7.2.686 [id number] [facility] 2023-05-29 10:40:00 2023-05-29 11:21:40 Outpatient R KATHYAMegha WICHO [facility] [id number] [facility] 2023-05-29 10:40:00 2023-05-29 11:21:40 Urgent Care KwangilbertoWicho hua Unknown, Attending [facility] 1.84.114 350.1.13.10 4.2.7.2.686 [id number] [facility] 2023-05-29 00:00:00 2023-05-29 00:00:00 Letter (Out) [facility] 1.840.114 350.1.13.10 4.2.7.2.686 [id number] [facility] 2023-05-03 10:30:00 2023-05-03 10:41:34 Outpatient R NESHA CAREY [facility] [id number] [facility] 2023-05-03 10:30:00 2023-05-03 10:41:34 Nurse Visit Visit, [facility] Nesha Osborne [facility] MATERNAL & CHILD [facility] 1.84.114 350.1.13.10 4.2.7.2.686 [id number] [facility] 2023-05-02 10:30:00 2023-05-02 10:30:00 Outpatient R [facility] [id number] [facility] 2023-02-21 15:59:14 2023-02-21 15:59:14 Outpatient [facility] 523 Sawyer Hutson 2023-02-16 16:42:45 2023-02-16 16:42:45 Outpatient [facility] 518 Sawyer Hutson 2023-02-07 13:45:00 2023-02-07 14:34:08 Outpatient R NESHA CAREY [facility] [id number] [facility] 2023-02-07 13:45:00 2023-02-07 14:34:08 Office Visit Nesha Carey [facility] TR[facility] R[facility]ER [facility]ILD [facility] 1..840.114 350.1.13.10 4.2.7.2.686 [id number] [facility] 2023-02-07 00:00:00 2023-02-07 00:00:00 Orders Only Doctor Unassigned, [place] [facility] 1.840.114 350.1.13.10 4.2.7.2.686 [id number] [facility] 2023-01-24 16:03:20 2023-01-24 16:03:20 Outpatient [facility] [id number] Sawyer Hutson 2023-01-24 08:30:00 2023-01-24 09:41:47 Outpatient R NESHA CAREY [facility] [id number] [facility] 2023-01-24 08:30:00 2023-01-24 09:00:00 Office Visit Nesha Carey [facility]ILD [facility] 1.840.114 350.1.13.10 4.2.7.2.686 [id number] [facility] 2023-01-19 08:32:00 2023-01-19 11:31:00 Emergency X Derrell KUNZ [facility] E[facility] [id number] [facility] 2023-01-19 08:32:00 2023-01-19 11:31:00 Emergency Derrell Kunz [facility] 1.2.840.114 350.1.13.10 4.2.7.2.686 [id number] [facility] 2023-01-11 20:11:00 2023-01-11 22:46:00 Emergency X PRIYA MORTON [facility] [id number] [facility] 2023-01-11 20:11:00 2023-01-11 22:46:00 Emergency Priya Morton [facility] 1.2840.114 350.1.13.10 4.2.7.2.686 [id number] [facility] 2022-12-28 00:00:00 2022-12-28 00:00:00 Telephone Nesha Carey [facility] 1.2840.114 350.1.13.10 4.2.7.2.686 [id number] [facility] 2022-04-14 01:46:00 2022-04-14 01:46:00 Outpatient TERRANCE BALDWIN [facility] [id number] Jacob adler [facility] 2021-10-25 18:51:00 2021-10-25 20:49:00 Emergency X NILAM MUNOZN [facility] [id number] [facility] 2021-10-25 18:51:00 2021-10-25 20:49:00 Emergency Nilam Munozn R [facility] 1.2.840.114 350.1.13.10 4.2.7.2.686 [id number] [facility] 2021-10-25 00:00:00 2021-10-25 00:00:00 Orders Only Doctor Unassigned, [place] [facility] 1.2.840.114 350.1.13.10 4.2.7.2.686 [id number] [facility] 2021-08-04 08:30:00 2021-08-04 09:51:00 Emergency X NARAYAN [facility] [id number] [facility] 2021-08-04 08:30:00 2021-08-04 09:51:00 Emergency Hola Duranip [facility] 1.2.840.114 350.1.13.10 4.2.7.2.686 [id number] [facility] 2021-07-26 09:41:00 2021-07-26 10:58:00 Emergency Cintia Licea [facility] 1.2.840.114 350.1.13.10 4.2.7.2.686 [id number] [facility] 2021-07-26 09:41:00 2021-07-26 10:58:00 Emergency X LICEAALEKSANDRCINTIA [facility] [id number] [facility] 2020-12-21 00:00:00 2020-12-21 00:00:00 Patient Outreach Scotty Caban [facility] 1.2.840.114 350.1.13.10 4.2.7.2.686 [id number] 2020-12-21 00:00:00 2020-12-21 00:00:00 Patient Outreach Scotty Caban Sunday [facility] 1.2.840.114 350.1.13.10 4.2.7.2.686 [id number] [facility] 2020-10-24 00:00:00 2020-10-24 00:00:00 Letter (Out) Suzan, [facility] 1.2.840.114 350.1.13.10 4.2.7.2.686 [id number] 2020-10-24 00:00:00 2020-10-24 00:00:00 Letter (Out) Suzan [facility] 1.2.840.114 350.1.13.10 4.2.7.2.686 [id number] [facility] 2020-10-17 20:54:00 2020-10-17 22:46:00 [facility] 1.2.840.114 350.1.13.10 4.2.7.2.686 [id number] 2020-10-17 20:54:00 2020-10-17 22:46:00 Emergency [facility] 1.2.840.114 350.1.13.10 4.2.7.2.686 [id number] [facility] 2020-10-17 00:00:00 2020-10-17 00:00:00 Orders Only Doctor Unassigned, [place] [facility] 1.2.840.114 350.1.13.10 4.2.7.2.686 [id number] 2020-10-17 00:00:00 2020-10-17 00:00:00 Orders Only Doctor Unassigned, [place] [facility] 1.2.840.114 350.1.13.10 4.2.7.2.686 [id number] [facility] 2019-12-26 15:00:00 2019-12-26 15:00:00 Outpatient SPIKE RICHEY [facility] [id number] [facility] 2019-12-25 00:00:00 2019-12-25 00:00:00 Telephone Spike Bosch [facility] 1.2.840.114 350.1.13.10 4.2.7.2.686 [id number] 2019-12-25 00:00:00 2019-12-25 00:00:00 Telephone Spike Bosch [facility] TR[facility] RIDER [facility] CHILD [facility] 1.2.840.114 350.1.13.10 4.2.7.2.686 [id number] [facility] 2019-12-24 15:19:55 2019-12-24 16:31:14 Office Visit Spike Bosch [facility] 1.2.840.114 350.1.13.10 4.2.7.2.686 [id number] 2019-12-24 15:19:55 2019-12-24 16:31:14 Office Visit Spike Bosch [facility] 1.2.840.114 350.1.13.10 4.2.7.2.686 [id number] [facility] 2019-12-24 15:15:00 2019-12-24 16:31:14 Outpatient R SPIKE BOSCH [facility] [id number] [facility] 2019-12-24 00:00:00 2019-12-24 00:00:00 Orders Only Doctor Unassigned, [place] [facility] 1.2.840.114 350.1.13.10 4.2.7.2.686 [id number] 2019-12-24 00:00:00 2019-12-24 00:00:00 Orders Only Doctor Unassigned, [place] [facility] 1.2.840.114 350.1.13.10 4.2.7.2.686 [id number] [facility] 2019-12-23 00:00:00 2019-12-23 00:00:00 Telephone Spike Bosch [facility] 1.2.840.114 350.1.13.10 4.2.7.2.686 [id number] [facility] 2019-12-05 10:29:31 2019-12-05 12:49:13 Routine Visit Merritt Carey [facility] R[facility] 1.20.114 350.1.13.10 4.2.7.2.686 [id number] [facility] 2019-12-05 10:15:00 2019-12-05 10:15:00 Outpatient R MYRTLE CAREYADILSONJovita [facility] [id number] [facility] 2019-11-21 10:30:58 2019-11-21 10:55:05 Nurse Visit Visit, [facility] Nurse Spike Bosch [facility] 1..114 350.1.13.10 4.2.7.2.686 [id number] [facility] 2019-11-21 10:30:00 2019-11-21 10:55:05 Outpatient R SPIKE BOSCH [facility] [id number] [facility] 2019-11-14 06:02:00 2019-11-16 14:34:00 Hospital Encounter Samia Moe [facility] 1..114 350.1.13.10 4.2.7.2.686 [id number] [facility] 2019-11-14 00:00:00 2019-11-14 00:00:00 Orders Only Doctor Unassigned, [place] [facility] 1.20.114 350.1.13.10 4.2.7.2.686 [id number] [facility] 2019-11-13 00:00:00 2019-11-13 00:00:00 Telephone Spike Bosch [facility] 1.20.114 350.1.13.10 4.2.7.2.686 [id number] [facility] 2019-11-12 00:00:00 2019-11-12 00:00:00 Telephone Spike Bosch [facility] MAT[facility]NAL & CHILD [facility] 1.2.840.114 350.1.13.10 4.2.7.2.686 [id number] [facility] 2019-11-07 12:55:13 2019-11-07 13:36:51 Routine Visit Spike Bosch [facility] & CHILD [facility] 1.2.840.114 350.1.13.10 4.2.7.2.686 [id number] [facility] 2019-10-30 13:00:05 2019-10-30 13:55:26 Routine Visit Spike Bosch [facility] & CHILD [facility] 1.2.840.114 350.1.13.10 4.2.7.2.686 [id number] [facility] 2019-10-23 12:47:33 2019-10-23 13:45:08 Routine Visit Spike Bosch [facility] & CHILD [facility] 1.2.840.114 350.1.13.10 4.2.7.2.686 [id number] 107 [id number] [facility] 2019-10-16 12:45:43 2019-10-16 14:53:47 Routine Visit Spike Bosch [facility] & CHILD [facility] 1.2.840.114 350.1.13.10 4.2.7.2.686 [id number] [facility] 2019-08-15 00:00:00 2019-08-15 00:00:00 Orders Only Doctor Unassigned, [place] [facility] 1.2.840.114 350.1.13.10 4.2.7.2.686 [id number] [id number] [facility] 2019-06-06 13:12:48 2019-06-06 15:01:38 Initial Visit Spike Bosch [facility] 1.2.840.114 350.1.13.10 4.2.7.2.686 [id number] [facility] 2019-06-06 00:00:00 2019-06-06 00:00:00 Orders Only Doctor Unassigned, [place] [facility] 1.2.840.114 350.1.13.10 4.2.7.2.686 [id number] [id number] [facility] Results Test Description Test Time Test Comments Results Result Co mments Source COMPREHENSIVE METABOLIC [id number] 05:49:35* Test Item Value Reference Range Interpretation Comme nts GLUCOSE (test code = 2217) 82 MG/DL 70-99 BUN (test code = 2208) 9 MG/DL 6-20 CREATININE (test code = 2214) 1.04 MG/DL 0.60-1.30 eGFR (2020 CKD-EPI) (test co de = 54077) 71 ML/MIN/1.73 >60 CALC BUN/CREAT (test code = 2235) 9 RATIO 6-28 SODIUM (test code = 2231) 138 MEQ/L 133-146 POTASSIUM (test code = 2228) 4.3 MEQ/L 3.5-5.4 CHLORIDE (test code = 2215) 102 MEQ/L 95-107 CARBON DIOXIDE (test code = 2206) 22 MEQ/L 19-31 CALCIUM (test code = 2209) 9.6 MG/DL 8.5-10.5 PROTEIN, TOTAL (test code = 2229) 6.9 G/DL 6.1-8.3 ALBUMIN (test code = 2201) 4.2 G/DL 3.5-5.2 CALC GLOBULIN (test code = 2240) 2.7 G/DL 1.9-3.7 CALC A/G RATIO (test code = 2234) 1.6 RATIO 1.0-2.6 BILIRUBIN, TOTAL (test code = 2207) 0.2 MG/DL <=1.2 ALKALINE PHOSPHATASE (test code = 2204) 66 U/L 40-112 AST (test code = 2218) 19 U/L 9-40 ALT (test code = 2219) 21 U/L 5-40 LIPID [id number] 05:49:35* Test Item Value Reference Range Interpretation Comme nts CHOLESTEROL (test code = 2210) 148 MG/DL <200 TRIGLYCERIDES (test code = 2232) 125 MG/DL <150 HDL CHOLESTEROL (test code = 2220) 41 MG/DL >39 CALC LDL CHOL (test code = 2237) 84 MG/DL <100 NOTE: CALCULATED LDL IS BASED ON ERENDIRA-CASTILLO METHOD WHICHINCLUDES ADJUSTABLE TRIGLYCERIDE:VLDL CHOLESTEROL RATIO.THIS FACTOR VARIES BY MEASURED TRIGLYCERIDE AND NON-HDLCHOLESTEROL CONCENTRATIONS WITH INCREASED CALCULATED LDL SEENIN HIGHER TRIGLYCERIDE OR LOWER NON-HDL SPECIMENS. FOR MOREINFORMATION, SEE CLIENT ANNOUNCEMENT AT [email or web address] RISK RATIO LDL/HDL (test code = 2238) 2.05 RATIO <3.22 HIV 1/2 4TH GEN, RFLX [id number] 04:09:56* Test Item Value Reference Range Interpretation Comme nts HIV 1/2 4TH GEN, RFLX CONF ( test code = 3514) NON-REACTIVE NON-REACTIVE HEPATITIS PANEL, [id number] 04:09:56* Test Item Value Reference Range Interpretation Comme nts HEPATITIS A IgM (test code = 44211) NON-REACTIVE NON-REACTIVE HEPATITIS B CORE IgM (test code = 4644) NON-REACTIVE NON-REACTIVE HEPATITIS B SURF AG (test code = 2739) NON-REACTIVE NON-REACTIVE HEPATITIS C ANTIBODY (test code = 4675) NON-REACTIVE NON-REACTIVE INTERPRETATION HEPATITIS A: (test code = 2552) (NOTE) Hepatitis A sero logy shows no evidence of acute hepatitis A. INTERPRETATION HEPATITIS B: (test code = 46658) (NOTE) Hepatitis B sero logy shows no evidence of acute hepatitis B andno indication of exposure to hepatitis B virus in the previous julia eight months. INTERPRETATION HEPATITIS C: (test code = 82461) (NOTE) Hepatitis C sero logy shows no evidence of exposure to hepatitisC virus at this time. It can take up to 12 months after exposure tothe hepatitis C virus for antibodies to become detectable in the blood in certain patients. UNLESS OTHERWISE INDICATED, ALL TESTING PERFORMED AT [facility] [address] [facility] [place] [address] PUBLIC HEALTH: JUDI PAYNE M.D. [place] NUMBER [id number] [facility] [place]. [id number] HEMOGLOBIN [id number] 03:19:02* Test Item Value Reference Range Interpretation Comme nts HEMOGLOBIN A1c (test code = 13190) 5.7 % 4.2-5.6 H [employer] GUIDELINES FOR HGB A1C: PREDIABETES/INCREASED RISK . . . . . . . 5.7-6.4% DIAGNOSIS OF DIABETES . . . . . . . . . >=6.5% WITH CONFIRMATION OR APPROPRIATE SYMPTOMS NOTE: ASSAY MAY BE AFFECTED BY HEMOGLOBINOPATHIES (SICKLE CELL ANEMIA, S-C DISEASE, OTHERS) OR ARTIFICIALLY LOWERED BY DECREASED RED CELL SURVIVAL (HEMOLYTIC ANEMIAS, BLOOD LOSS, ETC.). CONSIDER ALTERNATE TESTING OR LABORATORY CONSULTATION. CBC W/AUTO DIFF WITH [id number] 02:36:08* Test Item Value Reference Range Interpretation Comme nts WBC (test code = 1001) 9.1 K/UL 3.5-11.0 RBC (test code = 1002) 5.32 M/UL 3.80-5.40 HEMOGLOBIN (test code = 1003) 14.2 G/DL 11.5-15.5 HEMATOCRIT (test code = 1004) 43.0 % 34.0-45.0 MCV (test code = 1005) 80.8 fL 80.0-99.0 MCH (test code = 1006) 26.7 PG 25.0-33.0 MCHC (test code = 1007) 33.0 G/DL 31.0-36.0 RDW (test code = 1038) 12.5 % 11.5-15.0 NEUTROPHILS (test code = 1008) 62.4 % LYMPHOCYTES (test code = 1010) 24.1 % MONOCYTES (test code = 1011) 8.2 % EOSINOPHILS (test code = 1012) 4.4 % BASOPHILS (test code = 1013) 0.7 % IMMATURE GRANULOCYTES (test code = 1036) 0.2 % NUCLEATED RBCS (test code = 1065) 0.0 /100 WBC'S See_Comment [Automated [employer]] The system which generated this result transmitted reference range: 0.0. The reference range was not used to interpret this result as normal/abnormal. PLATELET COUNT (test code = 1015) 197 K/UL 130-400 ABSOLUTE NEUTROPHILS (test code = 1066) 5.69 K/UL 1.50-7.50 ABSOLUTE LYMPHOCYTES (test code = 1067) 2.20 K/UL 1.00-4.00 ABSOLUTE MONOCYTES (test code = 1068) 0.75 K/UL 0.20-1.00 ABSOLUTE EOSINOPHILS (test code = 1040) 0.40 K/UL 0.00-0.50 ABSOLUTE BASOPHILS (test code = 1069) 0.06 K/UL 0.00-0.20 ABS IMMATURE GRANULOCYTES (test code = 1020) 0.02 K/UL 0.00-0.10 ABS NUCLEATED RBCS (test code = 52670) 0.00 K/UL 0.00-0.11 CBC W/AUTO [id number] 00:00:00* Test Item Value Reference Range Interpretation Comme nts WBC (test code = 1001) 9.1 K/UL RBC (test code = 1002) 5.32 M/UL HEMOGLOBIN (test code = 1003) 14.2 G/DL HEMATOCRIT (test code = 1004) 43.0 % MCV (test code = 1005) 80.8 fL MCH (test code = 1006) 26.7 PG MCHC (test code = 1007) 33.0 G/DL RDW (test code = 1038) 12.5 % NEUTROPHILS (test code = 1008) 62.4 % LYMPHOCYTES (test code = 1010) 24.1 % MONOCYTES (test code = 1011) 8.2 % EOSINOPHILS (test code = 1012) 4.4 % BASOPHILS (test code = 1013) 0.7 % IMMATURE GRANULOCYTES (test code = 1036) 0.2 % NUCLEATED RBCS (test code = 1065) 0.0 /100WBC'S PLATELET COUNT (test code = 1015) 197 K/UL ABSOLUTE NEUTROPHILS (test c ode = 1066) 5.69 K/UL ABSOLUTE LYMPHOCYTES (test c ode = 1067) 2.20 K/UL ABSOLUTE MONOCYTES (test cod e = 1068) 0.75 K/UL ABSOLUTE EOSINOPHILS (test c ode = 1040) 0.40 K/UL ABSOLUTE BASOPHILS (test cod e = 1069) 0.06 K/UL ABS IMMATURE GRANULOCYTES (t est code = 1020) 0.02 K/UL ABS NUCLEATED RBCS (test cod e = 17137) 0.00 K/UL Sawyer HutsonCOMPREHENSIVE METABOLIC [id number] 00:00:00* Test Item Value Reference Range Interpretation Comme nts GLUCOSE (test code = 2217) 82 MG/DL BUN (test code = 2208) 9 MG/DL CREATININE (test code = 2214) 1.04 MG/DL eGFR (2020 CKD-EPI) (test co de = 00598) 71 ML/MIN/1.73 CALC BUN/CREAT (test code = 2235) 9 RATIO SODIUM (test code = 2231) 138 MEQ/L POTASSIUM (test code = 2228) 4.3 MEQ/L CHLORIDE (test code = 2215) 102 MEQ/L CARBON DIOXIDE (test code = 2206) 22 MEQ/L CALCIUM (test code = 2209) 9.6 MG/DL PROTEIN, TOTAL (test code = 2229) 6.9 G/DL ALBUMIN (test code = 2201) 4.2 G/DL CALC GLOBULIN (test code = 2240) 2.7 G/DL CALC A/G RATIO (test code = 2234) 1.6 RATIO BILIRUBIN, TOTAL (test code = 2207) 0.2 MG/DL ALKALINE PHOSPHATASE (test code = 2204) 66 U/L AST (test code = 2218) 19 U/L ALT (test code = 2219) 21 U/L Sawyer [id number] 00:00:00* Test Item Value Reference Range Interpretation Comme nts TSH, THIRD GENERATION (test code = 2821) 1.140 UIU/ML Sawyer HutsonLIPID [id number] 00:00:00* Test Item Value Reference Range Interpretation Comme nts CHOLESTEROL (test code = 2210) 148 MG/DL TRIGLYCERIDES (test code = 2232) 125 MG/DL HDL CHOLESTEROL (test code = 2220) 41 MG/DL CALC LDL CHOL (test code = 2237) 84 MG/DL RISK RATIO LDL/HDL (test cod e = 2238) 2.05 RATIO Sawyer HutsonHEMOGLOBIN [id number] 00:00:00* Test Item Value Reference Range Interpretation Comme nts HEMOGLOBIN A1c (test code = 87090) 5.7 % Sawyer HutsonHIV 1/2 4TH GEN, RFLX [id number] 00:00:00* Test Item Value Reference Range Interpretation Comme nts HIV 1/2 4TH GEN, RFLX CONF ( test code = 3514) NON-REACTIVE Sawyer HutsonACUTE HEPATITIS [id number] 00:00:00* Test Item Value Reference Range Interpretation Comme nts HEPATITIS A IgM (test code = 44641) NON-REACTIVE HEPATITIS B CORE IgM (test c ode = 4644) NON-REACTIVE HEPATITIS B SURF AG (test co de = 2739) NON-REACTIVE HEPATITIS C ANTIBODY (test c ode = 4675) NON-REACTIVE INTERPRETATION HEPATITIS A: (test code = 2552) (NOTE) INTERPRETATION HEPATITIS B: (test code = 85295) (NOTE) INTERPRETATION HEPATITIS C: (test code = 67323) (NOTE) Sawyer HutsonCOMP. METABOLIC PANEL (81951)[id number] 20:24:43* Test Item Value Reference Range Interpretation Comme nts NA (test code = 2549267196) 134 mmol/L 135-145 L K (test code = 2098254301) 4.0 mmol/L 3.5-5.0 CL (test code = 0498937221) 103 mmol/L 98-108 CO2 TOTAL (test code = 0770089279) 27 mmol/L 23-31 AGAP (test code = 3358092450) 4 2-16 BUN (test code = 2945377029) 11 mg/dL 7-23 GLUCOSE (test code = 3204061238) 94 mg/dL 70-110 CREATININE (test code = 2160-0) 0.85 mg/dL 0.50-1.04 TOTAL BILI (test code = 0668851876) 0.6 mg/dL 0.1-1.1 CALCIUM (test code = 5408290346) 8.9 mg/dL 8.6-10.6 T PROTEIN (test code = 5615884767) 7.6 g/dL 6.3-8.2 ALBUMIN (test code = 1080186549) 4.4 g/dL 3.5-5.0 ALK PHOS (test code = 3692911885) 78 U/L 34-122 ALTv (test code = 1742-6) 48 U/L 5-35 H AST(SGOT) (test code = 9306560463) 51 U/L 13-40 H eGFR (test code = 54612-5) 91.2 mL/min/1.73m2 CKD-EPI eGFR (2020). Assuming creatinine has been stable day-to-day for at least three months, the eGFR indicates Category G1 (>= 90 mL/min/1.73 m2) Lab Interpretation (test code = 34337-6) [facility] 20:24:23* Test Item Value Reference Range Interpretation Comme nts LIPASE (test code = 4771350421) 164 U/L 0-220 Lab Interpretation (test cod e = 83234-5) Normal [facility] [id number] 20:13:22* Test Item Value Reference Range Interpretation Comme nts WBC (test code = 6690-2) 10.74 4.30-11.10 RBC (test code = 789-8) 5.41 3.93-5.25 H HGB (test code = 718-7) 14.6 g/dL 11.6-15.0 HCT (test code = 4544-3) 45.5 % 35.7-45.2 H MCV (test code = 787-2) 84.1 fL 80.6-95.5 MCH (test code = 785-6) 27.0 pg 25.9-32.8 MCHC (test code = 786-4) 32.1 g/dL 31.6-35.1 RDW-SD (test code = 31689-6) 42.6 fL 39.0-49.9 RDW-CV (test code = 788-0) 14.0 % 12.0-15.5 PLT (test code = 777-3) 226 166-358 MPV (test code = 27858-7) 11.2 fL 9.5-12.9 NRBC/100 WBC (test code = 3400733553) 0.0 0.0-10.0 NRBC x10^3 (test code = 8993906872) See_Comment [Automated messa ge] The system which generated this result transmitted reference range: 10*3/?L. The reference range was not used to interpret this result as normal/abnormal. GRAN MAT (NEUT) % (test code = 770-8) 66.7 % IMM GRAN % (test code = 9130104685) 0.60 % LYMPH % (test code = 736-9) 18.3 % MONO % (test code = 5905-5) 9.0 % EOS % (test code = 713-8) 4.7 % BASO % (test code = 706-2) 0.7 % GRAN MAT x10^3(ANC) (test code = 7088101159) 7.17 10*3/uL 1.88-7.09 H IMM GRAN x10^3 (test code = 5319129336) 0.06 10*3/uL 0.00-0.06 LYMPH x10^3 (test code = 731-0) 1.97 10*3/uL 1.32-3.29 MONO x10^3 (test code = 742-7) 0.97 10*3/uL 0.33-0.92 H EOS x10^3 (test code = 711-2) 0.50 10*3/uL 0.03-0.39 H BASO x10^3 (test code = 704-7) 0.07 10*3/uL 0.01-0.07 Lab Interpretation (test code = 01286-6) Abnormal [facility] CenterP[facility] [id number] 19:53:00* Test Item Value Reference Range Interpretation Comme nts POCT PREG (test code = 1605) Negative On board controls acceptable with C Line (test code = 3574) Yes POCT PREG LOT # (test code = 3575) [id number] POCT PREG TEST DATE ( test code = 3576) 11-07-2024 Lab Interpretation (test cod e = 92007-8) Normal [facility] METABOLIC PANEL (NA, K, CL, CO2, GLUCOSE, BUN, CREATININE, CA)2023-08-08 07:13:53* Test Item Value Reference Range Interpretation Comme nts NA (test code = 7857737361) 137 mmol/L 135-145 K (test code = 5959476302) 3.3 mmol/L 3.5-5.0 L CL (test code = 5166524109) 105 mmol/L 98-108 CO2 TOTAL (test code = 1100325031) 22 mmol/L 23-31 L AGAP (test code = 6705465589) 10 2-16 BUN (test code = 8718315958) 7 mg/dL 7-23 GLUCOSE (test code = 2177971048) 118 mg/dL 70-110 H CREATININE (test code = 7414904636) 0.77 mg/dL 0.50-1.04 CALCIUM (test code = 3215153118) 8.7 mg/dL 8.6-10.6 eGFR (test code = 77348-8) 102.7 mL/min/1.73m2 CKD-EPI eGFR (2020). Assuming creatinine has been stable day-to-day for at least three months, the eGFR indicates Category G1 (>= 90 mL/min/1.73 m2) Lab Interpretation (test code = 40907-9) Abnormal [facility] CenterD-[id number] 07:04:17* Test Item Value Reference Range Interpretation Comments D-DIMER (test code = 0731581453) See_Comment [Automated message] The system which generated this result transmitted reference range: <0.41 ?g/mL (FEU). The reference range was not used to interpret this result as normal/abnormal. MAIRA (test code = MAIRA) This test may be used in conjunction with a clinical pretest probability (PTP) assessment model to exclude venous thromboembolism (VTE) in patients suspected of deep venous thrombosis (DVT) and pulmonary embolism (PE) A D-Dimer value less than 0.50 ?g/ml (FEU) has a negative predicative value of 96 to 100% (95% CI)and 97 to 100% (95% CI) as an aid in the diagnosis of deep vein thrombosis (DVT) and pulmonary embolism when there is low or moderate pretest probability of PE or DVT. D-Dimer values are expressed in initial fibrinogen equivalent units (FEU)" The assay results should be used with other information, including the clinical context, in forming a diagnosis. Lab Interpretation (test code = 43751-1) Normal [facility] WITH [id number] 06:50:11* Test Item Value Reference Range Interpretation Comme nts WBC (test code = 6690-2) 8.50 See_Comment [Automated messa ge] The system which generated this result transmitted reference range: 4.30 - 11.10 10*3/?L. The reference range was not used to interpret this result as normal/abnormal. RBC (test code = 789-8) 5.20 See_Comment [Automated messa ge] The system which generated this result transmitted reference range: 3.93 - 5.25 10*6/?L. The reference range was not used to interpret this result as normal/abnormal. HGB (test code = 718-7) 13.7 g/dL 11.6-15.0 HCT (test code = 4544-3) 42.8 % 35.7-45.2 MCV (test code = 787-2) 82.3 fL 80.6-95.5 MCH (test code = 785-6) 26.3 pg 25.9-32.8 MCHC (test code = 786-4) 32.0 g/dL 31.6-35.1 RDW-SD (test code = 49154-1) 39.1 fL 39.0-49.9 RDW-CV (test code = 788-0) 13.1 % 12.0-15.5 PLT (test code = 777-3) 192 See_Comment [Automated [employer]] The system which generated this result transmitted reference range: 166 - 358 10*3/?L. The reference range was not used to interpret this result as normal/abnormal. MPV (test code = 33240-3) 11.3 fL 9.5-12.9 NRBC/100 WBC (test code = 9624247756) 0.0 See_Comment [Automated [employer] ssage] The system which generated this result transmitted reference range: 0.0 - 10.0 /100 WBCs. The reference range was not used to interpret this result as normal/abnormal. NRBC x10^3 (test code = 0279622265) See_Comment [Automated [employer]] The system which generated this result transmitted reference range: 10*3/?L. The reference range was not used to interpret this result as normal/abnormal. GRAN MAT (NEUT) % (test code = 770-8) 44.4 % IMM GRAN % (test code = 7502426255) 0.20 % LYMPH % (test code = 736-9) 41.3 % MONO % (test code = 5905-5) 8.9 % EOS % (test code = 713-8) 4.7 % BASO % (test code = 706-2) 0.5 % GRAN MAT x10^3(ANC) (test code = 2731547076) 3.77 10*3/uL 1.88-7.09 IMM GRAN x10^3 (test code = 5723799333) 0.00-0.06 LYMPH x10^3 (test code = 731-0) 3.51 10*3/uL 1.32-3.29 H MONO x10^3 (test code = 742-7) 0.76 10*3/uL 0.33-0.92 EOS x10^3 (test code = 711-2) 0.40 10*3/uL 0.03-0.39 H BASO x10^3 (test code = 704-7) 0.04 10*3/uL 0.01-0.07 Lab Interpretation (test code = 67576-3) Abnormal [facility] [id number] 04:24:00* Test Item Value Reference Range Interpretation Comme nts POCT PREG (test code = 1605) Negative On board controls acceptable with C Line (test code = 3574) Yes POCT PREG LOT # (test code = 3575) [id number] POCT PREG TEST DATE ( test code = 3576) 10/03/2024 Lab Interpretation (test cod e = 16281-7) Normal [facility] SARS-COV-2 ANTIGEN (BINAX NOW)2023-07-29 16:51:00* Test Item Value Reference Range Interpretation Comme nts POCT SARS-COV-2 ANTIGEN (oli t code = 47615-6) Not Detected Not Detected On board controls acceptable with C Line (test code = 3574) Yes [facility] [id number] 01:54:00* Test Item Value Reference Range Interpretation Comme nts POCT PREG (test code = 1605) Negative On board controls acceptable with C Line (test code = 3574) Yes POCT PREG LOT # (test code = 3575) [id number] POCT PREG TEST DATE ( test code = 3576) 10/03/2024 Lab Interpretation (test cod e = 25016-7) Normal [facility] MOLECULAR [id number] 16:25:47* Test Item Value Reference Range Interpretation Comme nts POCT Molecular FluA (test co de = 38706-7) Negative Negative POCT Molecular FluB (test co de = 62562-9) Negative Negative Lab Interpretation (test cod e = 00948-9) Normal [facility] SARS-COV-2 ANTIGEN (BINAX NOW)2023-05-29 16:25:00* Test Item Value Reference Range Interpretation Comme nts POCT SARS-COV-2 ANTIGEN (oli t code = 21043-7) Not Detected Not Detected On board controls acceptable with C Line (test code = 3574) Yes Lab Interpretation (test cod e = 39556-4) Normal [facility] [id number] 15:28:00* Test Item Value Reference Range Interpretation Comme nts POCT PREG (test code = 1605) Negative On board controls acceptable with C Line (test code = 3574) Yes POCT PREG LOT # (test code = 3575) POCT PREG TEST DATE ( test code = 3576) [facility] [id number] 05:02:56* Test Item Value Reference Range Interpretation Comme nts GLUCOSE (test code = 2217) 89 MG/DL 70-99 BUN (test code = 2208) 8 MG/DL 6-20 CREATININE (test code = 2214) 1.04 MG/DL 0.60-1.30 eGFR (2020 CKD-EPI) (test code = 76986) 72 ML/MIN/1.73 >60 CALC BUN/CREAT (test code = 2235) 8 RATIO 6-28 SODIUM (test code = 2231) 142 MEQ/L 133-146 POTASSIUM (test code = 2228) 4.0 MEQ/L 3.5-5.4 CHLORIDE (test code = 2215) 107 MEQ/L 95-107 CARBON DIOXIDE (test code = 2206) 22 MEQ/L 19-31 CALCIUM (test code = 2209) 9.3 MG/DL 8.5-10.5 PROTEIN, TOTAL (test code = 2229) 7.2 G/DL 6.1-8.3 ALBUMIN (test code = 2201) 4.4 G/DL 3.5-5.2 CALC GLOBULIN (test code = 2240) 2.8 G/DL 1.9-3.7 CALC A/G RATIO (test code = 2234) 1.6 RATIO 1.0-2.6 BILIRUBIN, TOTAL (test code = 2207) 0.3 MG/DL See_Comment [Automated me ssage] The system which generated this result transmitted reference range: <=1.2. The reference range was not used to interpret this result as normal/abnormal. ALKALINE PHOSPHATASE (test code = 2203) 62 U/L 40-114 AST (test code = 2218) 18 U/L 9-40 ALT (test code = 9) 21 U/L 5-40 LIPID [id number] 05:02:56* Test Item Value Reference Range Interpretation Comme nts CHOLESTEROL (test code = 0) 143 MG/DL <200 TRIGLYCERIDES (test code = 2231) 123 MG/DL <150 HDL CHOLESTEROL (test code = 2219) 34 MG/DL >39 L CALC LDL CHOL (test code = 7) 87 MG/DL <100 NOTE: CALCULATED LDL IS BASED ON ERENDIRA-CASTILLO METHOD WHICHINCLUDES ADJUSTABLE TRIGLYCERIDE:VLDL CHOLESTEROL RATIO.THIS FACTOR VARIES BY MEASURED TRIGLYCERIDE AND NON-HDLCHOLESTEROL CONCENTRATIONS WITH INCREASED CALCULATED LDL SEENIN HIGHER TRIGLYCERIDE OR LOWER NON-HDL SPECIMENS. FOR MOREINFORMATION, SEE CLIENT ANNOUNCEMENT AT [email or web address] RISK RATIO LDL/HDL (test code = 223) 2.56 RATIO <3.22 UNLESS OTHERW ISE INDICATED, ALL TESTING PERFORMED AT [facility] [address] [place] [id number] PUBLIC HEALTH: JUDI PAYNE M.D. CLIA NUMBER [id number] [facility] [place]. [id number] HEMOGLOBIN [id number] 03:59:02* Test Item Value Reference Range Interpretation Comme nts HEMOGLOBIN A1c (test code = 61318) 5.6 % 4.2-5.6 HEMOGLOBIN [id number] 00:00:00* Test Item Value Reference Range Interpretation Comme nts HEMOGLOBIN A1c (test code = 41826) 5.6 % Sawyer HutsonCOMPREHENSIVE METABOLIC [id number] 00:00:00* Test Item Value Reference Range Interpretation Comme nts GLUCOSE (test code = 2217) 89 MG/DL BUN (test code = 2208) 8 MG/DL CREATININE (test code = 2214) 1.04 MG/DL eGFR (2020 CKD-EPI) (test co de = 80590) 72 ML/MIN/1.73 CALC BUN/CREAT (test code = 2235) 8 RATIO SODIUM (test code = 2231) 142 MEQ/L POTASSIUM (test code = 2228) 4.0 MEQ/L CHLORIDE (test code = 2215) 107 MEQ/L CARBON DIOXIDE (test code = 2206) 22 MEQ/L CALCIUM (test code = 2209) 9.3 MG/DL PROTEIN, TOTAL (test code = 2229) 7.2 G/DL ALBUMIN (test code = 2201) 4.4 G/DL CALC GLOBULIN (test code = 2240) 2.8 G/DL CALC A/G RATIO (test code = 2234) 1.6 RATIO BILIRUBIN, TOTAL (test code = 2207) 0.3 MG/DL ALKALINE PHOSPHATASE (test code = 2204) 62 U/L AST (test code = 2218) 18 U/L ALT (test code = 2219) 21 U/L Sawyer HutsonLIPID [id number] 00:00:00* Test Item Value Reference Range Interpretation Comme nts CHOLESTEROL (test code = 2210) 143 MG/DL TRIGLYCERIDES (test code = 2232) 123 MG/DL HDL CHOLESTEROL (test code = 2220) 34 MG/DL CALC LDL CHOL (test code = 2237) 87 MG/DL RISK RATIO LDL/HDL (test cod e = 2238) 2.56 RATIO Sawyer HutsonTROPONIN [id number] 15:28:16* Test Item Value Reference Range Interpretation Comme nts TROPONIN I (test code = 9102995293) 0.005 ng/mL <=0.034 MAIRA (test code = MAIRA) Reference (Normal) Range (defined by the 99th percentile reference limit): <= 0.034 ng/mL Note: Cardiac troponin begins to rise 3-4 hours after the onset of ischemia. Repeat in 4-6 hours if the sample was drawn within 3-4 hours of the onset of the symptom and found normal. Diagnosis of myocardial injury is made with acute changes in cTn concentrations with at least one serial sample above the 99th percentile upper reference limit (URL), taken together with the patient's clinical presentation. Biotin has been reported to cause a negative bias, interpret results relative to patient's use of biotin. Lab Interpretation (test code = 87273-3) [id number] 15:24:56* Test Item Value Reference Range Interpretation Comme nts NT-proBNP (test code = 0681941662) 39 pg/mL <=125 MAIRA (test code = MAIRA) Biotin has been reported to cause a negative bias, interpret results relative to patient's use of biotin. Lab Interpretation (test code = 07383-7) [facility] ([id number] 15:16:34* Test Item Value Reference Range Interpretation Comme nts NA (test code = 4810091386) 137 mmol/L 135-145 K (test code = 8763268488) 3.7 mmol/L 3.5-5.0 CL (test code = 4769566565) 102 mmol/L 98-108 CO2 TOTAL (test code = 2525337177) 24 mmol/L 23-31 AGAP (test code = 0385761866) 11 2-16 BUN (test code = 3871120936) 7 mg/dL 7-23 GLUCOSE (test code = 9449025131) 113 mg/dL 70-110 H CREATININE (test code = 7730977145) 0.71 mg/dL 0.50-1.04 TOTAL BILI (test code = 9701313182) 0.6 mg/dL 0.1-1.1 CALCIUM (test code = 3185705484) 9.1 mg/dL 8.6-10.6 T PROTEIN (test code = 6242378834) 7.4 g/dL 6.3-8.2 ALBUMIN (test code = 0015615074) 4.4 g/dL 3.5-5.0 ALK PHOS (test code = 0147412482) 57 U/L 34-122 ALTv (test code = 1742-6) 54 U/L 5-35 H AST(SGOT) (test code = 8406365924) 44 U/L 13-40 H eGFR (test code = 9593657419) 93.7 mL/min/1.73m2 MAIRA (test code = MAIRA) Association of Glomerular Filtration Rate (GFR) and Staging of Kidney Disease* + --+ --+ ------+| GFR (mL/min/1.73 m2) ?| With Kidney Damage ?| ?Without Kidney Damage+ --------+ --------+ +| ?>90 ?| ?Stage one ?| ? Normal ?+ ---+ ---+ -------+| ?60-89 ?| ?Stage two ?| ? Decreased GFR ? + --+ --+ ------+| ?30-59 ?| ?Stage three ?| ? Stage three ? + --+ --+ ------+| ?15-29 ?| ?Stage four ? | ? Stage four ?+ ---+ ---+ -------+| ?<15 (or dialysis) ? ?| ?Stage five ? | ? Stage five ?+ ---+ ---+ -------+ *Each stage assumes the associated GFR level [...] or urine or abnormalities in imaging tests). Lab Interpretation (test code = 66046-8) [facility] 15:16:34* Test Item Value Reference Range Interpretation Comme nts MAGNESIUM (test code = 3960394854) 2.1 mg/dL 1.7-2.4 Lab Interpretation (test cod e = 70917-6) Normal [facility] WITH [id number] 14:56:14* Test Item Value Reference Range Interpretation Comme nts WBC (test code = 6690-2) 12.60 See_Comment H [Automated [employer]] The system which generated this result transmitted reference range: 4.30 - 11.10 10*3/?L. The reference range was not used to interpret this result as normal/abnormal. RBC (test code = 789-8) 5.17 See_Comment [Automated [employer] ge] The system which generated this result transmitted reference range: 3.93 - 5.25 10*6/?L. The reference range was not used to interpret this result as normal/abnormal. HGB (test code = 718-7) 13.8 g/dL 11.6-15.0 HCT (test code = 4544-3) 42.3 % 35.7-45.2 MCV (test code = 787-2) 81.8 fL 80.6-95.5 MCH (test code = 785-6) 26.7 pg 25.9-32.8 MCHC (test code = 786-4) 32.6 g/dL 31.6-35.1 RDW-SD (test code = 74151-9) 39.3 fL 39.0-49.9 RDW-CV (test code = 788-0) 13.2 % 12.0-15.5 PLT (test code = 777-3) 204 See_Comment [Automated [employer] ge] The system which generated this result transmitted reference range: 166 - 358 10*3/?L. The reference range was not used to interpret this result as normal/abnormal. MPV (test code = 03560-1) 11.4 fL 9.5-12.9 NRBC/100 WBC (test code = 0796544240) 0.0 See_Comment [Automated [employer] ssage] The system which generated this result transmitted reference range: 0.0 - 10.0 /100 WBCs. The reference range was not used to interpret this result as normal/abnormal. NRBC x10^3 (test code = 0759984276) See_Comment [Automated [employer] ge] The system which generated this result transmitted reference range: 10*3/?L. The reference range was not used to interpret this result as normal/abnormal. GRAN MAT (NEUT) % (test code = 770-8) 73.4 % IMM GRAN % (test code = 5567508869) 0.30 % LYMPH % (test code = 736-9) 16.8 % MONO % (test code = 5905-5) 6.3 % EOS % (test code = 713-8) 2.8 % BASO % (test code = 706-2) 0.4 % GRAN MAT x10^3(ANC) (test code = 2747122724) 9.24 10*3/uL 1.88-7.09 H IMM GRAN x10^3 (test code = 9686175396) 0.04 10*3/uL 0.00-0.06 LYMPH x10^3 (test code = 731-0) 2.12 10*3/uL 1.32-3.29 MONO x10^3 (test code = 742-7) 0.80 10*3/uL 0.33-0.92 EOS x10^3 (test code = 711-2) 0.35 10*3/uL 0.03-0.39 BASO x10^3 (test code = 704-7) 0.05 10*3/uL 0.01-0.07 Lab Interpretation (test code = 64343-7) Abnormal [facility] [id number] 14:28:00* Test Item Value Reference Range Interpretation Comme nts POCT PREG (test code = 1605) negative On board controls acceptable with C Line (test code = 3574) present POCT PREG LOT # (test code = 3575) [id number] POCT PREG TEST DATE ( test code = 357) 10/31/2023 Lab Interpretation (test cod e = 70353-8) Normal [facility] [id number] 01:45:00* Test Item Value Reference Range Interpretation Comme nts POCT PREG (test code = 1605) negative On board controls acceptable with C Line (test code = 3574) present POCT PREG LOT # (test code = 3575) [id number] POCT PREG TEST DATE ( test code = 3576) Lab Interpretation (test cod e = 85739-2) Normal [facility] [id number] 02:09:00* Test Item Value Reference Range Interpretation Comme nts POCT PREG (test code = 1605) negative On board controls acceptable with C Line (test code = 3574) present POCT PREG LOT # (test code = 3575) [id number] POCT PREG TEST DATE ( test code = 3576) 11/28/2022 Lab Interpretation (test cod e = 20954-8) Normal [facility] 15:31:11* Test Item Value Reference Range Interpretation Comme nts MAGNESIUM (test code = 8921221026) 2.0 mg/dL 1.7-2.4 Lab Interpretation (test cod e = 55945-4) Normal [facility] (NA, K, CL, CO2, GLUCOSE, BUN, CREATININE, CA)2021-07-26 15:30:56* Test Item Value Reference Range Interpretation Comme nts NA (test code = 1306911255) 136 mmol/L 135-145 K (test code = 2488536457) 3.8 mmol/L 3.5-5.0 CL (test code = 4655662183) 108 mmol/L 98-108 CO2 TOTAL (test code = 4108547958) 26 mmol/L 23-31 AGAP (test code = 9047606280) 2-16 BUN (test code = 1166777770) 12 mg/dL 7-23 GLUCOSE (test code = 4096178531) 89 mg/dL 70-110 CREATININE (test code = 2255693841) 0.96 mg/dL 0.50-1.04 CALCIUM (test code = 4083590921) 8.8 mg/dL 8.6-10.6 eGFR (test code = 2704738423) mL/min/1.73m2 MAIRA (test code = MAIRA) Association of [...] or urine or abnormalities in imaging tests). [facility] WITH [id number] 15:27:15* Test Item Value Reference Range Interpretation Comme nts WBC (test code = 6690-2) See_Comment [Automated [employer]] The system which generated this result transmitted reference range: 4.30 - 11.10 10*3/?L. The reference range was not used to interpret this result as normal/abnormal. RBC (test code = 789-8) See_Comment [Automated [employer]] The system which generated this result transmitted reference range: 3.93 - 5.25 10*6/?L. The reference range was not used to interpret this result as normal/abnormal. HGB (test code = 718-7) 13.4 g/dL 11.6-15.0 HCT (test code = 4544-3) 41.6 % 35.7-45.2 MCV (test code = 787-2) 83.2 fL 80.6-95.5 MCH (test code = 785-6) 26.8 pg 25.9-32.8 MCHC (test code = 786-4) 32.2 g/dL 31.6-35.1 RDW-SD (test code = 66379-5) 40.4 fL 39.0-49.9 RDW-CV (test code = 788-0) 13.2 % 12.0-15.5 PLT (test code = 777-3) See_Comment [Automated [employer]] The system which generated this result transmitted reference range: 166 - 358 10*3/?L. The reference range was not used to interpret this result as normal/abnormal. MPV (test code = 21425-4) 12.0 fL 9.5-12.9 NRBC/100 WBC (test code = 4741517828) See_Comment [Automated me ssage] The system which generated this result transmitted reference range: 0.0 - 10.0 /100 WBCs. The reference range was not used to interpret this result as normal/abnormal. NRBC x10^3 (test code = 4678951130) <0.01 See_Comment [Automated me ssage] The system which generated this result transmitted reference range: 10*3/?L. The reference range was not used to interpret this result as normal/abnormal. GRAN MAT (NEUT) % (test code = 770-8) 52.6 % IMM GRAN % (test code = 0727206693) 0.30 % LYMPH % (test code = 736-9) 34.7 % MONO % (test code = 5905-5) 8.0 % EOS % (test code = 713-8) 3.9 % BASO % (test code = 706-2) 0.5 % GRAN MAT x10^3(ANC) (test code = 9864237400) 3.87 10*3/uL 1.88-7.09 IMM GRAN x10^3 (test code = 7119481200) <0.03 0.00-0.06 LYMPH x10^3 (test code = 731-0) 2.56 10*3/uL 1.32-3.29 MONO x10^3 (test code = 742-7) 0.59 10*3/uL 0.33-0.92 EOS x10^3 (test code = 711-2) 0.29 10*3/uL 0.03-0.39 BASO x10^3 (test code = 704-7) 0.04 10*3/uL 0.01-0.07 [facility] ONLY - INFLUENZA A & B DIRECT [id number] 04:27:00* Test Item Value Reference Range Interpretation Comme nts Influenza A (test code = 97052-1) Negative Negative Influenza B (test code = 84477-6) Negative Negative Lab Interpretation (test cod e = 65193-1) Normal [facility] STREP SCREEN FOR GROUP [id number] 04:16:00* Test Item Value Reference Range Interpretation Comme nts Streptococcus pyogenes (grou p A) antigen (test code = 38629-9) Negative Negative Lab Interpretation (test cod e = 27283-1) Normal [facility] [id number] 21:01:00* Test Item Value Reference Range Interpretation Comme nts POCT PREG (test code = 1605) Negative On board controls acceptable with C Line (test code = 3574) Yes POCT PREG LOT # (test code = 3575) POCT PREG TEST DATE ( test code = 3576) [facility] [id number] 21:01:00* Test Item Value Reference Range Interpretation Comme nts POCT PREG (test code = 1605) Negative On board controls acceptable with C Line (test code = 3574) Yes POCT PREG LOT # (test code = 3575) POCT PREG TEST DATE ( test code = 3576) [facility] WITH [id number] 11:36:00* Test Item Value Reference Range Interpretation Comme nts WBC (test code = 6690-2) See_Comment [Automated messa ge] The system which generated this result transmitted reference range: 4.30 - 11.10 10*3/?L. The reference range was not used to interpret this result as normal/abnormal. RBC (test code = 789-8) See_Comment L [Automated messa ge] The system which generated this result transmitted reference range: 3.93 - 5.25 10*6/?L. The reference range was not used to interpret this result as normal/abnormal. HGB (test code = 718-7) 10.0 g/dL 11.6-15 L HCT (test code = 4544-3) 32.0 % 35.7-45.2 L MCV (test code = 787-2) 82.1 fL 80.6-95.5 MCH (test code = 785-6) 25.6 pg 25.9-32.8 L MCHC (test code = 786-4) 31.3 g/dL 31.6-35.1 L RDW-SD (test code = 41679-8) 40.4 fL 39-49.9 RDW-CV (test code = 788-0) 13.6 % 12-15.5 PLT (test code = 777-3) See_Comment L [Automated [employer] ge] The system which generated this result transmitted reference range: 166 - 358 10*3/?L. The reference range was not used to interpret this result as normal/abnormal. MPV (test code = 29040-1) 12.6 fL 9.5-12.9 IPF % (test code = 5294108696) 16.6 % 1.3-7.7 H Platelet count measured by fluorescence method. NRBC/100 WBC (test code = 3086287228) See_Comment [Automated [employer] ssage] The system which generated this result transmitted reference range: 0.0 - 10.0 /100 WBCs. The reference range was not used to interpret this result as normal/abnormal. NRBC x10^3 (test code = 0544188935) <0.01 See_Comment [Automated [employer] ge] The system which generated this result transmitted reference range: 10*3/?L. The reference range was not used to interpret this result as normal/abnormal. GRAN MAT (NEUT) % (test code = 770-8) 67.0 % IMM GRAN % (test code = 6469488739) 0.80 % LYMPH % (test code = 736-9) 17.7 % MONO % (test code = 5905-5) 12.5 % EOS % (test code = 713-8) 1.8 % BASO % (test code = 706-2) 0.2 % GRAN MAT x10^3(ANC) (test code = 1840011732) 6.23 10*3/uL 1.88-7.09 IMM GRAN x10^3 (test code = 6782439969) 0.07 10*3/uL 0-0.06 H LYMPH x10^3 (test code = 731-0) 1.64 10*3/uL 1.32-3.29 MONO x10^3 (test code = 742-7) 1.16 10*3/uL 0.33-0.92 H EOS x10^3 (test code = 711-2) 0.17 10*3/uL 0.03-0.39 BASO x10^3 (test code = 704-7) <0.03 0.01-0.07 Lab Interpretation (test code = 85709-2) Abnormal [facility] CenterRHO (D) IMMUNE [id number] 18:05:47* Test Item Value Reference Range Interpretation Comme nts RHIG CANDIDATE? (test code = 5055) No- see comment Patient is not a candidate for RhIg- Patient is Rh Positive.Performed at [facility] Laboratory Services - [facility] Blood [address] [place] [address]697Pcsq Free: [phone] No. [id number] [facility] CenterVenous Cord [id number] 15:07:00* Test Item Value Reference Range Interpretation Comme nts VENOUS BASE EXCESS, CORD (test code = 5760903036) mEq/L VENOUS PH, CORD (test code = 4688296594) 7.25-7.45 VENOUS PC02, CORD (test code = 7136672113) See_Comment [Automated messa ge] The system which generated this result transmitted reference range: 27 - 49 mmHg. The reference range was not used to interpret this result as normal/abnormal. VENOUS PO2, CORD (test code = 3967343918) See_Comment [Automated me ssage] The system which generated this result transmitted reference range: 17 - 41 mmHg. The reference range was not used to interpret this result as normal/abnormal. VENOUS BICARBONATE, CORD (test code = 4630758190) See_Comment [Automated messa ge] The system which generated this result transmitted reference range: 12 - 29 mEq/L. The reference range was not used to interpret this result as normal/abnormal. [facility] CenterArterial Cord [id number] 15:04:00* Test Item Value Reference Range Interpretation Comme nts BASE EXCESS, CORD (test code = 2859071720) mEq/L AC PH, CORD (BEAKER) (test code = 4610252672) 7.18-7.38 PC02, CORD (test code = 6352689497) See_Comment [Automated messa ge] The system which generated this result transmitted reference range: 32 - 66 mmHg. The reference range was not used to interpret this result as normal/abnormal. PO2, CORD (test code = 7927786290) See_Comment [Automated messa ge] The system which generated this result transmitted reference range: 10 - 30 mmHg. The reference range was not used to interpret this result as normal/abnormal. BICARBONATE, CORD (test code = 5516635612) See_Comment H [Automated me ssage] The system which generated this result transmitted reference range: 17 - 27 mEq/L. The reference range was not used to interpret this result as normal/abnormal. Lab Interpretation (test code = 72139-6) Abnormal [facility] CenterGALV ONLY - SYPHILIS IGG/[id number] 14:51:00* Test Item Value Reference Range Interpretation Comme nts Syphilis IgG/IgM (test code = 10265-8) Non-reactive Non-reactive MAIRA (test code = MAIRA) Non-reactive - No serologic evidence of T. pallidum infection. Cannot exclude incubating or early syphilis. Submit a second specimen in 2-4 weeks if syphilis is clinically suspected. Equivocal - Further testing to follow. Reactive - Further testing to follow. Lab Interpretation (test code = 47548-6) Normal [facility] CenterHepatitis B Surface [id number] 14:02:00 * Test Item Value Reference Range Interpretation Comme nts HBsAg Semi-Quantitative (oli t code = 5195-3) Negative Negative [facility] CenterType and Screen - ONCE [id number] 13:25:33* Test Item Value Reference Range Interpretation Comme nts ABO & RH (test code = 20) B POSITIVE Performed at [facility] Laboratory Services [facility] Blood [address] Free: [phone] No. [id number] IAT (test code = 1185) Negative Performed at [facility] Laboratory Services [facility] Blood [address] Free: [phone] No. [id number] [facility] CenterCBC WITH [id number] 12:56:00* Test Item Value Reference Range Interpretation Comme nts WBC (test code = 6690-2) See_Comment [Automated messa ge] The system which generated this result transmitted reference range: 4.30 - 11.10 10*3/?L. The reference range was not used to interpret this result as normal/abnormal. RBC (test code = 789-8) See_Comment [Automated messa ge] The system which generated this result transmitted reference range: 3.93 - 5.25 10*6/?L. The reference range was not used to interpret this result as normal/abnormal. HGB (test code = 718-7) 12.6 g/dL 11.6-15 HCT (test code = 4544-3) 39.0 % 35.7-45.2 MCV (test code = 787-2) 81.6 fL 80.6-95.5 MCH (test code = 785-6) 26.4 pg 25.9-32.8 MCHC (test code = 786-4) 32.3 g/dL 31.6-35.1 RDW-SD (test code = 35383-9) 39.9 fL 39-49.9 RDW-CV (test code = 788-0) 13.5 % 12-15.5 PLT (test code = 777-3) See_Comment L [Automated messa ge] The system which generated this result transmitted reference range: 166 - 358 10*3/?L. The reference range was not used to interpret this result as normal/abnormal. MPV (test code = 38361-7) 12.8 fL 9.5-12.9 NRBC/100 WBC (test code = 5995735218) See_Comment [Automated [employer] ssage] The system which generated this result transmitted reference range: 0.0 - 10.0 /100 WBCs. The reference range was not used to interpret this result as normal/abnormal. NRBC x10^3 (test code = 6510226967) <0.01 See_Comment [Automated messa ge] The system which generated this result transmitted reference range: 10*3/?L. The reference range was not used to interpret this result as normal/abnormal. GRAN MAT (NEUT) % (test code = 770-8) 64.3 % IMM GRAN % (test code = 4627414625) 0.60 % LYMPH % (test code = 736-9) 24.5 % MONO % (test code = 5905-5) 8.5 % EOS % (test code = 713-8) 1.9 % BASO % (test code = 706-2) 0.2 % GRAN MAT x10^3(ANC) (test code = 8713511610) 5.94 10*3/uL 1.88-7.09 IMM GRAN x10^3 (test code = 7613537994) 0.06 10*3/uL 0-0.06 LYMPH x10^3 (test code = 731-0) 2.27 10*3/uL 1.32-3.29 MONO x10^3 (test code = 742-7) 0.79 10*3/uL 0.33-0.92 EOS x10^3 (test code = 711-2) 0.18 10*3/uL 0.03-0.39 BASO x10^3 (test code = 704-7) <0.03 0.01-0.07 Lab Interpretation (test code = 34183-2) Abnormal [facility] URINALYSIS W/O SPECIFIC [id number] 19:35:00* Test Item Value Reference Range Interpretation Comme nts POCT PH U (test code = 3254) . 5-8 POCT U LEUK EST (test code = 3263) . Negative - N egative POCT U NIT (test code = 3262) . Negative - Negati ve POCT U PROT (test code = 3259) trace Negative - Negat redd POCT U GLU (test code = 3256) 3+ Negative - Negati ve POCT U KETONE (test code = 3258) . Negative - Neg ative POCT U BLD (test code = 3257) . Negative - Negati ve [facility] GLUCOSE (AUTOMATED)2019-10-30 19:46:00* Test Item Value Reference Range Interpretation Comme nts POCT GLU (test code = 4317670961) 193 mg/dL 70-110 H Lab Interpretation (test cod e = 85222-0) Abnormal [facility] URINALYSIS GLUCOSE & [id number] 19:32:00* Test Item Value Reference Range Interpretation Comme nts POCT U PROT (test code = 3259) trace Negative - Negat redd POCT U GLU (test code = 3256) 3+ Negative - Negati ve Lab Interpretation (test cod e = 78138-9) Abnormal [facility] URINALYSIS W/O SPECIFIC [id number] 22:17:00* Test Item Value Reference Range Interpretation Comme nts POCT PH U (test code = 3254) . 5-8 POCT U LEUK EST (test code = 3263) . Negative - N egative POCT U NIT (test code = 3262) . Negative - Negati ve POCT U PROT (test code = 3259) Trace Negative - Negat redd POCT U GLU (test code = 3256) 2+ Negative - Negati ve POCT U KETONE (test code = 3258) . Negative - Neg ative POCT U BLD (test code = 3257) . Negative - Negati ve [facility] URINALYSIS W/O SPECIFIC [id number] 19:15:00* Test Item Value Reference Range Interpretation Comme nts POCT PH U (test code = 3254) . 5-8 POCT U LEUK EST (test code = 3263) . Negative - N egative POCT U NIT (test code = 3262) . Negative - Negati ve POCT U PROT (test code = 3259) trace Negative - Negat redd POCT U GLU (test code = 3256) 2+ Negative - Negati ve POCT U KETONE (test code = 3258) . Negative - Neg ative POCT U BLD (test code = 3257) . Negative - Negati ve [facility] URINALYSIS W/O SPECIFIC [id number] 19:15:00* Test Item Value Reference Range Interpretation Comme nts POCT PH U (test code = 3254) . 5-8 POCT U LEUK EST (test code = 3263) . Negative - N egative POCT U NIT (test code = 3262) . Negative - Negati ve POCT U PROT (test code = 3259) trace Negative - Negat redd POCT U GLU (test code = 3256) 2+ Negative - Negati ve POCT U KETONE (test code = 3258) . Negative - Neg ative POCT U BLD (test code = 3257) . Negative - Negati ve [facility] [id number] 18:49:00* Test Item Value Reference Range Interpretation Comme nts POCT PREG (test code = 1605) Positive On board controls acceptable with C Line (test code = 3574) Yes POCT PREG LOT # (test code = 3575) POCT PREG TEST DATE ( test code = 3576) [facility] [id number] 18:49:00* Test Item Value Reference Range Interpretation Comme nts POCT PREG (test code = 1605) Positive On board controls acceptable with C Line (test code = 3574) Yes POCT PREG LOT # (test code = 3575) POCT PREG TEST DATE ( test code = 3576) [facility] [id number] 18:49:00* Test Item Value Reference Range Interpretation Comme nts POCT PREG (test code = 1605) Positive On board controls acceptable with C Line (test code = 3574) Yes POCT PREG LOT # (test code = 3575) POCT PREG TEST DATE ( test code = 3576) [facility] URINALYSIS W/O SPECIFIC [id number] 18:48:00* Test Item Value Reference Range Interpretation Comme nts POCT PH U (test code = 3254) 5 mg/dl 5-8 POCT U LEUK EST (test code = 3263) neg Negative - Negative POCT U NIT (test code = 3262) neg Negative - Negati ve POCT U PROT (test code = 3259) trace Negative - Negat redd POCT U GLU (test code = 3256) neg Negative - Negati ve POCT U KETONE (test code = 3258) neg Negative - Neg ative POCT U BLD (test code = 3257) neg Negative - Negati ve Lab Interpretation (test cod e = 91807-5) Abnormal [facility] URINALYSIS W/O SPECIFIC [id number] 18:48:00* Test Item Value Reference Range Interpretation Comme nts POCT PH U (test code = 3254) 5 mg/dl 5-8 POCT U LEUK EST (test code = 3263) neg Negative - Negative POCT U NIT (test code = 3262) neg Negative - Negati ve POCT U PROT (test code = 3259) trace Negative - Negat redd POCT U GLU (test code = 3256) neg Negative - Negati ve POCT U KETONE (test code = 3258) neg Negative - Neg ative POCT U BLD (test code = 3257) neg Negative - Negati ve Lab Interpretation (test cod e = 80299-8) Abnormal [facility] W/O SPECIFIC [id number] 18:48:00* Test Item Value Reference Range Interpretation Comme nts POCT PH U (test code = 3254) 5 mg/dl 5-8 POCT U LEUK EST (test code = 3263) neg Negative - Negative POCT U NIT (test code = 3262) neg Negative - Negati ve POCT U PROT (test code = 3259) trace Negative - Negat redd POCT U GLU (test code = 3256) neg Negative - Negati ve POCT U KETONE (test code = 3258) neg Negative - Neg ative POCT U BLD (test code = 3257) neg Negative - Negati ve Lab Interpretation (test cod e = 71254-7) Abnormal [facility] Notes Date/Time Note Provider Source 2024-03-23 19:39:15 Pt given printed and verbal discharge instructions regarding abx trt for otitis media, & common middle ear infections. Prescriptions provided. Discussed ibuprofen and to take with food to avoid GI distress. Discussed antibiotic therapy and to take until all completed unless adverse reaction occurs - if occurs, discontinue medication and follow up with pcp/seek medical attention Pt verbalized understanding of instructions, pt awake alert oriented, resp reg unlabored, skin w/d, color appropriate for race, moves all ext well,pt encouraged to follow up with pcp. Advised to seek medical attention for new/prolonged/worsening of symptoms. No adverse reaction to meds given in ER noted upon discharge. Awake, alert oriented, resp reg unlabored, skin w/d, pt leaving amb with steady gait, in no apparent distress. Iraida Bosch RN [facility] 2024-03-23 18:45:51 Patient arrived ambulatory c/o of left ear pain that started Sunday. Was seen at urgent care given ear drops. Ear drops have not helped. Colette Fuentes RN [facility] 2024-03-23 18:30:00 [facility] Emergency Department Note Patient Name: Sarah Keller Date of : 1985 39 year old female Treatment Room: Room/bed info not found Primary Care Physician: PATIENT DOES NOT HAVE A PCP Patient Escorted by: Self [9] Mode of Arrival: Personal means [1] EMS Treatment Prior to ED Arrival: Travel and Exposure Screening: Symptoms Does patient have any of these symptoms?: (not recorded) Exposure Screening Has patient had contact with someone with a communicable disease in the last month?: (not recorded) Diseases exposed to:: (not recorded) Is Patient ?: (not recorded) Exposure Date: (not recorded) Chief Complaint: No chief complaint on file. History of Present Illness: Ear Pain Location: Left Quality: Aching, throbbing, pressure and shooting Severity: Severe Onset quality: Gradual Duration: 1 week Timing: Constant Progression: Worsening Chronicity: New Context: water in ear Relieved by: Nothing Worsened by: Position, cold air, palpation and swallowing Ineffective treatments: Antibiotic Ear Drops. Associated symptoms: congestion, cough, ear discharge, hearing loss and rhinorrhea Associated symptoms: no abdominal pain, no fever, no headaches, no rash, no sore throat and no vomiting Past Medical History/Immunizations: Past Medical History: Diagnosis Date Anxiety 2009 was on meds, stoped 04/06/2017 Asthma as a child Bipolar disorder 2009 Depression 2007 Hypertension 2022 on meds Maternal tobacco use in first trimester 06/06/2019 PCOS (polycystic ovarian syndrome) 2011 Thrombocytopenia during 06/09/2019 Allergies: Allergies Allergen Reactions Ancef [Cefazolin] Hives Sulfa (Sulfonamide Antibiotics) Hives Past Social History: Tobacco Use Some Days; Cigarettes: Started 04/09/2002; 0.1 packs/day; Smoked an average of 0.1 packs/day for 22.0 years Smokeless Tobacco: Never used smokeless tobacco. Alcohol Use No. Drug Use No. Sexual Activity Sexually active; Partners: Male; Control/Protection: Implant. Comments: Last intercourse: 3 weeks ago Past Surgical History: Past Surgical History: Procedure Laterality Date SECTION N/A 06/27/2017 Surgeon: Bryan Gallardo MD; Location: Labor and Delivery - [place] SECTION N/A 11/14/2019 Surgeon: Bryna Gallardo MD; Location: Labor and Delivery - [place] Review of Systems: Review of Systems Constitutional: Negative for activity change, appetite change, chills, diaphoresis, fatigue and fever. HENT: Positive for congestion, ear discharge, ear pain, hearing loss and rhinorrhea. Negative for sore throat and trouble swallowing. Eyes: Negative for photophobia, pain, discharge and redness. Respiratory: Positive for cough. Negative for chest tightness, shortness of breath and wheezing. Cardiovascular: Negative for chest pain, palpitations and leg swelling. Gastrointestinal: Negative for abdominal distention, abdominal pain, blood in stool, constipation, nausea and vomiting. Genitourinary: Negative for dysuria, urgency, polyuria, frequency, hematuria and flank pain. Musculoskeletal: Negative for arthralgias, joint swelling, myalgias and neck stiffness. Skin: Negative for color change, rash and wound. Neurological: Negative for dizziness, seizures, syncope, facial asymmetry, weakness, light-headedness, numbness and headaches. Psychiatric/Behavioral: Negative for agitation, confusion, hallucinations and self-injury. The patient is not nervous/anxious. Hematological: Negative for adenopathy and cold intolerance. Does not bruise/bleed easily. Endocrine: Negative for cold intolerance, polydipsia and polyuria. Physical Exam: ED Triage Vitals Weight Actual or estimated Height BP Pulse Resp Temp Temp src SpO2 Measured on Physical Exam Vitals and nursing note reviewed. Constitutional: General: She is not in acute distress. Appearance: She is well-developed. She is not diaphoretic. HENT: Head: Normocephalic and atraumatic. Right Ear: Hearing, tympanic membrane, ear canal and external ear normal. Left Ear: External ear normal. Drainage, swelling and tenderness present. A middle ear effusion is present. Tympanic membrane is injected and bulging. Nose: Nose normal. Mouth/Throat: Pharynx: No oropharyngeal exudate. Eyes: General: No scleral icterus. Right eye: No discharge. Left eye: No discharge. Conjunctiva/sclera: Conjunctivae normal. Pupils: Pupils are equal, round, and reactive to light. Neck: Thyroid: No thyromegaly. Vascular: No JVD. Trachea: No tracheal deviation. Cardiovascular: Rate and Rhythm: Normal rate and regular rhythm. Heart sounds: Normal heart sounds. No murmur heard. No friction rub. No gallop. Pulmonary: Effort: Pulmonary effort is normal. No respiratory distress. Breath sounds: Normal breath sounds. No stridor. No wheezing or rales. Chest: Chest wall: No tenderness. Abdominal: General: Bowel sounds are normal. There is no distension. Palpations: Abdomen is soft. There is no mass. Tenderness: There is no abdominal tenderness. There is no guarding or rebound. Musculoskeletal: General: No tenderness or deformity. Normal range of motion. Cervical back: Normal range of motion and neck supple. Lymphadenopathy: Head: Right side of head: No submental, submandibular, tonsillar, preauricular, posterior auricular or occipital adenopathy. Left side of head: Preauricular and posterior auricular adenopathy present. No submental, submandibular, tonsillar or occipital adenopathy. Cervical: Cervical adenopathy present. Right cervical: No superficial cervical adenopathy. Left cervical: Superficial cervical adenopathy present. Skin: General: Skin is warm and dry. Coloration: Skin is not pale. Findings: No erythema or rash. Neurological: Mental Status: She is alert and oriented to person, place, and time. Cranial Nerves: No cranial nerve deficit. Motor: No abnormal muscle tone. Coordination: Coordination normal. Deep Tendon Reflexes: Reflexes are normal and symmetric. Reflexes normal. Psychiatric: Behavior: Behavior normal. Thought Content: Thought content normal. Judgment: Judgment normal. Radiology: No orders to display Lab Results: Lab Results - No data to display EKG: If EKG completed, see Procedure Note. Orders and Treatments: No orders of the defined types were placed in this encounter. Orders Placed This Encounter Medications ketorolac (TORADOL) injection 60 mg dexamethasone sod phos PF injection 10 mg clarithromycin (BIAXIN) tablet 500 mg clarithromycin 500 mg tablet ketorolac 10 mg tablet Dextromethorphan-Guaifenesin (MUCINEX DM) 60-1,200 mg Tb12 First Provider Eval: ED Events None ED COURSE Patient's condition improved with the treatment provided in the ED, will Dc Home with adequate medications to treat her condition. Diagnosis/Impression as of 03/23/24 1843 Acute malignant otitis externa, unspecified laterality Acute suppurative otitis media of left ear without spontaneous rupture of tympanic membrane, recurrence not specified Procedures: Procedures MDM: Medical Decision Making Problems Addressed: Acute malignant otitis externa, unspecified laterality: complicated acute illness or injury with systemic symptoms that poses a threat to life or bodily functions Acute suppurative otitis media of left ear without spontaneous rupture of tympanic membrane, recurrence not specified: complicated acute illness or injury with systemic symptoms that poses a threat to life or bodily functions Risk OTC drugs. Prescription drug management. Flowsheet Documentation: Scoring Tools: No data recorded Disposition/Condition: ED Disposition ED Disposition Disch - Home Condition Stable Comment -- Discharge Medications: Patient's Medications START taking these medications CLARITHROMYCIN 500 MG TABLET Take 1 tablet by mouth every 12 (twelve) hours. DEXTROMETHORPHAN-GUAIFENESIN (MUCINEX DM) 60-1,200 MG TB12 Take 1 tablet by mouth every 12 (twelve) hours as needed for Cough. KETOROLAC 10 MG TABLET Take 1 tablet by mouth every 6 (six) hours as needed for Pain (scale 4-6) or Pain (scale 7-10). CONTINUE taking these medications which have NOT CHANGED ALBUTEROL 90 MCG/ACTUATION INHALER Inhale 2 Puffs every 4 (four) hours as needed for Wheezing or Shortness of Breath. ALBUTEROL 90 MCG/ACTUATION INHALER Inhale 2 Puffs every 4 (four) hours as needed for Wheezing or Shortness of Breath. AZELASTINE 137 MCG (0.1 %) NASAL SPRAY Use 1 [place] in each nostril in the morning and 1 [place] in the evening. Use in each nostril as directed CETIRIZINE 10 MG CAPSULE Take 1 capsule by mouth in the morning. CHLORPHENIRAMINE 4 MG TABLET Take 1 tablet by mouth every 6 (six) hours as needed for Allergies or Runny nose. CIPROFLOXACIN-DEXAMETHASONE 0.3-0.1 % OTIC DROPS Place 4 Drops in left ear in the morning and 4 Drops in the evening. Do all this for 7 days. DICYCLOMINE 10 MG CAPSULE Take 1 capsule by mouth 4 (four) times daily. FERROUS SULFATE 325 MG (65 MG IRON) TABLET Take 1 tablet by mouth 2 (two) times daily. FLUTICASONE PROPIONATE 50 MCG/ACTUATION NASAL SPRAY Use 1 [place] in each nostril in the morning. GUAIFENESIN 100 MG/5 ML SOLUTION Take 5 mL by mouth every 4 (four) hours as needed for Cough. IBUPROFEN 800 MG TABLET Take 1 tablet by mouth every 8 (eight) hours as needed for Pain (scale 4-6). LISINOPRIL 10 MG TABLET Take 1 tablet by mouth in the morning. LISINOPRIL 20 MG TABLET Take 1 tablet by mouth at bedtime. MELOXICAM (MOBIC) 15 MG TABLET Take 1 tablet by mouth once daily as needed for Pain for up to 15 doses. OXCARBAZEPINE (TRILEPTAL ORAL) Take by mouth. PROAIR HFA 90 MCG/ACTUATION INHALER Inhale 2 Puffs every 6 (six) hours as needed for Wheezing or Shortness of Breath. SPIRONOLACTONE 50 MG TABLET Take 1 tablet by mouth in the morning and 1 tablet in the evening. Do all this for 90 days. START taking Modified Medications as Prescribed No medications on file STOP taking these medications No medications on file Follow-up: Contact information for follow-up [facility] Specialty: UNKNOWN PHYSICIAN SPECIALTY [id number] [facility] [id number] Instructions: If symptoms worsen Electronically signed by: Donal Munroe MD 03/23/241843 [facility]2024-04-26 16:39:43 Written/verbal d/c instructions, out of er no distress T [facility] Ferrara [id number] 16:21:09 Pt continues no distress, no n/v [id number]:11:07 Last took metformin 1 yr ago for stated gestational diabetes has not f[facility]u [id number] 14:11:49 Patient arrived ambulatory c/o of high blood pressure at home of 170s. Patient took her blood pressure ,medication. During triage blood pressure 149/90. Patient also complaing of one vomiting episode last night and patient states "sick to my stomach" Colette Fuentes [id number] 17:48:03 Pt discharged with diagnosis of strain of neck muscle and HTN. Printed and verbal instructions reviewed with and given to patient. Prescriptions given x 3. Pt verbalized understanding of teaching, medications, and recommended follow-up. Denies questions or concerns at this time. Pt ambulatory at discharge. Appears in no apparent distress. No ataxia noted. [employer] Annette Velarde [id number] 17:07:07 Patient reports having right neck pain that extends into right shoulder and right arm for about 1.5 weeks. Denies trauma. States she has been using icy hot and OTC pain relievers with no relief. [employer]CH[employer] Chad Mccullough [id number] 13:45:00 Sarah Keller is a 38 year old female here for a Rule Out Covid-19 Nasopharyngeal Swab. Patient educated on plan of care for visit, swabbing technique, risks and benefits of test and length of time to receive results. Verbal consent obtained to perform test. [facility] Fact Sheet for Patients provided to patient. All droplet and contact precautions taken with appropriate PPE worn while interacting with patient. - Goggles - N95 Mask - Gloves - Gown RR=18 O2 Sat=98% Patient swabbed using appropriate nasopharyngeal technique, and patient tolerated well. Patient wasdischarged in stable condition. Shayla Dolan RN 06/19/2023 1:58 PM [facility]
[2024-05-06] MEDS ORDERED: LIDOCAINE 1% MPF 5 ML VIAL ONE (01:21)
--- NOTE | 2024-05-06 17:02 | EDPHYS ---
Physician Documentation [facility] Name: Martha Keller Age: 39 yrs Sex: Female : 1985 Arrival Date: 05/06/2024 Time: 00:55 Bed 5 Private MD: ED Physician Carter Horton HPI: 05/06 01:12 This 39 yrs old Black Female presents to ER via Ambulatory with complaints of sb4 Laceration. 01:12 The patient has a laceration related to: cooking, occurred at home, and there are no sb4 complicating factors. The injury was accidental. The laceration(s) is(are) located on the palmar aspect of proximal phalanx of left little finger. Onset: The symptoms/episode began/occurred just prior to arrival. Associated signs and symptoms: The patient has no apparent associated signs or symptoms. The patient has not experienced similar symptoms in the past. The patient has not recently seen a physician. FIELD SCOUT: 01:10 LMP 04/14/2024, unknown jj7 Historical: - Allergies: 01:10 TRIMETHOPRIM; jj7 01:44 sulfamethoxazole; rg5 - PMHx: 01:10 Anxiety; Asthma; Hypertensive disorder; jj7 - PSHx: 01:10 section; jj7 - Immunization history:: Adult Immunizations not up to date, Client reports receiving the 2nd dose of the Covid vaccine, Flu vaccine is up to date. - Infectious Disease History:: Denies. - Social history:: Smoking status: Patient reports the use of cigarette tobacco products, smokes one-half pack cigarettes per day, Patient uses alcohol, on a daily basis. occasionally. Patient/guardian denies using street drugs, IV drugs. ROS: 01:12 Constitutional: Negative for fever, chills, and weight loss, sb4 01:12 Skin: Positive for laceration(s), of the palmar aspect of proximal phalanx of left little finger, 01:12 All other systems are negative, Exam: 01:12 Constitutional: This is a well developed, well nourished patient who is awake, alert, sb4 and in no acute distress. Head/Face: Normocephalic, atraumatic. Eyes: Extra-ocular motions intact. Periorbital areas with no swelling, redness, or edema. ENT: Mucous membranes moist. 01:12 Skin: injury, laceration(s), the wound is approximately 2.5 cm(s), with a depth of .3 cm(s), of the palmar aspect of proximal phalanx of left little finger, that can be described as clean, no foreign body, linear, without bleeding, Vital Signs: 01:07 BP 170 / 103; Pulse 74; Resp 19; Temp 98.3; Pulse Ox 98% ; Weight 98.88 kg; Height 5 jj7 ft. 4 in. ; Pain 9/10; 01:35 BP 155 / 95; Pulse 88; Resp 17; Pulse Ox 100% on R/A; rg5 01:07 Body Mass Index 37.42 (98.88 kg, 162.56 cm) [facility] 01:07 Pain Scale: Adult [facility] Laceration: 01:34 Wound Repair of 2.5cm ( 1.0in ) subcutaneous laceration to palmar aspect of proximal sb4 phalanx of left little finger. Distal neuro/vascular/tendon intact. Anesthesia: Local anesthetic administered with 3 mls of 1% lidocaine. Wound prep: Moderate cleansing with hibiclenz by me, Wound irrigation with saline by nurse. Skin closed with 2 5-0 Prolene using simple sutures and sterile technique. Dressed with Neosporin, bandaid. Patient tolerated well. MDM: 00:59 Patient medically screened. sb4 01:34 Data reviewed: vital signs, nurses notes, and as a result, I will discharge patient. sb4 Counseling: I had a detailed discussion with the patient and/or guardian regarding the historical points, exam findings, and any diagnostic results supporting the discharge/admit diagnosis, to return to the emergency department if symptoms worsen or persist or if there are any questions or concerns that arise at home. Administered Medications: 01:29 Drug: Lidocaine Infiltration (1 %) 5 ml 5 ml Infiltration once; to bedside {Note: rg5 injected by Melody De Anda \T\ left pinky finger.} Volume: 5 ml; Route: Infiltration; Disposition: 03:08 Co-signature as Attending Physician, Carter Horton MD I reviewed the patient's care rt provided by the Advanced Practice Provider and agree with the diagnosis and treatment plan. Disposition Summary: 05/06/24 01:35 Discharge Ordered Notes: Location: Home sb4 Problem: new sb4 Symptoms: have improved sb4 Condition: Stable sb4 Diagnosis - Laceration without foreign body of left little finger without damage to nail sb4 Followup: sb4 - With: Private Physician - When: 10 - 14 days - Reason: Staple/Suture removal Discharge Instructions: - Discharge Summary Sheet sb4 - Laceration Care, Adult, [id number] sb4 Forms: - Patient Portal Instructions sb4 - Leadership Thank You Letter sb4 Signatures: Bianca Scott RN RN jj7 Melody De Anda PA-C PAEzequiel sb4 Carter Horton MD MD rt Vinod Lowery RN RN rg5 Corrections: (The following items were deleted from the chart) 01:44 01:10 Allergies: sulfamethoxazole; noah rg5
--- NOTE | 2024-05-06 17:02 | ER ---
Nurse's Notes [facility] Name: Martha Keller Age: 39 yrs Sex: Female : 1985 Arrival Date: 05/06/2024 Time: 00:55 Bed 5 Private MD: Diagnosis: Laceration without foreign body of left little finger without damage to nail Presentation: 05/06 01:07 Chief complaint: Patient states: WAS PORTIONING HER MEAT AND USING HER KNIFE TO CUT IT jj7 AND CUT HER LEFT PINKY FINGER. LAC TO LEFT PINKY FINGER. Coronavirus screen: At this time, the client does not indicate any symptoms associated with coronavirus-19. Ebola Screen: No symptoms or risks identified at this time. Complicating Factors: There are no complicating factors for this patient. Initial Sepsis Screen: Does the patient meet any 2 criteria? No. Patient's initial sepsis screen is negative. Does the patient have a suspected source of infection? No. Patient's initial sepsis screen is negative. Risk Assessment: Do you want to hurt yourself or someone else? Patient reports no desire to harm self or others. Onset of symptoms was May 06, 2024. 01:07 Method Of Arrival: Ambulatory [facility] 01:07 Acuity: CHYNA 4 jj7 Triage Assessment: 01:10 General: Appears in no apparent distress. comfortable, Behavior is calm, cooperative, jj7 appropriate for age. Pain: Complains of pain in palmar aspect of proximal phalanx of left little finger Pain currently is 8 out of 10 on a pain scale. Injury Description: Laceration sustained to palmar aspect of proximal phalanx of left little finger is clean. 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 - Infectious Disease History:: Denies. - Social history:: Smoking status: Patient reports the use of cigarette tobacco products, smokes one-half pack cigarettes per day, Patient uses alcohol, on a daily basis. occasionally. Patient/guardian denies using street drugs, IV drugs. Screenin:14 [facility] ED Fall Risk Assessment (Adult) History of falling in the last 3 months, jj7 including since admission No falls in past 3 months (0 pts) Confusion or Disorientation No (0 pts) Intoxicated or Sedated No (0 pts) Impaired Gait No (0 pts) Mobility Assist Device Used No (0 pt) Altered Elimination No (0 pt) Score/Fall Risk Level 0 - 2 = Low Risk Oriented to surroundings, Maintained a safe environment, Educated pt \T\ family on fall prevention, incl call for assistance when getting out of bed, Assessed \T\ reinforced patient's understanding of fall precautions. Abuse screen: Denies threats or abuse. Nutritional screening: No deficits noted. Tuberculosis screening: No symptoms or risk factors identified. Assessment: 01:30 General: Appears in no apparent distress. comfortable, Behavior is calm, cooperative, rg5 appropriate for age. Pain: Denies pain. Neuro: Level of Consciousness is awake, alert, obeys commands, Oriented to person, place, time. Cardiovascular: Denies chest pain, Capillary refill < 3 seconds. Respiratory: Airway is patent Trachea midline. GI: No signs and/or symptoms were reported involving the gastrointestinal system. : No signs and/or symptoms were reported regarding the genitourinary system. EENT: No deficits noted. Derm: Skin is intact, Skin is dry, Skin is normal, Skin temperature is warm. Musculoskeletal: Range of motion: intact in all extremities, laceration on left pinky finger. Injury Description: Laceration sustained to left pinky finger is clean, 0.5 to 2.5 cm long, was sustained 1-2 hours ago. is bleeding a small amount. Vital Signs: 01:07 BP 170 / 103; Pulse 74; Resp 19; Temp 98.3; Pulse Ox 98% ; Weight 98.88 kg; Height 5 jj7 ft. 4 in. ; Pain 9/10; 01:35 BP 155 / 95; Pulse 88; Resp 17; Pulse Ox 100% on R/A; rg5 01:07 Body Mass Index 37.42 (98.88 kg, 162.56 cm) 7 01:07 Pain Scale: Adult [facility] ED Course: 00:57 Patient arrived in ED. jj6 00:58 Melody De Anda PA-C is PHCP. sb4 00:58 Carter Horton MD is Attending Physician. sb4 01:10 Triage completed. jj7 01:10 Arm band placed on right wrist. jj7 01:30 Patient has correct armband on for positive identification. Bed in low position. Call rg5 light in reach. Side rails up X 1. 01:30 Assist provider with laceration repair on left hand Set up tray. Performed by Melody De Anda PA-C Patient tolerated well. Patient did not have IV access during this emergency room visit. 01:37 Vinod Lowery, RN is Primary Nurse. rg5 01:44 Provided Education on: wound care and ff-up. rg5 Administered Medications: 01:29 Drug: Lidocaine Infiltration (1 %) 5 ml 5 ml Infiltration once; to bedside {Note: rg5 injected by Melody De Anda \T\ left pinky finger.} Volume: 5 ml; Route: Infiltration; Medication: 01:14 VIS not applicable for this client. jj7 Outcome: 01:35 Discharge ordered by . sb4 01:44 Discharged to home ambulatory, rg5 01:44 Condition: good 01:44 Discharge instructions given to patient, Instructed on discharge instructions, follow up and referral plans. 01:46 Patient left the ED. rg5 Signatures: Tameka Raymundo Juwairiyah, RN RN jjMelody Reynolds PA-C PA-C sb4 Vinod Lowery, RN RN rg5 Corrections: (The following items were deleted from the chart) 01:44 01:10 Allergies: sulfamethoxazole; noah rg5
[2024-05-07 00:18] VITALS: TEMP 98.3
[2024-05-07 00:20] VITALS: BP 155/95; O2SAT 100
== END 2024-05-06 01:46 | disposition home or self-care (01) ==
LOC: ER 00:55
PROC: 0HQGXZZ Repair Left Hand Skin, External Approach (ICD-10-PCS; principal; 2024-05-06)
DX: S61.217A Laceration without foreign body of left little finger without damage to nail, initial encounter (principal)
CPT/HCPCS: 12001; J2001; 99283